=== PATIENT | male | born 1945 | race Caucasian/White ===

== ENCOUNTER 2017-04-16 04:10 | Inpatient (IN) | payer OTHER, BC ==
[~2017-04-16] VITALS: Ht 170.2 cm; Wt 83.5 kg
--- NOTE | 2017-04-16 04:10 | NUR ---
BIBA TO ER BED 10
--- NOTE | 2017-04-16 04:11 | NUR ---
PATIENT IS A 71 Y/O MALE BIB [facility] WHO PRESENTS TO THE ED C/O SOB. PT STATES, "I WAS AT HOME BUT I HAD A HARD TIME BREATHING." PT DENIES PAIN AT THIS TIME. PT REPORTS SOB, WHEEZES NOTED BILATERALLY AND DIMINISHED LUNG SOUNDS TO THE BILATERAL BASES. PT DENIES N/V/D. PT AAOX4, RR EVEN/UNLABORED. PT REPOSITIONED FOR COMFORT, BED IN LOWEST POSITION. ER MD DR. QUIÑONES NOTIFIED. WILL CONTINUE TO MONITOR. Addendum: 04/16/17 at 0430 by MEDDCV PATIENT IS A 71 Y/O MALE BIB [facility] WHO PRESENTS TO THE ED C/O SOB. PER [facility], PT WAS FOUND AT HOME IN TRIPOD POSITION HAVING DIFFICULTY BREATHING, PT WAS PUT ON CPAP. PT STATES, "I WAS AT HOME BUT I HAD A HARD TIME BREATHING." PT DENIES PAIN AT THIS TIME. PT REPORTS SOB, WHEEZES NOTED BILATERALLY AND DIMINISHED LUNG SOUNDS TO THE BILATERAL BASES. PT DENIES N/V/D. PT AAOX4, RR EVEN/UNLABORED. PT REPOSITIONED FOR COMFORT, BED IN LOWEST POSITION. SILVESTRE QUIÑONES NOTIFIED. WILL CONTINUE TO MONITOR.
[2017-04-16 04:18] VITALS: BP 178/80
[2017-04-16 04:47] LABS: BASOPHILS # (AUTO) 0.3 K/uL (0.00-0.22); BASOPHILS % (AUTO) 2.7 % (0.0-2.0); EOSINOPHILS # (AUTO) 0.4 K/uL (0-0.4); EOSINOPHILS % (AUTO) 3.2 % (0.0-4.0); HEMATOCRIT 39.1 % (36-52); HEMOGLOBIN 12.8 g/dL (12.0-18.0); LYMPHOCYTES # (AUTO) 2.8 K/uL (2.0-11.5); LYMPHOCYTES % (AUTO) 21.5 % (20.5-51.1); MEAN CORPUSCULAR HEMOGLOBIN 28 pg (27-31); MEAN CORPUSCULAR HGB CONC 33 g/dL (33-37); MEAN CORPUSCULAR VOLUME 86 fL (80-94); MONOCYTES # (AUTO) 0.8 K/uL (0.8-1.0); MONOCYTES % (AUTO) 6.5 % (1.7-9.3); NEUTROPHILS # (AUTO) 8.5 K/uL (1.8-7.7); NEUTROPHILS % (AUTO) 66.1 % (42.2-75.2); PLATELET COUNT (AUTO) 173 K/uL (140-450); RED BLOOD CELL COUNT(AUTO) 4.54 MIL/uL (4.20-6.10); RED CELL DISTRIBUTION WIDTH 12.8 % (11.6-13.7); WHITE BLOOD COUNT (AUTO) 12.8 K/uL (4.8-10.8)
[2017-04-16 04:51] VITALS: BP 120/60
[2017-04-16 04:55] LABS: ANION GAP 15.8 (8-16); POTASSIUM 3.8 mmol/L (3.5-5.1)
[2017-04-16 04:56] LABS: CREATININE 1.6 mg/dL (0.7-1.3)
--- NOTE | 2017-04-16 05:01 | NUR ---
PATIENT PLACED ON BIPAP SEE RT NOTES NON-INVASIVE VENT AND ABG DONE. PATIENT STABLE ON BIPAP IN ER NO CHANGES MADE AT THIS TIME. RT WILL MONITOR AND WEAN IF APPROPRIATE OR ORDERED BY ER DOCTOR.
[2017-04-16 05:03] LABS: ALBUMIN 3.3 g/dL (3.4-5.0); TOTAL BILIRUBIN 0.7 mg/dL (0.0-1.0)
[2017-04-16] MEDS ORDERED: AZITHROMYCIN 500 MG in DEXTROSE 5% 250 ML IV ONE (05:25)
[2017-04-16] MEDS ORDERED: AZITHROMYCIN 500 MG INJ VIAL IV ONE (05:32)
[2017-04-16] MEDS ORDERED: cefTRIAXone 1,000 MG VIAL ONE (05:32)
[2017-04-16] MEDS ORDERED: ACETAMINOPHEN 325 MG TAB PO PRN (05:35)
[2017-04-16] MEDS ORDERED: ALBUTEROL SULFATE/IPRATROPIU 3 ML SOL IH PRN (05:35)
[2017-04-16] MEDS ORDERED: ONDANSETRON 4 MG/2 ML VIAL IVP PRN (05:35)
--- NOTE | 2017-04-16 05:51 | NUR ---
# 14 FR Urinary catheter inserted utilizing sterile technique. Immediate return of CL YELLOW 45 ml urine noted. Urine sample collected and sent to lab. Pt tolerated procedure WELL.
[2017-04-16] MEDS: CLINDAMYCIN 600 MG in DEXTROSE 5% 50 ML IV SCH ×4 (06:00→23:56)
--- NOTE | 2017-04-16 06:20 | NUR ---
Patient will be admitted to care of DR. SUMNER. Admited to TELE. Will go to room 119B. Belongings list completed. Report to SWATHI WANG.
[2017-04-16 06:30] VITALS: BP 124/58
--- NOTE | 2017-04-16 06:30 | NUR ---
ADMITTED PATIENT TO THE TELE UNIT, PATIENT RESTING IN BED, AWAKE ALERT ORIENTED X4, NO S/S OF DISTRESS NOTED, RESPIRATION EVEN AND UNLABORED, 02SAT 100%, ON BIPAP. TELE MONITOR IS PLACE ON PATIENT, IV PATENT AND INTACT, INFUSING AZITHROMYCIN 500MG AT 250ML/HR. PLAN OF CARE DISCUSSED, PATIENT VERBALIZED UNDERSTANDING, CALL LIGHT WITHIN REACH, SAFETY MEASURE ENSURED, WILL CONTINUE TO MONITOR.
[2017-04-16] MEDS ORDERED: [UNRECOGNIZED DRUG - CODE] PO (06:35)
[2017-04-16] MEDS ORDERED: LIP80 PO (06:35)
[2017-04-16] MEDS ORDERED: FURO-572 PO (06:35)
[2017-04-16] MEDS ORDERED: [UNRECOGNIZED DRUG - CODE] PO (06:35)
[2017-04-16] MEDS ORDERED: METO25TE2 PO (06:35)
[2017-04-16] MEDS ORDERED: ZYL300 PO (06:35)
[2017-04-16] MEDS ORDERED: AMLO10TA PO (06:35)
[2017-04-16] MEDS ORDERED: FERR325E14 PO (06:35)
[2017-04-16] MEDS ORDERED: TAMS0.4C96 PO (06:35)
[2017-04-16] MEDS ORDERED: NITR0.4T2 SL (06:35)
[2017-04-16] MEDS ORDERED: METF1000 PO (06:35)
[2017-04-16] MEDS ORDERED: CLOP75TA55 PO (06:35)
[2017-04-16] MEDS ORDERED: ACET-5636 PO (06:35)
--- NOTE | 2017-04-16 06:50 | NUR ---
DR. CHAVEZ IS AT THE BEDSIDE EXAMINING THE PATIENT.
[2017-04-16] MEDS: NACL 0.9% 1,000 ML IV SCH (06:51)
[2017-04-16] MEDS ORDERED: LEVOFLOXACIN 750 MG/D5W PREMIX 150 ML IV SCH (07:00)
[2017-04-16] MEDS: ALBUTEROL SULFATE/IPRATROPIU 3 ML SOL IH SCH ×3 (07:00→20:19)
--- NOTE | 2017-04-16 07:01 | NUR ---
PATIENT HAS BEEN SCREENED AND CATEGORIZED MODERATE NUTRITION RISK. PATIENT WILL BE SEEN WITHIN 3-5 DAYS OF ADMISSION. 04/17/17-04/19/17 MAGNO HOLLAND MS, RDN
--- NOTE | 2017-04-16 07:15 | NUR ---
ENDORSED PLAN OF CARE TO DAY SHIFT RN, PATIENT RESTING IN BED, NO S/S OF DISTRESS, RESPIRATION EVEN AND UNLABORED, PATIENT IN STABLE CONDITION.
[2017-04-16 07:16] LABS: BARBITURATE, URINE NEG ng/ml (NEG <=200); BENZODIAZEPINE, URINE NEG ng/mL (NEG <=200); CANNABINOID, URINE NEG ng/mL (NEG <=50); COCAINE, URINE NEG ng/mL (NEG <=300); OPIATE, URINE NEG ng/mL (NEG <=2000); PHENCYCLIDINE SCREEN,URINE NEG ng/mL (NEG <=25)
--- NOTE | 2017-04-16 07:17 | NUR ---
RECEIVED REPORT FROM ASSISTANT PROFESSOR OF PHILOSOPHY RN AT BEDSIDE FOR CONTINUITY OF CARE. PATIENT RESTING IN BED, AWAKE ALERT ORIENTED X4, NO S/S OF DISTRESS NOTED, AT BEDSIDE. RESPIRATION EVEN AND UNLABORED, 02SAT 100%, ON BIPAP. TELE MONITOR IS PLACE ON PATIENT, IV PATENT AND INTACT, INFUSING AZITHROMYCIN 500MG AT 250ML/HR. PLAN OF CARE DISCUSSED, PATIENT VERBALIZED UNDERSTANDING, CALL LIGHT WITHIN REACH, SAFETY MEASURE ENSURED, WILL CONTINUE TO MONITOR.
--- NOTE | 2017-04-16 07:26 | NUR ---
REPORT GIVEN TO CIVIL DEFENSE DIRECTOR NURSE AT BEDSIDE FOR CONTINUITY OF CARE. PATIENT IN STABLE CONDITION. Addendum: 04/16/17 at 2021 by Alan Little RN TIME: 1925
--- NOTE | 2017-04-16 07:49 | NUR ---
REC'D PT ON SVETLANA V60 BIPAP SETTINGS 12\6 RR 16 FIO2 60% ALARMS ON AND FUNCTIONING PROPERLY, AMBU BAG IS AT SIDE OF BIPAP AND BIPAP IS PLUGGED INTO RED OUTLET, B\S ARE WHEEZING BILATERALLY, PT IS SLEEPING
[2017-04-16 08:09] LABS: APPEARANCE,URINE CLEAR (CLEAR); BILIRUBIN,URINE NEGATIVE (NEGATIVE); BLOOD, URINE NEGATIVE (NEGATIVE); COLOR,URINE YELLOW (YELLOW); LEUKOCYTE ESTERASE ,URINE NEGATIVE (NEGATIVE); NITRITE, URINE NEGATIVE (NEGATIVE); PH,URINE 5.5 (5.0-9.0); UGLUCOSE NEGATIVE (NEGATIVE)
[2017-04-16] MEDS: DOCUSATE SODIUM 100 MG GELCAP PO SCH ×2 (08:32→21:00)
--- NOTE | 2017-04-16 08:37 | NUR ---
pt off bipap to eat placed on 3lnc o2 sat is 99%
--- NOTE | 2017-04-16 08:39 | NUR ---
PATIENT OFF BIPAP AND ON 4L O2 NC IN ORDER TO EAT BREAKFAST. PATIENT TOLERATED IT WELL, O2 SAT AT 94%. NO S/S OF DISTRESS NOTED, RESPIRATION EVEN AND UNLABORED, CALL LIGHT WITHIN REACH, SAFETY MEASURE IN PLACE, CALL LIGHT WITHIN REACH. WILL CONTINUE TO MONITOR.
[2017-04-16] MEDS ORDERED: methylPREDNISolone SS 125 MG/2 ML VIAL IVP SCH (08:40)
--- NOTE | 2017-04-16 08:40 | NUR ---
ADMINISTERED MORNING MEDICATION, PATIENT TOLERATED IT WELL. PATIENT OFF BIPAP TO EAT BREAKFAST. O2 SATURATION AT 93-94%. AT BEDSIDE. SAFETY PRECAUTIONS IN PLACE. CALL LIGHT WITHIN REACH, WILL CONTINUE TO MONITOR PATIENT.
[2017-04-16 08:58] LABS: MAGNESIUM 1.6 mg/dL (1.8-2.4); PHOSPHORUS 3.8 mg/dL (2.5-4.9)
[2017-04-16 09:05] LABS: RBC,URINE NONE SEEN /HPF (0-5); WBC,URINE 0-5 (RARE) /HPF (0-5)
[2017-04-16 09:12] LABS: FREE T4 (FREE THYROXINE) 1.17 ng/dL (0.76-1.46); THYROID STIMULATING HORMONE 0.59 uIU/mL (0.34-3.74)
--- NOTE | 2017-04-16 09:12 | NUR ---
ABG DRAWN ON LB WITHOUT INCIDENT
[2017-04-16] MEDS ORDERED: NITROGLYCERIN 0.4 MG TAB SL PRN (09:15)
[2017-04-16] MEDS ORDERED: MAG SULF 2000 MG/WATER PREMIX 50 ML IV SCH ×2 (09:15→13:57)
[2017-04-16 09:56] LABS: CHOL/HDL RATIO 2.2 (1-4.5)
[2017-04-16] MEDS: CYCLOBENZAPRINE 10 MG TAB PO SCH ×3 (09:56→17:16)
[2017-04-16 10:00] LABS: PROTHROMBIN TIME 9.1 secs (10.8-13.4)
[2017-04-16] MEDS ORDERED: amLODIPine 5 MG TAB PO SCH (10:26)
[2017-04-16] MEDS ORDERED: ALLOPURINOL 300 MG TAB PO SCH (10:26)
[2017-04-16] MEDS ORDERED: CLOPIDOGREL 75 MG TAB PO SCH (10:27)
[2017-04-16] MEDS ORDERED: ATORVASTATIN 80 MG TAB PO SCH (10:27)
[2017-04-16] MEDS ORDERED: FUROSEMIDE 20 MG TAB PO SCH (10:28)
[2017-04-16] MEDS ORDERED: metFORMIN 500 MG TAB PO SCH ×3 (10:29→17:00)
[2017-04-16] MEDS ORDERED: METOPROLOL 25 MG TAB PO SCH ×2 (10:30→21:00)
[2017-04-16] MEDS ORDERED: TAMSULOSIN 0.4 MG CAP PO SCH ×2 (10:31→21:00)
[2017-04-16] MEDS ORDERED: DEXTROSE 50% 50 ML SYR IVP PRN (11:00)
--- NOTE | 2017-04-16 11:34 | NUR ---
ADMINISTERED ORDER MEDICATIONS. PATIENT TOLERATED IT WELL, NO S/S OF DISTRESS NOTED, RESPIRATION EVEN AND UNLABORED, CALL LIGHT WITHIN REACH, SAFETY MEASURE IN PLACE, CALL LIGHT WITHIN REACH. WILL CONTINUE TO MONITOR.
[2017-04-16] MEDS: BLOOD GLUCOSE MONITORING 1 DEV DEV FS SCH ×3 (11:35→20:25)
[2017-04-16] MEDS: HYDROcodone/APAP 7.5/325 MG 1 TAB PO PRN ×3 (11:39→20:49)
--- NOTE | 2017-04-16 11:40 | NUR ---
PATIENT OFF FLOOR, TO RADIOLOGY FOR THORACIC SPINAL XRAY.
[2017-04-16 12:00] VITALS: BP 129/61
--- NOTE | 2017-04-16 12:00 | NUR ---
PT NOTE 1150 RECEIVED ORDER FOR PT EVAL, CHART REVIEWED AND CLEARED FOR PT PER RN. HOLD PT EVAL DUE TO PENDING XRAY THORACIC SPINE WITH Pt C/O SHARP PAIN ON R SIDE OF BACK DOWN TO PELVIS WHEN TURNING IN BED; WILL FOLLOW UP W/Pt TUESDAY. RN NOTIFIED. PVE(1)
--- NOTE | 2017-04-16 12:25 | NUR ---
PATIENT RETURNED TO FLOOR FROM RADIOLOGY. FAMILY AT BEDSIDE. NO S/S OF DISTRESS NOTED, RESPIRATION EVEN AND UNLABORED, CALL LIGHT WITHIN REACH, SAFETY MEASURE IN PLACE, CALL LIGHT WITHIN REACH. WILL CONTINUE TO MONITOR.
[2017-04-16] MEDS: INSULIN LISPRO SLIDING SCALE 100 UNITS/ML VIAL SUBQ PRN ×3 (12:57→21:00)
[2017-04-16] MEDS: KETOROLAC 10 MG TAB PO SCH ×3 (13:32→23:55)
[2017-04-16] MEDS: methylPREDNISolone SS 125 MG/2 ML VIAL IVP SCH ×2 (13:33→20:32)
--- NOTE | 2017-04-16 14:50 | NUR ---
PATIENT RESTING, FAMILY AT BEDSIDE. NO S/S OF DISTRESS NOTED, RESPIRATION EVEN AND UNLABORED, CALL LIGHT WITHIN REACH, SAFETY MEASURE IN PLACE, CALL LIGHT WITHIN REACH. WILL CONTINUE TO MONITOR.
--- NOTE | 2017-04-16 15:08 | NUR ---
Social Service Note: Per patient's Jennifer (Swiss speaking) , patient lives at home with her. She reported they do not have any difficulty filling patient's prescriptions at home. She stated prior to hospital admission patient was independent with adls. She stated he does not use any dmes at home, no home O2, no home health services. Pcp is Donnie Danielson. She stated patient makes his own medical decisions. She stated they (patient and her) do not have any questions at this time, no concerns.
--- NOTE | 2017-04-16 15:53 | NUR ---
PATIENT C/O PAIN IN BACK D/T S/P FALL 09/04. NORCO PRN GIVEN. PATIENT TOLERATED IT WELL. NO S/S OF DISTRESS NOTED, RESPIRATION EVEN AND UNLABORED, CALL LIGHT WITHIN REACH, SAFETY MEASURE IN PLACE, CALL LIGHT WITHIN REACH. WILL CONTINUE TO MONITOR.
[2017-04-16 16:00] VITALS: BP 121/55
--- NOTE | 2017-04-16 17:16 | NUR ---
VENOUS DOPPLER BEING PERFORMED. ADMINISTERED ORDERED MEDICATIONS. PATIENT TOLERATED THEM WELL. NO S/S OF DISTRESS NOTED, RESPIRATION EVEN AND UNLABORED, CALL LIGHT WITHIN REACH, SAFETY MEASURE IN PLACE, CALL LIGHT WITHIN REACH. WILL CONTINUE TO MONITOR.
--- NOTE | 2017-04-16 19:15 | NUR ---
PATIENT REPORT RECEIVED FROM MORNING NURSE AT BEDSIDE. PATIENT IS AWAKE, ALERT AND ORIENTED. PATIENT'S FAMILY IS AT BEDSIDE. NO SIGNS AND SYMPTOMS OF DISTRESS OF NOTED, NO COMPLAINTS OF PAIN AT THIS TIME. PATIENT IS ON O2 4L VIA OXYMIZER, PATIENT TOLERATING WELL. PLAN OF CARE DISCUSSED WITH PATIENT. PATIENT VERBALIZED UNDERSTANDING. BED IN LOWEST POSITION, SIDE RAILS UP AND CALL LIGHT WITHIN REACH. WILL CONTINUE TO MONITOR.
[2017-04-16] MEDS ORDERED: GABA-638 PO (19:35)
[2017-04-16 20:00] VITALS: BP 113/50
[2017-04-16] MEDS ORDERED: GABAPENTIN 300 MG CAP PO SCH (20:10)
--- NOTE | 2017-04-16 20:20 | NUR ---
AWAKE AND ALERT RESPONSIVE NO EVIDENCE OF PULMONARY DISTRESS NOTED PATIENT DENIES SOB BIPAP NOT REQUIRED AT THIS TIME ON STANDBY
[2017-04-16] MEDS: TAMSULOSIN 0.4 MG CAP PO SCH (20:31)
[2017-04-16] MEDS ORDERED: PROPAFENONE HCL 150 MG PO SCH (21:00)
--- NOTE | 2017-04-16 21:00 | NUR ---
PATIENT REFUSED COLACE, STATED THAT HE ALREADY HAD A BOWEL MOVEMENT THIS MORNING. HE SAID HE WILL JUST TAKE THE SCHEDULED COLACE TOMORROW MORNING.
--- NOTE | 2017-04-16 22:30 | NUR ---
CHECKED ON PATIENT. PATIENT IS ASLEEP. NO SIGNS AND SYMPTOMS OF DISTRESS NOTED. BREATHING EVEN AND UNLABORED. BED IN LOWEST POSITION, SIDE RAILS UP AND CALL LIGHT WITHIN REACH. WILL CONTINUE TO MONITOR.
[2017-04-17] VITALS: BP 121/53
--- NOTE | 2017-04-17 00:45 | NUR ---
ASSISTED PATIENT WITH AMBULATING TO THE RESTROOM. PATIENT VOIDED. NO SIGNS AND SYMPTOMS OF DISTRESS NOTED. NO SOB. WILL CONTINUE TO MONITOR.
--- NOTE | 2017-04-17 01:00 | NUR ---
PATIENT PICKED UP BY [facility] TO GET PULMONARY VQ SCAN DONE IN RADIOLOGY. PATIENT LEFT IN WHEELCHAIR WITH O2 4L VIA OXYMIZER
--- NOTE | 2017-04-17 01:30 | NUR ---
PATIENT RETURNED FROM RADIOLOGY. PATIENT AMBULATED BACK TO BED FROM WHEELCHAIR. PATIENT COMPLAINED OF 5/10 BACK PAIN. WILL MEDICATE ORDERED.
[2017-04-17] MEDS: HYDROcodone/APAP 7.5/325 MG 1 TAB PO PRN ×3 (01:43→21:02)
[2017-04-17 04:00] VITALS: BP 126/53
[2017-04-17] MEDS: methylPREDNISolone SS 125 MG/2 ML VIAL IVP SCH (05:30)
[2017-04-17] MEDS: CLINDAMYCIN 600 MG in DEXTROSE 5% 50 ML IV SCH ×4 (05:31→23:07)
[2017-04-17] MEDS: KETOROLAC 10 MG TAB PO SCH ×4 (05:31→23:07)
[2017-04-17] MEDS: NACL 0.9% 1,000 ML IV SCH (05:43)
[2017-04-17] MEDS: INSULIN LISPRO SLIDING SCALE 100 UNITS/ML VIAL SUBQ PRN ×4 (05:47→21:07)
[2017-04-17] MEDS: BLOOD GLUCOSE MONITORING 1 DEV DEV FS SCH ×4 (06:31→20:42)
--- NOTE | 2017-04-17 07:07 | NUR ---
PATIENT REPORT GIVEN TO MORNING NURSE AT BEDSIDE. PATIENT IS IN STABLE CONDITION.
--- NOTE | 2017-04-17 07:08 | NUR ---
RECEIVED REPORT FROM GREENS TIER RN AT BEDSIDE FOR CONTINUITY OF CARE. PATIENT RESTING IN BED, AWAKE ALERT ORIENTED X4, NO S/S OF DISTRESS NOTED, RESPIRATION EVEN AND UNLABORED, 02SAT 94% ON 4L OXYMIZER. PATIENT ON TELE MONITOR. IV ON R AC, PATENT AND INTACT, INFUSING NS AT 20ML/HR. PLAN OF CARE DISCUSSED, PATIENT VERBALIZED UNDERSTANDING, CALL LIGHT WITHIN REACH, SAFETY MEASURE ENSURED, WILL CONTINUE TO MONITOR PATIENT.
[2017-04-17 07:24] LABS: ANION GAP 15.7 (8-16); CARBON DIOXIDE 20.9 mmol/L (21-32); CREATININE 1.7 mg/dL (0.7-1.3); POTASSIUM 4.6 mmol/L (3.5-5.1)
[2017-04-17 07:33] LABS: MAGNESIUM 2.4 mg/dL (1.8-2.4); PHOSPHORUS 4.3 mg/dL (2.5-4.9)
[2017-04-17 07:36] LABS: HEMATOCRIT 30.2 % (36-52); MEAN CORPUSCULAR HEMOGLOBIN 28 pg (27-31); MEAN CORPUSCULAR HGB CONC 33 g/dL (33-37); MEAN CORPUSCULAR VOLUME 85 fL (80-94); PLATELET COUNT (AUTO) 116 K/uL (140-450); RED BLOOD CELL COUNT(AUTO) 3.55 MIL/uL (4.20-6.10); RED CELL DISTRIBUTION WIDTH 12.1 % (11.6-13.7); WHITE BLOOD COUNT (AUTO) 6.1 K/uL (4.8-10.8)
[2017-04-17] MEDS: ALBUTEROL SULFATE/IPRATROPIU 3 ML SOL IH SCH ×3 (07:42→19:55)
[2017-04-17 08:00] VITALS: BP 127/61
[2017-04-17] MEDS: METOPROLOL 25 MG TAB PO SCH ×2 (08:50→20:44)
[2017-04-17] MEDS: ALLOPURINOL 300 MG TAB PO SCH (08:50)
[2017-04-17] MEDS: GABAPENTIN 300 MG CAP PO SCH ×3 (08:50→17:23)
[2017-04-17] MEDS: FUROSEMIDE 20 MG TAB PO SCH (08:51)
[2017-04-17] MEDS: FERROUS SULFATE 325 MG TABEC PO SCH (08:51)
[2017-04-17] MEDS: CYCLOBENZAPRINE 10 MG TAB PO SCH ×3 (08:52→17:34)
[2017-04-17] MEDS: amLODIPine 5 MG TAB PO SCH (08:52)
[2017-04-17] MEDS: CLOPIDOGREL 75 MG TAB PO SCH (08:52)
[2017-04-17] MEDS: DOCUSATE SODIUM 100 MG GELCAP PO SCH ×2 (08:52→20:43)
[2017-04-17] MEDS: TAMSULOSIN 0.4 MG CAP PO SCH ×2 (08:52→20:44)
[2017-04-17] MEDS: ATORVASTATIN 80 MG TAB PO SCH (08:52)
[2017-04-17] MEDS ORDERED: ATORVASTATIN 80 MG TAB PO SCH (09:00)
[2017-04-17] MEDS ORDERED: amLODIPine 5 MG TAB PO SCH (09:00)
[2017-04-17] MEDS ORDERED: ALLOPURINOL 300 MG TAB PO SCH (09:00)
[2017-04-17] MEDS ORDERED: FERROUS SULFATE 325 MG TABEC PO SCH (09:00)
[2017-04-17] MEDS ORDERED: FUROSEMIDE 20 MG TAB PO SCH (09:00)
[2017-04-17] MEDS ORDERED: CLOPIDOGREL 75 MG TAB PO SCH (09:00)
--- NOTE | 2017-04-17 09:02 | NUR ---
ADMINISTERED MORNING MEDICATIONS. PATIENT TOLERATED THEM WELL. UPDATED BOARD. UPDATED PATIENT WITH PLAN OF CARE, PATIENT VERBALIZED UNDERSTANDING. SAFETY PRECAUTIONS IN PLACE, CALL LIGHT WITHIN REACH, WILL CONTINUE TO MONITOR PATIENT.
[2017-04-17 09:08] LABS: BASOPHILS % (MANUAL) 0 % (0-2); EOSINOPHILS % (MANUAL) 0 % (0-4); LYMPHOCYTES % (MANUAL) 8 % (20-46); MONOCYTES % (MANUAL) 2 % (5-12)
--- NOTE | 2017-04-17 10:07 | NUR ---
ASSISTED PATIENT TO THE BATHROOM. PATIENT AMBULATED WITH ASSIST ON STEADY GAIT. PATIENT DENIES PAIN. BREATHING EVEN AND UNLABORED. SAFETY PRECAUTIONS IN PLACE, CALL LIGHT WITHIN REACH. WILL CONTINUE TO MONITOR PATIENT.
[2017-04-17 12:00] VITALS: BP 128/60
[2017-04-17] MEDS: methylPREDNISolone SS 40 MG/ML VIAL IVP SCH ×2 (12:28→20:43)
--- NOTE | 2017-04-17 12:28 | NUR ---
ADMINISTERED ORDERED MEDICATIONS, BLOOD SUGAR 350, COVERAGE GIVEN. PATIENT COMPLAINED OF BACK PAIN 6/10, NORCO PRN ADMINISTERED. PATIENT TOLERATED THEM WELL.NO SIGNS OF DISTRESS OR SOB NOTED. SAFETY PRECAUTION IN PLACE, CALL LIGHT WITHIN REACH, WILL CONTINUE TO MONITOR PATIENT.
--- NOTE | 2017-04-17 15:10 | NUR ---
PATIENT AMBULATED TO THE BATHROOM WITH ASSIST ON STEADY GAIT. PATIENT DENIES PAIN. BREATHING EVEN AND UNLABORED. AT 94% OXYGEN SATURATION ON O2 4L OXYMIZER. SAFETY PRECAUTIONS IN PLACE, CALL LIGHT WITHIN REACH. WILL CONTINUE TO MONITOR PATIENT.
[2017-04-17 16:00] VITALS: BP 127/65
--- NOTE | 2017-04-17 17:24 | NUR ---
ADMINISTERED ORDERED MEDICATIONS, PATIENT TOLERATED THEM WELL. FAMILY AT BEDSIDE. NO SIGNS OF DISTRESS OR SOB NOTED. SAFETY PRECAUTION IN PLACE. CALL LIGHT WITHIN REACH. WILL CONTINUE TO MONITOR PATIENT.
--- NOTE | 2017-04-17 19:08 | NUR ---
REPORT GIVEN TO IMAGING NURSE NURSE AT BEDSIDE FOR CONTINUITY OF CARE. IS AT BEDSIDE. PATIENT IN STABLE CONDITION.
--- NOTE | 2017-04-17 19:10 | NUR ---
PATIENT REPORT RECEIVED FROM MORNING NURSE AT BEDSIDE. PATIENT IS AWAKE, ALERT AND ORIENTED. PATIENT'S IS AT BEDSIDE. NO SIGNS AND SYMPTOMS OF DISTRESS NOTED. PATIENT ON 4L O2 VIA OXYMIZER. NO COMPLAINTS OF PAIN AT THIS TIME. PLAN OF CARE DISCUSSED WITH PATIENT. PATIENT VERBALIZED UNDERSTANDING. BED IN LOWEST POSITION, SIDE RAILS UP AND CALL LIGHT WITHIN REACH. WILL CONTINUE TO MONITOR.
[2017-04-17 20:00] VITALS: BP 136/58
--- NOTE | 2017-04-17 21:00 | NUR ---
NOTIFIED DR. MALHOTRA OF PATIENT'S PLATELET LEVEL OF 116, SAID THAT IT WAS OK TO GIVE HEPARIN
--- NOTE | 2017-04-17 21:30 | NUR ---
RESPIRATORY THERAPIST NOTIFIED THAT PATIENT IS NOW ON 3L O2 NC. PATIENT O2 SAT AROUND 95%. WILL CONTINUE TO MONITOR.
[2017-04-18] VITALS: BP 143/67
[2017-04-18 04:00] VITALS: BP 159/63
[2017-04-18] MEDS: methylPREDNISolone SS 40 MG/ML VIAL IVP SCH (04:55)
[2017-04-18] MEDS: KETOROLAC 10 MG TAB PO SCH ×4 (05:00→23:58)
[2017-04-18] MEDS: CLINDAMYCIN 600 MG in DEXTROSE 5% 50 ML IV SCH ×3 (05:01→18:09)
[2017-04-18] MEDS: NACL 0.9% 1,000 ML IV SCH (05:07)
[2017-04-18] MEDS: INSULIN LISPRO SLIDING SCALE 100 UNITS/ML VIAL SUBQ PRN ×3 (05:52→16:40)
[2017-04-18 06:29] LABS: BASOPHILS % (AUTO) 0.5 % (0.0-2.0); EOSINOPHILS % (AUTO) 0.6 % (0.0-4.0); HEMOGLOBIN 10.4 g/dL (12.0-18.0); LYMPHOCYTES # (AUTO) 0.7 K/uL (2.0-11.5); LYMPHOCYTES % (AUTO) 7.9 % (20.5-51.1); MEAN CORPUSCULAR HEMOGLOBIN 29 pg (27-31); MEAN CORPUSCULAR HGB CONC 34 g/dL (33-37); MEAN CORPUSCULAR VOLUME 86 fL (80-94); MONOCYTES # (AUTO) 0.5 K/uL (0.8-1.0); MONOCYTES % (AUTO) 6.3 % (1.7-9.3); NEUTROPHILS # (AUTO) 7.1 K/uL (1.8-7.7); NEUTROPHILS % (AUTO) 84.7 % (42.2-75.2); PLATELET COUNT (AUTO) 150 K/uL (140-450); RED BLOOD CELL COUNT(AUTO) 3.63 MIL/uL (4.20-6.10); RED CELL DISTRIBUTION WIDTH 12.5 % (11.6-13.7); WHITE BLOOD COUNT (AUTO) 8.3 K/uL (4.8-10.8)
[2017-04-18 07:07] LABS: ANION GAP 14.3 (8-16); CARBON DIOXIDE 24.6 mmol/L (21-32); POTASSIUM 4.9 mmol/L (3.5-5.1)
[2017-04-18] MEDS: ALBUTEROL SULFATE/IPRATROPIU 3 ML SOL IH SCH ×3 (07:16→19:15)
--- NOTE | 2017-04-18 07:20 | NUR ---
PATIENT REPORT GIVEN TO MORNING NURSE AT BEDSIDE. PATIENT IS IN STABLE CONDITION
--- NOTE | 2017-04-18 07:23 | NUR ---
PATIENT IS AAOX4 AND SHOWS NO S/S OF ACUTE DISTRESS ON O2 @ 3L VIA NC. ON TELE MONITOR. IV NOTED ON THE RIGHT AC WITH IVF'S INFUSING WELL. SKIN IS INTACT, WITH SCABS ON BILATERAL FOREARMS, DENIES PAIN. PATIENT WAS EXPLAINED TO USE THE CALL LIGHT FOR ASSISTANCE, HOSPITAL ENVIRONMENT, AND POC. PATIENT SAFETY PRECAUTIONS ARE IN PLACE. BED IN LOW POSITION WITH CALL LIGHT WITHIN REACH.
[2017-04-18] MEDS: BLOOD GLUCOSE MONITORING 1 DEV DEV FS SCH ×4 (07:30→20:55)
[2017-04-18 07:44] LABS: CREATININE 1.5 mg/dL (0.7-1.3)
[2017-04-18 08:00] VITALS: BP 157/71
[2017-04-18] MEDS ORDERED: metFORMIN 500 MG TAB PO SCH (08:00)
[2017-04-18] MEDS ORDERED: CLINICAL MONITORING MC PRN (08:15)
[2017-04-18] MEDS: DOCUSATE SODIUM 100 MG GELCAP PO SCH ×2 (08:41→21:01)
[2017-04-18] MEDS: FERROUS SULFATE 325 MG TABEC PO SCH (08:41)
[2017-04-18] MEDS: FUROSEMIDE 20 MG TAB PO SCH (08:42)
[2017-04-18] MEDS: CYCLOBENZAPRINE 10 MG TAB PO SCH ×3 (08:42→16:36)
[2017-04-18] MEDS: TAMSULOSIN 0.4 MG CAP PO SCH ×2 (08:42→21:01)
[2017-04-18] MEDS: ALLOPURINOL 300 MG TAB PO SCH (08:43)
[2017-04-18] MEDS: GABAPENTIN 300 MG CAP PO SCH ×3 (08:43→16:36)
[2017-04-18] MEDS: CLOPIDOGREL 75 MG TAB PO SCH (08:43)
[2017-04-18] MEDS: METOPROLOL 25 MG TAB PO SCH ×2 (08:44→21:01)
[2017-04-18] MEDS: amLODIPine 5 MG TAB PO SCH (08:44)
[2017-04-18] MEDS: ATORVASTATIN 80 MG TAB PO SCH (08:45)
--- NOTE | 2017-04-18 08:55 | NUR ---
ADMINISTERED SCHEDULED MEDICATIONS, PATIENT SWALLOWED WITHOUT DIFFICULTY. PATIENT STATED HE HAS SOME BACK PAIN 07/05, WILL ADMINISTER NORCO 7.5/325 MG PO FOR PAIN AND REASSESS PAIN IN ONE HR. ALL NEEDS MET AT THIS TIME.
[2017-04-18] MEDS ORDERED: LEVOFLOXACIN 750 MG/D5W PREMIX 150 ML IV SCH (09:00)
--- NOTE | 2017-04-18 09:00 | NUR ---
PATIENT PUT ON ROOM AIR AND PATIENT DESATURATED TO 89-91%. ON 3L VIA NC PATIENT IS AT 92-94% O2 SAT.
[2017-04-18] MEDS: HYDROcodone/APAP 7.5/325 MG 1 TAB PO PRN ×2 (09:09→15:35)
--- NOTE | 2017-04-18 10:25 | NUR ---
PATIENT BEING SEEN BY PHYSICAL THERAPY AND AMB ON UNIT.
--- NOTE | 2017-04-18 10:30 | NUR ---
PATIENT STATES 1 BACK PAIN. AT BEDSIDE. ALL NEEDS MET AT THIS TIME.
--- NOTE | 2017-04-18 10:40 | NUR ---
PATIENT BEING SEEN BY DR PADILLA.
[2017-04-18 12:00] VITALS: BP 152/70
--- NOTE | 2017-04-18 12:55 | NUR ---
ADMINISTERED SCHEDULED MEDICATIONS, PATIENT SWALLOWED WITHOUT DIFFICULTY. IV ABX INFUSING WELL. ALL NEEDS MET AT THIS TIME.
[2017-04-18 15:31] VITALS: BP 150/61
--- NOTE | 2017-04-18 15:40 | NUR ---
PATIENT C/O LEFT FOOT PAIN 09/04. ADMINISTERED NORCO 7.5/325 MG PO. WILL REASSESS PAIN IN ONE HR.
--- NOTE | 2017-04-18 18:10 | NUR ---
ADMINISTERED SCHEDULED MEDICATIONS, PATIENT SWALLOWED WITHOUT DIFFICULTY. IV ABX INFUSING WELL ALL NEEDS MET AT THIS TIME.
--- NOTE | 2017-04-18 19:25 | NUR ---
PATIENT REPORT GIVEN AT BEDSIDE TO NIGHT NURSE. PATIENT ENDORSED IN STABLE CONDITION.
--- NOTE | 2017-04-18 19:35 | NUR ---
RECEIVED REPORT FROM AM NURSE. PT RESTING IN BED, AOX4, AMBULATORY, ABLE TO VERBALIZE NEEDS. PT C/O TOLERABLE LOWER BACK PAIN, HEATING PAD IN PLACE. PT C/O TOLERABLE BLE PAIN, WILL MONITOR. PT DENIES CHEST PAIN, SOB OR S/S OF ACUTE DISTRESS. SPO2 92% ON ROOM AIR, RR 22 EVEN AND UNLABORED. IV ACCESS ASYMPTOMATIC, PATENT AND INTACT. IVF INFUSING WELL. DISCUSSED AND REVIEWED PLAN OF CARE WITH PT. PT VERBALIZED UNDERSTANDING. ALL NEEDS MET. SAFETY MEASURES ENSURED. CALL LIGHT WITHIN REACH.
[2017-04-18 20:00] VITALS: BP 145/65
[2017-04-18] MEDS: INSULIN NPH HUM/REG INSULIN HM 100 UNIT/ML 10 ML VIAL SUBQ SCH (21:07)
--- NOTE | 2017-04-18 21:10 | NUR ---
BLOOD GLUCOSE 170, CALLED DR MALHOTRA, CLARIFIED INSULIN ORDER, DISCUSSED THAT PT HAS IS NOW OFF SOLUMEDROL IVP 16HRS AGO AND BLOOD GLUCOSE TRENDS HAS DECREASED, ORDERS RECEIVED TO GIVE DUE MED HUMULIN 70-30 10UNITS SUBQ AND HOLD REGULAR INSULIN HUMALOG 2UNITS SLIDING SCALE COVERAGE, ADMINISTERED REMAINING DUE MEDS WITH EDUCATION, PT TOLERATED MEDS WELL. ALL NEEDS MET.
[2017-04-19] VITALS: BP 142/60
[2017-04-19] MEDS: CLINDAMYCIN 600 MG in DEXTROSE 5% 50 ML IV SCH ×2 (00:01→05:47)
--- NOTE | 2017-04-19 00:02 | NUR ---
PT C/O LEG PAIN. SEE PAIN ASSESSMENT. ADMINISTERED DUE MED TORADOL PO WITH EDUCATION. ADMINISTERED DUE MED CLEOCIN IVPB WITH EDUCATION. PT VERBALIZED UNDERSTANDING. ALL NEEDS MET. IVPB INFUSING WELL. SAFETY MEASURES ENSURED. CALL LIGHT WITHIN REACH.
--- NOTE | 2017-04-19 04:30 | NUR ---
PT RESTING COMFORTABLY, NO S/S OF ACUTE DISTRESS. ALL NEEDS MET. SAFETY MEASURES ENSURED. CALL LIGHT WITHIN REACH.
[2017-04-19] MEDS: NACL 0.9% 1,000 ML IV SCH (05:35)
[2017-04-19] MEDS: KETOROLAC 10 MG TAB PO SCH (05:47)
[2017-04-19] MEDS: BLOOD GLUCOSE MONITORING 1 DEV DEV FS SCH ×2 (06:36→11:30)
[2017-04-19] MEDS: INSULIN LISPRO SLIDING SCALE 100 UNITS/ML VIAL SUBQ PRN (06:37)
--- NOTE | 2017-04-19 06:39 | NUR ---
BLOOD GLUCOSE 163, INSULIN COVERAGE ADMINISTERED WITH EDUCATION. PT VERBALIZED UNDERSTANDING, TOLERATED MED WELL. ALL NEEDS MET. SAFETY MEASURES ENSURED. CALL LIGHT WITHIN REACH.
[2017-04-19 06:45] LABS: BASOPHILS # (AUTO) 0.2 K/uL (0.00-0.22); BASOPHILS % (AUTO) 2.2 % (0.0-2.0); EOSINOPHILS # (AUTO) 0.1 K/uL (0-0.4); HEMATOCRIT 33.7 % (36-52); HEMOGLOBIN 11.3 g/dL (12.0-18.0); LYMPHOCYTES # (AUTO) 1.6 K/uL (2.0-11.5); LYMPHOCYTES % (AUTO) 19.2 % (20.5-51.1); MEAN CORPUSCULAR HEMOGLOBIN 28 pg (27-31); MEAN CORPUSCULAR HGB CONC 34 g/dL (33-37); MEAN CORPUSCULAR VOLUME 85 fL (80-94); MONOCYTES # (AUTO) 0.7 K/uL (0.8-1.0); MONOCYTES % (AUTO) 8.9 % (1.7-9.3); NEUTROPHILS # (AUTO) 5.8 K/uL (1.8-7.7); NEUTROPHILS % (AUTO) 68.7 % (42.2-75.2); PLATELET COUNT (AUTO) 134 K/uL (140-450); RED BLOOD CELL COUNT(AUTO) 3.97 MIL/uL (4.20-6.10); WHITE BLOOD COUNT (AUTO) 8.4 K/uL (4.8-10.8)
[2017-04-19] MEDS: ALBUTEROL SULFATE/IPRATROPIU 3 ML SOL IH SCH (06:57)
--- NOTE | 2017-04-19 07:15 | NUR ---
ENDORSED PLAN OF CARE TO AM NURSE. CONDITION STABLE.
--- NOTE | 2017-04-19 07:16 | NUR ---
RECEIVED REPORT FROM PM NURSE AT BEDSIDE FOR CONTINUITY OF CARE. PT RESTING IN BED, AOX4, AMBULATORY, ABLE TO VERBALIZE NEEDS. PT C/O TOLERABLE LOWER BACK PAIN, HEATING PAD IN PLACE. PT DENIES CHEST PAIN, SOB OR S/S OF ACUTE DISTRESS, BREATHING EVEN AND UNLABORED. IV ACCESS TO RT AC 20G, ASYMPTOMATIC, PATENT AND INTACT, WITH NS @ 20ML/HR. DISCUSSED AND REVIEWED PLAN OF CARE WITH PT. PT VERBALIZED UNDERSTANDING. ALL NEEDS MET. SAFETY MEASURES IN PLACE. CALL LIGHT WITHIN REACH. WILL CONTINUE TO MONITOR PATIENT.
[2017-04-19 07:40] LABS: ANION GAP 14.2 (8-16); CARBON DIOXIDE 28.8 mmol/L (21-32); CREATININE 1.3 mg/dL (0.7-1.3)
[2017-04-19 08:00] VITALS: BP 145/77
[2017-04-19] MEDS ORDERED: HUM7030 SUBQ (08:57)
[2017-04-19] MEDS ORDERED: CLIN300C2 PO (09:00)
[2017-04-19] MEDS ORDERED: LEVO750T2 PO (09:00)
[2017-04-19] MEDS ORDERED: INUL1CTB PO (09:00)
[2017-04-19] MEDS ORDERED: LANC-947 MC (09:04)
[2017-04-19] MEDS ORDERED: BLOO-224 MC (09:04)
[2017-04-19] MEDS: ALLOPURINOL 300 MG TAB PO SCH (09:46)
[2017-04-19] MEDS: DOCUSATE SODIUM 100 MG GELCAP PO SCH (09:46)
[2017-04-19] MEDS: METOPROLOL 25 MG TAB PO SCH (09:47)
[2017-04-19] MEDS: GABAPENTIN 300 MG CAP PO SCH (09:47)
[2017-04-19] MEDS: amLODIPine 5 MG TAB PO SCH (09:47)
[2017-04-19] MEDS: CLOPIDOGREL 75 MG TAB PO SCH (09:47)
[2017-04-19] MEDS: FERROUS SULFATE 325 MG TABEC PO SCH (09:47)
[2017-04-19] MEDS: ATORVASTATIN 80 MG TAB PO SCH (09:48)
[2017-04-19] MEDS: FUROSEMIDE 20 MG TAB PO SCH (09:48)
[2017-04-19] MEDS: CYCLOBENZAPRINE 10 MG TAB PO SCH (09:48)
[2017-04-19] MEDS: TAMSULOSIN 0.4 MG CAP PO SCH (09:48)
--- NOTE | 2017-04-19 09:48 | NUR ---
ADMINISTERED MORNING MEDICATIONS. PATIENT TOLERATED THEM WELL. PATIENT DENIES PAIN. NO SIGNS OF DISTRESS OR SOB NOTED. SAFETY PRECAUTIONS IN PLACE, CALL LIGHT WITHIN REACH. WILL CONTINUE TO MONITOR PATIENT.
[2017-04-19] MEDS: INSULIN NPH HUM/REG INSULIN HM 100 UNIT/ML 10 ML VIAL SUBQ SCH (10:05)
--- NOTE | 2017-04-19 10:05 | NUR ---
DR. PADILLA IN TO SEE THE PATIENT. WILL AWAIT NEW ORDERS.
--- NOTE | 2017-04-19 11:30 | NUR ---
DISCHARGE INSTRUCTIONS AND EDUCATION GIVEN. IV REMOVED, CANNULA INTACT. ID BANDS CUT. PATIENT WILL CHANGE AND WAIT FOR HIS TO COME AND PICK HIM UP.
--- NOTE | 2017-04-19 12:30 | NUR ---
PATIENT CURRENTLY EATING LUNCH. AT BEDSIDE. SAFETY PRECAUTIONS IN PLACE, WILL CONTINUE TO MONITOR.
--- NOTE | 2017-04-19 12:50 | NUR ---
PATIENT AMBULATED OFF OF THE FLOOR ACCOMPANIED BY HIS AND RN. PATIENT IN STABLE CONDITION.
== END 2017-04-19 12:50 | disposition home or self-care (01) | DRG 871 ==
LOC: MED 04:10 → MTU 05:35
PROVIDERS: ADMIT Family Medicine Sports Medicine; ATTEND Family Medicine Sports Medicine
PROC: 5A09357 Assistance with Respiratory Ventilation, Less than 24 Consecutive Hours, Continuous Positive Airway Pressure (ICD-10-PCS; principal; 2017-04-16)
DX: A41.9 Sepsis, unspecified organism (principal); J69.0 Pneumonitis due to inhalation of food and vomit; J96.01 Acute respiratory failure with hypoxia; N17.0 Acute kidney failure with tubular necrosis; I50.43 Acute on chronic combined systolic (congestive) and diastolic (congestive) heart failure; E11.21 Type 2 diabetes mellitus with diabetic nephropathy; D68.59 Other primary thrombophilia; J44.1 Chronic obstructive pulmonary disease with (acute) exacerbation; I13.0 Hypertensive heart and chronic kidney disease with heart failure and stage 1 through stage 4 chronic kidney disease, or unspecified chronic kidney disease; E11.65 Type 2 diabetes mellitus with hyperglycemia; E11.22 Type 2 diabetes mellitus with diabetic chronic kidney disease; E11.51 Type 2 diabetes mellitus with diabetic peripheral angiopathy without gangrene; I25.10 Atherosclerotic heart disease of native coronary artery without angina pectoris; I25.5 Ischemic cardiomyopathy; I70.8 Atherosclerosis of other arteries; M47.814 Spondylosis without myelopathy or radiculopathy, thoracic region; N40.0 Benign prostatic hyperplasia without lower urinary tract symptoms; N18.9 Chronic kidney disease, unspecified; E78.00 Pure hypercholesterolemia, unspecified; Z86.711 Personal history of pulmonary embolism; Z87.891 Personal history of nicotine dependence; Z95.5 Presence of coronary angioplasty implant and graft; Z79.4 Long term (current) use of insulin; Z79.899 Other long term (current) drug therapy
CPT/HCPCS: 36415; 36600; 71045; 72072; 78582; 80048; 80053; 80305; 81001; 82803; 82948; 83036; 83605; 83735; 83880; 84100; 84439; 84443; 84484; 85025; 85379; 85610; 85730; 87040; 87070; 87081; 87086; 87205; 89220; 93925; 93970; 94640; 94660; 96365; 96367; 99291; C1758; J0456; J0696; J1644; J1815; J1956; J2920; J2930; J3475; J3490; J7030; J7060; J7620; Q0092

== ENCOUNTER 2017-04-30 02:33 | Inpatient (IN) | payer OTHER, BC ==
[~2017-04-30] VITALS: Ht 172.7 cm; Wt 82.1 kg
[2017-04-30] VITALS (68 sets, daily range): BP systolic 84–152; BP diastolic 48–90
[~2017-04-30 02:33] MED LIST: ACET-5636 PO; AMLO10TA PO; BLOO-224 MC; CLIN300C2 PO; CLOP75TA55 PO; FERR325E14 PO; FURO-572 PO; GABA-638 PO; HUM7030 SUBQ; INUL1CTB PO; LANC-947 MC; LEVO750T2 PO; LIP80 PO; METO25TE2 PO; NITR0.4T2 SL; TAMS0.4C96 PO; ZYL300 PO; [UNRECOGNIZED DRUG - CODE] PO; [UNRECOGNIZED DRUG - CODE] PO
--- NOTE | 2017-04-30 02:33 | NUR ---
0227- PT BIBA ALS. TAKEN TO BED 11. RT AND DR. BRADLEY AT BEDSIDE
--- NOTE | 2017-04-30 02:34 | NUR ---
PT BIBA C/O SOB, PT BROUGHT IN ON CPAP , GASPING FOR AIR, LABORED RESPIRATION, ACCESSORY MUSCLE USE, PT RESTLESS SITTING IN BED. Addendum: 04/30/17 at 0325 by MEDWL HX CHF
--- NOTE | 2017-04-30 02:35 | NUR ---
CODE BLUE CALLED, REFER TO CODE SHEET FOR PROCEDURE.
--- NOTE | 2017-04-30 02:35 | NUR ---
CODE BLUE CALLED. RT, REWORKER, AND DR. BRADLEY AT BEDSIDE
--- NOTE | 2017-04-30 02:35 | NUR ---
PT HR DROPPING, PT UNRESPONSIVE . DR BRADLEY AT BEDSIDE FOR CODE BLUE.
--- NOTE | 2017-04-30 02:40 | NUR ---
pt is intubated, pt is pullling at tubing and restless will follow orders for propofol drip.
[2017-04-30] MEDS ORDERED: PROPOFOL 1000 MG/100 ML PREMIX 100 ML IV ONE ×2 (02:48→02:50)
--- NOTE | 2017-04-30 03:00 | NUR ---
PT VSS, WILL CONTINUE TO MONITOR.
--- NOTE | 2017-04-30 03:05 | NUR ---
PT WAS INCONTINENT TO URINE AND FECES, BED LINENS CHANGED, PT PLACED IN NEW HOSPITAL GOWN.
--- NOTE | 2017-04-30 03:15 | NUR ---
PROPOFOL DRIP STARTED AT 5ML/HR B/P 132/56, HR 123 0320- PT AWAKE AND RESTLESS PROPOFOL DRIP TITRATED TO 10ML/HR B/P 107/54, HR 98 0325- PT CONTINUES TO BE RESTLESS AND PULLING/BITING TUBING INCREASED DRIP TO 15ML/HR, B/P 103/45, HR 100 0330- PT CONTINUES TO BE RESTLESS TITRATE DRIP TO 20 ML/HR 0335- PT CONTINUES TO BE RESTLESS TITRATE DRIP TO 25ML/HR 0340 - PT IS SEDATED , B/P 88/38, HR 90 0345- PT IS SEDATED , B/P 89/45, HR 88 0350 - TITRATED DRIP TO 20 ML/HR TO INCREASE B/P 0355- DRIP AT 20ML/HR, B/P 90/50 0420- PT IS AWAKE AND RESTLESS, B/P 110/53 0425- DRIP AT 25 ML/HR 0430- B/P 89/47 DRIP TITRATED TO 20ML/HR 0440- B/P 112/56, DRIP AT 20ML/HR
--- NOTE | 2017-04-30 03:20 | NUR ---
PT IS PULLING AT TUBES, ALERNATIVE MEASURES EXHAUSTED, WILL APPLY SOFT RESTRAINTS.
[2017-04-30 03:31] LABS: HEMATOCRIT 33.3 % (36-52); HEMOGLOBIN 10.9 g/dL (12.0-18.0); MEAN CORPUSCULAR HEMOGLOBIN 29 pg (27-31); MEAN CORPUSCULAR HGB CONC 33 g/dL (33-37); MEAN CORPUSCULAR VOLUME 87 fL (80-94); PLATELET COUNT (AUTO) 226 K/uL (140-450); RED BLOOD CELL COUNT(AUTO) 3.84 MIL/uL (4.20-6.10); RED CELL DISTRIBUTION WIDTH 12.7 % (11.6-13.7); WHITE BLOOD COUNT (AUTO) 16.8 K/uL (4.8-10.8)
[2017-04-30 03:44] LABS: APPEARANCE,URINE CLEAR (CLEAR); BILIRUBIN,URINE NEGATIVE (NEGATIVE); BLOOD, URINE TRACE-I (NEGATIVE); COLOR,URINE YELLOW (YELLOW); LEUKOCYTE ESTERASE ,URINE NEGATIVE (NEGATIVE); NITRITE, URINE NEGATIVE (NEGATIVE); UGLUCOSE 2+ (NEGATIVE)
[2017-04-30 03:45] LABS: PROTHROMBIN TIME 11.5 secs (10.8-13.4)
[2017-04-30] MEDS ORDERED: FUROSEMIDE 40 MG/4 ML VIAL IVP ONE (03:45)
[2017-04-30 03:49] LABS: EOSINOPHILS % (MANUAL) 1 % (0-4); LYMPHOCYTES % (MANUAL) 19 % (20-46); MONOCYTES % (MANUAL) 6 % (5-12)
[2017-04-30 03:50] LABS: ALBUMIN 2.9 g/dL (3.4-5.0); CARBON DIOXIDE 26.3 mmol/L (21-32); CREATININE 1.7 mg/dL (0.7-1.3); POTASSIUM 4.3 mmol/L (3.5-5.1); TOTAL BILIRUBIN 0.4 mg/dL (0.0-1.0)
[2017-04-30 04:04] LABS: RBC,URINE 11-20 (MOD) /HPF (0-5)
[2017-04-30 04:05] LABS: WBC,URINE 0-5 (RARE) /HPF (0-5)
[2017-04-30] MEDS ORDERED: PIPERACILLIN/TAZOBACTAM 4.5 GM in DEXTROSE 5% 100 ML IV ONE (04:20)
--- NOTE | 2017-04-30 04:20 | NUR ---
PT AT BEDSIDE, TALKING W/ ER MD.
[2017-04-30] MEDS ORDERED: ACETAMINOPHEN 325 MG TAB PO PRN (04:25)
[2017-04-30] MEDS ORDERED: ONDANSETRON 4 MG/2 ML VIAL IVP PRN (04:25)
[2017-04-30] MEDS: NACL 0.9% 1,000 ML IV SCH ×2 (04:25→23:57)
[2017-04-30] MEDS ORDERED: HYDROcodone/APAP 7.5/325 MG 1 TAB PO PRN (04:25)
[2017-04-30] MEDS ORDERED: PIPERACILLIN/TAZOBACTAM 2.25 GM VIAL IV ONE (04:26)
--- NOTE | 2017-04-30 04:27 | NUR ---
0230 CODE BLUE CALLED RT BAGGING WITH 100% FIO2 AND CPR BEING DONE ACLS DRUGS BEING ADMINISTERED. PT INTUBATED WITH 7.5CM TUBE AT 23 LIP LINE. TUBE TAPED WITH ANCHOR FAST. PT PLACED ON VENT WITH AC 12 VT 500 PEEP 5CM AND FIO2 100%. SXNED LG AMT OF FROTHY CORONA SECRETIONS. UNABLE TO GET SPUTUM SAMPLE DUE TO POOR SAMPLE. WILL TRY LATER. ABG PENDING
--- NOTE | 2017-04-30 04:55 | NUR ---
RECEIVED PT FROM ER VIA GURNEY.TRANSFERRED TO ICU BED 1. MONITORS ATTACHED.AFIB NOTED ON MONITOR.PT ORALLY INTUBATED.FIO2 80% TV500 AC12 PEEP5.SPUTUM SPEC SENT TO LAB.W/PERIPHERAL IV TO LT F/AG 20,SALINE LOCK AND RT F/A G18 INFUSING PROPOFOL DRIP AT 20MCG/KG/MIN (10.32ML/HR).W/NGT TO LT NARES INTACT.CLAMPED.W/ORO CATHETER TO BSD DRAINING CLEAR YELLOW URINE, ADEQUATE AMT.SKIN INTACT.W/OLD SCAR TO RT GROIN.FLACC 0 Addendum: 04/30/17 at 0722 by Toyin Paul RN W/BILATERAL SOFT WRIST RESTRAINTS ALREADY IN PLACE.NO INJURIES NOTED
--- NOTE | 2017-04-30 05:00 | NUR ---
Patient will be admitted to care of DR. SUMNER . Admited to ICU. Will go to room ICU BED 1 . Belongings list completed. Report to
[2017-04-30] MEDS ORDERED: DEXTROSE 50% 50 ML SYR IVP PRN (05:05)
[2017-04-30] MEDS ORDERED: ALBUTEROL SULFATE/IPRATROPIU 3 ML SOL IH PRN (05:05)
--- NOTE | 2017-04-30 05:08 | NUR ---
0449 TRANSFERED PT TO ICU 1. BAGGING PT WITH 100%. PLACED BACK ON THE VENT AC12 VT500 PEEP5 80%
[2017-04-30] MEDS ORDERED: LORazepam 2 MG/ML VIAL IVP SCH (05:10)
[2017-04-30 05:25] LABS: CHOL/HDL RATIO 2.5 (1-4.5); FREE T4 (FREE THYROXINE) 1.19 ng/dL (0.76-1.46); MAGNESIUM 1.9 mg/dL (1.8-2.4); PHOSPHORUS 5.8 mg/dL (2.5-4.9); THYROID STIMULATING HORMONE 0.89 uIU/mL (0.34-3.74)
--- NOTE | 2017-04-30 05:30 | NUR ---
DR LEVY IN THE UNIT. CONSENT FOR CENTRAL LINE PLACEMENT RIGHT VS LEFT SIGNED BY HERBERT WHITTAKER, PTS .PTS SON MEHDI ALSO AT BEDSIDE.UPDATED ON PTS CONDITION.QUESTIONS ANSWERED. PTS FAMILY ALSO SPOKE W/ DR LEVY
--- NOTE | 2017-04-30 05:35 | NUR ---
TRIPLE LUMEN CATHETER TO RT IJ INSERTED BY DR LEVY, XRAY ORDERED
[2017-04-30] MEDS: ALBUTEROL SULFATE/IPRATROPIU 3 ML SOL IH SCH ×3 (07:00→18:46)
[2017-04-30] MEDS ORDERED: NITROGLYCERIN 0.4 MG TAB SL PRN ×2 (07:05→08:25)
--- NOTE | 2017-04-30 07:15 | NUR ---
REPORT GIVEN TO DAVID WANG.
--- NOTE | 2017-04-30 07:30 | NUR ---
RECEIVED PT FROM PM RN, PT UNRESPONSIVE TO NAME STIMULI, BEDSIDE MONITOR SHOWS A-FIB, ETT TO VENT WITH FIO2 80%, TV 500, AC 12, PEEP 5. IV TO RIGHT AC #18 RUNNING PROPOFOL AT 20 MCG/KG/MIN AND LEFT FA #20 RUNNING NS AT 50 MLS/HR. SITE INTACT AND PATENT. PT ALSO HAS ONE RIGHT IJ TLC IN PLACE, ORO CATH IN PLACE WITH CLEAR YELLOW URINE NOTED, ABDOMEN SOFT WITH ACTIVE BOWEL SOUND. HOB ELEVATED 30 DEGREES WITH LOW BED POSITION. WILL CONTINUE TO MONITOR. Addendum: 04/30/17 at 1116 by Margarito Villarreal RN PT ON RESTRAIN WHEN I GOT REPORT.
[2017-04-30] MEDS ORDERED: NITROGLYCERIN 0.4 MG TAB SL SCH (07:35)
--- NOTE | 2017-04-30 07:39 | NUR ---
RECEIVED PT ON CARESCAPEON A/C 12 VT 500 PEEP5 FIO2 80 ALARMS ARE ON AND FUCNTIONAL BMV HOB PTS ET TUBE IS SECURE 23 CM BS DIMINSHED PTIN HF ASLEEP PT IS RESTRAINED FAMILY BEDSIDE HHN WITH HELD DUE OT HIGH HEARTRATE I\L SX NO DISTRES NOTED VENT PLUGGED INTO RED OUTLET
[2017-04-30] MEDS: BLOOD GLUCOSE MONITORING 1 DEV DEV FS SCH ×4 (07:53→20:40)
--- NOTE | 2017-04-30 08:00 | NUR ---
TURNED AND REPOSITIONED PT, ORAL CARE GIVEN. PT NPO .
[2017-04-30] MEDS: PANTOPRAZOLE 40 MG INJ VIAL IVP SCH (08:06)
[2017-04-30] MEDS: INSULIN LISPRO SLIDING SCALE 100 UNITS/ML VIAL SUBQ PRN ×3 (08:07→20:44)
[2017-04-30] MEDS: fentaNYL 1 MG in NACL 0.9% 80 ML IV PRN (08:32)
[2017-04-30] MEDS: MIDAZOLAM MDV 50 MG in NACL 0.9% 40 ML IV PRN (08:35)
--- NOTE | 2017-04-30 08:45 | NUR ---
PATIENT HAS BEEN SCREENED AND CATEGORIZED HIGH RISK FOR TF CONSULT. PATIENT WILL BE SEEN WITHIN 1-2 DAYS OF ADMISSION. 05/02/[address]
[2017-04-30] MEDS ORDERED: METOPROLOL 25 MG TAB PO SCH (09:00)
[2017-04-30] MEDS ORDERED: METOPROLOL SUCCINATE 50 MG TABER PO SCH (09:00)
--- NOTE | 2017-04-30 09:00 | NUR ---
DUE MEDS CAN NOT GIVE DUE TO PT IS NPO.
--- NOTE | 2017-04-30 09:41 | NUR ---
04/30/17 RD INITIAL ASSESSMENT COMPLETED Please refer to nutrition assessment under care activity for estimated needs. Recommendations: Initiate TF with Nutren Pulmonary at 25ml/hr advance by 25ml after 4 hours as tolerated to goal rate 50ml/hr + Pro-Source TID. Provides: 1290ml, 1980 kcals, 127g protein, 938ml free water RD will follow up in 2-3 days; high risk. Adeola Schwab RD, [facility]
[2017-04-30] MEDS: methylPREDNISolone SS 125 MG/2 ML VIAL IVP SCH ×3 (10:07→20:40)
[2017-04-30] MEDS: LACTOBACILLUS RHAMNOSUS GG 1 EACH CAP NG SCH (10:49)
[2017-04-30] MEDS: DOCUSATE SODIUM 100 MG GELCAP PO SCH ×2 (10:49→20:40)
[2017-04-30] MEDS: CLOPIDOGREL 75 MG TAB PO SCH (10:49)
[2017-04-30] MEDS: GABAPENTIN 300 MG CAP PO SCH ×3 (10:49→16:45)
[2017-04-30] MEDS: TAMSULOSIN 0.4 MG CAP PO SCH ×2 (10:49→20:41)
[2017-04-30] MEDS: amLODIPine 5 MG TAB PO SCH (10:50)
[2017-04-30] MEDS: LISINOPRIL 5 MG TAB PO SCH (10:51)
[2017-04-30] MEDS: ASPIRIN 81 MG TAB.CHEW PO SCH (10:51)
[2017-04-30] MEDS: ATORVASTATIN 80 MG TAB PO SCH (10:52)
[2017-04-30] MEDS: ALLOPURINOL 300 MG TAB PO SCH (10:53)
[2017-04-30] MEDS: FUROSEMIDE 20 MG TAB PO SCH (10:57)
--- NOTE | 2017-04-30 11:10 | NUR ---
US TECH AT BEDSIDE.
--- NOTE | 2017-04-30 11:22 | NUR ---
DECREASE FIO2 TO 70 SPO2 100
--- NOTE | 2017-04-30 12:00 | NUR ---
TURNED AND REPOSITIONED PT, ORAL CARE GIVEN. FINGER BS CHECKED 148, NO INSULIN COVERAGE NEEDED.
--- NOTE | 2017-04-30 12:30 | NUR ---
DR. HAMILTON IN TO SEE PT, NOTIFIED PT'S CONDITION AND MADE DR. LATIF AWARE PT'S HR 135S
[2017-04-30] MEDS ORDERED: METOPROLOL 25 MG TAB NG ONE (12:34)
[2017-04-30] MEDS ORDERED: METOPROLOL 25 MG TAB NG SCH (13:00)
--- NOTE | 2017-04-30 13:11 | NUR ---
DECREASE FIO2 TO 60 SPO2 100 SX PT VISITOR BEDSIDE
--- NOTE | 2017-04-30 14:46 | NUR ---
PT'S AND SON AT BEDSIDE. QUESTION ANSWERED. PT STAYING IN BED, NO S/S OF RESPIRATORY DISTRESS NOTED.
--- NOTE | 2017-04-30 15:12 | NUR ---
Social Service Note: Patient was previous admitted and discharged from our hospital. I called patient's Jennifer to obtain patient's information. Information remains the same from previous hospital admission, no changes. Per patient's Jennifer (Turkmen speaking) , patient lives at home with her. She reported they do not have any difficulty filling patient's prescriptions at home. She stated prior to hospital admission patient was independent with adls. She stated he does not use any dmes at home, no home O2, no home health services. Pcp is Donnie Danielson. She stated patient makes his own medical decisions. She stated she does not have any questions at this time, no concerns.
--- NOTE | 2017-04-30 16:45 | NUR ---
FINGER BS 227, INSULIN 4 UNITS SUB GIVEN
--- NOTE | 2017-04-30 17:18 | NUR ---
DECREASE FIO2 TO 50 SPO2 96
--- NOTE | 2017-04-30 18:40 | NUR ---
STARTED PT ON TUBE FEEDING. BEFORE STARTING, RESIDUAL AND PLACEMENT CHECKED. NO RESIDUAL.
--- NOTE | 2017-04-30 18:57 | NUR ---
RECEIVED PT STABLE ON VENT SUPPORT AT DOCUMENTED SETTINGS, SUCTIONED SCANT WHITE THIN SECRETIONS, HHN TX GIVEN, TOLERATED TX WELL, NO RESP DISTRESS OR SOB NOTED AT THIS TIME, 7.5 ETT SECURED AT 23 CM AT LIP, ALARMS SET AND AUDIBLE, AMBU BAG AT BEDSIDE, VENT PLUGGED INTO RED OUTLET, WILL CONT TO MONITOR.
--- NOTE | 2017-04-30 19:10 | NUR ---
ENDORSED PT TO SENIOR MARKETING ENGINEER RN.
--- NOTE | 2017-04-30 19:20 | NUR ---
ASSUMED CARE OF PT.INITIAL ASSESSMENT COMPLETED.PT SEDATED.OPENS EYES TO NAME AND TOUCH STIMULI.AFIB ON MONITOR.ETT TO VENT FI02 50 TV500 AC12 PEEP5. NGT TO LT NARES INTACT.PLACEMENT VERIFIED,ON CONTINUOUS TUBE FEEDING NUTREN PULMONARY AT 25ML/HR.W/TLC TO RT IJ INTACT,WITH GOOD BLOOD RETURN TO ALL 3 PORTS INFUSING ORDERED IVF,FENTANYL DRIP AT 40MCG/HR(4ML/HR) AND VERSED DRIP AT 1MG/HR(1ML/HR).W/ORO CATHETER TO BSD DRAINING ADEQUATE AMT OF YELLOW URINE.FLACC 0.REPOSITIONED.
--- NOTE | 2017-04-30 20:00 | NUR ---
ORAL CARE USING VAP KIT RENDERED.PT ON DAILY PROTONIX FOR GI PROPHYLAXIS AND SCD TO BLE FOR DVT PROPHYLAXIS. FAMILY AT BEDSIDE.UPDATED ON PTS PRESENT CONDITION.QUESTIONS ANSWERED
--- NOTE | 2017-04-30 20:30 | NUR ---
PTS WENDY HARDING AT BEDSIDE.UPDATED ON PTS CONDITION.GAVE MEHDI PTS 1 GOLD COLORED RING, WITNESSED BY ТАТЬЯНА FERREIRA RN.
[2017-04-30] MEDS: METOPROLOL 25 MG TAB NG SCH (20:48)
[2017-04-30] MEDS ORDERED: ATORVASTATIN 20 MG TAB PO SCH (21:00)
--- NOTE | 2017-04-30 23:25 | NUR ---
RT AT BEDSIDE.02SAT 96%.FIO2 DECREASED TO 40%.
[2017-05-01] VITALS (99 sets, daily range): BP systolic 84–156; BP diastolic 40–82
--- NOTE | 2017-05-01 | NUR ---
NO RESIDUAL NOTED.TUBE FEEDING NUTREN PULMONARY INCREASED TO 50ML ORDERED.WILL CONTINUE TO MONITOR RESIDUALS. ORAL CARE USING VAP KIT RENDERED.SECRETIONS SUCTIONED.PT STILL TRYING TO GET UP.BILATERAL SOFT WRIST RESTRAINTS STILL IN PLACE.NO INJURIES NOTED.SKIN REMAINS INTACT.REPOSITIONED.
--- NOTE | 2017-05-01 02:00 | NUR ---
PT VERY RESTLESS; VERSED DRIP INCREASED.PT REPOSITIONED.FLACC 0
[2017-05-01] MEDS: MIDAZOLAM MDV 50 MG in NACL 0.9% 40 ML IV PRN (03:13)
--- NOTE | 2017-05-01 04:00 | NUR ---
PT AFEBRILE.ORAL CARE USING VAP KIT DONE.REPOSITIONED.FLACC 0
[2017-05-01] MEDS: fentaNYL 1 MG in NACL 0.9% 80 ML IV PRN ×2 (04:28→23:04)
[2017-05-01] MEDS: methylPREDNISolone SS 125 MG/2 ML VIAL IVP SCH ×3 (05:27→20:14)
--- NOTE | 2017-05-01 05:43 | NUR ---
MORNING CARE DONE.COMPLETE LINEN CHANGED.NO BM NOTED THIS SHIFT.PT APPEARS COMFORTABLE.VERSED DRIP NOW AT 5MG/HR(5ML/HR) AND FENTANYL DRIP STILL AT 40MCG/HR(4ML/HR).FLACC 0.STILL WITH BILATERAL SOFT WRIST RESTRAINTS.NO SIGNS OF INJURY NOTED.
[2017-05-01] MEDS: ALBUTEROL SULFATE/IPRATROPIU 3 ML SOL IH SCH ×3 (06:09→18:54)
--- NOTE | 2017-05-01 06:09 | NUR ---
REC'D PT ON CARESCAPE VENT SETTINGS AC12 VT 500 PEEP 5 FIO2 40% ALARMS ON AND FUNCTIONING PROPERLY, AMBU BAG IS AT SIDE OF VENT AND VENT IS PLUGGED INTO RED OUTLET, I\L TX GIVEN WITH DUONEB 3ML WITH NO ADVERSE REACTION POST TX B\S ARE CLEAR BILATERALLY, SXN PT SMALL AMT OF WHITE SECRETIONS, PT IS ORALLY INTUBATED WITH 7.5 ET TUBE SECURED WITH ANCHOR FAST AT 23 CM AND SKIN INTEGRITY IS INTACT
[2017-05-01 06:11] LABS: ANION GAP 15.9 (8-16); CARBON DIOXIDE 27.7 mmol/L (21-32); CREATININE 1.4 mg/dL (0.7-1.3); POTASSIUM 4.6 mmol/L (3.5-5.1)
[2017-05-01 06:12] LABS: HEMATOCRIT 30.6 % (36-52); MEAN CORPUSCULAR HEMOGLOBIN 28 pg (27-31); MEAN CORPUSCULAR HGB CONC 33 g/dL (33-37); MEAN CORPUSCULAR VOLUME 85 fL (80-94); PLATELET COUNT (AUTO) 151 K/uL (140-450); RED BLOOD CELL COUNT(AUTO) 3.59 MIL/uL (4.20-6.10); RED CELL DISTRIBUTION WIDTH 12.5 % (11.6-13.7); WHITE BLOOD COUNT (AUTO) 8.5 K/uL (4.8-10.8)
[2017-05-01 06:26] LABS: MAGNESIUM 1.7 mg/dL (1.8-2.4); PHOSPHORUS 4.5 mg/dL (2.5-4.9)
--- NOTE | 2017-05-01 07:07 | NUR ---
report given to stelal melvin for continuity of care.pt asleep;not in any distress.
--- NOTE | 2017-05-01 07:30 | NUR ---
RECEIVED PT FROM PM RN, PT UNRESPONSIVE TO NAME STIMULI, BEDSIDE MONITOR SHOWS A-FIB, ETT TO VENT WITH FIO2 40%, TV 500, AC 12, PEEP 5. IV TO RIGHT AC #18 ,LEFT FA #20 RUNNING NS AT 50 MLS/HR. SITE INTACT AND PATENT. PT ALSO HAS ONE RIGHT IJ TLC RUNNING FENTANYL 40 MCG/HR AND VERSED 5 MG/HR. POSITIVE BLOOD RETURN.NG TUBE IN PLACE RUNNING NUTREN PULMONARY AT 50 MLS/HR. ORO CATH IN PLACE WITH CLEAR YELLOW URINE NOTED, ABDOMEN SOFT WITH ACTIVE BOWEL SOUND. HOB ELEVATED 30 DEGREES WITH LOW BED POSITION. WILL CONTINUE TO MONITOR.
[2017-05-01 07:54] LABS: BASOPHILS % (MANUAL) 0 % (0-2); EOSINOPHILS % (MANUAL) 0 % (0-4); LYMPHOCYTES % (MANUAL) 7 % (20-46); MONOCYTES % (MANUAL) 1 % (5-12)
[2017-05-01] MEDS ORDERED: methylPREDNISolone SS 125 MG/2 ML VIAL IVP SCH (08:00)
--- NOTE | 2017-05-01 08:00 | NUR ---
TURNED AND REPOSITIONED PT, ORAL CARE GIVEN. PT IS RESTLESS AT THIS TIME, TRIED AND SIT UP, REORIENTED PT, PT STILL RESTLESS, KICK LEGS . INCREASED VERSED TO 6 MG/HR.
[2017-05-01] MEDS: BLOOD GLUCOSE MONITORING 1 DEV DEV FS SCH ×4 (08:08→20:13)
[2017-05-01] MEDS: INSULIN LISPRO SLIDING SCALE 100 UNITS/ML VIAL SUBQ PRN ×4 (08:10→20:32)
[2017-05-01] MEDS: DOCUSATE SODIUM 100 MG GELCAP PO SCH ×2 (08:12→20:14)
[2017-05-01] MEDS: PANTOPRAZOLE 40 MG INJ VIAL IVP SCH (08:12)
[2017-05-01] MEDS: amLODIPine 5 MG TAB PO SCH (08:13)
[2017-05-01] MEDS: METOPROLOL 25 MG TAB NG SCH ×2 (08:13→20:15)
[2017-05-01] MEDS: ASPIRIN 81 MG TAB.CHEW PO SCH (08:13)
[2017-05-01] MEDS: LACTOBACILLUS RHAMNOSUS GG 1 EACH CAP NG SCH (08:13)
[2017-05-01] MEDS: LISINOPRIL 5 MG TAB PO SCH (08:14)
[2017-05-01] MEDS: ATORVASTATIN 80 MG TAB PO SCH (08:14)
[2017-05-01] MEDS: GABAPENTIN 300 MG CAP PO SCH ×3 (08:14→16:26)
[2017-05-01] MEDS: TAMSULOSIN 0.4 MG CAP PO SCH ×2 (08:14→20:14)
[2017-05-01] MEDS: FUROSEMIDE 20 MG TAB PO SCH (08:14)
[2017-05-01] MEDS: CLOPIDOGREL 75 MG TAB PO SCH (08:14)
[2017-05-01] MEDS: ALLOPURINOL 300 MG TAB PO SCH (08:15)
--- NOTE | 2017-05-01 08:30 | NUR ---
PT IS SLEEPING QUIETLY AT THIS TIME, NO S/S OF RESPIRATORY DISTRESS NOTED.
--- NOTE | 2017-05-01 08:48 | NUR ---
VENT CHECK NO SXN NEEDED PT SLEEPING
--- NOTE | 2017-05-01 10:30 | NUR ---
PT'S AT BEDSIDE.
--- NOTE | 2017-05-01 10:45 | NUR ---
VENT CHECK, SXN PT SMALL AMT OF CLEAR SECRETIONS FAMILY AT BEDSIDE
--- NOTE | 2017-05-01 12:00 | NUR ---
TURNED AND REPOSITIONED PT, ORAL CARE GIVEN. PT FINGER BS [id number], INSULIN 8 UNITS SUBQ GIVEN.
[2017-05-01] MEDS: MIDAZOLAM MDV 100 MG in NACL 0.9% 80 ML IV PRN (12:07)
--- NOTE | 2017-05-01 13:00 | NUR ---
VENT CHECK, NO SXN REQUIRED AT THIS TIME B\S ARE CLEAR AND PT IS SLEEPING WITH NO SIGNS OF DISTRESS NOTED NO TX GIVEN
--- NOTE | 2017-05-01 13:16 | NUR ---
PT STAYING IN BED QUIETLY, DECREASED VERSED DRIP TO 4 MCG/HR. BP 91/45, HR 74. RR 15, O2 SAT 94%.
--- NOTE | 2017-05-01 13:55 | NUR ---
PT WAKES UP, TRIED TO PULL OUT NG TUBE AND SIT UP, INCREASED VERSED TO 5 MCG/HR
--- NOTE | 2017-05-01 14:24 | NUR ---
PT STILL RESTLESS, INCREASED VERSED TO 6 MG/H.
--- NOTE | 2017-05-01 14:30 | NUR ---
PT CALMS DOWN AT THIS TIME. NO S/S OF RESPIRATORY DISTRESS NOTED.
--- NOTE | 2017-05-01 14:43 | NUR ---
VENT CHECK, SXN PT SMALL AMT OF WHITE SECRETIONS PT IS RESTING AND AIRWAY IS PATENT
--- NOTE | 2017-05-01 15:33 | NUR ---
PT'S SON AT BEDSIDE.
--- NOTE | 2017-05-01 16:56 | NUR ---
VENT CHECK NO SXN NEEDED PT SLEEPING FAMILY AT BEDSIDE
--- NOTE | 2017-05-01 18:00 | NUR ---
TURNED AND REPOSITIONED PT, BED BATH GIVEN, PT STAYING QUIETLY IN BED.NO S/S OF RESPIRATORY DISTRESS NOTED. PT'S SONS AT BEDSIDE.
--- NOTE | 2017-05-01 19:02 | NUR ---
RECEIVED PT STABLE ON VENT SUPPORT AT DOCUMENTED SETTINGS, SUCTIONED SMALL AMOUNTS OF YELLOW GREEN THICK SECRETIONS, HHN TX GIVEN, TOLERATED WELL, NO RESP DISTRESS OR SOB NOTED AT THIS TIME, 7.5 ETT SECURED AND PATENT AT 23 CM AT THE LIP, ALARMS SET AND AUDIBLE, AMBU BAG AT BEDSIDE, VENT PLUGGED INTO RED OUTLET, WILL CONT TO MONITOR.
--- NOTE | 2017-05-01 19:20 | NUR ---
BED SIDE REPORT RECEIVED FROM MORNING NURSE, KATHLEEN HERNANDEZ. PT IS SEDATED WITH VERSED AND FENTANYL DRIP WITH RASS -3 AT THIS TIME. PERRL. BILATERAL LUNGS SOUND CLEAR. NGT TO LEFT NARE. PLACEMENT CHECKED AND RESIDUAL NOTED ZERO. ETT TO VENT AC12, FIO2 40, TV 500, PEEP 5. CENTRAL LIGHT RIGHT IJ AND IV SALINE LOCKS TO RIGHT AC 18G AND LEFT WRIST 20G. ALL PATENT AND ASYMPTOMATIC. BOWEL SOUNDS ACTIVE. SKIN INTACT. CAP REFILL WITHIN 3 SEC. SCD ON BILATERAL LOWER EXTREMITIES. ON CONTINUOUS CARDIAC MONITORING SHOWING AFIB ON THE MONITOR. FLACC 0. AFEBRILE. CALL LIGHT IN REACH AND HOB KEPT ELEVATED 30 DEGREES. BED KEPT TO THE LOWEST POSITION. WILL CONTINUE TO MONITOR. Addendum: 05/01/17 at 1957 by Shital Shankar RN ADD TO THE ASSESSMENT: ORO CATHETER DRAINING VIA GRAVITY.
[2017-05-01] MEDS: NACL 0.9% 1,000 ML IV SCH (19:37)
--- NOTE | 2017-05-01 20:15 | NUR ---
SX=006/47. HR=80. LOPRESSOR NOT ADMINISTERED. WILL CONTINUE TO MONITOR.
--- NOTE | 2017-05-01 22:20 | NUR ---
FAMILY AT BED SIDE AND DR. PARSON ANSWERING QUESTIONS AT THIS TIME.
[2017-05-02] VITALS (107 sets, daily range): BP systolic 90–146; BP diastolic 44–97
--- NOTE | 2017-05-02 | NUR ---
ORAL VAP CARE PROVIDED AND REPOSITIONED. KEPT CLEAN AND DRY. AFIB ON CONTINUOUS VICE PRESIDENT CLIENT SERVICES. VENT SETTING WITH NO CHANGE FROM THE START OF SHIFT. CONTINUING WITH FENTANYL AND VERSED DRIPS WITH RASS -3. NO ACUTE DISTRESS NOTED. WILL CONTINUE TO MONITOR.
--- NOTE | 2017-05-02 03:18 | NUR ---
AFIB ON MONITOR WITH IRREGULAR HR. VENT SETTING WITH NO CHANGE AND SATING 95%. FLACC 0. CONTINUING WITH FENTANYL AND VERSED DRIPS WITH RASS -3. VS WITHOUT ANY ACUTE DISTRESS. DR. PARSON MADE AWARE. WILL CONTINUE TO MONITOR.
--- NOTE | 2017-05-02 05:15 | NUR ---
ASSISTED WITH BED BATH, ORO CATH, ORAL VAP KIT CARE, SHAMPOO. PT TOLERATED WELL.
[2017-05-02] MEDS: methylPREDNISolone SS 125 MG/2 ML VIAL IVP SCH ×3 (05:24→20:51)
[2017-05-02 06:18] LABS: HEMATOCRIT 29.9 % (36-52); HEMOGLOBIN 9.6 g/dL (12.0-18.0); MEAN CORPUSCULAR HEMOGLOBIN 28 pg (27-31); MEAN CORPUSCULAR HGB CONC 32 g/dL (33-37); MEAN CORPUSCULAR VOLUME 87 fL (80-94); PLATELET COUNT (AUTO) 154 K/uL (140-450); RED BLOOD CELL COUNT(AUTO) 3.44 MIL/uL (4.20-6.10); RED CELL DISTRIBUTION WIDTH 12.4 % (11.6-13.7); WHITE BLOOD COUNT (AUTO) 7.6 K/uL (4.8-10.8)
[2017-05-02 06:39] LABS: MAGNESIUM 2.2 mg/dL (1.8-2.4); PHOSPHORUS 3.7 mg/dL (2.5-4.9)
[2017-05-02] MEDS: ALBUTEROL SULFATE/IPRATROPIU 3 ML SOL IH SCH ×3 (06:41→18:46)
--- NOTE | 2017-05-02 06:42 | NUR ---
RECEIVED PT ON CARESCAPE ON A/C 12 VT 500 PEEP5 FIO2 40 ALARMS ARE ON AND AUDIBLE PTS ET TUBE IS SECURE 23CM ANCHOR FAST IN PLACE BS CL\DIM PT IN ASLEEP BMV HOB HHN GIVEN I\L WITH 3 MG DUONEB VENT PLUGGED INTO RED OUTLET NO APPARENT DISTRESS
[2017-05-02 06:44] LABS: ANION GAP 10.8 (8-16); CARBON DIOXIDE 29.5 mmol/L (21-32); CREATININE 1.4 mg/dL (0.7-1.3); POTASSIUM 5.3 mmol/L (3.5-5.1)
[2017-05-02] MEDS: BLOOD GLUCOSE MONITORING 1 DEV DEV FS SCH ×4 (06:59→20:45)
[2017-05-02] MEDS: INSULIN LISPRO SLIDING SCALE 100 UNITS/ML VIAL SUBQ PRN ×5 (07:00→20:46)
--- NOTE | 2017-05-02 07:01 | NUR ---
BLOOD [id number]. INSULIN COVERAGE ADMINISTERED PER SLIDING SCALE.
--- NOTE | 2017-05-02 07:25 | NUR ---
BED SIDE REPORT GIVEN TO MORNING NURSE, KATHLEEN HERNANDEZ FOR CONTINUITY OF CARE. VS WITHOUT ACUTE DISTRESS. ALL SAFETY PRECAUTIONS ARE IN PLACE.
--- NOTE | 2017-05-02 07:30 | NUR ---
RECEIVED PT FROM PM RN, PT SEDATED, BEDSIDE MONITOR SHOWS A-FIB, ETT TO VENT WITH FIO2 40%, TV 500, AC 12, PEEP 5. IV TO RIGHT AC #18 ,LEFT FA #20 RUNNING NS AT 50 MLS/HR. SITE INTACT AND PATENT. PT ALSO HAS ONE RIGHT IJ TLC RUNNING FENTANYL 80 MCG/HR AND VERSED 6 MG/HR. POSITIVE BLOOD RETURN.NG TUBE IN PLACE RUNNING NUTREN PULMONARY AT 50 MLS/HR. ORO CATH IN PLACE WITH SMALL CLEAR YELLOW URINE NOTED, ABDOMEN SOFT WITH ACTIVE BOWEL SOUND. HOB ELEVATED 30 DEGREES WITH LOW BED POSITION. WILL CONTINUE TO MONITOR.
[2017-05-02 07:48] LABS: LYMPHOCYTES % (MANUAL) 5 % (20-46); MONOCYTES % (MANUAL) 2 % (5-12)
[2017-05-02] MEDS ORDERED: methylPREDNISolone SS 125 MG/2 ML VIAL IVP SCH (08:00)
--- NOTE | 2017-05-02 08:00 | NUR ---
REPOSITIONED PT, ORAL CARE GIVEN, PT OPENED EYES, UNABLE TO FOLLOW COMMANDS. NO S/S OF RESPIRATORY DISTRESS NOTED.
[2017-05-02] MEDS: CLOPIDOGREL 75 MG TAB PO SCH (08:46)
[2017-05-02] MEDS: GABAPENTIN 300 MG CAP PO SCH ×3 (08:47→17:15)
[2017-05-02] MEDS: amLODIPine 5 MG TAB PO SCH (08:47)
[2017-05-02] MEDS: LACTOBACILLUS RHAMNOSUS GG 1 EACH CAP NG SCH (08:47)
[2017-05-02] MEDS: FUROSEMIDE 20 MG TAB PO SCH (08:47)
[2017-05-02] MEDS: DOCUSATE SODIUM 100 MG GELCAP PO SCH (08:47)
[2017-05-02] MEDS: ASPIRIN 81 MG TAB.CHEW PO SCH (08:47)
[2017-05-02] MEDS: LISINOPRIL 5 MG TAB PO SCH (08:48)
[2017-05-02] MEDS: METOPROLOL 25 MG TAB NG SCH ×2 (08:48→20:52)
[2017-05-02] MEDS: PANTOPRAZOLE 40 MG INJ VIAL IVP SCH (08:48)
[2017-05-02] MEDS: ATORVASTATIN 80 MG TAB PO SCH (08:48)
[2017-05-02] MEDS: TAMSULOSIN 0.4 MG CAP PO SCH ×2 (08:48→20:52)
[2017-05-02] MEDS: ALLOPURINOL 300 MG TAB PO SCH (08:49)
[2017-05-02] MEDS: MIDAZOLAM MDV 100 MG in NACL 0.9% 80 ML IV PRN (08:52)
[2017-05-02] MEDS ORDERED: INSULIN LANTUS 100 UNITS/ML 10 ML VIAL SUBQ SCH (09:00)
--- NOTE | 2017-05-02 10:02 | NUR ---
STARTED SEDATION VACATION PER ORDER. RT AT BEDSIDE.
--- NOTE | 2017-05-02 10:30 | NUR ---
PT WAKES UP, OPENS EYES, RESTLESS, TRIED TO SIT UP, REORIENTED PT HE IS IN HOSPITAL, PT UNABLE TO FOLLOW COMMANDS. PUT PT BACK ON SEDATION. RT, CHARGE NURSE AND ME AT BEDSIDE.
--- NOTE | 2017-05-02 11:00 | NUR ---
PT'S AT BEDSIDE.
[2017-05-02] MEDS: NACL 0.9% 1,000 ML IV SCH (11:55)
--- NOTE | 2017-05-02 11:55 | NUR ---
NOTIFIED PT BS [id number], PER , GIVE INSULIN 12 UNITS SUBQ.
[2017-05-02] MEDS: SODIUM POLYSTYRENE 15 GM/60 ML UDBTL PO SCH ×2 (13:08→17:15)
[2017-05-02] MEDS: fentaNYL 1 MG in NACL 0.9% 80 ML IV PRN (13:13)
--- NOTE | 2017-05-02 14:03 | NUR ---
RECHECKED BS [id number], NOTIFIED . WILL FOLLOW UP.
[2017-05-02] MEDS ORDERED: INSULIN NPH HUM/REG INSULIN HM 100 UNIT/ML 10 ML VIAL SUBQ SCH (14:15)
--- NOTE | 2017-05-02 15:15 | NUR ---
RECHECKED DR. RANDOLPH, NOTIFIED BS 344, SLIDING SCALE INSULIN 8 UNITS GIVEN HIS ORDER, WILL RECHECK IN 2 HOURS. Addendum: 05/02/17 at 1525 by Margarito Villarreal RN RECHECKED PT BS. DR. RANDOLPH NOTIFIED
--- NOTE | 2017-05-02 15:51 | NUR ---
HAVING CONVERSATION WITH PT'S SON
--- NOTE | 2017-05-02 16:05 | NUR ---
TURNED AND REPOSITIONED PT, BED BATH GIVEN WITH CHARGE NURSE. ORAL CARE GIVEN. BED CHANGED.
[2017-05-02] MEDS ORDERED: CALCIUM ACETATE 667 MG TAB PO SCH (17:00)
--- NOTE | 2017-05-02 18:05 | NUR ---
PT RESTING IN BED, NO S/S OF RESPIRATORY DISTRESS NOTED. VITALS STABLE.
[2017-05-02] MEDS ORDERED: FUROSEMIDE 40 MG/4 ML VIAL IVP SCH (18:15)
--- NOTE | 2017-05-02 19:15 | NUR ---
PT HAD MODERATE AMOUNT OF SOFT STOOL, CLEANED PT WITH MARKOS WALKER CHANGED. REPORT GIVEN TO DENISE WANG.
--- NOTE | 2017-05-02 19:16 | NUR ---
RECEIVED REPORT FORM DAVIDRN AT BEDSIDE, PT IS SEDATED, RASS 0, CENTRAL LINE TO RIGHT IJ, TLC, PATENT, RUNNING FANTAYL AT 40MCG/HR, VERSED AT 4MG/HR, AND NS AT 50ML/HR. ETT TO VENT WITH AC SETTING, FIO2 40, TV 500, R 12, PEEP 5, CLEAR LUNG SOUNDS, ST ON END STAPLER, SOFT ABDOMEN NOTED WITH ACTIVE BOWEL SOUNDS, GT IN PLACE, WITH 10 ML RESIDUALS, FEEDING WITH NUTREN PULMONARY AT 50ML/HR. ORO CATHETER IN PLACE WITH CLEAR YELLOW URINE NOTED, GENERALIZED WEAKNESS TO ALL EXTREMITIES, SKIN IS INTACT, WARM AND DRY TO TOUCH, VSS, FLACC 0, HOB ELEVATED 30 DEGREES, ORAL CARE PROVIDED, POSITION CHANGED FOR OFF LOAD PRESSURE, SAFETY PRECAUTION IN PLACE, WILL CONTINUE TO MONITOR.
[2017-05-02] MEDS: DOCUSATE 100 MG/10 ML UDC PO SCH (20:52)
--- NOTE | 2017-05-02 22:06 | NUR ---
PT HAD A MODERATED SOFT YELLOW STOOL, CLARIFIED WITH DR. LEVY, IT IS OK TO CHECK POTASSIUM LEVEL IN THE MORNING LAB DRAW, NO NEED AT THIS TIME.
[2017-05-02] MEDS: PIPER/TAZO 3.375GM/D5W PREMIX 50 ML IV SCH (23:17)
[2017-05-03] VITALS (104 sets, daily range): BP systolic 90–173; BP diastolic 49–107
--- NOTE | 2017-05-03 | NUR ---
PT IS WAKING UP AND MOVING HIS ARMS AND LEGS, TRYING TO PULL OUT THE ETT, INCREASED SEDATION AT THIS TIME, VSS. ORAL CARE PROVIDED, POSITION CHANGED FOR OFF LOAD PRESSURE.
--- NOTE | 2017-05-03 02:00 | NUR ---
NO CHANGE OF CONDITION AT THIS TIME, VSS, POSITION CHANGED FOR OFF LOAD PRESSURE.
--- NOTE | 2017-05-03 04:00 | NUR ---
AM CARE AND F/C PROVIDED, PT HAD A SMALL YELLOW SOFT BM, GIANLUCA CARE PROVIDED, ORAL CARE PERFORMED, POSITION CHANGED FOR OFF LOAD PRESSURE, PT IS AWAKE, TRYING TO PULL OUT THE TUBING, NOT ABLE TO FOLLOW COMMANDS, INCREASED SEDATION.
[2017-05-03] MEDS ORDERED: methylPREDNISolone SS 40 MG/ML VIAL IVP SCH ×2 (05:00→08:00)
[2017-05-03 05:04] LABS: HEMATOCRIT 31.5 % (36-52); HEMOGLOBIN 10.1 g/dL (12.0-18.0); MEAN CORPUSCULAR HEMOGLOBIN 28 pg (27-31); MEAN CORPUSCULAR HGB CONC 32 g/dL (33-37); MEAN CORPUSCULAR VOLUME 86 fL (80-94); PLATELET COUNT (AUTO) 153 K/uL (140-450); RED BLOOD CELL COUNT(AUTO) 3.66 MIL/uL (4.20-6.10); RED CELL DISTRIBUTION WIDTH 12.5 % (11.6-13.7)
[2017-05-03] MEDS: PIPER/TAZO 3.375GM/D5W PREMIX 50 ML IV SCH ×4 (05:27→23:00)
[2017-05-03] MEDS: MIDAZOLAM MDV 100 MG in NACL 0.9% 80 ML IV PRN (05:28)
[2017-05-03] MEDS: fentaNYL 1 MG in NACL 0.9% 80 ML IV PRN ×2 (05:29→23:05)
[2017-05-03 05:42] LABS: ANION GAP 12.7 (8-16); CARBON DIOXIDE 32.7 mmol/L (21-32); CREATININE 1.4 mg/dL (0.7-1.3); POTASSIUM 3.4 mmol/L (3.5-5.1)
[2017-05-03 05:43] LABS: MAGNESIUM 2.2 mg/dL (1.8-2.4); PHOSPHORUS 5.2 mg/dL (2.5-4.9)
--- NOTE | 2017-05-03 06:00 | NUR ---
NO CHANGE OF CONDITION AT THIS TIME, VSS, POSITION CHANGED FOR OFF LOAD PRESSURE.
[2017-05-03] MEDS: ALBUTEROL SULFATE/IPRATROPIU 3 ML SOL IH SCH ×3 (06:15→19:01)
--- NOTE | 2017-05-03 06:15 | NUR ---
REC'D PT ON CARESCAPE VENT SETTINGS AC 12 VT500 PEEP 5 FIO2 40 % ALARMS ON AND FUNCTIONING PROPERLY, AMBU BAG IS AT SIDE OF VENT AND VENT IS PLUGGED INTO RED OUTLET I\L TX GIVEN WITH DUONEB 3ML WITH NO ADVERSE REACTION POST TX B\S ARE CLEAR BILATERALLY SXN PT SMALL AMT OF CLEAR SECRETIONS, PT IS ORALLY INTUBATED WITH 7.5 ET TUBE SECURED WITH ANCHOR FAST AT 23 CM AND SKIN INTEGRITY IS INTACT PT IS SLEEPING
[2017-05-03 06:31] LABS: LYMPHOCYTES % (MANUAL) 10 % (20-46); MONOCYTES % (MANUAL) 7 % (5-12)
[2017-05-03] MEDS: BLOOD GLUCOSE MONITORING 1 DEV DEV FS SCH ×4 (06:37→20:56)
[2017-05-03] MEDS: INSULIN LISPRO SLIDING SCALE 100 UNITS/ML VIAL SUBQ PRN ×4 (06:38→21:02)
--- NOTE | 2017-05-03 07:30 | NUR ---
RECEIVED BEDSIDE REPORT FROM PM RN TX. PT IS SEDATED. EYES OPEN BUT NON RESPONSIVE. CENTRAL LINE NOTED TO RIGHT IJ WITH TRIPLE LUMEN WITH FENTANYL RUNNING@60MCG/HR, VERSED@6MG/HR, NS@50ML/HR. ETT TO VENT WITH SETTING AC12, DQN187%, VT500, PEEP 5. PT IS ON DIRECTOR OF FOOD AND BEVERAGE SERVICES. ABD SOFT AND NON TENDER. NGT IN PLACE TO LEFT NARE WITH NGT FEEDING RUNNING. ORO CATH IN PLACE DRAINING YELLOW CLEAR URINE. SKIN WARM TO TOUCH. SAFETY PRECAUTION IN PLACE WITH HOB AT 30 DEGREE, BED AT LOWEST PLACE, CALL LIGHT WITHIN REACH. WILL CONTINUE TO MONITOR.
--- NOTE | 2017-05-03 07:30 | NUR ---
REPORT GIVEN TO AM NURSE AT BEDSIDE FOR CONTINUE OF CARE, PT IS IN STABLE CONDITION AT THIS TIME.
--- NOTE | 2017-05-03 08:12 | NUR ---
SEDATION WAS TURNED OFF AND AT 0815 CHANGED VENT TO CPAP 5 PS 12 AND PT BECAME VERY COMBATIVE AND FAILED CPAP TRAIL AT 0832 PT CHANGED BACK TO AC MODE RN MAYTE AT BEDSIDE
--- NOTE | 2017-05-03 08:12 | NUR ---
VERSED AND FENTANYL OFF FOR SEDATION VACATION.
--- NOTE | 2017-05-03 08:32 | NUR ---
PT IS COMBATIVE AND TRIED TO PULL NG TUBE. TURN ON VERSED DRIP @6MG/HR, FENTANYL@60MCG/HR. WILL CONTINUE TO MONITOR.
--- NOTE | 2017-05-03 08:44 | NUR ---
PATIENT IS COMBATIVE AND TRIED TO PULL NGT AND ETT. RASS +2. INCREASED VERSED TO 7MG/HR. INCREASED FENTANYL TO 100MCG/HR. WILL CONTINUE TO MONITOR NEUROLOGIC STATUS.
[2017-05-03] MEDS: DOCUSATE 100 MG/10 ML UDC PO SCH ×2 (09:04→20:59)
[2017-05-03] MEDS: FUROSEMIDE 20 MG TAB PO SCH (09:04)
[2017-05-03] MEDS: LACTOBACILLUS RHAMNOSUS GG 1 EACH CAP NG SCH (09:05)
[2017-05-03] MEDS: amLODIPine 5 MG TAB PO SCH (09:05)
[2017-05-03] MEDS: LISINOPRIL 5 MG TAB PO SCH (09:05)
--- NOTE | 2017-05-03 09:05 | NUR ---
REASSESSED PT NEUROLOGIC STATUS. RASS -3. MAINTAINED CURRENT SEDATION.
[2017-05-03] MEDS: METOPROLOL 25 MG TAB NG SCH ×2 (09:06→20:59)
[2017-05-03] MEDS: GABAPENTIN 300 MG CAP PO SCH ×3 (09:06→16:47)
[2017-05-03] MEDS: CLOPIDOGREL 75 MG TAB PO SCH (09:07)
[2017-05-03] MEDS: PANTOPRAZOLE 40 MG INJ VIAL IVP SCH (09:07)
[2017-05-03] MEDS: methylPREDNISolone SS 40 MG/ML VIAL IVP SCH ×2 (09:08→20:58)
[2017-05-03] MEDS: ASPIRIN 81 MG TAB.CHEW PO SCH (09:08)
--- NOTE | 2017-05-03 09:10 | NUR ---
KAYEXALATE NOT GIVEN. POTASSIUM LEVEL IS 3.4.
[2017-05-03] MEDS: ATORVASTATIN 80 MG TAB PO SCH (09:11)
[2017-05-03] MEDS: ALLOPURINOL 300 MG TAB PO SCH (09:11)
[2017-05-03] MEDS: TAMSULOSIN 0.4 MG CAP PO SCH ×2 (09:19→20:59)
[2017-05-03] MEDS: INSULIN LANTUS 100 UNITS/ML 10 ML VIAL SUBQ SCH (09:20)
--- NOTE | 2017-05-03 09:27 | NUR ---
VENT CHECK NO SXN REQUIRED AIRWAY IS PATENT AND PT IS SLEEPING
--- NOTE | 2017-05-03 10:05 | NUR ---
DR. PADILLA IN AND SAW PT AT BEDSIDE.
[2017-05-03] MEDS: NACL 0.45% 1,000 ML IV SCH (11:02)
--- NOTE | 2017-05-03 11:10 | NUR ---
VENT CHECK SXN PT LARGE AM TO CREAM COLOR SECRETIONS RN MAYTE AT BEDSIDE TURNING PT
--- NOTE | 2017-05-03 12:10 | NUR ---
ASSESSED NEURO STATUS. RASS -4. DECREASED VERSED TO 6MG/HR. WILL CONTINUE TO MONITOR.
--- NOTE | 2017-05-03 13:10 | NUR ---
REASSESSED NEURO STATUS. RASS -4. DECREASED VERSED TO 5MG/HR. WILL CONTINUE TO MONITOR.
--- NOTE | 2017-05-03 14:10 | NUR ---
DR. KHAN IN AND SAW PT AT BEDSIDE. MADE AWARE OF PT'S SEDATION AND NEURO STATUS.
--- NOTE | 2017-05-03 14:20 | NUR ---
REASSESSED NEURO STATUS. RASS -4. DECREASED VERSED TO 4MG/HR. DECREASED FENTANYL TO 60MCG/HR.
--- NOTE | 2017-05-03 14:50 | NUR ---
REASSESSED NEURO STATUS. RASS -3. CONTINUE TO MONITOR.
--- NOTE | 2017-05-03 16:00 | NUR ---
REASSESSED NEURO STATUS. RASS -3. CONTINUE TO MONITOR.
--- NOTE | 2017-05-03 17:00 | NUR ---
REASSESSED NEURO STATUS. RASS -3. CONTINUE TO MONITOR.
--- NOTE | 2017-05-03 17:11 | NUR ---
05/03/17 RD FOLLOW UP COMPLETED. PLEASE REFER TO NUTRITION ASSESSMENT UNDER CARE ACTIVITY FOR ESTIMATED NUTRITIONAL NEEDS. CONTINUE TUBE FEEDING: NUTREN PULMONARY AT GOAL RATE 50ML/HR + PRO-SOURCE TID. THIS IS PROVIDIN[employer], 1980 KCALS, 127G PROTEIN, 938ML FREE WATER. TO MEET 100% ESTIMATED ENERGY AND PROTEIN NEEDS PER DAY CONTINUE ANTIHYPERGLYCEMIC MEDS FOR GLUCOSE CONTROL. RD TO FOLLOW-UP IN 2-3 DAYS PATIENT IS HIGH RISK. LESLIE HERNANDEZ RD
--- NOTE | 2017-05-03 17:28 | NUR ---
VENT CHECK, SXN PT SMALL AMT OF CREAM COLOR SECRETIONS, FAMILY AT BEDSIDE
--- NOTE | 2017-05-03 17:40 | NUR ---
DR. HAMILTON IN AND SAW PT AT BEDSIDE.
--- NOTE | 2017-05-03 17:50 | NUR ---
ROUNDED WITH DR. HAMILTON. REASSESSED NEURO STATUS. RASS 0. SPOKE TO DR HAMILTON REGARDING SEDATION. INCREASED VERSED TO 5MG/HR. WILL CONTINUE TO MONITOR.
--- NOTE | 2017-05-03 19:20 | NUR ---
REPORT GIVEN TO PM RN CLARIZE AT BEDSIDE FOR CONTINUOUS CARE. PT IS STABLE AT THIS TIME.
--- NOTE | 2017-05-03 19:25 | NUR ---
RECEIVED REPORT FROM AM SHIFT RN. INITIAL ASSESSMENT COMPLETED. PT ON ETT TO VENT FIO2 40% TV 500 AC 12 PEEP 5. ATTACHED, NGT AT LEFT NARE IN PLACE, ON CONTINUOUS FEEDING, PATENT, INTACT, NO RESIDUAL AT THIS TIME. ATTACHED TO OPTICAL STORE MANAGER, PULSE OXIMETER. IVF AT RIGHT IJ TLC, PATENT, INTACT. ON FENTANYL AND VERSED DRIP, RASS -3. ORO CATH IN PLACE. SCDS IN PLACE. BED IN LOW POSITION, SAFETY MEASURE, WILL CONTINUE TO MONITOR.
[2017-05-03] MEDS ORDERED: RIVAROXABAN 10 MG TAB NG SCH (21:00)
--- NOTE | 2017-05-03 21:10 | NUR ---
DUE MEDS GIVEN. PT TOLERATED WELL. WILL CONTINUE TO MONITOR.
[2017-05-04] VITALS (107 sets, daily range): BP systolic 108–176; BP diastolic 50–98
--- NOTE | 2017-05-04 02:15 | NUR ---
PT RESTLESS AT THIS TIME, LIFTING HIS HEAD UP. WILL INCREASE FENTANYL AND VERSED DRIP. WILL CONTINUE TO MONITOR.
[2017-05-04] MEDS: MIDAZOLAM MDV 100 MG in NACL 0.9% 80 ML IV PRN (03:09)
--- NOTE | 2017-05-04 03:15 | NUR ---
DR. LEVY NOTIFIED OF PT'S BRADYCARDIC EPISODE. WILL ORDER EKG. AFIB ON MONITOR.
[2017-05-04] MEDS: PIPER/TAZO 3.375GM/D5W PREMIX 50 ML IV SCH ×3 (05:04→17:25)
[2017-05-04] MEDS: NACL 0.45% 1,000 ML IV SCH ×2 (05:06→19:30)
[2017-05-04 05:09] LABS: HEMATOCRIT 30.8 % (36-52); HEMOGLOBIN 9.8 g/dL (12.0-18.0); MEAN CORPUSCULAR HEMOGLOBIN 27 pg (27-31); MEAN CORPUSCULAR HGB CONC 32 g/dL (33-37); MEAN CORPUSCULAR VOLUME 86 fL (80-94); PLATELET COUNT (AUTO) 138 K/uL (140-450); RED BLOOD CELL COUNT(AUTO) 3.58 MIL/uL (4.20-6.10); RED CELL DISTRIBUTION WIDTH 12.3 % (11.6-13.7); WHITE BLOOD COUNT (AUTO) 6.7 K/uL (4.8-10.8)
[2017-05-04] MEDS: ALBUTEROL SULFATE/IPRATROPIU 3 ML SOL IH SCH ×3 (06:34→19:16)
[2017-05-04 06:41] LABS: ANION GAP 8.9 (8-16); CARBON DIOXIDE 35.5 mmol/L (21-32); CREATININE 1.2 mg/dL (0.7-1.3); POTASSIUM 3.4 mmol/L (3.5-5.1)
[2017-05-04 06:43] LABS: MAGNESIUM 2.2 mg/dL (1.8-2.4); PHOSPHORUS 4.3 mg/dL (2.5-4.9)
[2017-05-04 06:59] LABS: BASOPHILS % (MANUAL) 1 % (0-2); LYMPHOCYTES % (MANUAL) 5 % (20-46); MONOCYTES % (MANUAL) 4 % (5-12)
--- NOTE | 2017-05-04 07:15 | NUR ---
REPORT GIVEN TO KATHLEEN MASTERSON FOR CONTINUITY OF CARE.
--- NOTE | 2017-05-04 07:24 | NUR ---
recived pt on vent with settings as charted breath sounds present bilat dininished sxn pt with min amt off white secs ambu bag at bedside vent plugged into red outlet will continue to monitor pt on vent
--- NOTE | 2017-05-04 07:30 | NUR ---
RECEIVED A REPORT FROM WELL SHOOTER RN, JANE DE LEON AT BEDSIDE. PT SEDATED WITH VERSED AND FENTANYL DRIP ORDERED. UNABLE TO FOLLOW COMMANDS. SKIN WARM TO TOUCH. FLACC 0, ETT TO VENT AND SETTING AT AC 12, FiO2 40, VT 500, PEEP 5. NGT IN PLACE FOR FEEDING, RT IJ CENTRAL LINE WITH TRIPLE LUMENS AND PATENT & INTACT. SCD IN PLACE. SAFETY PRECAUTION, BED IN LOW POSITION, CALL LIGHT WITHIN REACH. WILL CONTINUE TO MONITOR.
[2017-05-04] MEDS: BLOOD GLUCOSE MONITORING 1 DEV DEV FS SCH ×4 (07:38→20:53)
--- NOTE | 2017-05-04 07:50 | NUR ---
RESIDENT GROUP IN TO SEE PT AND NOTIFIED OF ABNORMAL LAB RESULT WITH SODIUM 151, POTASSIUM 3.4, CALCIUM 7.6. WILL FOLLOW UP ON ORDERS.
[2017-05-04] MEDS: INSULIN LISPRO SLIDING SCALE 100 UNITS/ML VIAL SUBQ PRN ×4 (07:52→21:05)
[2017-05-04] MEDS ORDERED: POTASSIUM CHLORIDE 20% 40 MEQ/15 ML UDC PO SCH (08:13)
[2017-05-04] MEDS: DOCUSATE 100 MG/10 ML UDC PO SCH ×2 (08:22→20:47)
[2017-05-04] MEDS: METOPROLOL 25 MG TAB NG SCH ×2 (08:22→20:47)
[2017-05-04] MEDS: LISINOPRIL 5 MG TAB PO SCH (08:22)
[2017-05-04] MEDS: CLOPIDOGREL 75 MG TAB PO SCH (08:22)
[2017-05-04] MEDS: TAMSULOSIN 0.4 MG CAP PO SCH ×2 (08:22→20:47)
[2017-05-04] MEDS: ALLOPURINOL 300 MG TAB PO SCH (08:23)
[2017-05-04] MEDS: ASPIRIN 81 MG TAB.CHEW PO SCH (08:23)
[2017-05-04] MEDS: PANTOPRAZOLE 40 MG INJ VIAL IVP SCH (08:23)
[2017-05-04] MEDS: ATORVASTATIN 80 MG TAB PO SCH (08:23)
[2017-05-04] MEDS: amLODIPine 5 MG TAB PO SCH (08:23)
[2017-05-04] MEDS: FUROSEMIDE 20 MG TAB PO SCH (08:25)
[2017-05-04] MEDS: LACTOBACILLUS RHAMNOSUS GG 1 EACH CAP NG SCH (08:25)
[2017-05-04] MEDS: INSULIN LANTUS 100 UNITS/ML 10 ML VIAL SUBQ SCH (08:27)
[2017-05-04] MEDS: GABAPENTIN 300 MG CAP PO SCH ×3 (08:28→17:25)
--- NOTE | 2017-05-04 08:40 | NUR ---
DR. PADILLA IN TO SEE PT. WILL FOLLOW UP ON ORDERS.
--- NOTE | 2017-05-04 09:20 | NUR ---
DR. HAMILTON IN TO SEE PT. WILL FOLLOW UP ON ORDERS.
--- NOTE | 2017-05-04 09:32 | NUR ---
DR. KHAN ORDERED THAT TITRATE VERSED AND FENTANYL DRIP UNTIL MINIMAL RATE. WILL FOLLOW UP ON ORDERS.
--- NOTE | 2017-05-04 10:06 | NUR ---
NGT WAS NOT FUNCTION AND REPLACED NEW NGT TO LT NARES. DR. DE ANDA WAS NOTIFIED AND REPORTED ABOUT PT'S AUBREE SCORE IS 12 AND MAY NEED WOUND CONSULT. WILL FOLLOW UP ON ORDERS.
--- NOTE | 2017-05-04 11:05 | NUR ---
PT'S AND DAUGHTER AT BEDSIDE AND GIVEN AN UPDATE OF PT'S CONDITION.
--- NOTE | 2017-05-04 11:10 | NUR ---
VERIFIED PLACEMENT OF NGT WITH CXR AND DR. DE ANDA MADE AWARE OF IT. RESUMED MEDICATIONS AND FEEDING ORDERED.
--- NOTE | 2017-05-04 12:20 | NUR ---
WOUND EVALUATION NOTE: REASON FOR EVALUATION: LOW AUBREE SCORE- 12 COMPLETE SKIN ASSESSMENT DONE ON THIS 71Y/O MALE PATIENT ADMITTED TO [facility] WITH CHIEF COMPLAINT OF SOB. PT'S DX ACUTE RESP FAILURE. PAST MEDICAL HX INCLUDE PE, DM, CHC, CKD, LEFT LEG ARTERY BYPASS, CARDIAC STENTX4. LABS ARE WBC: 6.7, H/H: 9.8/30.8, GLUCOSE: 264, ALBUMIN: 2.9. PATIENT'S SKIN IS WARM TO TOUCH. ECCHYMOSIS AND DRY SCABS NOTED TO BILATERAL UPPER EXTREMITIES. NGT WITH FEEDING IN PLACE ON THE LEFT NARES. NO EDEMA, BLE WITH NO HAIR GROWTH. NORMAL PEDAL PULSES. PLAN OF CARE AND PRESSURE PREVENTATIVE MEASURES DISCUSSED WITH PRIMARY RN. INTEGUMENTARY: SKIN IS INTACT WITH MULTIPLE ECCHYMOSIS AND DRY SCABS NOTED TO BILATERAL UPPER EXTREMITIES. OLD HEALED SURGICAL SCAR ON THE RIGHT MEDIAL THIGH RECOMMENDATIONS: -APPLY HYDRAGUARD TO BILATERAL UPPER EXTREMITIES BIDWC AND LEAVE BOOT LINER MAKER -APPLY BODY LOTION TO BLE DRY SKIN -TURN AND REPOSITION PATIENT Q2H -ASSESS AND MONITOR SKIN CONDITION DURING POSITION CHANGE -OFFLOAD BILATERAL HEELS -KEEP SKIN CLEAN AND DRY AT ALL TIMES -PRESSURE REDISTRIBUTION SURFACE THERAPY RECOMMENDATIONS DISCUSSED WITH PRIMARY RN WILL FOLLOW UP PATIENT Q7-10 DAYS AND PRN. PLEASE CONTACT WOUND CARE NURSE FOR ANY QUESTIONS AND CHANGES IN SKIN CONDITION
--- NOTE | 2017-05-04 12:49 | NUR ---
RT IJ CENTRAL LINE DRESSING CHANGED AND NO S/SX OF INFECTION. WILL CONTINUE TO MONITOR.
[2017-05-04 13:43] LABS: ANION GAP 7.7 (8-16); CREATININE 1.2 mg/dL (0.7-1.3); POTASSIUM 3.7 mmol/L (3.5-5.1)
--- NOTE | 2017-05-04 15:15 | NUR ---
CHANGED TO VENTILATOR SETTING TO CPAP BY RT AT BEDSIDE. PT IS STABLE AND NO S/SX OF RESPIRATORY DISTRESS NOTED AT THIS TIME. WILL CONTINUE TO MONITOR.
--- NOTE | 2017-05-04 15:15 | NUR ---
PLACED PT ON CPAP WITH SETTINGS CHARTED AFTER SEDATION WEANED DOWN BT NURSE PT STILL VERT LETHARGIC PT UNABLE TO FOLLOW COMMANDS WILL CONTINUE TO MONITOR
--- NOTE | 2017-05-04 16:40 | NUR ---
DR. KHAN AND DR. DE ANDA IN TO SEE PT AND SPOKE WITH PT'S AND DAUGHTER IN [place] AT BEDSIDE REGARDING PT'S CURRENT CONDITION WITH FURTHER PLAN OF CARE.
--- NOTE | 2017-05-04 16:40 | NUR ---
PLACED ON CPAP MODE BY RT PER DR. KHAN ORDER AT BEDSIDE AT THIS TIME. WILL CONTINUE TO MONITOR.
--- NOTE | 2017-05-04 17:33 | NUR ---
CONTINUED TO MONITOR PT ON VENT WITH SETTINGS CHARTED BREATH SOUNDS PRESENT BILAT CLEAR PT BACK ON AC VENT PLUGGED INTO RED OUTLET AMBU BAG AT BEDSIDE
--- NOTE | 2017-05-04 17:34 | NUR ---
I attempted to contact Patient's Jennifer Smith at . No response I left a voice mail MS requesting a call back
[2017-05-04] MEDS ORDERED: ED NON STOCK ORDER 1 EA MISC IV ONE (17:40)
[2017-05-04] MEDS ORDERED: NACL 0.9% IV SCH ×2 (18:15→18:20)
[2017-05-04] MEDS ORDERED: [UNRECOGNIZED DRUG - OTHER] IV SCH ×2 (18:15→18:20)
--- NOTE | 2017-05-04 18:44 | NUR ---
INFORMED DR. LEVY ABOUT THE ORDER FOR ALL ORAL MEDICATIONS TO BE CHANGED TO VIA NGT. WELL DR. LEVY STATED THAT PRECEDEX IV DRIP TO BE STARTED TOMORROW MORNING PER DR. KHAN ORDER. WILL FOLLOW UP ON ORDERS.
--- NOTE | 2017-05-04 18:48 | NUR ---
PT'S SON AND HIS AT BEDSIDE AT THIS TIME.
--- NOTE | 2017-05-04 19:22 | NUR ---
ENDORSED CARE AND REPORT GIVEN AT BEDSIDE TO KATHLEEN [employer]ITE [employer]. PT IS STABLE.
--- NOTE | 2017-05-04 19:25 | NUR ---
RECEIVED REPORT FROM ZELALEM RN FOR CONTINUITY OF CARE. PT AFEBRILE. OPENS EYES AND TRYING TO MOVE EXTREMITIES. ETT TO VENT WITH SETTINGS: AC12, FIO2 35, TV 500, AND PEEP 5. NO COUGHING OR SIGNS OF DISTRESS NOTED. LUNG SOUNDS DIMINISHED. S1+S2 HEARD. PULSES PALPABLE IN EXTREMITIES. NGT IN LEFT NARES. PLACEMENT CHECKED. NO RESIDUAL NOTED. NGT TO FEEDING. ABDOMEN ROUND, SOFT, AND NON-DISTENDED. BOWEL SOUNDS ACTIVE. ORO CATHETER IN PLACE AND DRAINING CLEAR AND YELLOW URINE. VS STABLE AT THIS TIME. PT HAS RIGHT IJ TRIPLE LUMEN CENTRAL LINE, PATENT AND ASYMPTOMATIC. PT ON FENTANYL AND VERSED DRIP. 0.45 NS RUNNING AT 60ML/HR. BED AT LOW POSSIBLE POSITION, ALL SAFETY PRECAUTIONS ARE IN PLACE. CALL LIGHT WITHIN REACH. WILL CONTINUE TO MONITOR PT.
--- NOTE | 2017-05-04 20:50 | NUR ---
SCHEDULED MEDICATIONS ADMINISTERED. NGT PATENT. PT TOLERATED MEDICATIONS WELL. NO SIGNS OF DISTRESS NOTED. NO CHANGE IN CONDITION AT THIS TIME. CALL LIGHT WITHIN REACH. ALL SAFETY PRECAUTIONS IN PLACE. WILL CONTINUE TO MONITOR PT.
[2017-05-04] MEDS: fentaNYL 1 MG in NACL 0.9% 80 ML IV PRN (23:10)
--- NOTE | 2017-05-04 23:45 | NUR ---
PM CARE PROVIDED TO PT. HAD 1 MEDIUM YELLOWISH BROWN BM. ORO CATHETER CARE PROVIDED. PT TURNED AND REPOSITIONED. PT LAYING IN BED. FLACC 0. DOES NOT APPEAR TO BE IN ANY DISTRESS. PT STILL ON FENTANYL AND VERSED DRIP. WILL CONTINUE TO MONITOR PT.
[2017-05-05] VITALS (85 sets, daily range): BP systolic 96–191; BP diastolic 47–128
[2017-05-05] MEDS: PIPER/TAZO 3.375GM/D5W PREMIX 50 ML IV SCH ×5 (00:01→23:23)
[2017-05-05] MEDS: HYDRAGUARD CREAM TP SCH ×2 (01:00→12:47)
--- NOTE | 2017-05-05 01:22 | NUR ---
DR. LEVY IN UNIT. CLARIFIED WITH HIM THE ORDER OF PRECEDEX, PER DR. LEVY MEDICATION TO BE ADMINISTERED AT 0800. WILL ENDORSE TO MORNING RN.
--- NOTE | 2017-05-05 03:49 | NUR ---
VS STABLE. NO CHANGE IN CONDITION AT THIS TIME. FLACC 0. DOES NOT APPEAR TO BE IN ANY PAIN. HOB 30 DEGREES. NEW FEEDING BAG HANGED. PROSOURCE GIVEN. ALL SAFETY PRECAUTIONS ARE IN PLACE. WILL CONTINUE TO MONITOR PT.
[2017-05-05 05:45] LABS: BASOPHILS # (AUTO) 0.2 K/uL (0.00-0.22); BASOPHILS % (AUTO) 2.4 % (0.0-2.0); EOSINOPHILS # (AUTO) 0.1 K/uL (0-0.4); EOSINOPHILS % (AUTO) 1.1 % (0.0-4.0); HEMATOCRIT 32.6 % (36-52); HEMOGLOBIN 10.4 g/dL (12.0-18.0); LYMPHOCYTES # (AUTO) 1.8 K/uL (2.0-11.5); LYMPHOCYTES % (AUTO) 21.7 % (20.5-51.1); MEAN CORPUSCULAR HEMOGLOBIN 27 pg (27-31); MEAN CORPUSCULAR HGB CONC 32 g/dL (33-37); MEAN CORPUSCULAR VOLUME 86 fL (80-94); MONOCYTES # (AUTO) 0.6 K/uL (0.8-1.0); NEUTROPHILS # (AUTO) 5.4 K/uL (1.8-7.7); NEUTROPHILS % (AUTO) 66.8 % (42.2-75.2); PLATELET COUNT (AUTO) 115 K/uL (140-450); RED BLOOD CELL COUNT(AUTO) 3.81 MIL/uL (4.20-6.10); RED CELL DISTRIBUTION WIDTH 12.3 % (11.6-13.7); WHITE BLOOD COUNT (AUTO) 8.1 K/uL (4.8-10.8)
[2017-05-05] MEDS: BLOOD GLUCOSE MONITORING 1 DEV DEV FS SCH ×4 (06:03→20:28)
[2017-05-05] MEDS: INSULIN LISPRO SLIDING SCALE 100 UNITS/ML VIAL SUBQ PRN ×4 (06:04→20:30)
[2017-05-05 06:22] LABS: PHOSPHORUS 3.9 mg/dL (2.5-4.9)
--- NOTE | 2017-05-05 06:58 | NUR ---
recived pt on vent with settings as charted breath sounds present bilat clear sxn pt with min amt off white secs pt non responsive to verbal command reacts to physical stimuli ambu bag at bedside vent plugged into red outlet will continue to monitor pt on vent
[2017-05-05] MEDS ORDERED: NITROGLYCERIN 0.4 MG TAB SL PRN (07:11)
[2017-05-05] MEDS: ALBUTEROL SULFATE/IPRATROPIU 3 ML SOL IH SCH ×3 (07:11→22:50)
--- NOTE | 2017-05-05 07:18 | NUR ---
REPORT GIVEN TO MORNING RN FOR CONTINUITY OF CARE. PT IN STABLE CONDITION.
--- NOTE | 2017-05-05 07:20 | NUR ---
RECEIVED REPORT FROM PM RN AT BEDSIDE. PT IS AWAKE WITH EYES OPEN, MOVING UPPER AND LOWER EXTREMITIES BUT UNABLE TO FOLLOW COMMANDS. CENTRAL LINE NOTED AT RIGHT IJ WITH TRIPLE LUMEN, PATENT AND NO S/S OF INFECTION. 1/2 NS RUNNING AT 60ML/HR, FENTANYL @40MCG/HR, VERSED@ 1MG/HR. ETT TO VENT WITH SETTING AC 12, FIO2 35%, VT 500, PEEP 5. NGT IN PLACE FOR FEEDING. ABD SOFT AND NON TENDER. ORO IN PLACE DRAINING CLEAR YELLOW URINE. SKIN WARM TO TOUCH. SCD NOTED AT LOWER EXTREMITIES. SKIN WARM TO TOUCH. SAFETY PRECAUTION IN PLACE WITH HOB ELEVATED AT 30 DEGREE, BED AT LOWEST POSITION, CALL LIGHT WITHIN REACH. WILL CONTINUE TO MONITOR.
--- NOTE | 2017-05-05 07:35 | NUR ---
PATIENT HAD MODERATE AMOUNT OF LOOSE PASTY BROWN STOOLS. CLEANED AND REPOSITIONED AT THIS TIME.
--- NOTE | 2017-05-05 07:40 | NUR ---
RESIDENT GROUP IN AND SEE PT AT BEDSIDE. MADE AWARE OF LOW PLT LEVEL.
--- NOTE | 2017-05-05 07:45 | NUR ---
RESIDENT PHYSICIANS DR MONROE AND DR. DE ANDA MADE AWARE OF PLATELET LEVEL 115. GIVE OK TO GIVE PLAVIX. WILL CONTINUE TO MONITOR PATIENT.
[2017-05-05 08:17] LABS: ANION GAP 8.2 (8-16); CARBON DIOXIDE 36.3 mmol/L (21-32); POTASSIUM 3.5 mmol/L (3.5-5.1)
[2017-05-05 08:18] LABS: CREATININE 1.1 mg/dL (0.7-1.3)
[2017-05-05] MEDS: PANTOPRAZOLE 40 MG INJ VIAL IVP SCH (08:30)
[2017-05-05] MEDS: DOCUSATE 100 MG/10 ML UDC PO SCH ×2 (08:30→20:31)
[2017-05-05] MEDS: TAMSULOSIN 0.4 MG CAP PO SCH ×2 (08:31→20:29)
[2017-05-05] MEDS: LISINOPRIL 5 MG TAB PO SCH (08:31)
[2017-05-05] MEDS: METOPROLOL 25 MG TAB NG SCH ×2 (08:32→20:29)
[2017-05-05] MEDS: FUROSEMIDE 20 MG TAB PO SCH (08:32)
[2017-05-05] MEDS: ATORVASTATIN 80 MG TAB PO SCH (08:32)
[2017-05-05] MEDS: ASPIRIN 81 MG TAB.CHEW PO SCH (08:33)
[2017-05-05] MEDS: CLOPIDOGREL 75 MG TAB PO SCH (08:33)
[2017-05-05] MEDS: GABAPENTIN 300 MG CAP PO SCH ×3 (08:33→17:10)
[2017-05-05] MEDS: ALLOPURINOL 300 MG TAB PO SCH (08:34)
[2017-05-05] MEDS: amLODIPine 5 MG TAB PO SCH (08:34)
[2017-05-05] MEDS: LACTOBACILLUS RHAMNOSUS GG 1 EACH CAP NG SCH (08:34)
--- NOTE | 2017-05-05 08:35 | NUR ---
PRECEDEX 0.1 MCG/KG/H STARTED. WILL MONITOR PATIENT.
[2017-05-05] MEDS: INSULIN LANTUS 100 UNITS/ML 10 ML VIAL SUBQ SCH (08:37)
--- NOTE | 2017-05-05 09:20 | NUR ---
VERSED OFF AT HIS TIME. WILL CONTINUE TO MONITOR PATIENT
--- NOTE | 2017-05-05 09:50 | NUR ---
PATIENT HAD ANOTHER LOOSE PASTY STOOLS IN MODERATE AMOUNT. CLEANED AND REPOSITIONED. PATIENT TOLERATED WELL.
--- NOTE | 2017-05-05 09:50 | NUR ---
FENTANYL OFF AT THIS TIME. PRECEDEX AT 0.1 MCG/KG/H. WILL CONTINUE TO MONITOR PATIENT.
--- NOTE | 2017-05-05 11:12 | NUR ---
placed pt on cpap with settings as charted breath sounds present bilat clear sxn pt with min amt off white secs seems to be to cpap at this time will continue to monitor pt on cpap
--- NOTE | 2017-05-05 11:30 | NUR ---
PATIENT HAD ANOTHER BM TO LOOSE PASTY STOOLS WITH WATERY LINING, CLEANED AND REPOSITIONED. RECTAL BAG APPLIED.
--- NOTE | 2017-05-05 11:50 | NUR ---
AGITATED AT THIS TIME, PRECEDEX AT 0.1 MG/KG/H. WILL CONTINUE TO MONITOR PATIENT.
[2017-05-05 12:18] LABS: BASOPHILS # (AUTO) 0.1 K/uL (0.00-0.22); BASOPHILS % (AUTO) 1.1 % (0.0-2.0); EOSINOPHILS # (AUTO) 0.2 K/uL (0-0.4); EOSINOPHILS % (AUTO) 1.2 % (0.0-4.0); HEMATOCRIT 37.3 % (36-52); HEMOGLOBIN 12.2 g/dL (12.0-18.0); LYMPHOCYTES # (AUTO) 2.9 K/uL (2.0-11.5); LYMPHOCYTES % (AUTO) 21.4 % (20.5-51.1); MEAN CORPUSCULAR HEMOGLOBIN 28 pg (27-31); MEAN CORPUSCULAR HGB CONC 33 g/dL (33-37); MEAN CORPUSCULAR VOLUME 85 fL (80-94); MONOCYTES # (AUTO) 0.4 K/uL (0.8-1.0); MONOCYTES % (AUTO) 3.2 % (1.7-9.3); NEUTROPHILS # (AUTO) 9.8 K/uL (1.8-7.7); NEUTROPHILS % (AUTO) 73.1 % (42.2-75.2); PLATELET COUNT (AUTO) 172 K/uL (140-450); RED BLOOD CELL COUNT(AUTO) 4.37 MIL/uL (4.20-6.10); RED CELL DISTRIBUTION WIDTH 12.2 % (11.6-13.7); WHITE BLOOD COUNT (AUTO) 13.4 K/uL (4.8-10.8)
[2017-05-05 12:25] LABS: CARBON DIOXIDE 34.5 mmol/L (21-32); CREATININE 1.1 mg/dL (0.7-1.3); POTASSIUM 3.5 mmol/L (3.5-5.1)
[2017-05-05] MEDS: NACL 0.45% 1,000 ML IV SCH (12:48)
--- NOTE | 2017-05-05 13:01 | NUR ---
PATIENT'S FAMILY AT BEDSIDE, UPDATED OF PATIENT'S CONDITION.
--- NOTE | 2017-05-05 13:35 | NUR ---
DR. KHAN IN AND SAW PT AT BEDSIDE. DR. KHAN ORDERED TO D/C FENTANYL AND VERSED, HOLD TUBE FEEDING UNTIL BREATHING IS STABLE AFTER EXTUBATION, AND SPT EVAL ON 05/06/17.
--- NOTE | 2017-05-05 13:48 | NUR ---
FENTANYL AND VERSED D/C PER ORDERED.
--- NOTE | 2017-05-05 13:50 | NUR ---
pt extubated and placed on 2l-mnc per dr daniels no ill effects noted breath sounds present bilat clear with some exp rhonchi pt spo2 on 2lpm .96 rr 18 pt awake alert will continue to monitor pt post extubation
--- NOTE | 2017-05-05 13:57 | NUR ---
PT EXTUBATED BY DR. KHAN AND RT. PT TOLERATED WELL AT THIS TIME.
--- NOTE | 2017-05-05 13:58 | NUR ---
PT POST EXTUBATED STATUS. ON NC 2L/MIN. PT TOLERATED WELL.
--- NOTE | 2017-05-05 14:10 | NUR ---
CXR DONE AT BEDSIDE. CONFIRMED PLACEMENT OF NG TUBE.
[2017-05-05] MEDS ORDERED: ALBUTEROL SULFATE/IPRATROPIU 3 ML SOL IH PRN (15:20)
[2017-05-05] MEDS ORDERED: FUROSEMIDE 20 MG/2 ML VIAL IVP SCH (15:45)
--- NOTE | 2017-05-05 15:54 | NUR ---
XRAY ABD DONE AT BEDSIDE. PT IS STABLE AT THIS TIME.
--- NOTE | 2017-05-05 16:40 | NUR ---
US CHEST DONE AT BEDSIDE. PT IS STABLE AT THIS TIME.
--- NOTE | 2017-05-05 17:00 | NUR ---
UPDATED PT CONDITION WITH PT'S SON AT BEDSIDE.
--- NOTE | 2017-05-05 17:30 | NUR ---
PRECEDEX OFF PER ORDERED. PT RASS -2. RESUME NGT FEEDING. WILL CONTINUE TO MONITOR.
--- NOTE | 2017-05-05 18:37 | NUR ---
UPDATED PT'S ABOUT PT CONDITION AT BEDSIDE. PT IS STABLE AT THIS TIME.
--- NOTE | 2017-05-05 19:15 | NUR ---
REPORT GIVEN TO PM RN CLAUDETTE AT BEDSIDE FOR CONTINUOUS CARE. PT IS STABLE AT THIS TIME.
--- NOTE | 2017-05-05 19:30 | NUR ---
RECEIVED PT FROM AM SHIFT. PT IS AWAKE AND DROWSY. NO S/S OF RESP.DISTRESS,NO SOB. CONT ON O2 AT 2 LPM VIA NASAL CANULA TOLERATING WELL. KEZIA LUNGS SOUND DIMINISH. A FIB ON MONITOR. NO S/S OF PAIN AT THIS TIME. CENTRAL LINE TO RIGHT IJ, INTACT WELL.CONT ON IVF 1/2 NS AT 60 CC/HR TOLERATING WELL. NGT TO LEFT NARES. NGT TO TUBE FEEDING ,NUTREN PULMONARY AT 50 CC/HR AND H20 AT 150 Q 4 HRS,NO RESIDUAL NOTED.ABD SOFT NON DISTENDED. RECTAL BAG IN PLACE CONNECT TO BSD BAG. PER AM SHIFT PT WAS HAVING LOOSE STOOL. NOTED BROWN STOOL ON THE BAG. F/C IN PLACE WITH YELLOW CLEAR URINE ON THE BAG.SKIN INTACT. GENTLE CARE GIVEN. KEPT CLEAN AND DRY.
--- NOTE | 2017-05-05 19:45 | NUR ---
REVIEW THE ABD X-RAY NOTED THE RESULT SAYING FX OF POSTERIOR 11 TH RIB POSSIBLY [address]WIELE CULP AWARE. PER MD POSSIBLE FROM CPR PRIOR TO ADMIT.NO NEW ORDER AT THIS TIME.
--- NOTE | 2017-05-05 21:00 | NUR ---
COLACE NOT GIVEN D/T PT WAS HAVING LOOSE STOOL. BLOOD SUGAR 195 2 UNITS INSULIN GIVEN ORDER. FAMILY AT BED SIDE.
[2017-05-06] VITALS (11 sets, daily range): BP systolic 111–153; BP diastolic 48–81
--- NOTE | 2017-05-06 00:10 | NUR ---
IV ABT ZOSYN GIVEN ORDER.REPOSITION PT TO RIGHT SIDE.PT AWAKE AND DROWSY.
[2017-05-06] MEDS: HYDRAGUARD CREAM TP SCH ×2 (01:04→12:18)
--- NOTE | 2017-05-06 02:20 | NUR ---
PT MORE AWAKE,DENIES PAIN,ANSWER SIMPLE QUESTION.REPOSITION TO LEFT SIDE.
[2017-05-06] MEDS: ALBUTEROL SULFATE/IPRATROPIU 3 ML SOL IH SCH ×6 (02:58→23:10)
--- NOTE | 2017-05-06 04:30 | NUR ---
AM CARE GIVEN, SPONGE BATH,ORAL AND F/C CARE GIVEN. PT IS AWAKE AND ALERT,ANSWER SIMPLE QUESTION CORRECTLY. GENTLE CARE GIVEN. KEPT CLEAN AND DRY.
[2017-05-06] MEDS: NACL 0.45% 1,000 ML IV SCH ×2 (04:50→11:47)
[2017-05-06] MEDS: PIPER/TAZO 3.375GM/D5W PREMIX 50 ML IV SCH ×4 (05:17→23:36)
--- NOTE | 2017-05-06 05:18 | NUR ---
1/2 NS RUNNING AT 60 CC/HR, BAG NOT CHANGE YET STILL ABOUT 300 CC IN THE BAG.
--- NOTE | 2017-05-06 05:45 | NUR ---
AM ABT ZOSYN 3.375 IV GIVEN.
--- NOTE | 2017-05-06 06:13 | NUR ---
PT ON RECTAL POUCH TO BSD BAG ABOUT 300 CC BROWN LOOSE STOOL IN THE BAG. GOOD PERICARE GIVEN.KEPT CLEAN AND DRY.
[2017-05-06 06:20] LABS: BASOPHILS # (AUTO) 0.2 K/uL (0.00-0.22); BASOPHILS % (AUTO) 1.7 % (0.0-2.0); EOSINOPHILS # (AUTO) 0.3 K/uL (0-0.4); EOSINOPHILS % (AUTO) 2.8 % (0.0-4.0); LYMPHOCYTES # (AUTO) 1.5 K/uL (2.0-11.5); MEAN CORPUSCULAR HEMOGLOBIN 28 pg (27-31); MEAN CORPUSCULAR HGB CONC 33 g/dL (33-37); MEAN CORPUSCULAR VOLUME 85 fL (80-94); MONOCYTES # (AUTO) 0.8 K/uL (0.8-1.0); MONOCYTES % (AUTO) 7.5 % (1.7-9.3); NEUTROPHILS # (AUTO) 7.4 K/uL (1.8-7.7); PLATELET COUNT (AUTO) 126 K/uL (140-450); RED CELL DISTRIBUTION WIDTH 12.1 % (11.6-13.7); WHITE BLOOD COUNT (AUTO) 10.2 K/uL (4.8-10.8)
[2017-05-06 06:25] LABS: ANION GAP 8.4 (8-16); CARBON DIOXIDE 35.1 mmol/L (21-32); CREATININE 1.1 mg/dL (0.7-1.3); POTASSIUM 3.5 mmol/L (3.5-5.1)
[2017-05-06] MEDS: BLOOD GLUCOSE MONITORING 1 DEV DEV FS SCH ×5 (06:47→20:55)
[2017-05-06] MEDS: INSULIN LISPRO SLIDING SCALE 100 UNITS/ML VIAL SUBQ PRN ×4 (06:48→20:54)
--- NOTE | 2017-05-06 07:05 | NUR ---
RECEIVED REPORT FROM NIGHT RN AT BEDSIDE. PT AAOX3. NO S/S OF ACUTE DISTRESS. PT DENIES PAIN AT THIS TIME. TRIPLE LUMEN TO RIGHT IJ PATENT AND INTACT. ORO CATHETER AND RECTAL BAG PATENT. NG-TUBE TO LEFT NARE PATENT. 0 RESIDUAL. PT TOLERATING FEEDING WELL. PT ON O2 2L NC. PLAN OF CARE DISCUSSED WITH PT. PT VERBALIZED UNDERSTANDING, BUT REINFORCEMENT NEEDED. PT REPOSITIONED. CALL LIGHT WITHIN REACH. SAFETY MEASURES ENSURED. WILL CONTINUE TO MONITOR.
[2017-05-06] MEDS: TAMSULOSIN 0.4 MG CAP PO SCH ×2 (08:15→20:48)
[2017-05-06] MEDS: METOPROLOL 25 MG TAB NG SCH ×2 (08:15→20:48)
[2017-05-06] MEDS: LACTOBACILLUS RHAMNOSUS GG 1 EACH CAP NG SCH (08:15)
[2017-05-06] MEDS: FUROSEMIDE 20 MG TAB PO SCH (08:16)
[2017-05-06] MEDS: LISINOPRIL 5 MG TAB PO SCH (08:16)
[2017-05-06] MEDS: ASPIRIN 81 MG TAB.CHEW PO SCH (08:16)
[2017-05-06] MEDS: GABAPENTIN 300 MG CAP PO SCH ×3 (08:16→17:32)
[2017-05-06] MEDS: CLOPIDOGREL 75 MG TAB PO SCH (08:16)
[2017-05-06] MEDS: amLODIPine 5 MG TAB PO SCH (08:16)
[2017-05-06] MEDS: ATORVASTATIN 80 MG TAB PO SCH (08:16)
[2017-05-06] MEDS: DOCUSATE 100 MG/10 ML UDC PO SCH ×2 (08:17→20:55)
[2017-05-06] MEDS: ALLOPURINOL 300 MG TAB PO SCH (08:17)
[2017-05-06] MEDS: PANTOPRAZOLE 40 MG INJ VIAL IVP SCH (08:17)
--- NOTE | 2017-05-06 08:30 | NUR ---
AM MEDS GIVEN VIA NG-TUBE WITH EDUCATION. PT VERBALIZED UNDERSTANDING BUT REENFORCEMENT NEEDED. PT TOLERATED WELL. NO S/S OF ACUTE DISTRESS. PT DENIES PAIN. WILL CONTINUE TO MONITOR.
[2017-05-06] MEDS: INSULIN LANTUS 100 UNITS/ML 10 ML VIAL SUBQ SCH (09:13)
--- NOTE | 2017-05-06 12:00 | NUR ---
DR. KHAN AND JOY CAME IN TO SEE PT. PLAN OF CARE DISCUSSED WITH PT AND AT BEDSIDE. NO S/S OF ACUTE DISTRESS. PT DENIES PAIN. WILL CONTINUE TO MONITOR.
--- NOTE | 2017-05-06 14:24 | NUR ---
CABLE TECHNICIAN note (bedside swallow evaluation completed) [id number]. Bedside swallow evaluation completed, please see report for details. CABLE TECHNICIAN provided pt and pt's spouse (at bedside) with education regarding purpose of evaluation and rationale for recommendations. Pt and pt's spouse verbalized agreement and understanding. Pt likely will need reinforcement of education provided. All questions answered to their stated satisfaction at this time. Recommend: 1) pureed textures 2) nectar-thick liquids 3) STRICT aspiration precautions (including pt must be FULLY awake/alert/upright for any PO intakes, alternate small/slow bites and sips, pt must remain upright for minimum of 15 minutes following any PO intakes, stop giving PO if pt becomes sleepy/less alert/SOB/coughing) 4) 100% feeding assistance/supervision 5) CABLE TECHNICIAN to f/u for dysphagia/diet tolerance 2x week x 2 weeks. G-codes: [id number] NAOMI NOMS level 3. PVE for d/w RN and zinc furnace charger prior to and following bedside swallow evaluation completion. CABLE TECHNICIAN placed safe swallow strategies sign in pt's paper chart due to pt's pending transfer out of ICU (per RN report).
--- NOTE | 2017-05-06 15:20 | NUR ---
PT TRANSFERRED TO [facility]. NO S/S OF ACUTE DISTRESS. PT DENIES PAIN. IV SITE PATENT AND INTACT. NG-TUBE RECHECKED FOR PLACEMENT. NG-TUBE PATENT. ORO AND RECTAL BAG PATENT. CALL LIGHT WITHIN REACH. SAFETY MEASURES ENSURED. WILL CONTINUE TO MONITOR.
--- NOTE | 2017-05-06 16:00 | NUR ---
RECEIVED PATIENT REPORT AT BEDSIDE FROM ICU NURSE. PATIENT IS AAOX3 AND SHOWS NO S/S OF ACUTE DISTRESS ON O2 @ 2L VIA NC, O2 SAT 97%, RR 16. SKIN INTACT. NOTED RT IJ TRIPLE LUMEN, WITH IVF'S INFUSING ON THE WHITE LUMEN PORT WITH NO RESISTANCE, PATENT AND INTACT. NOTED NGT HAS NO RESIDUAL NOTED, POSITIVE PLACEMENT WAS CHECKED, FLUSHED WITH 30 CC OF STERILE WATER, HOB ELEVATED, TF HELD. ORO CATHETER HAS DARK LUIS ALBERTO CLOUDY URINE. RECTAL BAG TUBE WITH 300CC'S OF LOOSE DARK BROWN STOOL. FALL AND SAFETY PRECAUTIONS IN PLACE, SCD'S IN PLACE, BED ALARM ACTIVATED, POC DISCUSSED WITH FAMILY AND PATIENT VERBALIZED UNDERSTANDING OF CARE.
--- NOTE | 2017-05-06 16:03 | NUR ---
ENDORSED PLAN OF CARE TO DAY KATHLEEN SAUER. PT REMAINS STABLE.
--- NOTE | 2017-05-06 18:30 | NUR ---
ADMINISTERED SCHEDULED MEDICATION, IV ABX INFUSING WELL ON THE RIGHT IJ. PATIENT MEDICATION GIVEN WITH APPLE SAUCE, GAVE WITH SMALL SPOONFUL BITES. PATIENT SWALLOWED WITHOUT DIFFICULTY AND TOLERATED WELL, NO NAUSEA OR VOMITING NOTED. SON IS AT BEDSIDE, EDUCATED ON HOW TO FEED PATIENT PER SWALLOW EVAL ORDERS. DINNER AT BEDSIDE. PATIENT HOB AT HIGH FOWLERS.
--- NOTE | 2017-05-06 18:45 | NUR ---
PATIENT ATE ONLY 10% OF HIS DINNER, NO NOTED N/V. HOB IS AT IS ON HIGH FOWLERS POSITION FOR 15 MIN. ALL NEEDS MET AT THIS TIME.
--- NOTE | 2017-05-06 19:10 | NUR ---
DISCONTINUED NGT, PATIENT TOLERATED ACTIVITY WELL, PATIENT O2 SAT IS 97% AT O2 @ 2L VIA NC, HR 87. AT BEDSIDE. ALL NEEDS MET AT THIS TIME.
--- NOTE | 2017-05-06 19:21 | NUR ---
RECEIVED HANDOFF REPORT FROM AM RN. PATIENT A&OX4. PATIENT DENIES PAIN. PATIENT IV SITE PATENT AND INTACT. NASAL CANNULA PATENT AND INTACT AT 2L. ORO CATH PATENT AND INTACT. RECTAL BAG PATENT AND INTACT. NO SIGNS OR SYMPTOMS OF ACUTE DISTRESS NOTED. AT BEDSIDE. SAFETY MEASURES ENSURED. CALL LIGHT WITHIN REACH. WILL CONTINUE TO MONITOR.
--- NOTE | 2017-05-06 20:50 | NUR ---
PM MEDS GIVEN WITH EDUCATION. PATIENT VERBALIZED UNDERSTANDING. NO SIGNS OR SYMPTOMS OF ACUTE DISTRESS NOTED. CALL LIGHT WITHIN REACH. WILL CONTINUE TO MONITOR.
--- NOTE | 2017-05-06 21:25 | NUR ---
PATIENT FOUND AT BEDSIDE. PATIENT STATES HE WAS TRYING TO REACH HIS MONEY ON BEDSIDE TABLE. PATIENT HELPED BACK INTO BED. NO SIGNS OF DISTRESS NOTED. PATIENT DENIES PAIN. VITAL SIGNS ARE WITHIN BASELINE LIMIT BP 120/63 HR 77 O2 92 ON ROOM AIR 98% ON NASAL CANNULA 2L. SAFETY MEASURES RE-INSURED. BEDSIDE TABLE WITHIN REACH, CALL BELLS TESTED, BED ALARM TESTED, PATIENT RE-ORIENTED TO ROOM FALL PROTOCOL. PATIENT VERBALIZED UNDERSTANDING. NO SIGNS OF DISTRESS NOTED. WILL CONTINUE TO MONITOR.
--- NOTE | 2017-05-06 22:10 | NUR ---
MD AWARE OF PATIENT FOUND AT BEDSIDE.
[2017-05-07] VITALS: BP 123/54
[2017-05-07] MEDS: HYDRAGUARD CREAM TP SCH ×2 (01:17→12:21)
[2017-05-07] MEDS: ALBUTEROL SULFATE/IPRATROPIU 3 ML SOL IH SCH ×6 (03:16→23:11)
[2017-05-07 04:00] VITALS: BP 124/56
[2017-05-07] MEDS: PIPER/TAZO 3.375GM/D5W PREMIX 50 ML IV SCH (05:26)
[2017-05-07] MEDS: BLOOD GLUCOSE MONITORING 1 DEV DEV FS SCH ×4 (06:38→21:39)
[2017-05-07] MEDS: INSULIN LISPRO SLIDING SCALE 100 UNITS/ML VIAL SUBQ PRN ×4 (06:54→20:57)
--- NOTE | 2017-05-07 07:18 | NUR ---
ENDORSED PLAN OF CARE TO AM RN. PATIENT IN STABLE CONDITION.
--- NOTE | 2017-05-07 07:19 | NUR ---
RECEIVED REPORT FROM APPEALS BOARD REFEREE RN. PATIENT IS AAOX4, RESPIRATORY EFFORT EVEN AND UNLABORED. PATIENT IS ON 2L NC SATURATING AT 95%. NO SIGNS AND SYMPTOMS OF ACUTE DISTRESS. PATIENT HAS RIGHT IJ TRIPLE LUMEN INFUSING 1/2 NS AT 10MLS. SITE IS CLEAN, DRY, PATENT, AND INTACT. PATIENT HAS ORO CATHETER DRAINING AT GRAVITY. PATIENT HAS A RECTAL TUBE IN PLACE. FALL RISK PRECAUTIONS IN PLACE. BED IN LOWEST POSITION, SIDERAILS UP X2, CALL LIGHT WITHIN REACH, TELEPHONE WITHIN REACH. WILL CONTINUE TO MONITOR.
[2017-05-07 08:00] VITALS: BP 110/54
[2017-05-07] MEDS: LISINOPRIL 5 MG TAB PO SCH (09:00)
[2017-05-07] MEDS: TAMSULOSIN 0.4 MG CAP PO SCH ×2 (09:10→20:52)
[2017-05-07] MEDS: LACTOBACILLUS RHAMNOSUS GG 1 EACH CAP NG SCH (09:10)
[2017-05-07] MEDS: FUROSEMIDE 20 MG TAB PO SCH (09:11)
[2017-05-07] MEDS: CLOPIDOGREL 75 MG TAB PO SCH (09:11)
[2017-05-07] MEDS: GABAPENTIN 300 MG CAP PO SCH ×3 (09:11→16:48)
[2017-05-07] MEDS: ALLOPURINOL 300 MG TAB PO SCH (09:12)
[2017-05-07] MEDS: amLODIPine 5 MG TAB PO SCH (09:13)
[2017-05-07] MEDS: ASPIRIN 81 MG TAB.CHEW PO SCH (09:13)
[2017-05-07] MEDS: DOCUSATE 100 MG/10 ML UDC PO SCH ×2 (09:14→21:00)
[2017-05-07] MEDS: PANTOPRAZOLE 40 MG INJ VIAL IVP SCH (09:14)
[2017-05-07] MEDS: METOPROLOL 25 MG TAB NG SCH ×2 (09:14→20:52)
[2017-05-07] MEDS: INSULIN LANTUS 100 UNITS/ML 10 ML VIAL SUBQ SCH (09:16)
[2017-05-07] MEDS: ATORVASTATIN 80 MG TAB PO SCH (09:22)
[2017-05-07 11:00] LABS: BASOPHILS # (AUTO) 0.1 K/uL (0.00-0.22); BASOPHILS % (AUTO) 0.6 % (0.0-2.0); EOSINOPHILS # (AUTO) 0.3 K/uL (0-0.4); HEMATOCRIT 31.4 % (36-52); HEMOGLOBIN 10.2 g/dL (12.0-18.0); LYMPHOCYTES # (AUTO) 1.1 K/uL (2.0-11.5); LYMPHOCYTES % (AUTO) 10.7 % (20.5-51.1); MEAN CORPUSCULAR HEMOGLOBIN 28 pg (27-31); MEAN CORPUSCULAR HGB CONC 32 g/dL (33-37); MEAN CORPUSCULAR VOLUME 85 fL (80-94); MONOCYTES # (AUTO) 0.8 K/uL (0.8-1.0); MONOCYTES % (AUTO) 8.1 % (1.7-9.3); NEUTROPHILS # (AUTO) 7.6 K/uL (1.8-7.7); NEUTROPHILS % (AUTO) 77.6 % (42.2-75.2); PLATELET COUNT (AUTO) 129 K/uL (140-450); RED CELL DISTRIBUTION WIDTH 12.4 % (11.6-13.7); WHITE BLOOD COUNT (AUTO) 9.9 K/uL (4.8-10.8)
[2017-05-07 11:13] LABS: ANION GAP 11.9 (8-16); CARBON DIOXIDE 30.8 mmol/L (21-32); CREATININE 1.4 mg/dL (0.7-1.3); POTASSIUM 3.7 mmol/L (3.5-5.1)
[2017-05-07 11:17] LABS: MAGNESIUM 2.1 mg/dL (1.8-2.4); PHOSPHORUS 4.6 mg/dL (2.5-4.9)
[2017-05-07 12:00] VITALS: BP 108/49
--- NOTE | 2017-05-07 12:14 | NUR ---
05/07/17 RD FOLLOW UP COMPLETED PLEASE REFER TO NUTRITION PROGRESS NOTE UNDER CARE ACTIVITY FOR ESTIMATED NUTRITION NEEDS. RD RECOMMENDATIONS: 1. CONTINUE PUREED, NECTAR THICK LIQUID DIET TOLERATED. 2. RECOMMEND NURSING STAFF TO ENCOURAGE INCREASED PO INTAKE AND HELP WITH FEEDING DURING MEAL TIME FOR ADEQUATE NUTRITION INTAKE. -NOTE PTS PO INTAKE IS CURRENTLY MEETING LESS THAN 75% OF ESTIMATED NUTRITION NEEDS. 3. IF/WHEN PTS PO INTAKE HAS IMPROVED, CONSIDER ADDING CCHO 6O GM DIET ONTO CURRENT DIET D/T TO PT PMH OF DM AND ELEVATED GLUCOSE LEVELS. 4. IF PT CONTINUES TO HAVE POOR PO INTAKE, CONSIDER ADDING BOOST GLUCOSE CONTROL WITH MEALS FOR ADDITIONAL KCAL AND PROTEIN. 5. RD WILL F/U 2-3 DAYS; HIGH RISK. BOB MARLEY, RD
--- NOTE | 2017-05-07 14:30 | NUR ---
PATIENTS FAMILY AT THE BEDSIDE. EXPLAINED CURRENT PLAN OF CARE WITH PATIENT. ALL QUESTIONS HAVE BEEN ANSWERED. LET DR DE ANDA THAT FAMILY HAD QUESTIONS AND SHE WENT TO TALK WITH FAMILY.
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
--- NOTE | 2017-05-07 15:58 | NUR ---
Social Service Note: Alexei Tripp from [facility] , patient has been accepted and may go there upon discharge. Patient's Jennifer snf preference is [facility].
[2017-05-07 16:00] VITALS: BP 114/49
--- NOTE | 2017-05-07 17:29 | NUR ---
ULTRASOUND TECHNICIANS AT THE BEDSIDE PERFORMING KIDNEY US. WILL CONTINUE TO MONITOR.
--- NOTE | 2017-05-07 19:16 | NUR ---
ENDORSED PATIENT TO STOGY MAKER RN FOR CONTINUITY OF CARE. PATIENT IS IN STABLE CONDITION.
[2017-05-07 20:00] VITALS: BP 130/57
--- NOTE | 2017-05-07 20:57 | NUR ---
DUE MEDICATION GIVEN, PT TOLERATED WELL, NO DISTRESS NOTED, PT REFUSED COLACE, CALL LIGHT WITHIN REACH, WILL CONTINUE TO MONITOR.
--- NOTE | 2017-05-07 22:30 | NUR ---
REPOSITIONED AND CHANGED PT, PT TOLERATED WELL, NO DISTRESS NOTED, CALL LIGHT WITHIN REACH, WILL CONTINUE TO MONITOR.
--- NOTE | 2017-05-07 22:40 | NUR ---
PT C/O OF PAIN ON THE L LEGS 12/05, NOTIFIED DR. BRENNAN NOTIFIED, DR STATED THAT SHE WILL SEE THE PT.
[2017-05-07] MEDS: HYDROcodone/APAP 5/325 MG 1 TAB TAB PO PRN (22:58)
--- NOTE | 2017-05-07 22:58 | NUR ---
PAIN MEDICATION GIVEN PER ORDER, PT C/O OF PAIN ON THE L LEG 12/05, DR. BRENNAN ALREADY SEEN THE PT AND ORDERED PAIN MEDICATION. PT TOLERATED WELL, NO DISTRESS NOTED, CALL LIGHT WITHIN REACH, WILL CONTINUE TO MONITOR.
[2017-05-08] VITALS (7 sets, daily range): BP systolic 90–133; BP diastolic 42–64
[2017-05-08] MEDS: HYDRAGUARD CREAM TP SCH ×2 (00:01→12:27)
--- NOTE | 2017-05-08 00:02 | NUR ---
CHECKED ON PT, PT SLEEPING, NO DISTRESS NOTED, CALL LIGHT WITHIN REACH, WILL CONTINUE TO MONITOR.
--- NOTE | 2017-05-08 02:00 | NUR ---
PT REPORTED CHEST PAIN 12/05, AFTER A FEW SECOND WHEN ASKED, PT STATED THERE IS NO PAIN, PT WAS CONFUSED ABOUT DATE AND TIME, AND TRIED TO GET OUT OF BED, NOTIFY DR. BRENNAN REGARDING PT'S EPISODE OF CHEST PAIN, WILL ORDER TROPONIN AND EKG EVALUATION. WILL CONTINUE WITH ORDERS.
[2017-05-08] MEDS: ALBUTEROL SULFATE/IPRATROPIU 3 ML SOL IH SCH ×6 (03:43→23:24)
--- NOTE | 2017-05-08 04:30 | NUR ---
CHANGED, CLEANED, AND REPOSITIONED PT, PT STABLE, NO DISTRESS NOTED, TOLERATED WELL, CALL LIGHT WITHIN REACH, WILL CONTINUE TO MONITOR.
--- NOTE | 2017-05-08 04:40 | NUR ---
PT HAD SHORT RUN OF VTACH ON TELE MONITOR, BP 113/64, HR 115, PT STATED HAVING NO CHEST PAIN AND NO SOB, NOTIFIED DR. BRENNAN. STATED UNDERSTANDING, AND THERE IS NO CHANGE IN ORDERS.
[2017-05-08] MEDS: NACL 0.45% 1,000 ML IV SCH (04:50)
[2017-05-08] MEDS: BLOOD GLUCOSE MONITORING 1 DEV DEV FS SCH ×4 (05:59→21:46)
--- NOTE | 2017-05-08 07:13 | NUR ---
ENDORSED PLAN OF CARE TO DAY SHIFT NURSE NASRIN RN, PT STABLE, NO DISTRESS NOTED, CALL LIGHT WITHIN REACH.
--- NOTE | 2017-05-08 07:14 | NUR ---
RECEIVED REPORT FORM THE PULLING UNIT OPERATOR RN. PATIENT IS AAOX3 WITH MOMENTS OF MINOR CONFUSION. PATIENT HAS NO SIGNS AND SYMPTOMS OF DISTRESS. SHE IS ON ROOM AIR SATURATING AT 95%. HE HAS RIGHT IJ INFUSING 1/2 NS AT 10ML. THE SITE IS CLEAN, DRY, PATENT AND INTACT. LUMEN ARE PATENT AND INTACT. HE HAS A ORO IN PLACE. BED IN LOWEST POSITION, FALL RISK PROTOCOL IN PLACE, SIDERAILS UP X2, CALL LIGHT WITHIN REACH, TELEPHONE WITH IN REACH, BED ALARM. WILL CONTINUE TO MONITOR.
[2017-05-08] MEDS: DOCUSATE 100 MG/10 ML UDC PO SCH ×2 (09:00→21:00)
[2017-05-08] MEDS: TAMSULOSIN 0.4 MG CAP PO SCH ×2 (09:18→20:30)
[2017-05-08] MEDS: FUROSEMIDE 20 MG TAB PO SCH (09:18)
[2017-05-08] MEDS: LACTOBACILLUS RHAMNOSUS GG 1 EACH CAP NG SCH (09:18)
[2017-05-08] MEDS: ATORVASTATIN 80 MG TAB PO SCH (09:19)
[2017-05-08] MEDS: METOPROLOL 25 MG TAB NG SCH ×2 (09:19→21:00)
[2017-05-08] MEDS: CLOPIDOGREL 75 MG TAB PO SCH (09:20)
[2017-05-08] MEDS: LISINOPRIL 5 MG TAB PO SCH (09:20)
[2017-05-08] MEDS: ALLOPURINOL 300 MG TAB PO SCH (09:20)
[2017-05-08] MEDS: PANTOPRAZOLE 40 MG INJ VIAL IVP SCH (09:21)
[2017-05-08] MEDS: GABAPENTIN 300 MG CAP PO SCH ×3 (09:21→17:33)
[2017-05-08] MEDS: amLODIPine 5 MG TAB PO SCH (09:21)
[2017-05-08] MEDS: ASPIRIN 81 MG TAB.CHEW PO SCH (09:21)
[2017-05-08] MEDS: INSULIN LANTUS 100 UNITS/ML 10 ML VIAL SUBQ SCH (09:28)
[2017-05-08 09:56] LABS: BASOPHILS # (AUTO) 0.1 K/uL (0.00-0.22); BASOPHILS % (AUTO) 1.4 % (0.0-2.0); EOSINOPHILS # (AUTO) 0.4 K/uL (0-0.4); EOSINOPHILS % (AUTO) 4.2 % (0.0-4.0); HEMATOCRIT 29.9 % (36-52); HEMOGLOBIN 9.3 g/dL (12.0-18.0); LYMPHOCYTES # (AUTO) 1.3 K/uL (2.0-11.5); MEAN CORPUSCULAR HEMOGLOBIN 27 pg (27-31); MEAN CORPUSCULAR HGB CONC 31 g/dL (33-37); MEAN CORPUSCULAR VOLUME 85 fL (80-94); MONOCYTES % (AUTO) 11.1 % (1.7-9.3); NEUTROPHILS # (AUTO) 6.2 K/uL (1.8-7.7); NEUTROPHILS % (AUTO) 69.3 % (42.2-75.2); PLATELET COUNT (AUTO) 137 K/uL (140-450); RED BLOOD CELL COUNT(AUTO) 3.51 MIL/uL (4.20-6.10); RED CELL DISTRIBUTION WIDTH 12.6 % (11.6-13.7)
[2017-05-08 10:08] LABS: ANION GAP 10.4 (8-16); CARBON DIOXIDE 29.7 mmol/L (21-32); CREATININE 1.3 mg/dL (0.7-1.3); POTASSIUM 4.1 mmol/L (3.5-5.1)
[2017-05-08 10:12] LABS: MAGNESIUM 2.1 mg/dL (1.8-2.4); PHOSPHORUS 3.4 mg/dL (2.5-4.9)
--- NOTE | 2017-05-08 10:45 | NUR ---
CLAMPED ORO CATHETER FOR BLADDER TRAINING PER DOCTORS ORDERS. EDUCATED THE PATIENT ON INFORMING US WHEN HAVING THE URGENCY TO URINATE. PATIENT VERBALIZED UNDERSTANDING.
[2017-05-08] MEDS: INSULIN LISPRO SLIDING SCALE 100 UNITS/ML VIAL SUBQ PRN ×3 (12:27→21:47)
[2017-05-08 13:12] LABS: PROTHROMBIN TIME 11.7 secs (10.8-13.4)
--- NOTE | 2017-05-08 13:48 | NUR ---
PATIENT STATED HE HAS THE URGENCY TO URINATE. UNCLAMPED ORO TO DRAIN. PATIENT STATED RELIEF. RECLAMPED ORO. WILL CONTINUE TO MONITOR.
[2017-05-08] MEDS: HYDROcodone/APAP 5/325 MG 1 TAB TAB PO PRN ×2 (15:41→20:30)
--- NOTE | 2017-05-08 16:30 | NUR ---
PATIENT'S O2 SATURATION DROPPED TO 87% ON ROOM AIR. PATIENT USED SPIROMETER X2 AND HIS O2 SATURATION WHEN UP TO 92%. PATIENT'S O2 SATURATION DROPPED TO 87% RIGHT AFTER HE USED THE SPIROMETER. PATIENT IS NOW ON 2L NC SATURATING AT 94% AT THIS TIME. WILL CONTINUE TO MONITOR.
[2017-05-08] MEDS ORDERED: WARFARIN 2.5 MG TAB PO SCH (17:00)
--- NOTE | 2017-05-08 17:33 | NUR ---
PATIENT RECEIVED FIRST DOSE OF COUMADIN, 7.5MG. PATIENT RECEIVED EDUCATION REGARDING THE MEDICATION. A HANDOUT WAS PROVIDED IN PRYDEINIG AND CROATIAN. PATIENT WAS INFORMED THAT HIS INR WILL NEED TO BE MONITORED FREQUENTLY WHEN TAKING THIS MEDICATION. PATIENT VERBALIZED UNDERSTANDING.
--- NOTE | 2017-05-08 19:10 | NUR ---
ENDORSED PATIENT TO SOLUTIONS ARCHITECT CONSULTANT NURSE FOR CONTINUITY OF CARE. PATIENT IN STABLE CONDITION.
--- NOTE | 2017-05-08 19:11 | NUR ---
RECEIVED BEDSIDE REPORT FROM DAY SHIFT NURSE NASRIN, PT STABLE, NO DISTRESS NOTED, PT HAS CENTRAL LINE TO THE R IJ, TRIPLE LUMEN, PATENT, DRESSING INTACT, RUNNING 1/2 NS @ 10ML/HR, INFUSING WELL, PT ON 2LPM O2 VIA NC, NO SOB, INITIAL ASSESSMENT DONE, ALL SAFETY PRECAUTION MET, WILL CONTINUE TO MONITOR.
--- NOTE | 2017-05-08 19:18 | NUR ---
PT REFUSED THE EZ PAP MASK TO DO HHN TX, HE WANTS REGULAR MASK
--- NOTE | 2017-05-08 19:45 | NUR ---
PT STATED FEELING THE NEED TO PEE X3, AND REQUESTED ORO CATH TO BE TAKEN OUT, ORO CATH TAKEN OUT, INTACT, PT TOLERATED WELL, NO DISTRESS NOTED, CALL LIGHT WITHIN REACH, LEFT RESTING, FAMILY BY BEDSIDE, WILL CONTINUE TO MONITOR.
--- NOTE | 2017-05-08 20:30 | NUR ---
PT C/O OF PAIN ON THE LEFT LEG 12/05, PAIN MEDICATION GIVEN, DUE MEDICATION GIVEN, PT BP MEDICATION WAS NOT GIVEN DUE TO LOW HR AND BP, DR. BRENNAN NOTIFIED, PT REFUSED COLACE, PT TOLERATED WELL, NO DISTRESS NOTED, CALL LIGHT WITHIN REACH, WILL CONTINUE TO MONITOR.
--- NOTE | 2017-05-08 23:50 | NUR ---
PT AMBULATE TO BEDSIDE COMMODE, ATTEMPT TO PEE, ABOUT 5ML OF URINE, CLEAR, NORMAL ODOR. PT WENT BACK TO BED, NO DISTRESS NOTED, CALL LIGHT WITHIN REACH, WILL CONTINUE TO MONITOR.
[2017-05-09] VITALS (8 sets, daily range): BP systolic 101–155; BP diastolic 41–52
[2017-05-09] MEDS: HYDRAGUARD CREAM TP SCH ×2 (01:30→13:06)
--- NOTE | 2017-05-09 03:05 | NUR ---
PT AMBULATED TO BEDSIDE COMMODE, URINATED 50ML OF URINE, CLEAR, YELLOW, NORMAL ODOR. WENT BACK TO BED, RESTING, NO DISTRESS NOTED, CALL LIGHT WITHIN REACH.
[2017-05-09] MEDS: ALBUTEROL SULFATE/IPRATROPIU 3 ML SOL IH SCH ×6 (03:28→23:09)
[2017-05-09] MEDS: HYDROcodone/APAP 5/325 MG 1 TAB TAB PO PRN ×3 (04:00→21:00)
--- NOTE | 2017-05-09 04:47 | NUR ---
PT AMBULATED TO BEDSIDE COMMODE AND URINATE 50ML URINE, YELLOW IN COLOR WITH NORMAL SMELL, WENT BACK TO BED, NO DISTRESS NOTED, CALL LIGHT WITHIN REACH.
[2017-05-09] MEDS: NACL 0.45% 1,000 ML IV SCH (04:50)
--- NOTE | 2017-05-09 06:02 | NUR ---
PT AMBULATED TO BEDSIDE COMMODE, URINATE 75ML, PT TOLERATED WELL, NO DISTRESS NOTED, CALL LIGHT WITHIN REACH. WILL CONTINUE TO MONITOR.
[2017-05-09] MEDS: INSULIN LISPRO SLIDING SCALE 100 UNITS/ML VIAL SUBQ PRN ×4 (06:08→21:11)
[2017-05-09 06:21] LABS: BASOPHILS # (AUTO) 0.1 K/uL (0.00-0.22); BASOPHILS % (AUTO) 1.4 % (0.0-2.0); EOSINOPHILS # (AUTO) 0.3 K/uL (0-0.4); EOSINOPHILS % (AUTO) 3.6 % (0.0-4.0); HEMATOCRIT 26.6 % (36-52); HEMOGLOBIN 8.7 g/dL (12.0-18.0); LYMPHOCYTES # (AUTO) 1.1 K/uL (2.0-11.5); LYMPHOCYTES % (AUTO) 14.4 % (20.5-51.1); MEAN CORPUSCULAR HEMOGLOBIN 28 pg (27-31); MEAN CORPUSCULAR HGB CONC 33 g/dL (33-37); MEAN CORPUSCULAR VOLUME 85 fL (80-94); MONOCYTES # (AUTO) 0.8 K/uL (0.8-1.0); MONOCYTES % (AUTO) 10.7 % (1.7-9.3); NEUTROPHILS # (AUTO) 5.3 K/uL (1.8-7.7); NEUTROPHILS % (AUTO) 69.9 % (42.2-75.2); PLATELET COUNT (AUTO) 123 K/uL (140-450); RED BLOOD CELL COUNT(AUTO) 3.13 MIL/uL (4.20-6.10); RED CELL DISTRIBUTION WIDTH 12.1 % (11.6-13.7); WHITE BLOOD COUNT (AUTO) 7.6 K/uL (4.8-10.8)
[2017-05-09 06:40] LABS: PROTHROMBIN TIME 12.2 secs (10.8-13.4)
[2017-05-09 06:46] LABS: ANION GAP 9.1 (8-16); CARBON DIOXIDE 32.4 mmol/L (21-32); CREATININE 1.4 mg/dL (0.7-1.3); POTASSIUM 3.5 mmol/L (3.5-5.1)
[2017-05-09] MEDS: BLOOD GLUCOSE MONITORING 1 DEV DEV FS SCH ×4 (07:01→21:07)
[2017-05-09 07:04] LABS: MAGNESIUM 2.5 mg/dL (1.8-2.4); PHOSPHORUS 4.5 mg/dL (2.5-4.9)
--- NOTE | 2017-05-09 07:30 | NUR ---
ENDORSED PLAN OF CARE TO DAY SHIFT NURSE RAMIRO WANG, PT STABLE, NO DISTRESS NOTED, CALL LIGHT WITHIN REACH.
--- NOTE | 2017-05-09 07:31 | NUR ---
RECEIVED REPORT FROM SPEECH WRITER NURSE. PATIENT LYING DOWN IN BED RECEIVING A BREATHING TREATMENT. NO DISTRESS NOTED. DENIES ANY PAIN AT THIS TIME. RESPIRATIONS EVEN, UNLABORED, ON ROOM AIR. AAOX4, OCCASIONAL CONFUSION, SKIN COLOR APPROPRIATE TO ETHNICITY, WARM TO TOUCH. SKIN IS INTACT, DRYNESS NOTED ON B/L UE. LUNGS WHEEZING NOTED THROUGHOUT ALL LOBES. ABDOMEN SOFT, NON-DISTENDED. ORO CATHETER AND FECAL TUBE BAG REMOVED YESTERDAY 05/08/17. HAS RIGHT IJ TRIPLE LUMEN THAT IS INTACT, PATENT, AND INFUSING IVF PER ORDERS. REVIEWED PLAN OF CARE WITH PATIENT. PATIENT VERBALIZED UNDERSTANDING. SAFETY MEASURES IN PLACE, CALL LIGHT WITHIN REACH. WILL CONTINUE TO MONITOR.
[2017-05-09] MEDS: METOPROLOL 25 MG TAB NG SCH ×3 (09:00→22:03)
[2017-05-09] MEDS: amLODIPine 5 MG TAB PO SCH (09:00)
[2017-05-09] MEDS: DOCUSATE 100 MG/10 ML UDC PO SCH ×2 (09:00→21:00)
[2017-05-09] MEDS: LISINOPRIL 5 MG TAB PO SCH (09:00)
[2017-05-09] MEDS: INSULIN LANTUS 100 UNITS/ML 10 ML VIAL SUBQ SCH (09:24)
[2017-05-09] MEDS: PANTOPRAZOLE 40 MG INJ VIAL IVP SCH (09:25)
[2017-05-09] MEDS: LACTOBACILLUS RHAMNOSUS GG 1 EACH CAP NG SCH (09:25)
[2017-05-09] MEDS: TAMSULOSIN 0.4 MG CAP PO SCH ×2 (09:26→21:00)
[2017-05-09] MEDS: ATORVASTATIN 80 MG TAB PO SCH (09:26)
[2017-05-09] MEDS: ASPIRIN 81 MG TAB.CHEW PO SCH (09:26)
[2017-05-09] MEDS: GABAPENTIN 300 MG CAP PO SCH ×3 (09:26→16:34)
[2017-05-09] MEDS: ALLOPURINOL 300 MG TAB PO SCH (09:27)
[2017-05-09] MEDS: FUROSEMIDE 20 MG TAB PO SCH (09:27)
--- NOTE | 2017-05-09 09:35 | NUR ---
PATIENT LYING DOWN IN BED WATCHING TV. NO DISTRESS NOTED. DENIES ANY PAIN AT THIS TIME. SCHEDULED MEDICATIONS DUE GIVEN. SAFETY MEASURES IN PLACE, CALL LIGHT WITHIN REACH. WILL CONTINUE TO MONITOR.
--- NOTE | 2017-05-09 10:23 | NUR ---
HHN TX GIVEN. PT DIDNT WANT TO USE EZPAP. USED AEROSOL MASK . PT IS AWAKE AND ALERT. NO SOB OR DISTRESS NOTED. GOOD CHEST RISE. FAMILY AT BEDSIDE. PT ON ROOMAIR WITH SPO2 OF 96%. WILL CONTINUE TO MONITOR.
--- NOTE | 2017-05-09 13:11 | NUR ---
PATIENT LYING IN BED. NO DISTRESS NOTED. DENIES ANY PAIN AT THIS TIME. CONDITION UNCHANGED. SCHEDULED MEDICATIONS DUE GIVEN. SAFETY MEASURES IN PLACE, CALL LIGHT WITHIN REACH. WILL CONTINUE TO MONITOR.
--- NOTE | 2017-05-09 14:38 | NUR ---
05/09/17 RD FOLLOW UP COMPLETED. PLEASE REFER TO NUTRITION ASSESSMENT UNDER CARE ACTIVITY FOR ESTIMATED NUTRITIONAL NEEDS. 1.(CONTINUE) RECOMMEND NURSING STAFF TO ENCOURAGE INCREASED PO INTAKE AND HELP WITH FEEDING DURING MEAL TIMES FOR ADEQUATE NUTRITION INTAKE. 2.(CONTINUE) IF/WHEN PTS PO INTAKE HAS IMPROVED, CONSIDER ADDING CCHO 6O GM DIET ONTO CURRENT DIET ORDER D/T TO PT PMH OF DM AND ELEVATED GLUCOSE LEVELS. RD TO FOLLOW-UP IN 2-3 DAYS PATIENT IS HIGH RISK. LESLIE HERNANDEZ RD
--- NOTE | 2017-05-09 15:13 | NUR ---
HHN TX NOT GIVEN. PT SAID HE WANTS TO SLEEP. NO SOB OR DISTRESS NOTED. WILL CONTINUE TO MONITOR.
[2017-05-09 15:27] LABS: ANION GAP 12.6 (8-16); CARBON DIOXIDE 31.2 mmol/L (21-32); CREATININE 1.5 mg/dL (0.7-1.3); POTASSIUM 3.8 mmol/L (3.5-5.1)
[2017-05-09 15:30] LABS: MAGNESIUM 2.3 mg/dL (1.8-2.4); PHOSPHORUS 3.3 mg/dL (2.5-4.9)
--- NOTE | 2017-05-09 15:35 | NUR ---
BED MAKER note (dysphagia therapy and discharge summary report) [id number]. S/O: Dysphagia therapy provided following clearance by RN (Jose). Pt positioned fully upright in bed for dysphagia therapy session and then returned to low/locked bed position of pt's stated comfort. Pt self-fed all PO trials. Pt pleasant, conversant. Pt on room air at this time. A/P: Pt tolerating regular textures and thin liquids without difficulty, provided pt didn't try to talk with PO in his mouth - which caused pt to cough. Pt self-corrected and no further overt signs/symptoms of aspiration were demonstrated at this time. BED MAKER provided pt with education regarding progress to date and rationale for recommendations. Pt verbalized agreement. No family present at this time. Recommend: 1) regular textures 2) thin liquids 3) general aspiration precautions (including pt must be FULLY awake/alert/upright for any PO intakes, alternate small/slow bites and sips, pt must remain upright for minimum of 15 minutes following any PO intakes, stop giving PO if pt becomes sleepy/less alert/SOB/coughing) 4) no further BED MAKER intervention indicated at this time. Discharge pt from BED MAKER intervention. Physician may reorder if further concerns arise, as appropriate. Discharge Summary Report Pt was provided with bedside swallow evaluation on 05/06/2017 with recommendations for pureed textures, nectar-thick liquids, strict aspiration precautions, feeding assistance, dysphagia therapy. Pt was provided with dysphagia therapy on 05/09/2017 with recommendations for regular textures, thin liquids, general aspiration precautions, and discharge pt from dysphagia therapy. G-codes: [id number] [facility] NOMS level 6. PVE for d/w RN (Jose) prior to and following dysphagia therapy session.
--- NOTE | 2017-05-09 16:42 | NUR ---
PATIENT LYING IN BED WATCHING TV WITH SON AT BEDSIDE. NO DISTRESS NOTED. COMPLAINTS OF PAIN, MEDICATED WITH NORCO. OTHER SCHEDULED MEDICATIONS DUE GIVEN. SAFETY MEASURES IN PLACE, CALL LIGHT WITHIN REACH. WILL CONTINUE TO MONITOR.
[2017-05-09] MEDS ORDERED: RIVAROXABAN 15 MG TAB PO SCH (17:00)
[2017-05-09] MEDS ORDERED: WARFARIN 2.5 MG TAB PO SCH (17:00)
--- NOTE | 2017-05-09 17:56 | NUR ---
PATIENT SITTING IN BED WATCHING TV WITH SON AT BEDSIDE. IV SITE INSERTION ON RIGHT FOREARM USING #24 GAUGE NEEDLE. RIGHT IJ TRIPLE LUMEN CATHETER REMOVED PER MD ORDERS WITH LUMEN COMPLETELY INTACT, AND WITH MINIMAL BLOOD. PATIENT TOLERATED PROCEDURE WELL. SAFETY MEASURES IN PLACE, CALL LIGHT WITHIN REACH. WILL CONTINUE TO MONITOR.
--- NOTE | 2017-05-09 19:25 | NUR ---
GAVE REPORT TO DROSS PULLER NURSE FOR CONTINUITY OF CARE. PATIENT IN STABLE CONDITION.
--- NOTE | 2017-05-09 19:30 | NUR ---
RECEIVED PT IN STABLE CONDITION FROM AM NURSE. AWAKE,ALERT AND ORIENTED X4. WITH O22L/NC. FAMILY MEMBERS AT BEDSIDE. HAS IVF INFUSING WELL ON THE RT FA#[id number], CLEAR AND PATENT. CAN BE UP WITH ASSIST ON THE BEDSIDE COMMODE. INSTRUCTED TO CALL IF NEED ASSISTANCE. CALL LIGHT PLACED WITHIN EASY REACH. BED ON LOW POSITION. PLAN OF CARE DISCUSSED AND VERBALIZED UNDERSTANDING. WILL CONTINUE TO MONITOR.
--- NOTE | 2017-05-09 20:30 | NUR ---
ASSISTED UP TO THE BEDSIDE COMMODE. VOIDED WELL. PT STILL WITH SOME WEAKNESS. NO SOB NOTED. O2 2L/NC ON. NEED ASSISTANCE. ENCOURAGED TO CALL FIRST BEFORE GETTING UP ,CALL LIGHT PLACED WITHIN EASY REACH..
--- NOTE | 2017-05-09 21:11 | NUR ---
BLOOD SUGAR WAS CHECKED RESULT 201 . INSULIN COVERAGE GIVEN SUBQ . PROVIDED WITH SOME SNACK. WILL CONTINUE TO MONITOR.
--- NOTE | 2017-05-09 22:00 | NUR ---
HR ON THE MONITOR 156 /MIN , UNCONTROLLED AFIB. DR. LEVY MADE AWARE AND SAID TO GIVE THE LOPRESSOR FOR TONIGHT.
--- NOTE | 2017-05-10 00:50 | NUR ---
PT HR STILL UNCONTROLLED A FIB, @0009 HR 158, @ 0014 HR 116. PT IS ASYMPTOMATIC. NO C/O PAIN NOTED. BUT STILL HAVE DR DE GUZMAN MADE AWARE. HE SAID HE WILL CHECK ON IT.
--- NOTE | 2017-05-10 01:00 | NUR ---
DR. LEVY CAME AND NO NEW ORDER MADE. WILL CONTINUE TO MONITOR.
[2017-05-10] MEDS: HYDRAGUARD CREAM TP SCH ×2 (01:01→13:12)
[2017-05-10] MEDS: NACL 0.45% 1,000 ML IV SCH ×2 (01:35→04:50)
--- NOTE | 2017-05-10 02:00 | NUR ---
ASSISTED UP TO THE BEDSIDE COMMODE AGAIN. VOIDED. BACK TO BED AND REPOSITIONED WELL. NO C/O PAIN NOTED.
[2017-05-10] MEDS: ALBUTEROL SULFATE/IPRATROPIU 3 ML SOL IH SCH ×6 (03:00→23:13)
--- NOTE | 2017-05-10 03:10 | NUR ---
PT SLEEPING. NO S/S OF ANY DISCOMFORT NOR PAIN NOTED. HR ON MONITOR 98/MIN. WILL CONTINUE TO MONITOR.
[2017-05-10 03:45] VITALS: BP 100/50
[2017-05-10] MEDS: HYDROcodone/APAP 5/325 MG 1 TAB TAB PO PRN ×2 (03:49→11:40)
[2017-05-10] MEDS: BLOOD GLUCOSE MONITORING 1 DEV DEV FS SCH ×4 (06:05→22:00)
[2017-05-10] MEDS: INSULIN LISPRO SLIDING SCALE 100 UNITS/ML VIAL SUBQ PRN ×3 (06:06→22:01)
--- NOTE | 2017-05-10 06:06 | NUR ---
BLOOD SUGAR CHECKED RESULT 173. INSULIN COVERAGE GIVEN. HE IS SITTING ON THE SIDE OF THE BED AT THIS TIME. NO DISTRESS NOTED.
[2017-05-10 06:49] LABS: PROTHROMBIN TIME 17.5 secs (10.8-13.4)
[2017-05-10 07:13] LABS: ANION GAP 11.4 (8-16); CARBON DIOXIDE 29.5 mmol/L (21-32); CREATININE 1.4 mg/dL (0.7-1.3); MAGNESIUM 2.3 mg/dL (1.8-2.4); PHOSPHORUS 3.8 mg/dL (2.5-4.9); POTASSIUM 3.9 mmol/L (3.5-5.1); TOTAL BILIRUBIN 0.3 mg/dL (0.0-1.0)
--- NOTE | 2017-05-10 07:20 | NUR ---
ENDORSED PT IN STABLE CONDITION TO AM NURSE.
--- NOTE | 2017-05-10 07:30 | NUR ---
RECEIVED REPORT FROM MONOTYPE CASTER NURSE. PT IS AAOX4, PERIODS OF CONFUSION, AMBULATES WITH ASSIST, IV IS ON THE RIGHT WRIST, PATENT, INTACT, FLUSHING WELL, PT IS ON RA AT THIS TIME, NO S/S OF RESPIRATORY DISTRESS OR DISCOMFORT NOTED, DISCUSSED PLAN OF CARE WITH PT, PT VERBALIZED UNDERSTANDING, CALL LIGHT WITHIN REACH, WILL CONTINUE TO MONITOR.
[2017-05-10 08:00] VITALS: BP 101/56
[2017-05-10] MEDS: GABAPENTIN 300 MG CAP PO SCH ×3 (08:35→17:08)
[2017-05-10] MEDS: LACTOBACILLUS RHAMNOSUS GG 1 EACH CAP NG SCH (08:36)
[2017-05-10] MEDS: ASPIRIN 81 MG TAB.CHEW PO SCH (08:36)
[2017-05-10] MEDS: ALLOPURINOL 300 MG TAB PO SCH (08:36)
[2017-05-10] MEDS: ATORVASTATIN 80 MG TAB PO SCH (08:36)
[2017-05-10] MEDS: TAMSULOSIN 0.4 MG CAP PO SCH ×2 (08:36→21:11)
[2017-05-10] MEDS: DOCUSATE 100 MG/10 ML UDC PO SCH ×2 (08:37→21:11)
[2017-05-10] MEDS: PANTOPRAZOLE 40 MG INJ VIAL IVP SCH (08:37)
[2017-05-10] MEDS: INSULIN LANTUS 100 UNITS/ML 10 ML VIAL SUBQ SCH (09:21)
[2017-05-10] MEDS: FUROSEMIDE 20 MG TAB PO SCH (09:21)
--- NOTE | 2017-05-10 10:08 | NUR ---
CM NOTE CONCURRENT REVIEW DONE FOR CONTINUED STAY CRITERIA
--- NOTE | 2017-05-10 11:07 | NUR ---
PT REFUSED BREATHING TX NO SIGNS OF DISTRESS NOTED PT WANTS TO SLEEP
[2017-05-10 12:00] VITALS: BP 109/51
[2017-05-10 16:00] VITALS: BP 116/72
--- NOTE | 2017-05-10 16:37 | NUR ---
PHYSICAL THERAPY CO-SIGN The Physical Therapy Progress Notes documented by Footwear Sales Leader have been reviewed. Reviewed/Co-Signed by: Francisco East PT Documentation Done by: GILMA BAKER PTA PT PROGRESSING STEADILY TOWARDS REHAB GOALS Addendum: 05/11/17 at 0838 by Francisco East PT Amended: Links added.
[2017-05-10] MEDS ORDERED: RIVAROXABAN 15 MG TAB PO SCH (17:00)
--- NOTE | 2017-05-10 19:15 | NUR ---
ENDORSED PT TO EXHIBITIONS AND COLLECTIONS MANAGER NURSE FOR CONTINUITY OF CARE. PT STABLE AT THIS TIME.
--- NOTE | 2017-05-10 19:40 | NUR ---
RECEIVED PT IN STABLE CONDITION. AWAKE,ALERT AND ORIENTED X4. ON O22L/NC. O2 SAT 97%. ON TELE MONITOR- UNCONTROLLED A FIB. AWARE, DR. HAMILTON HERE. AWARE ALSO AND HE SAID JUST GIVE THE LOPRESSOR BID ORDERED. HAS IVF INFUSING WELL ON THE RT FA #[id number]. CLEAR AND PATENT. BED ON LOW POSITION. FREQUENT ROUNDS NEEDED. CALL LIGHT PLACED WITHIN EASY REACH.. WILL CONTINUE TO MONITOR.
[2017-05-10 20:00] VITALS: BP 108/50
[2017-05-10] MEDS: METOPROLOL 25 MG TAB NG SCH (21:11)
--- NOTE | 2017-05-10 22:01 | NUR ---
BLOOD SUGAR WAS CHECKED RESULT 206. INSULIN COVERAGE GIVEN SUBQ. PROVIDED WITH SOME SNACK. TOLERATED WELL. WILL CONTINUE TO MONITOR.
--- NOTE | 2017-05-11 00:30 | NUR ---
PT ASSISTED UP TO THE BSC. STILL WITH WEAKNESS NOTED.
[2017-05-11 00:45] VITALS: BP 127/64
[2017-05-11] MEDS: HYDRAGUARD CREAM TP SCH ×2 (01:22→12:17)
[2017-05-11] MEDS: HYDROcodone/APAP 5/325 MG 1 TAB TAB PO PRN ×2 (01:23→08:28)
--- NOTE | 2017-05-11 02:00 | NUR ---
PT ASLEEP. NO S/S OF ANY RESPIRATORY DISTRESS NOTED.
[2017-05-11] MEDS: ALBUTEROL SULFATE/IPRATROPIU 3 ML SOL IH SCH ×3 (03:00→13:08)
[2017-05-11] MEDS: NACL 0.45% 1,000 ML IV SCH (04:50)
[2017-05-11 05:00] VITALS: BP 109/64
[2017-05-11] MEDS: BLOOD GLUCOSE MONITORING 1 DEV DEV FS SCH ×2 (05:54→12:14)
[2017-05-11] MEDS: INSULIN LISPRO SLIDING SCALE 100 UNITS/ML VIAL SUBQ PRN ×2 (05:57→12:30)
--- NOTE | 2017-05-11 05:57 | NUR ---
BLOOD SUGAR WAS CHECKED RESULT 162. INSULIN COVERAGE GIVEN SUBQ.
--- NOTE | 2017-05-11 06:20 | NUR ---
PT HAD A SOFT MODERATE AMOUNT OF STOOL IN THE BATHROOM.
[2017-05-11 06:33] LABS: WHITE BLOOD COUNT (AUTO) 7.4 K/uL (4.8-10.8)
[2017-05-11 06:34] LABS: HEMATOCRIT 25.7 % (36-52); HEMOGLOBIN 8.6 g/dL (12.0-18.0); MEAN CORPUSCULAR HEMOGLOBIN 28 pg (27-31); MEAN CORPUSCULAR HGB CONC 34 g/dL (33-37); MEAN CORPUSCULAR VOLUME 84 fL (80-94); RED BLOOD CELL COUNT(AUTO) 3.05 MIL/uL (4.20-6.10); RED CELL DISTRIBUTION WIDTH 13.1 % (11.6-13.7)
[2017-05-11 06:35] LABS: BASOPHILS % (AUTO) 0.3 % (0.0-2.0); EOSINOPHILS % (AUTO) 4.4 % (0.0-4.0); LYMPHOCYTES % (AUTO) 18.5 % (20.5-51.1); MONOCYTES % (AUTO) 9.5 % (1.7-9.3); NEUTROPHILS % (AUTO) 67.3 % (42.2-75.2); PLATELET COUNT (AUTO) 151 K/uL (140-450)
[2017-05-11 06:36] LABS: EOSINOPHILS # (AUTO) 0.3 K/uL (0-0.4); LYMPHOCYTES # (AUTO) 1.4 K/uL (2.0-11.5); MONOCYTES # (AUTO) 0.7 K/uL (0.8-1.0)
[2017-05-11 06:39] LABS: ANION GAP 11.3 (8-16); CARBON DIOXIDE 29.7 mmol/L (21-32); CREATININE 1.4 mg/dL (0.7-1.3)
[2017-05-11 06:50] LABS: MAGNESIUM 2.5 mg/dL (1.8-2.4); PHOSPHORUS 3.9 mg/dL (2.5-4.9)
[2017-05-11 07:10] LABS: PROTHROMBIN TIME 17.2 secs (10.8-13.4)
--- NOTE | 2017-05-11 07:26 | NUR ---
ENDORSED PT IN STABLE CONDITION TO AM NURSE.
--- NOTE | 2017-05-11 07:27 | NUR ---
RECEIVED REPORT FROM FILM LIBRARY CLERK NURSE KAILA AT BEDSIDE FOR CONTINUITY OF CARE. PT IS AWAKE AND ORIENTED X4. INTRODUCED SELF AND UPDATED BOARD. PT IS SITTING UP AT EDGE OF BED. REPORTED THAT HE GOT UP TO USE BATHROOM WITH ASSISTANCE. IV TO R FA 22G WITH NS AT 10ML/HR. SKIN WARM AND DRY. ON O2 NC 2L/MIN, O2 SAT 96%. NO SIGNS OF DISTRESS. BED IN LOW POSITION, WHEELS LOCKED, CALL LIGHT WITHIN REACH. WILL CONTINUE TO MONITOR.
[2017-05-11 08:00] VITALS: BP 103/51
[2017-05-11] MEDS: PANTOPRAZOLE 40 MG INJ VIAL IVP SCH (08:28)
[2017-05-11] MEDS: TAMSULOSIN 0.4 MG CAP PO SCH (08:29)
[2017-05-11] MEDS: ASPIRIN 81 MG TAB.CHEW PO SCH (08:29)
[2017-05-11] MEDS: ATORVASTATIN 80 MG TAB PO SCH (08:29)
[2017-05-11] MEDS: GABAPENTIN 300 MG CAP PO SCH ×2 (08:29→12:17)
[2017-05-11] MEDS: METOPROLOL 25 MG TAB NG SCH (08:32)
[2017-05-11] MEDS: ALLOPURINOL 300 MG TAB PO SCH (08:32)
[2017-05-11] MEDS: LACTOBACILLUS RHAMNOSUS GG 1 EACH CAP NG SCH (08:33)
[2017-05-11] MEDS: FUROSEMIDE 20 MG TAB PO SCH (08:33)
[2017-05-11] MEDS: DOCUSATE 100 MG/10 ML UDC PO SCH (08:45)
[2017-05-11] MEDS: INSULIN LANTUS 100 UNITS/ML 10 ML VIAL SUBQ SCH (08:45)
--- NOTE | 2017-05-11 10:00 | NUR ---
PT GOT UP OUT OF BED TO AMBULATE DOWN THE TOBIAS. WALKED WITH STEADY GAIT ASSISTED BY STUDENT. PT TOLERATED WALK WELL.
[2017-05-11] MEDS ORDERED: METO25TA PO (11:04)
[2017-05-11] MEDS ORDERED: ALBU0.0912 IH (11:04)
[2017-05-11] MEDS ORDERED: HUM7030 SUBQ (11:04)
[2017-05-11] MEDS ORDERED: RIVA15TA1 PO (11:04)
[2017-05-11] MEDS ORDERED: ASPI81CT95 PO (11:04)
[2017-05-11] MEDS ORDERED: PANT40EC PO (11:04)
[2017-05-11] MEDS ORDERED: GLUC-805 FS (11:04)
--- NOTE | 2017-05-11 11:40 | NUR ---
[facility] NOTE RECEIVED ORDER FOR HOME HEALTH. PATIENT AND HAVE NO PREFERRED HOME HEALTH AGENCY. FAXED INQUIRY TO [facility] [phone]. PER BRENNEN OF [facility]# [phone] THEY ARE ACCEPTING THE PATIENT, THEY HAVE A NURSE TO SEE THE PATIENT WHEN DISCHARGED AND THEY ARE AWARE OF DISCHARGE ORDER FOR PATIENT TODAY. Addendum: 05/11/17 at 1144 by Marissa Rojas CM SPOKE WITH LEONELA TO INFORM HER THAT PATIENT NO LONGER GOING TO SNF
--- NOTE | 2017-05-11 14:00 | NUR ---
PT D/C TO GO HOME WITH HOME HEALTH. GAVE D/C FORMS, INSTRUCTIONS, RX, FOLLOW UP APPOINTMENT AND LABS. PT VERBALIZED UNDERSTANDING AND SIGNED FORMS. REMOVED IV CATHETER FROM R FA 22G. IV CATHETER TIP INTACT. APPLIED DRESSING AND PRESSURE TO SITE. NO BLEEDING NOTED. REMOVED ID BAND AND TELE MONITOR. PT CHANGED IN OWN CLOTHES AND LEFT WITH ALL PERSONAL BELONGINGS. PT LEFT UNIT VIA WHEELCHAIR ACCOMPANIED BY AND STUDENT. PT LEFT IN STABLE CONDITION.
[2017-05-13] MEDS ORDERED: INSU10SU6 SUBQ (09:06)
== END 2017-05-11 14:00 | disposition home health service (06) | DRG 870 ==
LOC: MED 02:33 → MIC 04:29 → MTU 05-06 15:20
PROVIDERS: ADMIT Family Medicine Sports Medicine; ATTEND Family Medicine Sports Medicine
PROC: 5A1955Z Respiratory Ventilation, Greater than 96 Consecutive Hours (ICD-10-PCS; principal; 2017-04-30)
PROC: 5A09357 Assistance with Respiratory Ventilation, Less than 24 Consecutive Hours, Continuous Positive Airway Pressure (ICD-10-PCS; 2017-04-30)
PROC: 0BH17EZ Insertion of Endotracheal Airway into Trachea, Via Natural or Artificial Opening (ICD-10-PCS; 2017-04-30)
PROC: 02HV33Z Insertion of Infusion Device into Superior Vena Cava, Percutaneous Approach (ICD-10-PCS; 2017-04-30)
PROC: B548ZZA Ultrasonography of Superior Vena Cava, Guidance (ICD-10-PCS; 2017-04-30)
PROC: 5A12012 Performance of Cardiac Output, Single, Manual (ICD-10-PCS; 2017-04-30)
PROC: 0DHA8UZ Insertion of Feeding Device into Jejunum, Via Natural or Artificial Opening Endoscopic (ICD-10-PCS; 2017-05-03)
DX: A41.9 Sepsis, unspecified organism (principal); J69.0 Pneumonitis due to inhalation of food and vomit; I46.9 Cardiac arrest, cause unspecified; G72.81 Critical illness myopathy; E43 Unspecified severe protein-calorie malnutrition; J96.21 Acute and chronic respiratory failure with hypoxia; N17.0 Acute kidney failure with tubular necrosis; E11.22 Type 2 diabetes mellitus with diabetic chronic kidney disease; D68.59 Other primary thrombophilia; I50.43 Acute on chronic combined systolic (congestive) and diastolic (congestive) heart failure; J96.22 Acute and chronic respiratory failure with hypercapnia; E87.0 Hyperosmolality and hypernatremia; K31.1 Adult hypertrophic pyloric stenosis; J44.1 Chronic obstructive pulmonary disease with (acute) exacerbation; I13.0 Hypertensive heart and chronic kidney disease with heart failure and stage 1 through stage 4 chronic kidney disease, or unspecified chronic kidney disease; S22.31XA Fracture of one rib, right side, initial encounter for closed fracture; K31.84 Gastroparesis; E11.43 Type 2 diabetes mellitus with diabetic autonomic (poly)neuropathy; I48.0 Paroxysmal atrial fibrillation; E86.1 Hypovolemia; I48.2 Chronic atrial fibrillation; M10.9 Gout, unspecified; D63.8 Anemia in other chronic diseases classified elsewhere; E11.51 Type 2 diabetes mellitus with diabetic peripheral angiopathy without gangrene; E11.65 Type 2 diabetes mellitus with hyperglycemia; F79 Unspecified intellectual disabilities; G89.29 Other chronic pain; I25.10 Atherosclerotic heart disease of native coronary artery without angina pectoris; I25.5 Ischemic cardiomyopathy; K21.9 Gastro-esophageal reflux disease without esophagitis; K27.9 Peptic ulcer, site unspecified, unspecified as acute or chronic, without hemorrhage or perforation; M47.814 Spondylosis without myelopathy or radiculopathy, thoracic region; N18.3 Chronic kidney disease, stage 3 (moderate); R74.0 Nonspecific elevation of levels of transaminase and lactic acid dehydrogenase [LDH]; M54.9 Dorsalgia, unspecified; E83.41 Hypermagnesemia; N40.0 Benign prostatic hyperplasia without lower urinary tract symptoms; X58.XXXA Exposure to other specified factors, initial encounter; R13.11 Dysphagia, oral phase; Z86.711 Personal history of pulmonary embolism; Z87.891 Personal history of nicotine dependence; Z93.4 Other artificial openings of gastrointestinal tract status; Z95.5 Presence of coronary angioplasty implant and graft; Z82.5 Family history of asthma and other chronic lower respiratory diseases; Z83.3 Family history of diabetes mellitus; Z82.49 Family history of ischemic heart disease and other diseases of the circulatory system; Y93.89 Activity, other specified; Y92.89 Other specified places as the place of occurrence of the external cause; Y99.8 Other external cause status; Z78.1 Physical restraint status
CPT/HCPCS: 36415; 36600; 51702; 71045; 72080; 74018; 76604; 76705; 76770; 80048; 80053; 81001; 82140; 82150; 82803; 82948; 83036; 83605; 83690; 83735; 83880; 84100; 84439; 84443; 84484; 85025; 85610; 87040; 87070; 87081; 87086; 87205; 92526; 92610; 93005; 93308; 93970; 94003; 94640; 96374; 96375; 97110; 97116; 97140; 97530; 97799; 99291; C9113; J1642; J1815; J1940; J2060; J2250; J2543; J2704; J2920; J2930; J3010; J7030; J7620; Q0092

== ENCOUNTER 2017-08-22 05:50 | Observation (INO) | payer OTHER, BC ==
[~2017-08-22] VITALS: Ht 172.7 cm; Wt 81.6 kg
[2017-08-22 05:50] VITALS: BP 158/81
[~2017-08-22 05:50] MED LIST changes: +ALBU0.0912 IH; +ASPI81CT95 PO; -CLIN300C2 PO; -CLOP75TA55 PO; +GLUC-805 FS; -HUM7030 SUBQ; +INSU10SU6 SUBQ; -INUL1CTB PO; -LEVO750T2 PO; +METO25TA PO; -METO25TE2 PO; +PANT40EC PO; +RIVA15TA1 PO
--- NOTE | 2017-08-22 05:50 | NUR ---
RUBEN ALS TO ER BED 7
--- NOTE | 2017-08-22 05:50 | NUR ---
71/M BIBA FROM HOME FOR SOB X 1HR. PER EMS SATS 82% RA, PLACED ON 2LPMNC SATS 88%. GIVEN ALBUTEROL TREATMENT EN ROUTE. INSPIRATORY WHEEZING NOTED WITH DIMINISHED BS ON KEZIA LOWER LOBES. NOTED WITH SLIGHT ACCESSORY MUSCLE USE, ABLE TO SPEAK AT FULL LENGTH WITH NO DIFFICULTY. DENIES ANY CHEST PAIN, FEVER/CHILLS, N/V/D. SATS 99% ON 2LPM NC, HOB ELEVATED PMH: DM, HTN, AFIB, COPD
--- NOTE | 2017-08-22 06:15 | NUR ---
ABG RESULT RECIEVED, NOTED BY DR. MAYA.
[2017-08-22 06:16] LABS: BASOPHILS % (AUTO) 0.1 % (0.0-2.0); EOSINOPHILS # (AUTO) 0.2 K/uL (0-0.4); HEMATOCRIT 34.3 % (36-52); LYMPHOCYTES # (AUTO) 1.3 K/uL (2.0-11.5); LYMPHOCYTES % (AUTO) 19.5 % (20.5-51.1); MEAN CORPUSCULAR HEMOGLOBIN 26 pg (27-31); MEAN CORPUSCULAR HGB CONC 32 g/dL (33-37); MEAN CORPUSCULAR VOLUME 81.6 fL (80-94); MONOCYTES # (AUTO) 0.4 K/uL (0.8-1.0); MONOCYTES % (AUTO) 5.3 % (1.7-9.3); NEUTROPHILS % (AUTO) 72.1 % (42.2-75.2); PLATELET COUNT (AUTO) 100 K/uL (140-450); RED CELL DISTRIBUTION WIDTH 14.5 % (11.6-13.7); WHITE BLOOD COUNT (AUTO) 6.9 K/uL (4.8-10.8)
[2017-08-22 06:28] LABS: ANION GAP 14.2 (8-16); CARBON DIOXIDE 25.9 mmol/L (21-32); CREATININE 1.4 mg/dL (0.7-1.3); POTASSIUM 4.1 mmol/L (3.5-5.1)
[2017-08-22 06:33] LABS: ALBUMIN 3.4 g/dL (3.4-5.0); TOTAL BILIRUBIN 0.5 mg/dL (0.0-1.0)
[2017-08-22] MEDS ORDERED: LISI5TAB18 PO (06:46)
[2017-08-22] MEDS ORDERED: METF1000 PO (06:46)
[2017-08-22 06:54] LABS: CREATINE KINASE MB 1.3 ng/mL (0-3.6)
--- NOTE | 2017-08-22 07:05 | NUR ---
Pt report given to Manjula melvin. Transfer of care at this time.
[2017-08-22] MEDS ORDERED: LEVOFLOXACIN 750 MG/D5W PREMIX 150 ML IV ONE (07:10)
[2017-08-22] MEDS ORDERED: AZITHROMYCIN 500 MG in DEXTROSE 5% 250 ML IV ONE (07:10)
--- NOTE | 2017-08-22 07:10 | NUR ---
assumed care of patient. pt is aox4. gcs=15. patient denies any cp or sob at this time. awaiting lab for blood cultures. will continue to monitor.
--- NOTE | 2017-08-22 07:15 | NUR ---
called lab for blood culture draw.
--- NOTE | 2017-08-22 07:20 | NUR ---
lab by bedside. patient requesting for bathroom.
[2017-08-22] MEDS ORDERED: NACL 0.9% 1,000 ML IV SCH (07:36)
[2017-08-22] MEDS ORDERED: ACETAMINOPHEN 325 MG TAB PO PRN (07:40)
[2017-08-22] MEDS ORDERED: DOCUSATE SODIUM 100 MG GELCAP PO PRN (07:40)
[2017-08-22] MEDS ORDERED: ONDANSETRON 4 MG/2 ML VIAL IM/IVP PRN (07:40)
--- NOTE | 2017-08-22 07:40 | NUR ---
Note maryann in ED - 08/22/17 at 0857 by AMPARO Patient will be admitted to care of [facility]. Admited to [facility]. Will go to room 112B. Belongings list completed. Bedside report to Skyler WANG.
[2017-08-22 08:17] LABS: CHOL/HDL RATIO 2.2 (1-4.5); FREE T4 (FREE THYROXINE) 1.09 ng/dL (0.76-1.46); MAGNESIUM 1.8 mg/dL (1.8-2.4); PHOSPHORUS 4.2 mg/dL (2.5-4.9); THYROID STIMULATING HORMONE 1.04 uIU/mL (0.34-3.74)
--- NOTE | 2017-08-22 08:40 | NUR ---
Patient will be admitted to care of [facility]. Admited to [facility]. Will go to room 112B. Belongings list completed. Bedside report to Skyler WANG.
[2017-08-22 08:45] VITALS: BP 130/74
--- NOTE | 2017-08-22 08:45 | NUR ---
RECEIVED PT FROM ER NURSE AT THIS TIME. GOT BEDSIDE REPORT. PT VS NOTED T 97.6, BP 130/74, HR-110, R-16, 02SAT 97% ON NC 3LPM. PT DENIES ANY PAIN. HAS NO SIGN OF DISTRESS. STARTED IV, LEVAQUIN 750 MG IVPB INFUSING WELL. PT TOLERATING. AT BEDSIDE. DR PAUL AT BEDSIDE , ASSESSING PT. PT STABLE AT THIS SIDE. ALL SAFETY MEASURE IN PLACE .WILL CONTINUE TO MONITOR PT.
[2017-08-22] MEDS ORDERED: NITROGLYCERIN 0.4 MG TAB SL PRN (09:05)
[2017-08-22 09:19] LABS: PROTHROMBIN TIME 13.1 secs (10.8-13.4)
[2017-08-22] MEDS ORDERED: ATORVASTATIN 80 MG TAB PO SCH (09:47)
[2017-08-22] MEDS ORDERED: ECOTRIN 81 MG TABEC PO SCH (09:47)
[2017-08-22] MEDS ORDERED: METOPROLOL 50 MG TAB PO SCH (09:48)
[2017-08-22] MEDS ORDERED: PANTOPRAZOLE 40 MG TABEC PO SCH (09:48)
[2017-08-22] MEDS ORDERED: FUROSEMIDE 40 MG/4 ML VIAL IVP SCH (09:48)
[2017-08-22] MEDS ORDERED: TAMSULOSIN 0.4 MG CAP PO SCH (09:49)
[2017-08-22 09:54] LABS: APPEARANCE,URINE CLEAR (CLEAR); BILIRUBIN,URINE NEGATIVE (NEGATIVE); BLOOD, URINE TRACE-L (NEGATIVE); COLOR,URINE YELLOW (YELLOW); LEUKOCYTE ESTERASE ,URINE NEGATIVE (NEGATIVE); NITRITE, URINE NEGATIVE (NEGATIVE); PH,URINE 5.5 (5.0-9.0); UGLUCOSE NEGATIVE (NEGATIVE)
[2017-08-22 10:14] LABS: RBC,URINE 0-5 (RARE) /HPF (0-5); WBC,URINE 0-5 (RARE) /HPF (0-5)
[2017-08-22 12:00] VITALS: BP 119/74
[2017-08-22] MEDS ORDERED: LEVOFLOXACIN 500 MG/D5W PREMIX 100 ML IV SCH (12:00)
[2017-08-22] MEDS ORDERED: LACTOBACILLUS RHAMNOSUS GG 1 EACH CAP PO SCH (12:00)
[2017-08-22] MEDS: HYDROcodone/APAP 7.5/325 MG 1 TAB PO PRN ×2 (12:01→20:27)
[2017-08-22] MEDS ORDERED: DEXTROSE 50% 50 ML SYR IVP PRN (12:40)
[2017-08-22] MEDS: GABAPENTIN 300 MG CAP PO SCH ×2 (13:02→17:14)
[2017-08-22] MEDS: ALBUTEROL SULFATE/IPRATROPIU 3 ML SOL IH SCH ×2 (13:04→18:55)
--- NOTE | 2017-08-22 13:04 | NUR ---
PT'S HEART RATE IS 133 NO HHN GIVEN AT THIS TIME PT IS IN NO DISTRESS RESTING COMFORTABLY RN SITAL AT BEDSIDE AND NOTIFIED
--- NOTE | 2017-08-22 13:08 | NUR ---
PATIENT HAS BEEN SCREENED AND CATEGORIZED MODERATE NUTRITION RISK. PATIENT WILL BE SEEN WITHIN 3-5 DAYS OF ADMISSION. 08/25/17 - 08/27/17 CHARI FARMER MBA, RD
[2017-08-22 16:00] VITALS: BP 146/62
[2017-08-22] MEDS ORDERED: RIVAROXABAN 10 MG TAB PO SCH (17:00)
[2017-08-22] MEDS: metFORMIN 500 MG TAB PO SCH (17:14)
[2017-08-22] MEDS: METOPROLOL 25 MG TAB PO SCH (17:20)
[2017-08-22] MEDS: INSULIN LISPRO SLIDING SCALE 100 UNITS/ML VIAL SUBQ PRN (17:32)
[2017-08-22] MEDS: BUDESONIDE 0.5 MG/2 ML NEBU INH SCH (18:55)
--- NOTE | 2017-08-22 19:15 | NUR ---
RECEIVED REPORT AT PT BEDSIDE FROM ASSEMBLY REPAIRER, FOR CONTINUITY OF CARE. PATIENT IS A/OX4 ON 2L O2 VIA NASAL CANNULA. ABLE TO MAKE NEEDS KNOWN, ABLE TO FOLLOW COMMANDS. PT SKIN IS INTACT. PATIENT HAS 20G IV TO LEFT FOREARM, ASYMPTOMATIC, INTACT, PATENT. RESPIRATIONS EVEN AND UNLABORED. UPDATED BOARD. VITAL SIGNS WITHIN NORMAL LIMITS. PT STABLE, NO SIGNS OF DISTRESS NOTED AT THIS TIME. BED IN LOWEST POSITION, BED ALARM ON. CALL LIGHT WITHIN REACH, WILL CONTINUE TO MONITOR.
[2017-08-22 20:04] VITALS: BP 109/61
[2017-08-22] MEDS: BLOOD GLUCOSE MONITORING 1 DEV DEV FS SCH (20:26)
[2017-08-22] MEDS: TAMSULOSIN 0.4 MG CAP PO SCH (20:27)
--- NOTE | 2017-08-22 22:30 | NUR ---
RECEIVED REPORT AT PT BEDSIDE FROM BACKHOE OPERATOR, FOR CONTINUITY OF CARE. PATIENT IS A/OX4 ON ROOM AIR. ABLE TO MAKE NEEDS KNOWN, ABLE TO FOLLOW COMMANDS. PT SKIN IS INTACT. PATIENT HAS IV TO LEFT FOREARM, ASYMPTOMATIC, INTACT, PATENT. RESPIRATIONS EVEN AND UNLABORED. UPDATED BOARD. VITAL SIGNS WITHIN NORMAL LIMITS. PT STABLE, NO SIGNS OF DISTRESS NOTED AT THIS TIME. BED IN LOWEST POSITION, BED ALARM ON. CALL LIGHT WITHIN REACH, WILL CONTINUE TO MONITOR.
[2017-08-23] VITALS: BP 133/68
--- NOTE | 2017-08-23 | NUR ---
VITAL SIGNS WITHIN NORMAL LIMITS. PT STABLE, NO SIGNS OF DISTRESS NOTED AT THIS TIME. BED IN LOWEST POSITION, BED ALARM ON. CALL LIGHT WITHIN REACH, WILL CONTINUE TO MONITOR.
[2017-08-23] MEDS: HYDROcodone/APAP 7.5/325 MG 1 TAB PO PRN ×2 (02:08→09:02)
[2017-08-23 04:00] VITALS: BP 123/72
[2017-08-23] MEDS ORDERED: PANTOPRAZOLE 40 MG TABEC PO SCH (06:30)
[2017-08-23] MEDS: INSULIN LISPRO SLIDING SCALE 100 UNITS/ML VIAL SUBQ PRN ×2 (06:36→12:21)
[2017-08-23] MEDS ORDERED: LEVOFLOXACIN 500 MG/D5W PREMIX 100 ML IV SCH (07:00)
[2017-08-23] MEDS: BLOOD GLUCOSE MONITORING 1 DEV DEV FS SCH (07:04)
[2017-08-23] MEDS: ALBUTEROL SULFATE/IPRATROPIU 3 ML SOL IH SCH ×2 (07:09→13:28)
[2017-08-23] MEDS: BUDESONIDE 0.5 MG/2 ML NEBU INH SCH (07:18)
--- NOTE | 2017-08-23 07:23 | NUR ---
ENDORSED PT TO DAY SHIFT RN FOR CONTINUITY OF CARE. PT IN STABLE CONDITION.
--- NOTE | 2017-08-23 07:24 | NUR ---
RECEIVED REPORT FROM PM NURSE AT BEDSIDE FOR CONTUINITY OF CARE. PT LYING ON BED. NO SIGN OF DISTRESS. IV INFUSING WELL. UPDATED BOARD. ALL SAFETY MEASURE IN PLACE. WILL CONTINUE TO MONITOR PT.
[2017-08-23 07:56] VITALS: BP 112/73
[2017-08-23] MEDS: TAMSULOSIN 0.4 MG CAP PO SCH (08:59)
[2017-08-23] MEDS ORDERED: ASPIRIN 81 MG TAB.CHEW PO SCH (09:00)
[2017-08-23] MEDS ORDERED: ALLOPURINOL 100 MG TAB PO SCH (09:00)
[2017-08-23] MEDS ORDERED: ATORVASTATIN 80 MG TAB PO SCH (09:00)
[2017-08-23] MEDS ORDERED: FERROUS SULFATE 325 MG TABEC PO SCH (09:00)
[2017-08-23] MEDS ORDERED: FUROSEMIDE 20 MG TAB PO SCH (09:00)
[2017-08-23] MEDS ORDERED: LISINOPRIL 5 MG TAB PO SCH (09:00)
[2017-08-23] MEDS: METOPROLOL 25 MG TAB PO SCH (09:01)
[2017-08-23] MEDS: metFORMIN 500 MG TAB PO SCH (09:01)
[2017-08-23] MEDS: GABAPENTIN 300 MG CAP PO SCH (09:02)
--- NOTE | 2017-08-23 09:02 | NUR ---
ADMINISTERED MEDICATION TO PT ORDERED. PT ON ROOM AIR, O2 SAT 95%. NO SIGN OF DISTRESS . NO SOB. PT VERBALIZES FEELING BETTER THAN BEFORE. PT TOLERATED MEDS WELL. WILL CONTINUE TO MONITOR PT.
[2017-08-23 12:00] VITALS: BP 128/68
--- NOTE | 2017-08-23 12:10 | NUR ---
ADMINISTERED 4 UNITS OF INSULIN TO PT. PT EATING , SITTING ON CHAUIR. NO NC ON PT, PT HAS NO DISTRESS. WILL CONTINUE TO MONITOR.
[2017-08-23] MEDS ORDERED: XAR10 PO (14:00)
[2017-08-23] MEDS ORDERED: LEVO750T2 PO (14:00)
[2017-08-23] MEDS ORDERED: LACT10CA PO (14:00)
--- NOTE | 2017-08-23 15:00 | NUR ---
CHECKED ON PT. PT SLEEPING ON BED. WILL CONTINUE TO MONITOR.
[2017-08-23 16:00] VITALS: BP 134/52
--- NOTE | 2017-08-23 16:00 | NUR ---
DR NARANJO PUT DC ORDER ON PT. ORDERED STAT EKG. WAITING ON EKG RESULT. CAN BE DC ON HIS STABLE EKG RHYTHM.
--- NOTE | 2017-08-23 16:53 | NUR ---
DISCHARGE INSTRUCTION AND PRESCRIPTION GIVEN AND VERBALIZED UNDERSTANDING, HEART MONITOR AND IV REMOVED. NO SIGN OF BLEEDING NOTED. IN STABLE CONDITION.
[2017-08-24 06:22] LABS: T4 (THYROXINE) 8.4 ug/dL (4.5-12.0)
--- NOTE | 2017-09-27 11:08 | NUR ---
ADMINISTERED AZITHROMAX . INFUSED FOR 1 HOUR AND COMPLETED IN 1208.
--- NOTE | 2017-10-03 12:30 | NUR ---
LATE ENTRY: LEVAQUIN INFUSED FOR 1 HR . STARTED IV AT 0704 AND ENDED THE INFUSING AT 0804.
== END 2017-08-23 17:15 | disposition home or self-care (01) ==
LOC: MED 05:50 → MTU 07:36 → INTOOBSV 07:36
PROVIDERS: ADMIT Student in an Organized Health Care Education/Training Program; ATTEND Student in an Organized Health Care Education/Training Program
DX: J96.21 Acute and chronic respiratory failure with hypoxia (principal); J44.1 Chronic obstructive pulmonary disease with (acute) exacerbation; I11.0 Hypertensive heart disease with heart failure; I50.43 Acute on chronic combined systolic (congestive) and diastolic (congestive) heart failure; N17.0 Acute kidney failure with tubular necrosis; E11.9 Type 2 diabetes mellitus without complications; I73.9 Peripheral vascular disease, unspecified; K21.9 Gastro-esophageal reflux disease without esophagitis; M10.9 Gout, unspecified; I48.2 Chronic atrial fibrillation; I25.10 Atherosclerotic heart disease of native coronary artery without angina pectoris; Z79.01 Long term (current) use of anticoagulants; Z86.711 Personal history of pulmonary embolism; Z87.891 Personal history of nicotine dependence
CPT/HCPCS: 36415; 36600; 71045; 80053; 80061; 81001; 82150; 82550; 82553; 82803; 82948; 83036; 83605; 83690; 83735; 83880; 84100; 84436; 84439; 84443; 84479; 84484; 85025; 85610; 85730; 87040; 87081; 87086; 93005; 94640; 94760; 96365; 96366; 96367; 96372; 96375; 99291; G0378; J0456; J1815; J1940; J1956; J7060; J7620; J7626; Q0092

== ENCOUNTER 2017-09-08 01:38 | Inpatient (IN) | payer OTHER, BC ==
[~2017-09-08] VITALS: Ht 162.6 cm; Wt 68.0 kg
[2017-09-08] VITALS (7 sets, daily range): BP systolic 90–195; BP diastolic 50–147
[~2017-09-08 01:38] MED LIST changes: +LACT10CA PO; +LEVO750T2 PO; +LISI5TAB18 PO; +METF1000 PO; -RIVA15TA1 PO; +XAR10 PO
--- NOTE | 2017-09-08 01:38 | NUR ---
PT BIBA FOR SOB, RR LABORED, T[place]A, PT ARRIVED W/ MASK AND BREATHING TX FROM [facility], PER MD WILL PROVIDE CPAP, RESPIRATORY AT ER BEDSIDE. PT IS FROM HOME CALLED EMS FOR PT FOR SUDDEN ONSET OF SOB. BL LOWER LOBE BS DIMINISHED ON EXPIRATION AND INSPIRATION, BL UPPER LOBES CLEAR. PT IS SITTING UP IN BED, VISIBLY DISTRESSED, WILL FOLLOW MD ORDERS. PMH, COPD, CHF, DM, ROSC, PREVIOUS INTUBATION
--- NOTE | 2017-09-08 01:38 | NUR ---
PT BIB EMS AND PUT INTO BED #10, TRANSFERED TO BED FROM [facility].
[2017-09-08] MEDS ORDERED: ALBUTEROL SULFATE/IPRATROPIU 3 ML SOL IH ONE (01:40)
[2017-09-08] MEDS ORDERED: methylPREDNISolone SS 125 MG/2 ML VIAL IVP ONE (01:40)
[2017-09-08] MEDS ORDERED: NACL 0.9% 1,000 ML IV ONE ×3 (01:40→02:30)
[2017-09-08] MEDS ORDERED: methylPREDNISolone SS 125 MG/2 ML VIAL ONE (01:45)
[2017-09-08 01:58] LABS: BASOPHILS % (AUTO) 0.2 % (0.0-2.0); EOSINOPHILS # (AUTO) 0.9 K/uL (0-0.4); EOSINOPHILS % (AUTO) 4.9 % (0.0-4.0); HEMATOCRIT 40.7 % (36-52); HEMOGLOBIN 13.1 g/dL (12.0-18.0); LYMPHOCYTES # (AUTO) 6.3 K/uL (2.0-11.5); LYMPHOCYTES % (AUTO) 34.7 % (20.5-51.1); MEAN CORPUSCULAR HEMOGLOBIN 26 pg (27-31); MEAN CORPUSCULAR HGB CONC 32 g/dL (33-37); MEAN CORPUSCULAR VOLUME 80.4 fL (80-94); MONOCYTES # (AUTO) 0.9 K/uL (0.8-1.0); MONOCYTES % (AUTO) 4.9 % (1.7-9.3); NEUTROPHILS # (AUTO) 10.1 K/uL (1.8-7.7); NEUTROPHILS % (AUTO) 55.3 % (42.2-75.2); PLATELET COUNT (AUTO) 144 K/uL (140-450); RED BLOOD CELL COUNT(AUTO) 5.07 MIL/uL (4.20-6.10); RED CELL DISTRIBUTION WIDTH 15.2 % (11.6-13.7)
--- NOTE | 2017-09-08 02:00 | NUR ---
PT SITTING UP IN BED, WORK OF BREATHING LESS LABORED THAN ON ARRIVAL, PT TOLERATING CPAP, PULSE OX 95% AT THIS TIME, WILL CONTINUE TO MONITOR.
[2017-09-08 02:10] LABS: ANION GAP 12.3 (8-16); CARBON DIOXIDE 26.7 mmol/L (21-32); CHLORIDE 106 mmol/L (98-107); CREATININE 2.1 mg/dL (0.7-1.3); GLUCOSE 236 mg/dL (74-106); SODIUM SERUM 141 mmol/L (136-145); UREA NITROGEN, BLOOD 57 mg/dL (7-18)
--- NOTE | 2017-09-08 02:10 | NUR ---
PT STATES HE URINATED BEFORE ARRIVAL TO ED, WANTS TO WAIT TO URINATE AND DOES NOT WANT SILVESTRE ORO MD MADE AWARE AND OK WITH THAT.
[2017-09-08 02:13] LABS: WHITE BLOOD COUNT (AUTO) 18.3 K/uL (4.8-10.8)
[2017-09-08 02:16] LABS: ALBUMIN 4.2 g/dL (3.4-5.0); ASPARTATE AMINOTRANSFERASE 21 U/L (15-37); TOTAL BILIRUBIN 0.5 mg/dL (0.0-1.0)
[2017-09-08 02:21] LABS: PROTHROMBIN TIME 16.1 secs (10.8-13.4)
[2017-09-08] MEDS ORDERED: LEVOFLOXACIN 750 MG/D5W PREMIX 150 ML IV ONE (02:25)
[2017-09-08] MEDS ORDERED: ALBUTEROL SULFATE/IPRATROPIU 3 ML SOL IH PRN (02:55)
[2017-09-08] MEDS ORDERED: DOCUSATE SODIUM 100 MG GELCAP PO PRN (02:55)
[2017-09-08] MEDS ORDERED: ACETAMINOPHEN 325 MG TAB PO PRN (02:55)
--- NOTE | 2017-09-08 03:00 | NUR ---
PT PROVIDED W/ WATER, STATES HE CANNOT URINATE AT THIS TIME, REFUSES ORO AT THIS TIME, ER MADE AND OK WITH THAT.
--- NOTE | 2017-09-08 03:40 | NUR ---
Patient will be admitted to care of DR. GARCIA. Admited to TELE. Will go to room 112-A. Belongings list completed. Report to SOFIYA.IVF TO CONTINUE INFUSING ON FLOOR, WILL COLLECT URINE SPEICIMEN ON FLOOR.
--- NOTE | 2017-09-08 03:45 | NUR ---
PT ARRIVED VIA GURNEY ACCOMPANIED BY RN, GENERAL FARMER AND PT . RECEIVED REPORT AT PT BEDSIDE FROM RECYCLABLE MATERIALS SORTER, PT IS NPO. RESPIRATIONS EVEN AND UNLABORED. UPDATED BOARD. 20G IV RIGHT VITAL SIGNS WITHIN NORMAL LIMITS. PT STABLE, NO SIGNS OF DISTRESS NOTED AT THIS TIME. BED IN LOWEST POSITION, BED ALARM ON. CALL LIGHT WITHIN REACH, WILL CONTINUE TO MONITOR.
[2017-09-08] MEDS: NACL 0.9% 1,000 ML IV SCH (04:00)
[2017-09-08 04:19] LABS: CHOL/HDL RATIO 2.1 (1-4.5); FREE T4 (FREE THYROXINE) 0.96 ng/dL (0.76-1.46); PHOSPHORUS 5.3 mg/dL (2.5-4.9); THYROID STIMULATING HORMONE 0.79 uIU/mL (0.34-3.74)
[2017-09-08] MEDS: HYDROcodone/APAP 7.5/325 MG 1 TAB PO PRN ×3 (06:28→17:39)
[2017-09-08] MEDS ORDERED: PANTOPRAZOLE 40 MG TABEC PO SCH (06:30)
--- NOTE | 2017-09-08 07:30 | NUR ---
RECEIVED ON BED AAOX4. NO C/O PAIN AT THIS TIME, SOB NOTED, ON BIPAP AT 97% 02 SATS ON 40% FI02. IV TO RT AC PATENT AND INTACT. CHEST, DIMINISHED AIR ENTRY TO THE BASES. ABDOMEN SOFT, BOWEL SOUNDS PRESENT. NO EDEMA NOTED. INSTRUCTED PT TO CALL FOR ASSISTANCE, CALL LIGHT WITHIN REACH. PT VERBALIZED UNDERSTANDING.
--- NOTE | 2017-09-08 07:30 | NUR ---
ENDORSED PT TO DAY SHIFT RN FOR CONTINUITY OF CARE. PT IN STABLE CONDITION.
[2017-09-08] MEDS: ALBUTEROL SULFATE/IPRATROPIU 3 ML SOL IH SCH ×3 (07:31→19:37)
--- NOTE | 2017-09-08 07:48 | NUR ---
RECEIVED PATIENT ON BIPAP WITH SETTINGS: 16/6, RATE 12, 40%, I-TIME 0.9, RISE 3. BIPAP ALARMS ON AND AUDIBLE. LARGE MASK. SKIN PROTECTIVE GEL IN PLACE. SKIN INTEGRITY INTACT, NO REDNESS. SCHEDULED BREATHING TREATMENT ADMINISTERED. PATIENT TOLERATED TX WELL, NO ADVERSE SIDE EFFECTS. CONTINUOUS PULSE OX ON AND FUNCTIONING. POST TX PATIENT PLACED ON 3L NC, O2 SAT 100%. NO RESPIRATORY DISTRESS NOTED AT THIS TIME. WILL CONTINUE TO MONITOR.
--- NOTE | 2017-09-08 08:14 | NUR ---
PATIENT HAS BEEN SCREENED AND CATEGORIZED MODERATE NUTRITION RISK. PATIENT WILL BE SEEN WITHIN 3-5 DAYS OF ADMISSION. 09/10/17 09/12/[address]
[2017-09-08] MEDS ORDERED: FUROSEMIDE 20 MG TAB PO SCH (09:00)
[2017-09-08] MEDS: METOPROLOL 50 MG TAB PO SCH ×2 (09:00→20:28)
[2017-09-08] MEDS ORDERED: PROPAFENONE 150 MG TAB PO SCH (09:00)
[2017-09-08] MEDS: amLODIPine 5 MG TAB PO SCH (09:00)
[2017-09-08] MEDS ORDERED: metFORMIN 500 MG TAB PO SCH (09:00)
[2017-09-08] MEDS ORDERED: LISINOPRIL 5 MG TAB PO SCH (09:00)
--- NOTE | 2017-09-08 09:00 | NUR ---
PATIENT PLACED ON ROOM AIR. WALKED PATIENT AROUND UNIT WITHOUT OXYGEN. O2 SAT REMAINED 92-94%. PATIENT BACK IN BED WITH CONTINUOUS PULSE OXIMETER ON. NO RESPIRATORY DISTRESS NOTED. WILL CONTINUE TO MONITOR.
[2017-09-08] MEDS: LACTOBACILLUS RHAMNOSUS GG 1 EACH CAP PO SCH (09:48)
[2017-09-08] MEDS: GABAPENTIN 300 MG CAP PO SCH ×3 (09:48→17:39)
[2017-09-08] MEDS: FUROSEMIDE 40 MG/4 ML VIAL IVP SCH (09:48)
[2017-09-08] MEDS: ASPIRIN 81 MG TAB.CHEW PO SCH (09:49)
[2017-09-08] MEDS: ALLOPURINOL 100 MG TAB PO SCH (09:49)
[2017-09-08] MEDS: TAMSULOSIN 0.4 MG CAP PO SCH ×2 (09:49→20:28)
[2017-09-08] MEDS: FERROUS SULFATE 325 MG TABEC PO SCH (09:49)
[2017-09-08] MEDS: ATORVASTATIN 80 MG TAB PO SCH (09:49)
[2017-09-08 10:42] LABS: ANION GAP 15.4 (8-16); CARBON DIOXIDE 21.9 mmol/L (21-32); CHLORIDE 107 mmol/L (98-107); GLUCOSE 390 mg/dL (74-106); SODIUM SERUM 138 mmol/L (136-145); UREA NITROGEN, BLOOD 58 mg/dL (7-18)
[2017-09-08 10:47] LABS: MAGNESIUM 1.7 mg/dL (1.8-2.4); PHOSPHORUS 3.9 mg/dL (2.5-4.9); POTASSIUM 6.3 mmol/L (3.5-5.1)
[2017-09-08 11:12] LABS: BASOPHILS # (AUTO) 0.1 K/uL (0.00-0.22); BASOPHILS % (AUTO) 1.6 % (0.0-2.0); HEMATOCRIT 34.2 % (36-52); HEMOGLOBIN 11.1 g/dL (12.0-18.0); LYMPHOCYTES # (AUTO) 0.3 K/uL (2.0-11.5); LYMPHOCYTES % (AUTO) 6.8 % (20.5-51.1); MEAN CORPUSCULAR HEMOGLOBIN 26 pg (27-31); MEAN CORPUSCULAR HGB CONC 32 g/dL (33-37); MEAN CORPUSCULAR VOLUME 81.1 fL (80-94); MONOCYTES # (AUTO) 0.1 K/uL (0.8-1.0); MONOCYTES % (AUTO) 2.1 % (1.7-9.3); NEUTROPHILS % (AUTO) 88.5 % (42.2-75.2); PLATELET COUNT (AUTO) 82 K/uL (140-450); RED BLOOD CELL COUNT(AUTO) 4.22 MIL/uL (4.20-6.10); RED CELL DISTRIBUTION WIDTH 14.1 % (11.6-13.7); WHITE BLOOD COUNT (AUTO) 4.5 K/uL (4.8-10.8)
--- NOTE | 2017-09-08 11:15 | NUR ---
PT SEEN BY DR. MCKEON (CONVICT GUARD) WITH NEW ORDERS.
[2017-09-08] MEDS ORDERED: SODIUM POLYSTYRENE 15 GM/60 ML UDBTL PO SCH (11:30)
[2017-09-08] MEDS ORDERED: MAG SULF 2000 MG/WATER PREMIX 50 ML IV SCH (11:30)
[2017-09-08] MEDS ORDERED: MAG SULF 2000 MG/WATER PREMIX 50 ML IV ONE (11:35)
[2017-09-08 12:20] LABS: APPEARANCE,URINE CLEAR (CLEAR); BILIRUBIN,URINE NEGATIVE (NEGATIVE); BLOOD, URINE NEGATIVE (NEGATIVE); COLOR,URINE YELLOW (YELLOW); LEUKOCYTE ESTERASE ,URINE NEGATIVE (NEGATIVE); NITRITE, URINE NEGATIVE (NEGATIVE); UGLUCOSE NEGATIVE (NEGATIVE)
[2017-09-08 12:28] LABS: BARBITURATE, URINE NEG. ng/ml (NEG <=200); BENZODIAZEPINE, URINE NEG. ng/mL (NEG <=200); CANNABINOID, URINE NEG. ng/mL (NEG <=50); COCAINE, URINE NEG. ng/mL (NEG <=300); OPIATE, URINE NEG. ng/mL (NEG <=2000); PHENCYCLIDINE SCREEN,URINE NEG. ng/mL (NEG <=25)
[2017-09-08] MEDS ORDERED: CALCIUM GLUCONATE 10% 1,000 MG in NACL 0.9% 50 ML IV SCH (12:30)
[2017-09-08] MEDS ORDERED: INSULIN REGULAR, HUMAN 100 UNIT/ML VIAL IVP SCH (12:30)
[2017-09-08] MEDS ORDERED: DEXTROSE 50% 50 ML SYR IVP SCH (12:30)
[2017-09-08] MEDS ORDERED: SODIUM BICARBONATE 8.4% PFS 50 MEQ/50 ML SYR IVP SCH (12:30)
[2017-09-08 12:40] LABS: RBC,URINE NONE SEEN /HPF (0-5); WBC,URINE NONE SEEN /HPF (0-5)
--- NOTE | 2017-09-08 13:15 | NUR ---
PATIENT ON ROOM AIR, O2 SAT 96%. SCHEDULED BREATHING TREATMENT ADMINISTERED. PATIENT TOLERATED TX WELL, NO ADVERSE SIDE EFFECTS. NO RESPIRATORY DISTRESS NOTED AT THIS TIME. WILL CONTINUE TO MONITOR.
--- NOTE | 2017-09-08 15:50 | NUR ---
PT SEEN BY DR. IVERSON. NO NEW ORDERS.
[2017-09-08] MEDS: RIVAROXABAN 10 MG TAB PO SCH (17:41)
--- NOTE | 2017-09-08 18:00 | NUR ---
PT HAD 4X TOTAL BOWEL MOVEMENTS AFTER KAYEXALATE PO ADMINISTRATION.
[2017-09-08 18:12] LABS: ANION GAP 14.2 (8-16); CARBON DIOXIDE 26.5 mmol/L (21-32); CHLORIDE 108 mmol/L (98-107); GLUCOSE 400 mg/dL (74-106); POTASSIUM 4.7 mmol/L (3.5-5.1); SODIUM SERUM 144 mmol/L (136-145); UREA NITROGEN, BLOOD 57 mg/dL (7-18)
--- NOTE | 2017-09-08 19:10 | NUR ---
PT AWAKE, TALKING TO FAMILY AT THE BEDSIDE. NO SOB NOTED. NO COMPLAINTS MADE. ENDORSED TO NEXT SHIFT NURSE FOR CONTINUITY OF CARE.
--- NOTE | 2017-09-08 19:11 | NUR ---
RECEIVED REPORT AT PT BEDSIDE FROM DAY SHIFT RN, PT IS A/OX4, ON ROOM AIR AT THE MOMENT. RESPIRATIONS EVEN AND UNLABORED. PT SKIN IS INTACT, PT AMBULATES WITH STANDBY ASSISTANCE. 20G IV TO RIGHT AC, ASYMPTOMATIC, INTACT AND PATENT. UPDATED BOARD. DISCUSSED PLAN OF CARE WITH PT, PT VERBALIZED UNDERSTANDING. VITAL SIGNS WITHIN NORMAL LIMITS. PT STABLE, NO SIGNS OF DISTRESS NOTED AT THIS TIME. BED IN LOWEST POSITION, BED ALARM ON. CALL LIGHT WITHIN REACH, WILL CONTINUE TO MONITOR.
[2017-09-08] MEDS: BUDESONIDE 0.5 MG/2 ML NEBU INH SCH (19:37)
[2017-09-08] MEDS: methylPREDNISolone SS 40 MG/ML VIAL IVP SCH (20:29)
--- NOTE | 2017-09-08 20:32 | NUR ---
ADMINISTERED SCHEDULED MEDICATIONS, PT TOLERATED WELL. HEART RATE IS 71 ON TELE MONITOR AT THE MOMENT.
[2017-09-09] VITALS: BP 150/65
--- NOTE | 2017-09-09 | NUR ---
VITAL SIGNS WITHIN NORMAL LIMITS. PT STABLE, NO SIGNS OF DISTRESS NOTED AT THIS TIME. BED IN LOWEST POSITION, BED ALARM ON. CALL LIGHT WITHIN REACH, WILL CONTINUE TO MONITOR.
[2017-09-09] MEDS: HYDROcodone/APAP 7.5/325 MG 1 TAB PO PRN ×4 (03:32→21:49)
[2017-09-09 04:00] VITALS: BP 139/49
[2017-09-09] MEDS: NACL 0.9% 1,000 ML IV SCH (04:00)
[2017-09-09] MEDS: PANTOPRAZOLE 40 MG TABEC PO SCH (05:58)
[2017-09-09 07:20] LABS: BASOPHILS % (AUTO) 0.1 % (0.0-2.0); EOSINOPHILS % (AUTO) 0.3 % (0.0-4.0); HEMATOCRIT 31.2 % (36-52); HEMOGLOBIN 10.4 g/dL (12.0-18.0); LYMPHOCYTES # (AUTO) 0.5 K/uL (2.0-11.5); MEAN CORPUSCULAR HEMOGLOBIN 26 pg (27-31); MEAN CORPUSCULAR HGB CONC 33 g/dL (33-37); MEAN CORPUSCULAR VOLUME 78.3 fL (80-94); MONOCYTES # (AUTO) 0.2 K/uL (0.8-1.0); MONOCYTES % (AUTO) 4.9 % (1.7-9.3); NEUTROPHILS # (AUTO) 4.1 K/uL (1.8-7.7); NEUTROPHILS % (AUTO) 83.7 % (42.2-75.2); PLATELET COUNT (AUTO) 86 K/uL (140-450); RED BLOOD CELL COUNT(AUTO) 3.98 MIL/uL (4.20-6.10); RED CELL DISTRIBUTION WIDTH 14.7 % (11.6-13.7); WHITE BLOOD COUNT (AUTO) 4.9 K/uL (4.8-10.8)
--- NOTE | 2017-09-09 07:21 | NUR ---
ENDORSED PT, IN STABLE CONDITION, TO DAY SHIFT RN, FOR CONTINUITY OF CARE.
--- NOTE | 2017-09-09 07:22 | NUR ---
RECEIVED REPORT FROM FINANCE INSURANCE MANAGER NURSE AT BEDSIDE. PT A/O X4. SKIN INTACT. PT HAS NC 2L. LUNG SOUNDS ARE DIMINISHED. IV IN R AC 20G WITH NS AT 10ML/HR. BED IS LOCKED IN LOW POSITION. SIDE RAILS UP X2. CALL LIGHT WITHIN REACH. BOARD UPDATED. WILL CONTINUE TO MONITOR.
[2017-09-09] MEDS: ALBUTEROL SULFATE/IPRATROPIU 3 ML SOL IH SCH ×3 (07:49→19:57)
[2017-09-09] MEDS: BUDESONIDE 0.5 MG/2 ML NEBU INH SCH ×2 (07:54→19:57)
[2017-09-09 08:00] VITALS: BP 144/48
[2017-09-09 08:07] LABS: ANION GAP 14.1 (8-16); CARBON DIOXIDE 27.6 mmol/L (21-32); CHLORIDE 108 mmol/L (98-107); CREATININE 1.9 mg/dL (0.7-1.3); GLUCOSE 368 mg/dL (74-106); POTASSIUM 4.7 mmol/L (3.5-5.1); SODIUM SERUM 145 mmol/L (136-145); UREA NITROGEN, BLOOD 50 mg/dL (7-18)
[2017-09-09 08:08] LABS: MAGNESIUM 2.1 mg/dL (1.8-2.4); PHOSPHORUS 4.6 mg/dL (2.5-4.9)
[2017-09-09 08:21] LABS: T4 (THYROXINE) 8.2 ug/dL (4.5-12.0)
[2017-09-09] MEDS: FERROUS SULFATE 325 MG TABEC PO SCH (08:52)
[2017-09-09] MEDS: LACTOBACILLUS RHAMNOSUS GG 1 EACH CAP PO SCH (08:53)
[2017-09-09] MEDS: GABAPENTIN 300 MG CAP PO SCH ×3 (08:53→17:30)
[2017-09-09] MEDS: ATORVASTATIN 80 MG TAB PO SCH (08:53)
[2017-09-09] MEDS: ASPIRIN 81 MG TAB.CHEW PO SCH (08:54)
[2017-09-09] MEDS: TAMSULOSIN 0.4 MG CAP PO SCH ×2 (08:54→20:51)
[2017-09-09] MEDS: ALLOPURINOL 100 MG TAB PO SCH (08:54)
[2017-09-09] MEDS: amLODIPine 5 MG TAB PO SCH (08:54)
[2017-09-09] MEDS: methylPREDNISolone SS 40 MG/ML VIAL IVP SCH ×2 (08:56→20:51)
[2017-09-09] MEDS: FUROSEMIDE 40 MG/4 ML VIAL IVP SCH (08:57)
[2017-09-09] MEDS: METOPROLOL 50 MG TAB PO SCH ×2 (09:00→20:51)
--- NOTE | 2017-09-09 09:05 | NUR ---
ADMINISTERED MORNING MEDS. PT TOLERATED WELL. NO SIGNS OF DISTRESS. WILL CONTINUE TO MONITOR.
--- NOTE | 2017-09-09 09:53 | NUR ---
ADMINISTERED PAIN MED REQUESTED. LT FOOT PAIN 09/04. PT TOLERATED WELL. CHANGED BATTERIES IN THE TELE MONITOR. ALL NEEDS MET. WILL CONTINUE TO MONITOR PT.
[2017-09-09 12:00] VITALS: BP 134/50
[2017-09-09] MEDS: CLINDAMYCIN 600 MG in DEXTROSE 5% 50 ML IV SCH ×2 (12:22→20:51)
--- NOTE | 2017-09-09 12:24 | NUR ---
ADMINISTERED AFTERNOON MEDS. PT TOLERATED WELL. NO SIGNS OF DISTRESS. PT WILL CONTINUE EATING LUNCH.
--- NOTE | 2017-09-09 13:31 | NUR ---
PT IS UP IN CHAIR WATCHING TV. NO SIGNS OF DISTRESS. WILL CONTINUE TO MONITOR.
--- NOTE | 2017-09-09 14:39 | NUR ---
PT IS IN BED SLEEPING. NO SIGNS OF DISTRESS. WILL CONTINUE TO MONITOR.
[2017-09-09 16:00] VITALS: BP 121/58
--- NOTE | 2017-09-09 16:10 | NUR ---
Workers Compensation Claims Analyst Note: Per , patient's tentative discharge plan is to return home with home health services.
--- NOTE | 2017-09-09 16:56 | NUR ---
P.T. NOTES P.T. JOIE COMPLETED; NURSING TO [facility] PATIENT AD SHILOH; O2 SAT ROOM AIR=98% Addendum: 09/09/17 at 1656 by Kasandra Feng PT Amended: Links added.
[2017-09-09] MEDS: RIVAROXABAN 10 MG TAB PO SCH (17:32)
--- NOTE | 2017-09-09 17:40 | NUR ---
EVENING MEDS ADMINISTERED. PT C/O PAIN. PAIN MED GIVEN. PT TOLERATED WELL. WILL REEVALUATE FOR EFFECTIVENESS.
--- NOTE | 2017-09-09 19:15 | NUR ---
ENDORSED PT TO DICER MACHINE OPERATOR NURSE FOR CONTINUITY OF CARE. PT IN STABLE CONDITION.
--- NOTE | 2017-09-09 19:16 | NUR ---
REPORT RECEIVED FROM AM NURSE. PT IN STABLE CONDITION. AAOX4. HEART SOUNDS NORMAL. LUNG SOUNDS CLEAR. BOWEL SOUNDS PRESENT X4 QUADRANTS. INTRODUCED MYSELF TO PT AND UPDATED THE BOARD. IV SITE PATENT AND RETAPED. SKIN WARM, DRY, AND INTACT WITH NO OPEN WOUNDS. BED LOCKED IN LOW POSITION. CALL ALCOCER WITHIN REACH.
[2017-09-09 20:00] VITALS: BP 127/64
--- NOTE | 2017-09-09 20:51 | NUR ---
PM MEDS GIVEN. PT TOLERATED WELL. WILL CONTINUE TO MONITOR.
--- NOTE | 2017-09-09 21:49 | NUR ---
PT REQUESTED PAIN MEDICATION FOR PAIN SCALE 6/10. NORCO GIVEN.
[2017-09-10] VITALS: BP 131/51
--- NOTE | 2017-09-10 00:15 | NUR ---
PT ASLEEP IN BED RIGHT LATERAL. AWOKEN WHEN GETTING VS. PT IN STABLE CONDITION. WILL CONTINUE TO MONITOR.
--- NOTE | 2017-09-10 01:45 | NUR ---
PT AWAKE WATCHING TV. ASKED HOW HE WAS DOING. PT STATES HE IS DOING OK. WILL CONTINUE TO MONITOR.
[2017-09-10] MEDS ORDERED: LEVOFLOXACIN 750 MG/D5W PREMIX 150 ML IV SCH (02:00)
[2017-09-10] MEDS: HYDROcodone/APAP 7.5/325 MG 1 TAB PO PRN ×4 (02:33→18:30)
--- NOTE | 2017-09-10 03:00 | NUR ---
PT AWAKE IN BED NOT IN ANY ACUTE DISTRESS. WATCHING TV. WILL CONTINUE TO MONITOR.
[2017-09-10] MEDS: NACL 0.9% 1,000 ML IV SCH (03:38)
[2017-09-10 04:00] VITALS: BP 149/72
[2017-09-10] MEDS ORDERED: DEXTROSE 50% 50 ML SYR IVP PRN (04:40)
--- NOTE | 2017-09-10 05:30 | NUR ---
PT STILL AWAKE WATCHING TV. ASKED IF HE IS OK. PT STATED HE WAS FINE.
[2017-09-10] MEDS: BLOOD GLUCOSE MONITORING 1 DEV DEV FS SCH ×4 (05:39→21:14)
[2017-09-10] MEDS: CLINDAMYCIN 600 MG in DEXTROSE 5% 50 ML IV SCH ×3 (05:43→21:15)
[2017-09-10] MEDS: PANTOPRAZOLE 40 MG TABEC PO SCH (05:43)
[2017-09-10] MEDS: INSULIN LISPRO SLIDING SCALE 100 UNITS/ML VIAL SUBQ PRN ×4 (05:48→20:44)
[2017-09-10 06:44] LABS: EOSINOPHILS % (AUTO) 0.1 % (0.0-4.0); HEMATOCRIT 29.8 % (36-52); LYMPHOCYTES # (AUTO) 0.6 K/uL (2.0-11.5); LYMPHOCYTES % (AUTO) 12.1 % (20.5-51.1); MEAN CORPUSCULAR HEMOGLOBIN 26 pg (27-31); MEAN CORPUSCULAR HGB CONC 34 g/dL (33-37); MEAN CORPUSCULAR VOLUME 77.3 fL (80-94); MONOCYTES # (AUTO) 0.3 K/uL (0.8-1.0); MONOCYTES % (AUTO) 5.4 % (1.7-9.3); NEUTROPHILS # (AUTO) 3.8 K/uL (1.8-7.7); NEUTROPHILS % (AUTO) 82.4 % (42.2-75.2); PLATELET COUNT (AUTO) 83 K/uL (140-450); RED BLOOD CELL COUNT(AUTO) 3.86 MIL/uL (4.20-6.10); RED CELL DISTRIBUTION WIDTH 14.9 % (11.6-13.7); WHITE BLOOD COUNT (AUTO) 4.7 K/uL (4.8-10.8)
--- NOTE | 2017-09-10 07:05 | NUR ---
REPORT GIVEN TO AM NURSE. PT IN STABLE CONDITION.
[2017-09-10] MEDS: BUDESONIDE 0.5 MG/2 ML NEBU INH SCH ×2 (07:23→19:11)
[2017-09-10] MEDS: ALBUTEROL SULFATE/IPRATROPIU 3 ML SOL IH SCH ×3 (07:23→19:11)
[2017-09-10 07:28] LABS: ANION GAP 15.1 (8-16); CARBON DIOXIDE 25.5 mmol/L (21-32); CHLORIDE 105 mmol/L (98-107); CREATININE 1.4 mg/dL (0.7-1.3); GLUCOSE 395 mg/dL (74-106); POTASSIUM 4.6 mmol/L (3.5-5.1); SODIUM SERUM 141 mmol/L (136-145); UREA NITROGEN, BLOOD 46 mg/dL (7-18)
--- NOTE | 2017-09-10 07:30 | NUR ---
RECEIVED PT FROM BASEBALL GLOVE SHAPER NURSE, PT ON TKO AT 10 ML, DRESSING WILL BE CHANGED, IV IS PATENT AND WITHOUT PAIN. PT IS AWAKE AND AAOX4, ABLE TO FOLLOW COMMANDS. SKIN INTACT, BED IN LOWEST POSITION, CALL LIGHT WITHIN REACH.
[2017-09-10 07:32] LABS: MAGNESIUM 1.9 mg/dL (1.8-2.4); PHOSPHORUS 4.2 mg/dL (2.5-4.9)
[2017-09-10 08:00] VITALS: BP 134/56
[2017-09-10] MEDS: methylPREDNISolone SS 40 MG/ML VIAL IVP SCH ×2 (08:37→20:49)
[2017-09-10] MEDS: FUROSEMIDE 40 MG/4 ML VIAL IVP SCH (08:37)
[2017-09-10] MEDS: FERROUS SULFATE 325 MG TABEC PO SCH (08:38)
[2017-09-10] MEDS: ATORVASTATIN 80 MG TAB PO SCH (08:38)
[2017-09-10] MEDS: ASPIRIN 81 MG TAB.CHEW PO SCH (08:38)
[2017-09-10] MEDS: LACTOBACILLUS RHAMNOSUS GG 1 EACH CAP PO SCH (08:38)
[2017-09-10] MEDS: GABAPENTIN 300 MG CAP PO SCH ×3 (08:38→16:37)
[2017-09-10] MEDS: METOPROLOL 50 MG TAB PO SCH ×2 (08:39→20:49)
[2017-09-10] MEDS: ALLOPURINOL 100 MG TAB PO SCH (08:39)
[2017-09-10] MEDS: amLODIPine 5 MG TAB PO SCH (08:39)
[2017-09-10] MEDS: TAMSULOSIN 0.4 MG CAP PO SCH ×2 (08:40→20:49)
--- NOTE | 2017-09-10 09:40 | NUR ---
PT RESTING IN BED, EDUCATED ABOUT MEDICATIONS AND IMPORTANCE OF USING INCENTIVE SPIROMETER. PT VERBALIZED UNDERSTANDING AND WS ABLE TO DO A RETURN DEMONSTRATION. WILL CONTINUE TO EDUCATE NEEDED. CALL LIGHT WITHIN REACH AND WILL CONTINUE FREQ CHECKS.
--- NOTE | 2017-09-10 10:30 | NUR ---
PT RESTING IN BED, CALL LIGHT WITHIN REACH, WILL CONTINUE TO MONITOR.
--- NOTE | 2017-09-10 11:50 | NUR ---
PT IN BED, DRESSING CHANGED AND SECURED, LINE IS PATENT. WILL GIVE DUE MEDICATIONS. CALL LIGHT WITHIN REACH.
[2017-09-10 12:00] VITALS: BP 132/33
--- NOTE | 2017-09-10 12:30 | NUR ---
PT SITTING UP IN BED EATING LUNCH, NO SIGNS OF ACUTE DISTRESS, CALL LIGHT WITHIN REACH, WILL CONTINUE TO MONITOR AND DO FREQ CHECKS.
--- NOTE | 2017-09-10 13:37 | NUR ---
PT REPORTING PAIN IN LEFT LEG WAS 4/10 NOW 6/10. WILL MEDICATE WITH NORCO.
[2017-09-10] MEDS ORDERED: INSULIN LANTUS 100 UNITS/ML 10 ML VIAL SUBQ SCH (14:05)
--- NOTE | 2017-09-10 14:43 | NUR ---
PT SITTING IN BED WATCHING TV, NO SIGNS OF DISTRESS. IV RUNNING AT 10 ML, CALL LIGHT WITH IN REACH.
--- NOTE | 2017-09-10 14:46 | NUR ---
RECEIVED CALL FROM PHARMACY CONFIRMING NEW LANTUS ORDER. WILL GIVE LANTUS ACCORDING TO DRS ORDER.
[2017-09-10] MEDS: INSULIN NPH HUM/REG INSULIN HM 100 UNIT/ML 10 ML VIAL SUBQ SCH ×2 (15:01→20:44)
[2017-09-10 15:30] VITALS: BP 120/53
--- NOTE | 2017-09-10 16:14 | NUR ---
PATIENT SITTING UP ON CHAIR WATCHING TV, CALL LIGHT WITHIN REACH, EDUCATED ABOUT PAIN MANAGEMENT. WILL CONTINUE WITH FREQ CHECKS.
[2017-09-10] MEDS: RIVAROXABAN 10 MG TAB PO SCH (16:45)
--- NOTE | 2017-09-10 17:18 | NUR ---
PT RESTING IN BED, HR WAS 46 BUT WENT TO 52, PT IS NON-SYMPTOMATIC. WILL CONTINUE TO MONITOR.
--- NOTE | 2017-09-10 18:30 | NUR ---
MEDICATED WITH NORCO TO HELP RELIEVE LEFT FOOT PAIN, WILL CONTINUE TO MONITOR, CALL LIGHT WITH IN REACH.
--- NOTE | 2017-09-10 18:55 | NUR ---
CHANGED PTS IV DRESSING ON RIGHT AC, DRESSING INTACT, IV SITE IS PATENT. AT BEDSIDE.
--- NOTE | 2017-09-10 19:33 | NUR ---
ENDORSED PT TO POSTAL SERVICE MAIL PROCESSOR, FAMILY AT BEDSIDE, PT STABLE, PAIN REDUCED, WILL CONTINUE PLAN OF CARE.
--- NOTE | 2017-09-10 19:34 | NUR ---
RECEIVED REPORT FROM DAY SHIFT NURSE. AAOX4. NO DISTRESS NOTED. PT ON ROOM AIR. IV TO RIGHT AC #20G, NS AT 10 ML/HR INFUSING WELL. FAMILY AT BED SIDE. DISCUSSED PLAN OF CARE, PT AND FAMILY VERBALIZED UNDERSTANDING. CALL LIGHT WITHIN REACH.
[2017-09-10 20:00] VITALS: BP 143/62
--- NOTE | 2017-09-10 21:00 | NUR ---
DUE MEDS GIVEN. PT TOLERATED WELL. NO C/O PAIN.
--- NOTE | 2017-09-10 23:30 | NUR ---
PT SLEEPING BUT EASILY AROUSABLE. NO S/S OF DISTRESS.
[2017-09-11] VITALS: BP 148/62
--- NOTE | 2017-09-11 01:50 | NUR ---
PT LYING IN BED, WATCHING TV. NO C/O PAIN OR DISCOMFORT. ALL NEEDS MET AT THIS TIME. CALL LIGHT WITHIN REACH.
[2017-09-11] MEDS: HYDROcodone/APAP 7.5/325 MG 1 TAB PO PRN ×2 (03:08→09:14)
--- NOTE | 2017-09-11 03:08 | NUR ---
PT C/O LEFT FOOT PAIN 6/10 SCALE. NORCO 7.5/325 MG GIVEN ORDERED.
[2017-09-11 04:00] VITALS: BP 134/56
[2017-09-11] MEDS: NACL 0.9% 1,000 ML IV SCH (04:00)
[2017-09-11] MEDS: CLINDAMYCIN 600 MG in DEXTROSE 5% 50 ML IV SCH ×2 (04:40→12:20)
--- NOTE | 2017-09-11 05:23 | NUR ---
PT SITTING IN BED, WATCHING ON HIS CELLPHONE. NO C/O PAIN. NO RESP DISTRESS NOTED. CALL LIGHT WITHIN REACH.
[2017-09-11] MEDS: PANTOPRAZOLE 40 MG TABEC PO SCH (06:24)
[2017-09-11] MEDS: INSULIN LISPRO SLIDING SCALE 100 UNITS/ML VIAL SUBQ PRN ×2 (06:26→11:36)
[2017-09-11] MEDS: BLOOD GLUCOSE MONITORING 1 DEV DEV FS SCH ×2 (06:32→11:37)
--- NOTE | 2017-09-11 06:40 | NUR ---
BD CHECKED 191. 2 UNITS OF HUMALOG GIVEN. PT TOLERATED WELL. NO C/O PAIN.
[2017-09-11] MEDS: ALBUTEROL SULFATE/IPRATROPIU 3 ML SOL IH SCH ×2 (07:00→13:21)
--- NOTE | 2017-09-11 07:10 | NUR ---
RECEIVED REPORT FROM ASSEMBLY WORKER RN. PT RESTING IN BED COMFORTABLY. NO ACUTE DISTRESS NOTED. A/O X4. AMBULATORY. VERBALIZES NEEDS. SKIN DRY AND WARM TO TOUCH. LUNGS DIMINISHED ON AUSCULTATION. ABDOMEN SOFT, ROUND AND NON-TENDER. ACTIVE. RT AC INTACT. NS RUNNING AT 10 ML/HR FOR KVO. SKIN INTACT. KEPT HOB ELEVATED. BED IN LOW POSITION AND LOCKED. WILL CONTINUE TO MONITOR.
--- NOTE | 2017-09-11 07:10 | NUR ---
ENDORSED PT TO DAY SHIFT NURSE. PT IN STABLE CONDITION.
[2017-09-11] MEDS: BUDESONIDE 0.5 MG/2 ML NEBU INH SCH (07:14)
--- NOTE | 2017-09-11 07:14 | NUR ---
PT STATES HE DOES NOT WANT BREATHING TX AT THIS TIME AND WISHES TO SLEEP. PT IS ON ROOM AIR SPO2 98%. BS CLEAR BILATERALLY. PT NOT SOB AND NOT IN RESPIRATORY DISTRESS.
[2017-09-11 08:00] VITALS: BP 151/53
[2017-09-11] MEDS: methylPREDNISolone SS 40 MG/ML VIAL IVP SCH (08:38)
[2017-09-11] MEDS: FUROSEMIDE 40 MG/4 ML VIAL IVP SCH (08:38)
[2017-09-11] MEDS: TAMSULOSIN 0.4 MG CAP PO SCH (08:39)
[2017-09-11] MEDS: FERROUS SULFATE 325 MG TABEC PO SCH (08:39)
[2017-09-11] MEDS: ASPIRIN 81 MG TAB.CHEW PO SCH (08:39)
[2017-09-11] MEDS: LACTOBACILLUS RHAMNOSUS GG 1 EACH CAP PO SCH (08:39)
[2017-09-11] MEDS: ATORVASTATIN 80 MG TAB PO SCH (08:40)
[2017-09-11] MEDS: GABAPENTIN 300 MG CAP PO SCH ×2 (08:40→12:20)
[2017-09-11] MEDS: METOPROLOL 50 MG TAB PO SCH (08:40)
[2017-09-11] MEDS: ALLOPURINOL 100 MG TAB PO SCH (08:41)
[2017-09-11] MEDS: amLODIPine 5 MG TAB PO SCH (08:41)
[2017-09-11] MEDS: INSULIN NPH HUM/REG INSULIN HM 100 UNIT/ML 10 ML VIAL SUBQ SCH (08:51)
--- NOTE | 2017-09-11 11:39 | NUR ---
PT SITTING IN CHAIR. NO ACUTE DISTRESS. NO CHANGE IN LOC. WILL CONTINUE TO MONITOR.
[2017-09-11 11:59] VITALS: BP 134/53
--- NOTE | 2017-09-11 12:14 | NUR ---
[facility] CALLED [phone], FAXED FACE SHEET,H&P, ORDER, MED LIST REQUESTED BY YUSRA TO FAX #[phone]. AWAITING CALL BACK FOR APPROVAL.
--- NOTE | 2017-09-11 12:24 | NUR ---
PT EATING LUNCH AT THIS TIME.
[2017-09-11] MEDS ORDERED: LEVO750T2 PO (12:28)
[2017-09-11] MEDS ORDERED: LACT10CA PO (12:31)
--- NOTE | 2017-09-11 12:44 | NUR ---
RECEIVED A PHONE CALL FROM [place] WITH [facility]. SHE SAID THEY WOULD GO AHEAD AND ACCEPT THE PATIENT. HER PHONE NUMBER IS [phone]. SHE ASKED ME TO RE FAX THE ORDER FOR HOME HEALTH.
[2017-09-11] MEDS ORDERED: INSU10SU6 SUBQ (13:05)
--- NOTE | 2017-09-11 15:00 | NUR ---
Discharge teaching provided to pt. verbalized understanding. needed documents handed to son. Made aware about follow up and need of home health nurse service. Pt. left tele at 1555 on stable condition. Accompanied by son.
== END 2017-09-11 14:55 | disposition home health service (06) | DRG 177 ==
LOC: MED 01:38 → MTU 03:00
PROVIDERS: ADMIT General Practice; ATTEND General Practice
PROC: 5A09357 Assistance with Respiratory Ventilation, Less than 24 Consecutive Hours, Continuous Positive Airway Pressure (ICD-10-PCS; principal; 2017-09-08)
DX: J69.0 Pneumonitis due to inhalation of food and vomit (principal); I50.43 Acute on chronic combined systolic (congestive) and diastolic (congestive) heart failure; N17.0 Acute kidney failure with tubular necrosis; J96.01 Acute respiratory failure with hypoxia; J96.02 Acute respiratory failure with hypercapnia; J44.1 Chronic obstructive pulmonary disease with (acute) exacerbation; I13.0 Hypertensive heart and chronic kidney disease with heart failure and stage 1 through stage 4 chronic kidney disease, or unspecified chronic kidney disease; D68.59 Other primary thrombophilia; E11.65 Type 2 diabetes mellitus with hyperglycemia; E86.0 Dehydration; I48.91 Unspecified atrial fibrillation; E11.51 Type 2 diabetes mellitus with diabetic peripheral angiopathy without gangrene; N40.0 Benign prostatic hyperplasia without lower urinary tract symptoms; K21.9 Gastro-esophageal reflux disease without esophagitis; M10.9 Gout, unspecified; E11.42 Type 2 diabetes mellitus with diabetic polyneuropathy; E11.22 Type 2 diabetes mellitus with diabetic chronic kidney disease; E87.5 Hyperkalemia; N18.3 Chronic kidney disease, stage 3 (moderate); I25.10 Atherosclerotic heart disease of native coronary artery without angina pectoris; E78.5 Hyperlipidemia, unspecified; E11.69 Type 2 diabetes mellitus with other specified complication; Z79.01 Long term (current) use of anticoagulants; Z79.82 Long term (current) use of aspirin; Z79.899 Other long term (current) drug therapy; Z82.49 Family history of ischemic heart disease and other diseases of the circulatory system; Z87.891 Personal history of nicotine dependence; Z95.1 Presence of aortocoronary bypass graft
CPT/HCPCS: 36415; 36600; 71045; 76770; 80048; 80053; 80305; 81001; 82150; 82803; 82948; 83036; 83605; 83690; 83735; 83880; 84100; 84436; 84439; 84443; 84479; 84484; 85025; 85610; 85730; 87040; 87081; 87086; 93005; 94640; 94660; 96361; 96365; 96375; 97535; 99285; J0610; J1815; J1940; J1956; J2920; J2930; J3475; J3490; J7060; J7620; J7626; Q0092

== ENCOUNTER 2018-04-23 14:18 | Inpatient (IN) | payer OTHER, BC ==
[~2018-04-23] VITALS: Ht 175.3 cm; Wt 85.7 kg
[~2018-04-23 14:18] MED LIST changes: -METF1000 PO
[2018-04-23 14:28] VITALS: BP 130/70
--- NOTE | 2018-04-23 14:30 | NUR ---
72 YO MALE BIB EMS FROM HOME FOR ACUTE SOB, ON C PAP DURING TRANSPORT. ON ARRIVAL IS AWAKE AND ALERT ABLE TO SPEAK PLACED ON C PAP DR REGALADO AT BEDSIDE. No c/o pain at this time.
[2018-04-23 14:35] VITALS: BP 130/70
[2018-04-23] MEDS ORDERED: methylPREDNISolone SS 125 MG in WATER STERILE 2 ML IV ONE (15:00)
[2018-04-23] MEDS ORDERED: ALBUTEROL SULFATE/IPRATROPIU 3 ML SOL IH ONE (15:00)
[2018-04-23 15:05] LABS: BASOPHILS % (AUTO) 0.2 % (0.0-2.0); EOSINOPHILS # (AUTO) 0.3 K/uL (0-0.4); EOSINOPHILS % (AUTO) 3.6 % (0.0-4.0); HEMOGLOBIN 10.9 g/dL (12.0-18.0); LYMPHOCYTES # (AUTO) 1.1 K/uL (2.0-11.5); LYMPHOCYTES % (AUTO) 15.1 % (20.5-51.1); MEAN CORPUSCULAR HEMOGLOBIN 29 pg (27-31); MEAN CORPUSCULAR HGB CONC 33 g/dL (33-37); MEAN CORPUSCULAR VOLUME 86.9 fL (80-94); MONOCYTES # (AUTO) 0.5 K/uL (0.8-1.0); MONOCYTES % (AUTO) 7.1 % (1.7-9.3); NEUTROPHILS # (AUTO) 5.5 K/uL (1.8-7.7); PLATELET COUNT (AUTO) 102 K/uL (140-450); RED CELL DISTRIBUTION WIDTH 13.9 % (11.6-13.7); WHITE BLOOD COUNT (AUTO) 7.5 K/uL (4.8-10.8)
[2018-04-23 15:38] LABS: ANION GAP 8.5 (8-16); CARBON DIOXIDE 31.2 mmol/L (21-32); CHLORIDE 108 mmol/L (98-107); CREATININE 1.5 mg/dL (0.7-1.3); GLUCOSE 270 mg/dL (74-106); POTASSIUM 4.7 mmol/L (3.5-5.1); SODIUM SERUM 143 mmol/L (136-145); UREA NITROGEN, BLOOD 28 mg/dL (7-18)
[2018-04-23 15:52] LABS: ALBUMIN 3.4 g/dL (3.4-5.0); ASPARTATE AMINOTRANSFERASE 18 U/L (15-37); LIPASE 92 U/L (73-393); TOTAL BILIRUBIN 0.4 mg/dL (0.0-1.0)
[2018-04-23 15:57] LABS: PROTHROMBIN TIME 10.7 secs (10.8-13.4)
--- NOTE | 2018-04-23 16:00 | NUR ---
Pt provided with urinal but unable to provide urine at this time
[2018-04-23 16:22] VITALS: BP 125/70
[2018-04-23] MEDS ORDERED: NACL 0.9% 3,000 ML IV ONE (16:40)
[2018-04-23] MEDS ORDERED: LEVOFLOXACIN 750 MG/D5W PREMIX 150 ML IV ONE (16:40)
--- NOTE | 2018-04-23 17:00 | NUR ---
Pt being updated by Dr Ambriz for admission
[2018-04-23] MEDS ORDERED: ONDANSETRON 4 MG/2 ML VIAL IM/IVP PRN (17:25)
[2018-04-23] MEDS ORDERED: ALBUTEROL SULFATE/IPRATROPIU 3 ML SOL IH PRN (17:25)
[2018-04-23] MEDS ORDERED: LORazepam 2 MG/ML VIAL IM/IVP PRN (17:25)
[2018-04-23] MEDS ORDERED: ACETAMINOPHEN 325 MG TAB PO PRN (17:25)
[2018-04-23] MEDS ORDERED: DOCUSATE SODIUM 100 MG GELCAP PO PRN (17:25)
[2018-04-23] MEDS ORDERED: MORPHINE SULFATE 4 MG/ML SYR IVP PRN (17:25)
[2018-04-23] MEDS: NACL 0.9% 1,000 ML IV SCH (17:25)
[2018-04-23] MEDS ORDERED: KETOROLAC 30 MG/ML VIAL IVP ONE (17:30)
[2018-04-23] MEDS ORDERED: KETOROLAC 30 MG/ML VIAL ONE (17:38)
[2018-04-23] MEDS ORDERED: NON-FORMULARY ITEM (Oxycodone HCl/Acetaminophen (Percocet 10-325 mg Tablet) 1 TAB) PO PRN (18:15)
[2018-04-23] MEDS ORDERED: DEXTROSE 50% 50 ML SYR IVP PRN (18:15)
[2018-04-23] MEDS ORDERED: ACETAMINOPHEN/CODEINE 300/30MG 1 TAB PO PRN (18:15)
[2018-04-23] MEDS ORDERED: NITROGLYCERIN 0.4 MG TAB SL SCH (18:15)
--- NOTE | 2018-04-23 18:25 | NUR ---
Patient will be admitted to care of Dr Motta. Admited to tele room 124a. Belongings list completed. Report to KATHLEEN Hanna.
--- NOTE | 2018-04-23 18:25 | NUR ---
Pt admitted from ER to [facility] rm 124A [place]. Bedside report received from Mehrdad ER nurse. Pt able to amb to toilet then back to bed. Voided x1. Urine specimen collected. Pt aaox4, oriented to room & unit. Verbalized understanding & able to return demonstrate teachings. No c/o discomfort @ this time, respirations even & nonlabored on O2 @ 3lpm via n/c. Right ac IV intact & asymptomatic with ongoing Levaquin @ 100ml/hr. Call light within reach. RT at bedside providing tx.
[2018-04-23 18:40] LABS: MAGNESIUM 1.9 mg/dL (1.8-2.4); PHOSPHORUS 2.6 mg/dL (2.5-4.9); THYROID STIMULATING HORMONE 0.28 uIU/mL (0.34-3.74)
[2018-04-23] MEDS: ALBUTEROL SULFATE/IPRATROPIU 3 ML SOL IH SCH (18:51)
--- NOTE | 2018-04-23 19:14 | NUR ---
Report given to pm nurse Lisa.
--- NOTE | 2018-04-23 19:15 | NUR ---
RECEIVED REPORT FROM DAY SHIFT NURSE MEÑO-RN AT BEDSIDE. PT RESTING IN BED, AOX4, ON 3L/NC WITH RIGHT AC #20G RUNNING NS @ 130ML/HR. DISCUSSED PLAN OF CARE AND PT VERBALIZED UNDERSTANDING. NO S/S OF RESPIRATORY DISTRESS OR DISCOMFORT NOTED AT THIS TIME. BED IN LOWEST POSITION, BED BREAKS ON, BOTH SIDE RAILS UP. BEDSIDE TABLE AND CALL LIGHT ARE WITHIN REACH. WILL CONTINUE TO MONITOR.
--- NOTE | 2018-04-23 19:35 | NUR ---
ABG ATTEMPTED TWICE AND UNABLE TO OBTAIN AND PATIENT REFUSED. Lynda MAYS WAS NOTED OF THIS
[2018-04-23 20:00] VITALS: BP 145/51
[2018-04-23 20:00] LABS: APPEARANCE,URINE CLEAR (CLEAR); BILIRUBIN,URINE NEGATIVE (NEGATIVE); BLOOD, URINE NEGATIVE (NEGATIVE); COLOR,URINE YELLOW (YELLOW); LEUKOCYTE ESTERASE ,URINE NEGATIVE (NEGATIVE); NITRITE, URINE NEGATIVE (NEGATIVE); UGLUCOSE 1+ (NEGATIVE)
--- NOTE | 2018-04-23 20:00 | NUR ---
VITAL SIGNS TAKEN AND TOLERATED WELL. BLOOD GLUCOSE 393- WILL ADMINISTER INSULIN COVERAGE. NO S/S OF RESPIRATORY DISTRESS OR DISCOMFORT NOTED AT THIS TIME. WILL CONTINUE TO MONITOR.
[2018-04-23] MEDS ORDERED: HYDROcodone/APAP 5/325 MG 1 TAB TAB ONE (20:29)
[2018-04-23] MEDS ORDERED: PIPERACILLIN/TAZOBACTAM 3.375 GM VIAL IV ONE (20:30)
[2018-04-23] MEDS: BLOOD GLUCOSE MONITORING 1 DEV DEV FS SCH (20:43)
[2018-04-23] MEDS: TAMSULOSIN 0.4 MG CAP PO SCH (20:58)
[2018-04-23] MEDS: METOPROLOL 25 MG TAB PO SCH (20:58)
[2018-04-23] MEDS: HYDROcodone/APAP 5/325 MG 1 TAB TAB PO PRN (20:58)
--- NOTE | 2018-04-23 20:58 | NUR ---
PT C/O PAIN 09/04- MEDICATED WITH NORCO. PT TOLERATED WELL. NO S/S OF RESPIRATORY DISTRESS OR DISCOMFORT NOTED AT THIS TIME. WILL CONTINUE TO MONITOR.
--- NOTE | 2018-04-23 20:59 | NUR ---
SCHEDULED MEDICATION GIVEN AND TOLERATED WELL. NO S/S OF RESPIRATORY DISTRESS OR DISCOMFORT NOTED AT THIS TIME. WILL CONTINUE TO MONITOR.
[2018-04-23] MEDS ORDERED: PIPER/TAZO 3.375GM/D5W PREMIX 50 ML IV SCH (21:00)
[2018-04-23] MEDS ORDERED: methylPREDNISolone SS 125 MG/2 ML VIAL IVP SCH (21:00)
[2018-04-23] MEDS: INSULIN LISPRO SLIDING SCALE 100 UNITS/ML VIAL SUBQ PRN (21:09)
--- NOTE | 2018-04-23 21:09 | NUR ---
INSULIN COVERAGE GIVEN AND TOLERATED WELL. NO S/S OF RESPIRATORY DISTRESS OR DISCOMFORT NOTED AT THIS TIME. WILL CONTINUE TO MONITOR.
[2018-04-23] MEDS ORDERED: GABAPENTIN 300 MG CAP PO SCH ×2 (21:15→22:30)
--- NOTE | 2018-04-23 21:19 | NUR ---
PT REQUESTED GABAPENTIN MEDICATION. SPOKE WITH DR. DEUTSCH AND SHE PLACED ORDER. MEDICATION WAS GIVEN AND TOLERATED WELL. NO S/S OF RESPIRATORY DISTRESS OR DISCOMFORT NOTED AT THIS TIME. WILL CONTINUE TO MONITOR.
--- NOTE | 2018-04-23 21:58 | NUR ---
CRITICAL LAB VALUE: LACTIC ACID 4.0- DR. LA NENA MON.
[2018-04-23] MEDS: methylPREDNISolone SS 125 MG/2 ML VIAL IVP SCH (22:22)
--- NOTE | 2018-04-23 22:22 | NUR ---
DR. DEUTSCH IN PT ROOM AND PT STATED HE TAKES 600MG OF GABAPENTIN, NOT 300MG. DR. DEUTSCH PLACED ADDITIONAL ORDER OF 300MG OF GABAPENTIN AND SOLU-MEDROL 80MG. PT TOLERATED WELL. NO S/S OF RESPIRATORY DISTRESS OR DISCOMFORT NOTED AT THIS TIME. WILL CONTINUE TO MONITOR.
[2018-04-24] VITALS (7 sets, daily range): BP systolic 106–160; BP diastolic 45–79
--- NOTE | 2018-04-24 | NUR ---
VITAL SIGNS TAKEN AND TOLERATED WELL. DR. DEUTSCH WANTED ADDITIONAL GLUCOSE CHECK- 302. NO S/S OF RESPIRATORY DISTRESS OR DISCOMFORT NOTED AT THIS TIME. WILL CONTINUE TO MONITOR.
[2018-04-24] MEDS ORDERED: BLOOD GLUCOSE MONITORING 1 DEV DEV FS SCH (01:30)
[2018-04-24] MEDS: INSULIN LISPRO SLIDING SCALE 100 UNITS/ML VIAL SUBQ PRN ×5 (01:36→21:33)
--- NOTE | 2018-04-24 01:36 | NUR ---
DR. DEUTSCH WANTED INSULIN COVERAGE FOR 302- 8 UNITS ADMINISTERED AND PT TOLERATED WELL. NO S/S OF RESPIRATORY DISTRESS OR DISCOMFORT NOTED AT THIS TIME. WILL CONTINUE TO MONITOR.
[2018-04-24] MEDS ORDERED: PIPERACILLIN/TAZOBACTAM 3.375 GM VIAL IV ONE (01:57)
[2018-04-24] MEDS: NACL 0.9% 1,000 ML IV SCH ×2 (02:00→11:38)
[2018-04-24] MEDS: PIPER/TAZO 3.375GM/D5W PREMIX 50 ML IV SCH ×4 (02:01→20:22)
--- NOTE | 2018-04-24 02:01 | NUR ---
SCHEDULED MEDICATION ZOSYN GIVEN AND NEW BAG OF IVF HUNG. PT TOLERATED WELL. NO S/S OF RESPIRATORY DISTRESS OR DISCOMFORT NOTED AT THIS TIME. WILL CONTINUE TO MONITOR.
--- NOTE | 2018-04-24 04:00 | NUR ---
VITAL SIGNS TAKEN AND TOLERATED WELL. NO S/S OF RESPIRATORY DISTRESS OR DISCOMFORT NOTED AT THIS TIME. WILL CONTINUE TO MONITOR.
[2018-04-24] MEDS: methylPREDNISolone SS 125 MG/2 ML VIAL IVP SCH (04:23)
--- NOTE | 2018-04-24 04:23 | NUR ---
SCHEDULED MEDICATION SOLU-MEDROL GIVEN AND TOLERATED WELL. NO S/S OF RESPIRATORY DISTRESS OR DISCOMFORT NOTED AT THIS TIME. WILL CONTINUE TO MONITOR.
--- NOTE | 2018-04-24 05:49 | NUR ---
PT REFUSED ABG, NOTIFIED
--- NOTE | 2018-04-24 06:00 | NUR ---
BLOOD GLUCOSE 234- WILL ADMINISTER INSULIN COVERAGE. NO S/S OF RESPIRATORY DISTRESS OR DISCOMFORT NOTED AT THIS TIME. WILL CONTINUE TO MONITOR.
[2018-04-24] MEDS: BLOOD GLUCOSE MONITORING 1 DEV DEV FS SCH ×4 (06:30→21:33)
--- NOTE | 2018-04-24 06:30 | NUR ---
INSULIN COVERAGE GIVEN AND TOLERATED WELL. NO S/S OF RESPIRATORY DISTRESS OR DISCOMFORT NOTED AT THIS TIME. WILL CONTINUE TO MONITOR.
--- NOTE | 2018-04-24 07:24 | NUR ---
ENDORSED PT CARE TO DAY SHIFT NURSE GARCIA FOR CONTINUITY OF CARE.
--- NOTE | 2018-04-24 07:30 | NUR ---
PATIENT WAS SLEEPING COMFORTABLY, EASILY AROUSABLE BY NAME. RESPIRATION EVEN, UNLABOR ON 3L NC. SKIN DRY AND WARM. IV PATENT AND INTACT. COMPLAINED OF LEFT FOOT PAIN 4/10, WILL MEDICATE PER ORDER. DENIED SOB AT THIS TIME. PLAN OF CARE WAS DISCUSSED WITH PATIENT. BED AT LOW POSITION, SIDE RAILS UP. CALL LIGHT WITHIN REACH
[2018-04-24] MEDS: ALBUTEROL SULFATE/IPRATROPIU 3 ML SOL IH SCH ×3 (07:34→19:45)
--- NOTE | 2018-04-24 08:07 | NUR ---
PATIENT HAS BEEN SCREENED AND CATEGORIZED MODERATE NUTRITION RISK. PATIENT WILL BE SEEN WITHIN 3-5 DAYS OF ADMISSION. 04/26/18AARON MERA RD
[2018-04-24 08:13] LABS: BASOPHILS % (AUTO) 0.1 % (0.0-2.0); EOSINOPHILS % (AUTO) 0.1 % (0.0-4.0); HEMATOCRIT 35.4 % (36-52); HEMOGLOBIN 11.9 g/dL (12.0-18.0); LYMPHOCYTES # (AUTO) 0.7 K/uL (2.0-11.5); LYMPHOCYTES % (AUTO) 9.8 % (20.5-51.1); MEAN CORPUSCULAR HEMOGLOBIN 29 pg (27-31); MEAN CORPUSCULAR HGB CONC 34 g/dL (33-37); MEAN CORPUSCULAR VOLUME 85.7 fL (80-94); MONOCYTES # (AUTO) 0.1 K/uL (0.8-1.0); MONOCYTES % (AUTO) 1.5 % (1.7-9.3); NEUTROPHILS # (AUTO) 6.4 K/uL (1.8-7.7); NEUTROPHILS % (AUTO) 88.5 % (42.2-75.2); PLATELET COUNT (AUTO) 112 K/uL (140-450); RED BLOOD CELL COUNT(AUTO) 4.14 MIL/uL (4.20-6.10); RED CELL DISTRIBUTION WIDTH 13.8 % (11.6-13.7); WHITE BLOOD COUNT (AUTO) 7.2 K/uL (4.8-10.8)
[2018-04-24] MEDS: LACTOBACILLUS RHAMNOSUS GG 1 EACH CAP PO SCH (08:22)
[2018-04-24] MEDS: METOPROLOL 25 MG TAB PO SCH ×2 (08:23→20:22)
[2018-04-24] MEDS: TAMSULOSIN 0.4 MG CAP PO SCH ×2 (08:23→20:22)
[2018-04-24] MEDS: PANTOPRAZOLE 40 MG TABEC PO SCH (08:23)
[2018-04-24] MEDS: HYDROcodone/APAP 5/325 MG 1 TAB TAB PO PRN ×4 (08:23→21:14)
[2018-04-24] MEDS: GABAPENTIN 300 MG CAP PO SCH ×3 (08:23→17:02)
[2018-04-24] MEDS: FUROSEMIDE 20 MG TAB PO SCH (08:24)
[2018-04-24] MEDS: ALLOPURINOL 100 MG TAB PO SCH (08:24)
[2018-04-24] MEDS: amLODIPine 5 MG TAB PO SCH (08:24)
[2018-04-24] MEDS: ATORVASTATIN 80 MG TAB PO SCH (08:24)
[2018-04-24] MEDS: FERROUS SULFATE 325 MG TABEC PO SCH (08:24)
[2018-04-24] MEDS: RIVAROXABAN 10 MG TAB PO SCH (08:30)
[2018-04-24 08:34] LABS: ANION GAP 8.7 (8-16); CARBON DIOXIDE 27.8 mmol/L (21-32); CHLORIDE 112 mmol/L (98-107); CREATININE 1.4 mg/dL (0.7-1.3); GLUCOSE 251 mg/dL (74-106); POTASSIUM 4.5 mmol/L (3.5-5.1); SODIUM SERUM 144 mmol/L (136-145); UREA NITROGEN, BLOOD 25 mg/dL (7-18)
[2018-04-24 08:38] LABS: CHOL/HDL RATIO 2.3 (1-4.5)
[2018-04-24 08:39] LABS: MAGNESIUM 1.8 mg/dL (1.8-2.4); PHOSPHORUS 2.8 mg/dL (2.5-4.9)
[2018-04-24] MEDS ORDERED: LISINOPRIL 5 MG TAB PO SCH (09:00)
[2018-04-24] MEDS ORDERED: INSULIN LANTUS 100 UNITS/ML 10 ML VIAL SUBQ SCH ×2 (09:00→11:15)
[2018-04-24] MEDS ORDERED: GABAPENTIN 300 MG CAP PO SCH ×2 (09:00)
--- NOTE | 2018-04-24 09:00 | NUR ---
PATIENT WAS AWAKE, ALERT. RESPIRATION EVEN, UNLABOR ON 3L NC. NO DISTRESS NOTED AT THIS TIME
[2018-04-24 11:00] LABS: BARBITURATE, URINE NEG. ng/ml (NEG <=200); BENZODIAZEPINE, URINE NEG. ng/mL (NEG <=200); CANNABINOID, URINE NEG. ng/mL (NEG <=50); COCAINE, URINE NEG. ng/mL (NEG <=300); OPIATE, URINE NEG. ng/mL (NEG <=2000); PHENCYCLIDINE SCREEN,URINE NEG. ng/mL (NEG <=25)
[2018-04-24] MEDS ORDERED: methylPREDNISolone SS 40 MG/ML VIAL IVP SCH ×2 (11:15→21:00)
--- NOTE | 2018-04-24 11:45 | NUR ---
PATIENT WAS AWAKE, ALERT. RESPIRATION EVEN, UNLABOR ON 3L NC. NO DISTRESS NOTED AT THIS TIME. COMPLAINED OF LEFT FOOT PAIN 4/10, WILL MEDICATE PER ORDER. TELECOMMUNICATIONS TECHNICIAN WAS AT BEDSIDE. CALL LIGHT WITHIN REACH
[2018-04-24] MEDS: methylPREDNISolone SS 40 MG/ML VIAL IVP SCH ×2 (12:11→20:21)
--- NOTE | 2018-04-24 14:00 | NUR ---
PATIENT WAS AMBULATING AROUND THE HALLWAY, STEADY GAIT. NO DISTRESS NOTED AT THIS TIME
--- NOTE | 2018-04-24 15:50 | NUR ---
PATIENT WAS AWAKE, ALERT, WATCHING TV COMFORTABLY. RESPIRATION EVEN, UNLABOR ON ROOM AIR, SP02 89-90%. PATIENT WAS PLACED BACK ON 2L VIA NC, SPO2 92%. COMPLAINED OF FOOT PAIN 5/10, WILL MEDICATE PER ORDER. NO DISTRESS NOTED AT THIS TIME
--- NOTE | 2018-04-24 18:19 | NUR ---
PATIENT WAS AWAKE, ALERT, WATCHING TV COMFORTABLY. RESPIRATION EVEN, UNLABOR ON 2L NC. IV PATENT AND INTACT. NO DISTRESS NOTED AT THIS TIME
--- NOTE | 2018-04-24 19:28 | NUR ---
ENDORSEMENT GIVEN TO COLLECTION SUPPORT SPECIALIST NURSE. PATIENT IS STABLE AT THIS TIME
--- NOTE | 2018-04-24 19:30 | NUR ---
RECEIVED REPORT FROM DAYSHIFT NURSE AT BEDSIDE FOR CONTINUITY OF CARE. PT AAOX4. PT IV NOTED RAC 20G NS 60ML/HR. NO SOB NO S/S OF DISTRESS ON O2 2L NC. BED LOWERED AMBULATORY CALL LIGHT WITHIN REACH WILL CONTINUE TO MONITOR.
--- NOTE | 2018-04-24 19:56 | NUR ---
DECREASED PT'S FIO2 TO 1 L NC.
[2018-04-24] MEDS ORDERED: methylPREDNISolone SS 125 MG/2 ML VIAL IVP SCH (21:00)
[2018-04-25] MEDS: PIPER/TAZO 3.375GM/D5W PREMIX 50 ML IV SCH ×3 (02:02→14:31)
[2018-04-25 04:00] VITALS: BP 143/56
[2018-04-25] MEDS: INSULIN LISPRO SLIDING SCALE 100 UNITS/ML VIAL SUBQ PRN ×3 (05:56→16:35)
[2018-04-25] MEDS: NACL 0.9% 1,000 ML IV SCH (06:02)
[2018-04-25] MEDS: BLOOD GLUCOSE MONITORING 1 DEV DEV FS SCH ×3 (06:03→16:14)
[2018-04-25 06:24] LABS: EOSINOPHILS % (AUTO) 0.1 % (0.0-4.0); HEMOGLOBIN 11.4 g/dL (12.0-18.0); LYMPHOCYTES % (AUTO) 10.1 % (20.5-51.1); MEAN CORPUSCULAR HEMOGLOBIN 29 pg (27-31); MEAN CORPUSCULAR HGB CONC 33 g/dL (33-37); MEAN CORPUSCULAR VOLUME 86.2 fL (80-94); MONOCYTES # (AUTO) 0.5 K/uL (0.8-1.0); MONOCYTES % (AUTO) 4.5 % (1.7-9.3); NEUTROPHILS # (AUTO) 8.6 K/uL (1.8-7.7); NEUTROPHILS % (AUTO) 85.3 % (42.2-75.2); PLATELET COUNT (AUTO) 116 K/uL (140-450); RED BLOOD CELL COUNT(AUTO) 3.95 MIL/uL (4.20-6.10); RED CELL DISTRIBUTION WIDTH 13.9 % (11.6-13.7); WHITE BLOOD COUNT (AUTO) 10.1 K/uL (4.8-10.8)
[2018-04-25 06:46] LABS: ANION GAP 9.8 (8-16); CARBON DIOXIDE 29.6 mmol/L (21-32); CHLORIDE 108 mmol/L (98-107); CREATININE 1.7 mg/dL (0.7-1.3); GLUCOSE 256 mg/dL (74-106); POTASSIUM 4.4 mmol/L (3.5-5.1); SODIUM SERUM 143 mmol/L (136-145); UREA NITROGEN, BLOOD 39 mg/dL (7-18)
[2018-04-25 06:56] LABS: FREE T4 (FREE THYROXINE) 1.04 ng/dL (0.76-1.46); MAGNESIUM 1.8 mg/dL (1.8-2.4); PHOSPHORUS 4.2 mg/dL (2.5-4.9)
[2018-04-25] MEDS: ALBUTEROL SULFATE/IPRATROPIU 3 ML SOL IH SCH ×2 (07:00→13:19)
[2018-04-25] MEDS ORDERED: methylPREDNISolone SS 40 MG/ML VIAL IVP SCH ×2 (07:00→13:00)
--- NOTE | 2018-04-25 07:05 | NUR ---
ENDORSED REPORT TO DAYSHIFT NURSE AT BEDSIDE FOR CONTINUITY OF CARE.
--- NOTE | 2018-04-25 07:30 | NUR ---
PATIENT WAS AWAKE, ALERT, EATING BREAKFAST COMFORTABLY. RESPIRATION EVEN, UNLABOR ON ROOM AIR. SKIN DRY AND WARM. IV PATENT AND INTACT. DENIED SOB. COMPLAINED OF LEFT FOOT PAIN 6/10, WILL MEDICATE PER ORDER. PLAN OF CARE WAS DISCUSSED WITH PATIENT. BED AT LOW POSITION, SIDE RAILS UP. CALL LIGHT WITHIN REACH
[2018-04-25 08:00] VITALS: BP 156/65
[2018-04-25] MEDS ORDERED: INSULIN LANTUS 100 UNITS/ML 10 ML VIAL SUBQ SCH (09:00)
[2018-04-25] MEDS ORDERED: INSULIN NPH HUM/REG INSULIN HM 100 UNIT/ML 10 ML VIAL SUBQ SCH (09:00)
[2018-04-25] MEDS ORDERED: LISINOPRIL 10 MG TAB PO SCH (09:00)
[2018-04-25] MEDS: PANTOPRAZOLE 40 MG TABEC PO SCH (09:12)
[2018-04-25] MEDS: ALLOPURINOL 100 MG TAB PO SCH (09:12)
[2018-04-25] MEDS: TAMSULOSIN 0.4 MG CAP PO SCH (09:12)
[2018-04-25] MEDS: HYDROcodone/APAP 5/325 MG 1 TAB TAB PO PRN ×2 (09:13→16:32)
[2018-04-25] MEDS: LACTOBACILLUS RHAMNOSUS GG 1 EACH CAP PO SCH (09:13)
[2018-04-25] MEDS: METOPROLOL 25 MG TAB PO SCH (09:13)
[2018-04-25] MEDS: ATORVASTATIN 80 MG TAB PO SCH (09:13)
[2018-04-25] MEDS: FERROUS SULFATE 325 MG TABEC PO SCH (09:13)
[2018-04-25] MEDS: GABAPENTIN 300 MG CAP PO SCH ×3 (09:14→16:32)
[2018-04-25] MEDS: FUROSEMIDE 20 MG TAB PO SCH (09:15)
[2018-04-25] MEDS: amLODIPine 5 MG TAB PO SCH (09:15)
[2018-04-25] MEDS: RIVAROXABAN 10 MG TAB PO SCH (09:20)
--- NOTE | 2018-04-25 09:45 | NUR ---
PATIENT WAS AWAKE, ALERT. RESPIRATION EVEN, UNLABOR ON ROOM AIR. NO DISTRESS NOTED AT THIS TIME. MEDS WERE GIVEN PER ORDER. CALL LIGHT WITHIN REACH
[2018-04-25] MEDS ORDERED: AMLO10TA PO ×2 (11:17→11:22)
[2018-04-25] MEDS ORDERED: INSU10SU6 SUBQ ×2 (11:17→11:29)
[2018-04-25] MEDS ORDERED: XAR10 PO ×2 (11:17→11:29)
[2018-04-25] MEDS ORDERED: LISI5TAB18 PO ×2 (11:17→11:29)
[2018-04-25] MEDS ORDERED: VITA1TAB44 PO (11:29)
[2018-04-25] MEDS ORDERED: CYAN500T66 SL (11:29)
[2018-04-25] MEDS ORDERED: METO25TA PO (11:36)
[2018-04-25] MEDS ORDERED: GABA-638 PO (11:36)
[2018-04-25 12:00] VITALS: BP 135/62
[2018-04-25] MEDS ORDERED: METO25TE71 PO (12:10)
[2018-04-25] MEDS ORDERED: METO25TE2 PO (12:13)
--- NOTE | 2018-04-25 12:30 | NUR ---
PATIENT WAS AWAKE, EATING LUNCH COMFORTABLY. RESPIRATION EVEN, UNLABOR ON ROOM AIR. MEDS WERE GIVEN PER ORDER. NO DISTRESS NOTED. CALL LIGHT WITHIN REACH
[2018-04-25] MEDS ORDERED: FLUT1DSK IH (12:52)
--- NOTE | 2018-04-25 13:51 | NUR ---
PATIENT WAS AMBULATING AROUND THE STATION X2. DENIED SOB, SPO2 95%. NO DISTRESS NOTED
[2018-04-25 16:00] VITALS: BP 136/73
--- NOTE | 2018-04-25 16:00 | NUR ---
PATIENT WAS AWAKE, ALERT. RESPIRATION EVEN, UNLABOR ON ROOM AIR. DENIED SOB AT THIS TIME. COMPLAINED OF LEFT FOOT PAIN 4/10, WILL MEDICATE PER ORDER. CALL LIGHT WITHIN REACH
[2018-04-25] MEDS ORDERED: AMOX-999 PO (16:24)
--- NOTE | 2018-04-25 17:56 | NUR ---
DISCHARGE INSTRUCTIONS WAS GIVEN AND EXPLAINED TO PATIENT. PATIENT VERBALIZED UNDERSTANDING. IV WAS REMOVED, CATHETER INTACT, NO ACTIVE BLEEDING SEEN. SITE IDENTIFICATION SPECIALIST AND ID BAND WAS REMOVED.
--- NOTE | 2018-04-25 18:15 | NUR ---
PATIENT WAS ESCORTED OUT BY STAFF, AMBULATORY WITH STEADY GAIT. ALL BELONGINGS WERE TAKEN WITH PATIENT. PATIENT IS STABLE AT THIS TIME
[2018-04-26] MEDS ORDERED: amLODIPine 5 MG TAB PO SCH (09:00)
[2018-04-26] MEDS ORDERED: METOPROLOL SUCCINATE 50 MG TABER PO SCH (09:00)
[2018-04-26] MEDS ORDERED: CYANOCOBALAMIN 1,000 MCG TAB PO SCH (09:00)
[2018-04-26] MEDS ORDERED: VIT-B COMP/VIT-C/FOLIC ACID 1 TAB PO SCH (09:00)
[2018-04-26] MEDS ORDERED: LISINOPRIL 20 MG TAB PO SCH (09:00)
[2018-04-26] MEDS ORDERED: ECOTRIN 81 MG TABEC PO SCH (09:00)
[2018-04-26] MEDS ORDERED: RIVAROXABAN 15 MG TAB PO SCH (09:00)
== END 2018-04-25 18:15 | disposition home or self-care (01) | DRG 177 ==
LOC: MED 14:18 → MTU 17:32
PROVIDERS: ADMIT General Practice; ATTEND General Practice
DX: J69.0 Pneumonitis due to inhalation of food and vomit (principal); J96.00 Acute respiratory failure, unspecified whether with hypoxia or hypercapnia; N17.0 Acute kidney failure with tubular necrosis; J44.1 Chronic obstructive pulmonary disease with (acute) exacerbation; D69.6 Thrombocytopenia, unspecified; N40.0 Benign prostatic hyperplasia without lower urinary tract symptoms; K21.9 Gastro-esophageal reflux disease without esophagitis; E11.51 Type 2 diabetes mellitus with diabetic peripheral angiopathy without gangrene; I11.0 Hypertensive heart disease with heart failure; I48.2 Chronic atrial fibrillation; I50.9 Heart failure, unspecified; M10.9 Gout, unspecified; D63.8 Anemia in other chronic diseases classified elsewhere; E11.65 Type 2 diabetes mellitus with hyperglycemia; E05.90 Thyrotoxicosis, unspecified without thyrotoxic crisis or storm; Z79.01 Long term (current) use of anticoagulants; Z87.891 Personal history of nicotine dependence; Z79.82 Long term (current) use of aspirin; Z79.899 Other long term (current) drug therapy; Z79.4 Long term (current) use of insulin; Z83.3 Family history of diabetes mellitus; Z82.49 Family history of ischemic heart disease and other diseases of the circulatory system; I70.209 Unspecified atherosclerosis of native arteries of extremities, unspecified extremity
CPT/HCPCS: 36415; 71045; 80048; 80053; 80305; 81003; 82140; 82150; 82948; 83036; 83605; 83690; 83735; 83880; 84100; 84439; 84443; 84484; 85025; 85610; 87040; 87081; 87086; 87804; 93005; 93925; 93970; 94640; 96365; 96366; 96375; 99285; J1815; J1885; J1956; J2270; J2543; J2920; J2930; J7030; J7060; J7620; Q0092

== ENCOUNTER 2019-06-13 20:54 | Inpatient (IN) | payer OTHER, BC ==
[~2019-06-13] VITALS: Ht 172.7 cm; Wt 96.6 kg
[~2019-06-13 20:54] MED LIST changes: -ALBU0.0912 IH; +AMOX-999 PO; -BLOO-224 MC; +CYAN500T66 SL; +ETOMIDATE 20 MG/10 ML VIAL IVP ONE; +FLUT1DSK IH; -GLUC-805 FS; -LACT10CA PO; -LANC-947 MC; -LEVO750T2 PO; -METO25TA PO; +METO25TE2 PO; +METO25TE71 PO; -PANT40EC PO; +SUCCINYLCHOLINE CHLORIDE 200 MG/10 ML VIAL IVP ONE; +VITA1TAB44 PO; -ZYL300 PO; -[UNRECOGNIZED DRUG - CODE] PO; -[UNRECOGNIZED DRUG - CODE] PO
[2019-06-13 20:55] VITALS: BP 122/50
--- NOTE | 2019-06-13 20:55 | NUR ---
PT ARRIVED [facility] AND TAKEN TO BED 10 VIA GURNEY.
--- NOTE | 2019-06-13 20:56 | NUR ---
PT 73 Y/O MALE BIBA ALS FOR C/O SOB X 1 HOUR. PER EMT UPON TRANSPORT PT LOC WITH A DOWN TIME OF "A FEW MINUETS." PT ARRIVED TO ER WITH RESPIRATIONS GIVEN VIA AMBU BAG. DR. REGALADO AT BED SIDE. 2 RT'S AT BEDSIDE. PT TRANSFERED FROM [facility] TO BED. PT RESPONDS TO VERBAL STIUMLI. PT PLACED ON MONITOR. IN LOBBY. MEDHX: COPD, DM TYPE II, AFIB, HTN. ALLERGIES: NKA
--- NOTE | 2019-06-13 20:57 | NUR ---
EET 7.5 AND 25CM AT THE LIP.
--- NOTE | 2019-06-13 20:57 | NUR ---
PT INTUBATED. ALISE ROBLES AND DR. REGALADO AT BEDSIDE. RT JAY AND TEODORO AT BEDSIDE. VS: 192/70, HR-110, O2SAT@-93%, RR-21, TEMP-98.7.
--- NOTE | 2019-06-13 20:57 | NUR ---
PATIENT ON GURNEY. BAGGED AT 100%. AND AT BEDSIDE FOR INTUBATION. SIZE 7.5 ET TUBE WAS USED TO INTUBATE. RECEIVED GOOD COLOR CHANGE ON CAPNOMETER AND BILATERAL BREATH SOUNDS WERE HEARD. ET TUBE SECURED AT 24CM AT THE LIP WITH AN ANCHORFAST. PATIENT PLACED ONTO VENTILATOR SETTINGS: AC 550 RATE 18 PEEP 5 FIO2 100%. VENTILATOR IS PLUGGED INTO A RED OUTLET, BRAKES ARE SET AND ALARMS ARE CONFIRMED.
--- NOTE | 2019-06-13 21:00 | NUR ---
IV PLACED IN L AC 20 G AND R HAND 22 G. IV SITES ARE PATENT. NO SWELLING NOTED.
--- NOTE | 2019-06-13 21:03 | NUR ---
ATIVAN 2MG IVP GIVEN IN R HAND. IV SITE PATENT.
[2019-06-13] MEDS ORDERED: NACL 0.9% 1,000 ML IV ONE ×3 (21:04→21:05)
[2019-06-13] MEDS ORDERED: methylPREDNISolone SS 125 MG/2 ML VIAL IVP ONE (21:05)
[2019-06-13] MEDS ORDERED: PROPOFOL 1000 MG/100 ML PREMIX 100 ML IV ONE ×2 (21:05)
[2019-06-13] MEDS ORDERED: LORazepam 2 MG/ML VIAL IVP ONE (21:05)
[2019-06-13] MEDS ORDERED: fentaNYL 0.05 MG/ML VIAL IVP ONE (21:05)
[2019-06-13] MEDS ORDERED: fentaNYL 0.05 MG/ML VIAL ONE (21:06)
[2019-06-13] MEDS ORDERED: LORazepam 2 MG/ML VIAL ONE (21:06)
--- NOTE | 2019-06-13 21:10 | NUR ---
FENTANYL 0.05MG IVP GIVEN IN R HAND. IV SITE PATENT.
--- NOTE | 2019-06-13 21:10 | NUR ---
XRAY DONE AT BEDSIDE.
[2019-06-13] MEDS ORDERED: ALBUTEROL SULFATE/IPRATROPIU 3 ML SOL IH ONE ×2 (21:15)
--- NOTE | 2019-06-13 21:15 | NUR ---
EKG AT BEDSIDE.
--- NOTE | 2019-06-13 21:15 | NUR ---
PROPOFOL 1000MG/100ML STARTED IN L AC 20G. IV SITE IS PATENT. SEE IV SPREAD SHEET.
[2019-06-13 21:19] LABS: APPEARANCE,URINE CLEAR (CLEAR); BILIRUBIN,URINE NEGATIVE (NEGATIVE); BLOOD, URINE TRACE-I (NEGATIVE); COLOR,URINE YELLOW (YELLOW); LEUKOCYTE ESTERASE ,URINE NEGATIVE (NEGATIVE); NITRITE, URINE NEGATIVE (NEGATIVE); UGLUCOSE 3+ (NEGATIVE)
--- NOTE | 2019-06-13 21:21 | NUR ---
RT AT BEDSIDE.
[2019-06-13 21:24] LABS: BASOPHILS # (AUTO) 0.1 K/uL (0.00-0.22); BASOPHILS % (AUTO) 0.7 % (0.0-2.0); EOSINOPHILS # (AUTO) 0.3 K/uL (0-0.4); EOSINOPHILS % (AUTO) 2.5 % (0.0-4.0); HEMATOCRIT 36.4 % (36-52); HEMOGLOBIN 11.5 g/dL (12.0-18.0); LYMPHOCYTES # (AUTO) 4.7 K/uL (2.0-11.5); LYMPHOCYTES % (AUTO) 44.2 % (20.5-51.1); MEAN CORPUSCULAR HEMOGLOBIN 29 pg (27-31); MEAN CORPUSCULAR HGB CONC 32 g/dL (33-37); MEAN CORPUSCULAR VOLUME 91.9 fL (80-94); MONOCYTES # (AUTO) 0.8 K/uL (0.8-1.0); MONOCYTES % (AUTO) 7.4 % (1.7-9.3); NEUTROPHILS # (AUTO) 4.8 K/uL (1.8-7.7); NEUTROPHILS % (AUTO) 45.2 % (42.2-75.2); PLATELET COUNT (AUTO) 118 K/uL (140-450); RED BLOOD CELL COUNT(AUTO) 3.96 MIL/uL (4.20-6.10); RED CELL DISTRIBUTION WIDTH 16.8 % (11.6-13.7); WHITE BLOOD COUNT (AUTO) 10.6 K/uL (4.8-10.8)
--- NOTE | 2019-06-13 21:30 | NUR ---
COLLECTED SPUTUM SAMPLE AND PROVIDED TO LABS
[2019-06-13 21:31] LABS: PROTHROMBIN TIME 11.6 secs (10.8-13.4)
[2019-06-13 21:33] LABS: ALBUMIN 3.6 g/dL (3.4-5.0); ANION GAP 14.7 (8-16); ASPARTATE AMINOTRANSFERASE 32 U/L (15-37); CARBON DIOXIDE 26.7 mmol/L (21-32); CHLORIDE 105 mmol/L (98-107); CREATININE 1.9 mg/dL (0.6-1.3); GLUCOSE 329 mg/dL (74-106); LIPASE 75 U/L (73-393); POTASSIUM 4.4 mmol/L (3.5-5.1); SODIUM SERUM 142 mmol/L (136-145); TOTAL BILIRUBIN 0.6 mg/dL (0.0-1.0); UREA NITROGEN, BLOOD 34 mg/dL (7-18)
--- NOTE | 2019-06-13 21:34 | NUR ---
FLU SWAB COLLECTED.
[2019-06-13] MEDS ORDERED: LEVOFLOXACIN 750 MG/D5W PREMIX 150 ML IV ONE (21:35)
[2019-06-13] MEDS ORDERED: NACL 0.9% 2,000 ML IV ONE (21:45)
--- NOTE | 2019-06-13 21:50 | NUR ---
LEVAQUIN 750MG/IN DEXTROSE 5% PREMIX STARTED AT 150ML/HR IN R HAND. IV SITE IS PATENT.
--- NOTE | 2019-06-13 22:05 | NUR ---
AT BEDSIDE. GAVE INFORMATION FOR MED REC.
[2019-06-13] MEDS ORDERED: ALBUTEROL 0.083% 2.5 MG/3 ML NEBU INH ONE (22:20)
--- NOTE | 2019-06-13 22:22 | NUR ---
RT AT BEDSIDE. ABG BEING DONE AT BEDSIDE.
--- NOTE | 2019-06-13 22:25 | NUR ---
PER DR. SHAH REQUEST POST XRAY RESULTS TO ADVANCE TUBE 1CM FROM 24CM TO 25CM AT THE LIP. ET TUBE ADVANCED WITH NO INCIDENT AND SECURED.
[2019-06-13] MEDS ORDERED: ACETAMINOPHEN 325 MG TAB PO PRN (23:15)
[2019-06-13] MEDS ORDERED: ONDANSETRON 4 MG/2 ML VIAL IVP PRN (23:15)
[2019-06-13] MEDS ORDERED: ALBUTEROL SULFATE/IPRATROPIU 3 ML SOL IH PRN (23:20)
--- NOTE | 2019-06-13 23:40 | NUR ---
PT ADMITTED TO ICU FROM ER. RECEIVED BEDSIDE REPORT FROM ER NURSE. PT IS ABLE TO OPEN EYES SPONTANEOUSLY, ANSWER YES AND NO QUESTIONS, AND ABLE TO FOLLOW SIMPLE COMMANDS. EYES ARE PERRL. 3MM. PT IS INTUBATED W/ ETT 7.5 TAPED AT 25 AT LIP. PT IS CONNECTED TO VENT ACVC FIO2 100% VT 550 RATE 18 PEEP 5. LUNG SOUNDS CLEAR INSPIRATORY, BUT WHEEZES EXPIRATORY. S1 AND S2 HEARD. PT HAS PIV 22G ON THE R HAND AND A 20G L AC. ABDOMEN IS ROUND AND FIRM. BOWEL SOUNDS HEARD. SKIN IS INTACT. PT IS ON NON-BEHAVIORAL SOFT WRISTS RESTRAINTS. SKIN UNDERNEATH RESTRAINTS IS INTACT. RADIAL PULSES FELT NORMAL AND REGULAR RHYTHM. CAP REFILL <3 SECONDS. BED IS LOCKED, LOW POSITION. SAFETY MEASURES IN PLACE. CALL LIGHT WITHIN REACH. WILL CONTINUE TO MONITOR Addendum: 06/14/19 at 0249 by Irineo Babb RN RN OG TUBE IN PLACE. Addendum: 06/14/19 at 0758 by Irineo Babb RN RN DRY WEIGHT 100KG. RASS +1 Addendum: 06/14/19 at 0819 by Rosa Hoskins RN RAC 20G, AND LEFT FOREARM 22G PERIPHERAL IV's. ALSO, SMALL SKIN TEAR TO RIGHT FOREARM, DRESSING SOILED WITH SANGUINEOUS SECRETIONS. REPLACED DRESSING.
--- NOTE | 2019-06-13 23:40 | NUR ---
PATIENT TRANSPOSTED FROM ER TO ICU BED 3 WITH NO INCIDENT. PATIENT WAS BAGGED EN ROUTE AND RECONNECTED TO VENT AFTER BED TRANSFER.
--- NOTE | 2019-06-13 23:40 | NUR ---
Patient will be admitted to care of . Admited to ICU. Will go to room 3. Belongings list completed. Report to CAITLIN WANG.
[2019-06-13 23:43] LABS: FREE T4 (FREE THYROXINE) 1.13 ng/dL (0.76-1.46); MAGNESIUM 2.4 mg/dL (1.8-2.4); PHOSPHORUS 4.5 mg/dL (2.5-4.9); THYROID STIMULATING HORMONE 3.09 uIU/mL (0.34-3.74)
[2019-06-13 23:45] VITALS: BP 124/54
[2019-06-13] MEDS ORDERED: VANCOMYCIN PER PHARMACY MC PRN (23:50)
[2019-06-14] VITALS (105 sets, daily range): BP systolic 104–141; BP diastolic 38–68
[2019-06-14] MEDS ORDERED: TAMS0.4C96 PO (00:21)
[2019-06-14] MEDS ORDERED: fentaNYL 0.05 MG/ML VIAL ONE ×2 (00:39→01:03)
[2019-06-14] MEDS ORDERED: MIDAZOLAM MDV 50 MG/10 ML VIAL IV ONE (00:39)
[2019-06-14] MEDS ORDERED: INTUBATION KIT MC ONE (00:40)
--- NOTE | 2019-06-14 01:00 | NUR ---
DR. ALMAZAN AT BEDSIDE EXPLAINING CENTRAL LINE PROCEDURE TO PT'S SPOUSE. PLAN CHECKER NEVAEH #[id number] WAS CALLED.
--- NOTE | 2019-06-14 01:40 | NUR ---
DISCUSSED ABG RESULTS WITH DR. URIBE. BASED ON THE ABG RESULTS, PEEP WAS INCREASED FROM 5 TO 7 CMH20. FiO2 IS BEING TITRATED PER PROTOCOL. WILL CONTINUE TO MONITOR PT.
[2019-06-14] MEDS: fentaNYL 1 MG in NACL 0.9% 80 ML IV PRN ×3 (01:47→19:20)
[2019-06-14] MEDS: MIDAZOLAM MDV 50 MG in NACL 0.9% 40 ML IV PRN ×2 (01:47→08:55)
[2019-06-14] MEDS: NACL 0.9% 1,000 ML IV SCH ×3 (01:50→23:39)
--- NOTE | 2019-06-14 02:15 | NUR ---
ATTEMPTED AIR CHECK/AUSCULATION WITH 2 RN's, CANNOT HEAR AIR SOUND. CHECKED WITH IMAGING REPORT, NGT IS COILED IN STOMACH. PULLED NGT SLIGHTLY AND IT WAS FOUND COILED INSIDE MOUTH, REMOVED AND WILL REINSERT. RESIDENT MD AWARE.
[2019-06-14] MEDS ORDERED: NON-FORMULARY ITEM (Oxycodone HCl/Acetaminophen (Percocet 10-325 mg Tablet) 1 TAB) PO PRN (02:20)
[2019-06-14] MEDS ORDERED: NITROGLYCERIN 0.4 MG TAB SL SCH (02:20)
[2019-06-14] MEDS ORDERED: GABA-638 PO (02:27)
[2019-06-14] MEDS ORDERED: VANCOMYCIN HCL 1,250 MG in NACL 0.9% 250 ML IV SCH (02:35)
--- NOTE | 2019-06-14 03:30 | NUR ---
DR. URIBE AND DEVELOPING MACHINE OPERATOR AT BEDSIDE PUTTING IN CENTRAL LINE. Addendum: 06/14/19 at 0757 by Irineo Babb RN RN CENTRAL LINE IN PLACE [id number]
[2019-06-14] MEDS ORDERED: METO25TE71 PO (04:23)
[2019-06-14] MEDS ORDERED: NITR0.4T2 SL (04:23)
--- NOTE | 2019-06-14 04:30 | NUR ---
OGT WAS PLACED AND SECURED. WILL CONFIRM W/ XRAY
--- NOTE | 2019-06-14 05:00 | NUR ---
PERFORMED SKIN CARE AND ORAL CARE FOR PT. PT IS SEDATED W/ FENTANYL AND VERSED TO KEEP RASS AT -3. VITAL SIGNS STABLE. SKIN IS INTACT. PT IS SINUS RHYTHM ON MONITOR. PT IS ETT TO VENT. ACVC FIO2 70% VT 550 RATE 18 PEEP 7. ORO CATHETER IS IN PLACE W/ NO SIGNS OF INFECTION. ABDOMEN ROUND DISTENDED, AND FIRM. SAFETY MEASURES IN PLACE. BED LOCKED AND IN LOW POSITION. WILL CONTINUE TO MONITOR.
[2019-06-14] MEDS ORDERED: PIPERACILLIN/TAZOBACTAM 3.375 GM VIAL IV ONE (05:36)
[2019-06-14] MEDS: methylPREDNISolone SS 125 MG/2 ML VIAL IVP SCH ×3 (05:38→20:26)
[2019-06-14] MEDS: PIPERACILLIN/TAZOBACTAM 3.375 GM in DEXTROSE 5% 50 ML IV SCH ×3 (05:39→20:37)
[2019-06-14] MEDS ORDERED: ALBUTEROL SULFATE/IPRATROPIU 3 ML SOL IH SCH (06:00)
[2019-06-14 06:22] LABS: ANION GAP 16.5 (8-16); CARBON DIOXIDE 22.6 mmol/L (21-32); CHLORIDE 108 mmol/L (98-107); CREATININE 1.8 mg/dL (0.6-1.3); POTASSIUM 5.1 mmol/L (3.5-5.1); SODIUM SERUM 142 mmol/L (136-145); UREA NITROGEN, BLOOD 33 mg/dL (7-18)
[2019-06-14 06:26] LABS: BASOPHILS % (AUTO) 0.1 % (0.0-2.0); EOSINOPHILS % (AUTO) 0.1 % (0.0-4.0); HEMATOCRIT 29.5 % (36-52); HEMOGLOBIN 9.4 g/dL (12.0-18.0); LYMPHOCYTES # (AUTO) 0.2 K/uL (2.0-11.5); LYMPHOCYTES % (AUTO) 3.3 % (20.5-51.1); MEAN CORPUSCULAR HEMOGLOBIN 29 pg (27-31); MEAN CORPUSCULAR HGB CONC 32 g/dL (33-37); MEAN CORPUSCULAR VOLUME 91.9 fL (80-94); MONOCYTES # (AUTO) 0.1 K/uL (0.8-1.0); MONOCYTES % (AUTO) 1.3 % (1.7-9.3); NEUTROPHILS # (AUTO) 6.5 K/uL (1.8-7.7); NEUTROPHILS % (AUTO) 95.2 % (42.2-75.2); PLATELET COUNT (AUTO) 95 K/uL (140-450); RED BLOOD CELL COUNT(AUTO) 3.21 MIL/uL (4.20-6.10); RED CELL DISTRIBUTION WIDTH 16.6 % (11.6-13.7); WHITE BLOOD COUNT (AUTO) 6.8 K/uL (4.8-10.8)
[2019-06-14 06:29] LABS: CHOL/HDL RATIO 2.2 (1-4.5); MAGNESIUM 1.9 mg/dL (1.8-2.4); PHOSPHORUS 2.8 mg/dL (2.5-4.9)
[2019-06-14 06:47] LABS: GLUCOSE 439 mg/dL (74-106)
--- NOTE | 2019-06-14 06:50 | NUR ---
RECEIVED CRITICAL LAB VALUE OF BG 439 AT 0645. REPORTED LAB VALUE TO DR. URIBE [id number]
[2019-06-14] MEDS: INSULIN LANTUS 100 UNITS/ML 10 ML VIAL SUBQ SCH (07:01)
--- NOTE | 2019-06-14 07:15 | NUR ---
GAVE BEDSIDE SHIFT REPORT TO DAY SHIFT NURSE SHALA TO ENSURE CONTINUITY OF CARE.
--- NOTE | 2019-06-14 07:30 | NUR ---
RECEIVED BEDSIDE REPORT FROM YARD CONDUCTOR RN. PT IS SEDATED, RASS -3. AFEBRILE. FLACC 0. A. FIB ON MONITOR. CAP REFILL < 3 SEC. PULSES PALPABLE TO ALL EXTREMITIES. ETT TO VENT W/ SETTINGS A/C VC FIO2 70%, VT 550, RR 18, PEEP 7. LUNGS SOUND CLEAR BILATERALLY. BREATHING EVEN AND UNLABORED. OGT IN PLACE, PLACEMENT CONFIRMED. ABDOMEN ROUND AND FIRM. BOWEL SOUNDS PRESENT. CENTRAL LINE TLC TO RIGHT IJ PRESENT, PERIPHERAL IV G 20 TO RIGHT AC ASYMPTOMATIC, PATENT AND INTACT, RUNNING VERSED DRIP AT 3 MG/HR, FENTANYL DRIP AT 1.5 MCG/KG/HR (DRY WEIGHT 100 KG), IVF NS AT 50 ML/HR. ORO CATH IN PLACE DRAINING YELLOW URINE TO GRAVITY DRAINAGE BAG. SKIN IS DRY AND WARM TO TOUCH, SKIN TEAT TO RIGHT UPPER ARM NOTED, DRESSING REINFORCED. SCDS IN PLACE FOR VTE PROPHYLAXIS. HOB AT 30 DEGREES, BED IN LOWEST POSITION LOCKED. CALL LIGHT WITHIN REACH. WILL CONTINUE TO MONITOR.
--- NOTE | 2019-06-14 08:10 | NUR ---
DR. PADILLA AND RESIDENT GROUP IN TO SEE PT. WILL FOLLOW UP ON ORDERS.
[2019-06-14] MEDS ORDERED: CRUSHER, PILL MC ONE (08:13)
--- NOTE | 2019-06-14 08:13 | NUR ---
PATIENT HAS BEEN SCREENED AND CATEGORIZED HIGH NUTRITION RISK. PATIENT WILL BE SEEN WITHIN 1-2 DAYS OF ADMISSION. 06/14/19-06/15/[address]
[2019-06-14] MEDS ORDERED: DEXTROSE 50% 50 ML SYR IVP PRN (08:15)
[2019-06-14] MEDS ORDERED: BISACODYL 5 MG TABEC PO ONE (08:15)
[2019-06-14] MEDS ORDERED: SIMETHICONE 40 MG/0.6 ML PO PRN (08:15)
[2019-06-14] MEDS: PANTOPRAZOLE 40 MG INJ VIAL IVP SCH (08:17)
[2019-06-14] MEDS: ATORVASTATIN 80 MG TAB PO SCH (08:19)
[2019-06-14] MEDS: VIT-B COMP/VIT-C/FOLIC ACID 1 TAB PO SCH (08:20)
[2019-06-14] MEDS: FUROSEMIDE 20 MG/2 ML VIAL IVP SCH ×2 (08:20→20:27)
[2019-06-14] MEDS: TAMSULOSIN 0.4 MG CAP PO SCH (08:20)
[2019-06-14] MEDS: GABAPENTIN 300 MG CAP PO SCH ×2 (08:20→20:27)
[2019-06-14] MEDS: METOPROLOL 25 MG TAB GT SCH (08:28)
[2019-06-14] MEDS: amLODIPine 5 MG TAB PO SCH (08:29)
[2019-06-14] MEDS: LISINOPRIL 5 MG TAB PO SCH (08:29)
--- NOTE | 2019-06-14 08:29 | NUR ---
RECEIVED ON A A.C. MooreAPE R860 VENTILATOR PLUGGED INOT RED OUTLET TOLERATING WELL WITHOUT ADVERSE REACTIONS NOTED TO AN ENDOTRACHEAL TUBE #7.5 SECURED AT 25cm TEETH/GUM LINE SEDATED STABLE GOOD CHEST RISE ENDOTRACHEAL SUCTION FOR SMALL SCATTERED THICK RED/BROWN SECRETIONS AIRWAY PATENT
--- NOTE | 2019-06-14 08:52 | NUR ---
DISCHARGE PLANNING: THIS IS A 73 Y/O MALE PATIENT FROM HOME, WHO CAME IN DUE TO SOB. PAST MEDICAL HISTORY INCLUDE COPD, CHF, HTN, AFIB, DM, PAD. INITIAL DIAGNOSIS OF ACUTE RESPIRATORY FAILURE WITH CHRONIC OBSTRUCTIVE. CURRENT LABS INCLUDE WBC 6.8, H/H 9.4/29.5, NA/K 142/5.1, BUN/CREA 33/1.8 AND LACTIC ACID 2.5, TROPONIN 0.081. NEGATIVE FOR INF A AND B. ON SOLU MEDROL, VANCOMYCIN, ZOSYN AND LASIX. MRSA NARES, SPUTUM, BLOOD AND URINE ORALLY INTUBATED, ON VENT, FHB572%. ON FENTANYL AND VERSED DRIPS. PULMO CONSULTS IN PLACE. DC PLAN PENDING ON PATIENT'S RESPONSE TO TREATMENT. Addendum: 06/18/19 at 1043 by Marissa Yoder CM DC PLAN TO SNF FOR PT, ANTIBIOTICS AND O2. Addendum: 06/18/19 at 1410 by Marissa Guzman Yoder CM RECEIVED AN ORDER FOR DC WITH HOME HEALTH FOR PT. MET WITH THE PATIENT AT THE PATIENT AT THE BEDSIDE TO DISCUSS DC PLANNING AND IS IN AGREEMENT. IMM AND CHOICE OF VENDOR EXPLAINED, SIGNED AND PLACED IN THE CHART. HE ALSO STATED THAT HE HAS HOME HEALTH THAT COMES 2X A WEEK, HE PROVIDED ME WITH THE NURSE NAME MARCELINA [phone]. CONTACTED THE PHONE NUMBER PROVIDED, WENT STRAIGHT TO [email or web address] AND TO LEAVE A MESSAGE TO A DIFFERENT NAME. VERIFIED THE PHONE NUMBER WITH THE PATIENT AND IT IS [phone]. HE STATED HE WAS ABLE TO SPEAK TO MARCELINA AND THE NAME IS EDEN [email or web address]. CONTACTED [facility] AT [phone], ABLE TO SPEAK TO YUSRA (INTAKE), SHE CONFIRMED THAT THE PATIENT IS UNDER THEIR SERVICES PRIOR TO ADMISSION. ORDER AND CLINICALS FAXED TO [facility]. CONTACTED MAURO LIVINGSTON AT [phone], HE STATED TO GO AHEAD AND FAXED THE ORDER. ORDER FAXED TO [phone]. WILL FOLLOW UP. Addendum: 06/18/19 at 1647 by Marissa Yoder MARY LIVINGSTON CONFIRMED THAT THEY HAVE RECEIVED THE FAX AND IS IN THE PROCESS OF REVIEWING IT. RECEIVED A CALL FROM MAURO REQUESTING TO CHANGE THE DIAGNOSIS TO CHRONIC INSTEAD OF ACUTE RRES FAILURE. DR. DEUTSCH MADE AWARE. SHE STATED THAT WE CANNOT BECAUSE PATIENT IS NOT ON O2 PRIOR TO ADMISSION. MARY LIVINGSTON MADE AWARE, HE STATED HE WILL HAVE HIS OFFICE TO CALL ME BACK. RECEIVED A CALL FROM ELOY LIVINGSTON, I TOLD HIM WHAT DR. DEUTSCH SAID. HE STATED THEY CANNOT PROVIDE O2 FOR THIS PATIENT SINCE MEDICARE WILL NOT BE ABLE TO REIMBURSE THEM WITH THE DIAGNOSIS. CONTACTED [facility] AT [phone], HE STATED THEY ARE NOT CONTRACTED WITH MEDICARE. CONTACTED [facility] AT [phone], HE STATED TO GO AHEAD AND FAX OVER THE ORDER TO [phone]. ORDER FAXED TO THE PROVIDED NUMBER. CONTACTED [facility] TO CONFIRM IF THEY RECEIVED THE REFERRAL. HE STATED THEY DID NOT GET IT IT AND TO GO AHEAD AND FAX IT OVER TO [phone]. FAXED TO THE PROVIDED NUMBER. DR. ODELL MADE AWARE THAT HOME O2 HAS NOT BEEN SET UP YET. HE STATED TO KEEP THE PATIENT UNTIL WE KNOW FOR SURE THAT HE WILL GET THE HOME O2. DR. DEUTSCH AND CHARGE NURSE MADE AWARE. Addendum: 06/18/19 at 1650 by Marissa Yoder CM PROVIDED [facility] OF THE MEDICATION NURSE'S AND CHARGE NURSE'S PHONE NUMBER IF IN ANY CASE THEY ARE ABLE TO PROVIDED HOME O2. Addendum: 06/19/19 at 0858 by Philly Balubena CM DC PLANNING: CALLED [facility] [phone] SPOKE WITH SEBASTIEN, NOTIFIED HIM STILL WAITING FOR OXYGEN TO BE DELIVERED AT THE HOSPITAL ,SEBASTIEN STATED HE WILL CHECK THE STATUS OF THE ORDER AND WILL CALL BACK. BULMARO TO FOLLOW. Addendum: 06/19/19 at 1114 by Philly Balbuena CM DC PLANNING: RECEIVED A CALL FROM SEBASTIEN AT [facility], REQUESTING THE FORM TO BE FILLED OUT AGAIN AND SIGNED BY THE DR PLUS THE O2 QUALIFIER NOTES. FAXED ALL THE PAPERWORK, WAITING FOR THE RESPONSE FOR ETA. BULMARO TO FOLLOW Addendum: 06/19/19 at 1327 by Philly Balbuena CM DC PLANNING CALLED [facility] SPOKE WITH SEBASTIEN Martinez DELIVERY TIME BETWEEN 2-4 PM
[2019-06-14] MEDS ORDERED: DOCUSATE SODIUM 100 MG GELCAP PO SCH (09:00)
[2019-06-14] MEDS ORDERED: ASPART SUBQ SCH (09:00)
[2019-06-14] MEDS ORDERED: VANCOMYCIN 750 MG in DEXTROSE 5% 250 ML IV SCH (09:00)
[2019-06-14] MEDS ORDERED: METOPROLOL SUCCINATE 50 MG TABER PO SCH (09:00)
[2019-06-14] MEDS ORDERED: CYANOCOBALAMIN 500 MCG SL SCH (09:00)
[2019-06-14] MEDS ORDERED: METOPROLOL SUCCINATE PO SCH (09:00)
[2019-06-14] MEDS ORDERED: FERROUS SULFATE 325 MG TABEC PO SCH (09:00)
[2019-06-14] MEDS ORDERED: INSULIN ASPART PROTAM SUBQ SCH (09:00)
[2019-06-14] MEDS: DOCUSATE 100 MG/10 ML UDC NG SCH ×2 (09:04→20:27)
--- NOTE | 2019-06-14 09:10 | NUR ---
MEDICATIONS ADMINISTERED ORDERED.
--- NOTE | 2019-06-14 10:01 | NUR ---
STABLE RESTING WELL NO PULMONARY DISTRESS NOTED EQUAL CHEST RISE GOOD AERATION THROUGHOUT BILATERAL LUNG CASTELLANO AIRWAY PATENT
--- NOTE | 2019-06-14 10:05 | NUR ---
PT SEEN AND EXAMINED BY DR. KILLIAN AT BEDSIDE. AWARE OF ABG RESULTS. WILL FOLLOW UP WITH ANY NEW ORDERS.
[2019-06-14] MEDS ORDERED: BISACODYL 10 MG SUPP RC SCH (10:30)
[2019-06-14] MEDS ORDERED: NITROGLYCERIN 0.4 MG TAB SL PRN (10:55)
[2019-06-14] MEDS ORDERED: BLOOD GLUCOSE MONITORING 1 DEV DEV FS SCH (11:30)
--- NOTE | 2019-06-14 11:39 | NUR ---
06/14/19 RD INITIAL ASSESSMENT COMPLETED PLEASE REFER TO NUTRITION ASSESSMENT UNDER CARE ACTIVITY FOR ESTIMATED NUTRITIONAL NEEDS. 1. RECOMMEND VITAL 1.2 @ 55 ML/HR X 24 HR WITH PROSOURCE BID -THIS WILL PROVIDE 1704 KCAL, 129 GM OF PROTEIN WHICH MEETS 100% OF ESTIMATED NUTRIENT NEEDS 2. RECOMMEND FREE WATER FLUSH [address] TO FOLLOW-UP 2-3 DAYS, HIGH RISK AARON MERA RD
--- NOTE | 2019-06-14 11:55 | NUR ---
BLOOD SUGAR 428, DR. DEUTSCH MADE AWARE. PER DR. DEUTSCH, ADMINISTER HUMALOG 10 UNITS AT THIS TIME.
--- NOTE | 2019-06-14 11:55 | NUR ---
ULTRASOUND FOR BLE AT BEDSIDE. SAFETY PRECAUTIONS IN PLACE.
--- NOTE | 2019-06-14 12:02 | NUR ---
Parenting Skills Instructor Note: Basic Screen: Yes High Risk DC Screen Hideout: ZACKARY BIRD [place] Relationship: STEPSON Pre-Admission Living Arrangements: Lives with Other Prior ADL Independent Current Home Health Name/Tel: N/A Current DME/02 Name/Tel: [facility] Current Hospice Name/Tel: N/A Current Dialysis Name/Tel: N/A Healthcare Decision Maker: Patient Advance Directive No Physician Orders for Life Sustaining Treatment Form No Patient/Family Have Educational Needs No Discipline: Case Mgt/Social Svcs Tentative Discharge Plan/Destination: No Needs Identified Will require assistance post discharge: No Referred to Repairer Shoe Sticks: No Tentative Discharge Plan Summary: Patient is a 73-year-old male admitted for acute respiratory failure. Patient has PMHX of COPD, CHF, HTN, atrial fibrillation, DM, PAD, BPH, neuropathic pain, GERD, and gout. Patient was admitted from home where he lives with his . SW contacted patient's stepson to verify demographics. Per Zackary Bird [phone], patient is independent with ADLs but sometimes uses a walker when he is tired. Patient has no history of mental health and no history of substance abuse. Tentative discharge plan is for patient to return home. No further needs identified. Signature: HENRY Byrd Date: Jun 14, 2019 Time: 12:02
[2019-06-14] MEDS: BLOOD GLUCOSE MONITORING 1 DEV DEV FS SCH ×3 (12:04→21:00)
[2019-06-14] MEDS: INSULIN LISPRO SLIDING SCALE 100 UNITS/ML VIAL SUBQ PRN ×3 (12:15→20:29)
[2019-06-14] MEDS: ALBUTEROL SULFATE/IPRATROPIU 3 ML SOL IH SCH ×3 (13:00→18:56)
--- NOTE | 2019-06-14 13:35 | NUR ---
RECHECKED BLOOD SUGAR. IS 434. DR. DEUTSCH AWARE. WILL FOLLOW UP ON ORDERS.
[2019-06-14] MEDS ORDERED: INSULIN REGULAR, HUMAN 100 UNIT/ML VIAL SUBQ ONE (13:40)
[2019-06-14] MEDS ORDERED: INSULIN LISPRO SLIDING SCALE 100 UNITS/ML VIAL SUBQ SCH (14:00)
--- NOTE | 2019-06-14 14:50 | NUR ---
DR. DEUTSCH MADE AWARE THAT RT NOT AVAILABLE AT THIS TIME FOR CT SCAN DUE TO EMERGENCY IN ER. IT'S OKAY PER DR. DEUTSCH.
[2019-06-14] MEDS ORDERED: RIVAROXABAN 15 MG TAB PO SCH (17:00)
--- NOTE | 2019-06-14 17:23 | NUR ---
PATIENT TRANSFERRED TO RADIOLOGY FOR CT SCAN OF HEAD REMOVED FROM VENTILATOR PLACED ON SUPPLEMENTAL OXYGENT VIA E-TANK TO AMBU BAG/HME/INLINE SUCTION CATHETER/ENDOTRACHEAL TUBE BAG DEPRESSION EVERY 6-8 SECONDS TOLERATED PROCEDURE WELL WITHOUT ADVERSE REACTIONS NOTED SATURATION 96%-98% HR 78-82
--- NOTE | 2019-06-14 17:40 | NUR ---
BACK FROM RADIOLOGY. CT HEAD DONE. PT TOLERATED WELL. VSS.
--- NOTE | 2019-06-14 19:21 | NUR ---
RECEIVED PT FROM AM SHIFT RN. PT SEDATED, RASS -3. PT ETT TO VENT ON AC/VC MODE FIO2 60%, TV 550, RR 18, PEEP 7. LUNG SOUNDS CLEAR. HEART SOUNDS S1 AND S2. RIJ CENTRAL LINE, TLC INFUSING VERSED 3MG/HR, FENTANYL 1MCG/KG/HR, AND NS AT 100ML/HR. DRY WEIGHT 100 KG. IV SITE RIGHT AC, 20 GAUGE, SALINE LOCKED. ABDOMEN SOFT AND ROUND, NONTENDER. OGT TO FEEDING. 0 RESIDUALS NOTED. PT ON SOFT BILAT WRIST RESTRAINTS. SKIN TEAR JACKELINE. ORO CATHETER IN PLACE. HOB 30 DEGREES. BED LOCKED IN LOWEST POSITION. WILL CONTINUE TO MONITOR.
--- NOTE | 2019-06-14 19:21 | NUR ---
REPORT GIVEN TO SELEN[employer] PLANT OPERATOR RN FOR CONTINUITY OF CARE. PT IS IN STABLE CONDITION.
--- NOTE | 2019-06-14 19:22 | NUR ---
RECEIVED REPORT FROM AM SHIFT. PT IS INTUBATED WITH ETT SIZE 7.5 AT 25CM @ TEETH LEVEL AND SECURED WITH ANCHOR-FAST. PT ON VENT SETTINGS ORDERED, VENT PLUGGED IN RED OUTLET, ALARMS SET AND AUDIBLE, BVM AT BEDSIDE, HOB > 30 DEGREES. PT IS IN NO APPARENT RESPIRATORY DISTRESS AT THIS TIME: HR 71, RR 18, SPO2 98% ON FiO2 OF 70%: Fi02 TITRATED TO 60% WITH SPO2 96%. CLEAR BILATERAL UPPER LOBES BREATH SOUNDS AND A COARSE BILATERAL BREATH SOUNDS ON LOWER BASES. SX SCANT AMOUNT OF CLEAR WHITE THIN SECRETIONS FROM ETT. HHN TX GIVEN ORDERED WITH NO ADVERSE REACTION. FAMILY MEMBER AT BEDSIDE. FAMILY AT BEDSIDE. WILL CONTINUE TO MONITOR PT.
[2019-06-14] MEDS: INSULIN NPH HUM/REG INSULIN HM 100 UNIT/ML 10 ML VIAL SUBQ SCH (20:37)
[2019-06-14] MEDS ORDERED: ATORVASTATIN 20 MG TAB PO SCH (21:00)
--- NOTE | 2019-06-14 21:00 | NUR ---
BLOOD SUGAR 307, 8 UNITS OF HUMALOG GIVEN.
--- NOTE | 2019-06-14 23:15 | NUR ---
PT RESTING IN BED, EYES CLOSED. SEDATED, RASS -3. RESPIRATIONS EVEN AND UNLABORED. CHEST RISE IS SYMMETRICAL. HOB 30 DEGREES. BED LOCKED IN LOWEST POSITION. SAFETY PRECAUTIONS IN PLACE. WILL CONTINUE TO MONITOR.
[2019-06-15] VITALS (55 sets, daily range): BP systolic 109–143; BP diastolic 46–64
--- NOTE | 2019-06-15 00:30 | NUR ---
DR ALMAZAN IN TO ASSESS PT.
[2019-06-15] MEDS: MIDAZOLAM MDV 50 MG in NACL 0.9% 40 ML IV PRN (02:03)
--- NOTE | 2019-06-15 04:20 | NUR ---
[facility] PROVIDED. SPONGE BATH PROVIDED. ORO AND ORAL PROVIDED. PT REPOSITIONED. HOB 30 DEGREES. BED LOCKED IN LOWEST POSITION. WILL CONTINUE TO MONITOR.
[2019-06-15] MEDS: PIPERACILLIN/TAZOBACTAM 3.375 GM in DEXTROSE 5% 50 ML IV SCH ×3 (04:25→20:31)
[2019-06-15] MEDS ORDERED: methylPREDNISolone SS 40 MG/ML VIAL IVP SCH ×2 (05:00→21:00)
--- NOTE | 2019-06-15 05:51 | NUR ---
PT RESTING IN BED. PT APPEARS TO BE IN NO RESPIRATORY DISTRESS AT THIS TIME. AIRWAY IS PATENT. PLAN IS TO CONTINUE VENT SUPPORT. WILL CONTINUE TO MONITOR PT.
--- NOTE | 2019-06-15 06:00 | NUR ---
DR CHEN IN ASSESS PT.
[2019-06-15] MEDS ORDERED: HEPARIN PER PHARMACY MC PRN (06:05)
[2019-06-15] MEDS: fentaNYL 1 MG in NACL 0.9% 80 ML IV PRN (06:05)
[2019-06-15 06:31] LABS: BASOPHILS % (AUTO) 0.2 % (0.0-2.0); HEMATOCRIT 29.4 % (36-52); HEMOGLOBIN 9.5 g/dL (12.0-18.0); LYMPHOCYTES # (AUTO) 0.3 K/uL (2.0-11.5); LYMPHOCYTES % (AUTO) 4.3 % (20.5-51.1); MEAN CORPUSCULAR HEMOGLOBIN 29 pg (27-31); MEAN CORPUSCULAR HGB CONC 32 g/dL (33-37); MEAN CORPUSCULAR VOLUME 89.9 fL (80-94); MONOCYTES # (AUTO) 0.2 K/uL (0.8-1.0); MONOCYTES % (AUTO) 2.4 % (1.7-9.3); NEUTROPHILS # (AUTO) 6.6 K/uL (1.8-7.7); NEUTROPHILS % (AUTO) 93.1 % (42.2-75.2); PLATELET COUNT (AUTO) 98 K/uL (140-450); RED BLOOD CELL COUNT(AUTO) 3.27 MIL/uL (4.20-6.10); RED CELL DISTRIBUTION WIDTH 16.3 % (11.6-13.7); WHITE BLOOD COUNT (AUTO) 7.1 K/uL (4.8-10.8)
[2019-06-15 06:52] LABS: ANION GAP 12.2 (8-16); CARBON DIOXIDE 27.1 mmol/L (21-32); CHLORIDE 109 mmol/L (98-107); CREATININE 1.8 mg/dL (0.6-1.3); GLUCOSE 284 mg/dL (74-106); POTASSIUM 4.3 mmol/L (3.5-5.1); SODIUM SERUM 144 mmol/L (136-145); UREA NITROGEN, BLOOD 35 mg/dL (7-18)
[2019-06-15 06:54] LABS: MAGNESIUM 1.8 mg/dL (1.8-2.4); PHOSPHORUS 2.8 mg/dL (2.5-4.9)
[2019-06-15] MEDS: ALBUTEROL SULFATE/IPRATROPIU 3 ML SOL IH SCH ×3 (06:57→19:16)
[2019-06-15 07:15] LABS: FERRITIN 123 ng/mL (30-400); FOLIC ACID > 20.00 ng/mL (>3.0)
--- NOTE | 2019-06-15 07:21 | NUR ---
BEDSIDE REPORT GIVEN TO SHALA WANG FOR CONTINUITY OF CARE. PT IN STABLE IN CONDITION.
--- NOTE | 2019-06-15 07:25 | NUR ---
RECEIVED PT FROM NIGHTSHIFT RT ON CURRENT SETTINGS: RR 12/ VT550/ PEEP 7/ FIO2 40%. BVM AT BEDSIDE AND VENTILATOR PLUGGED INTO RED OUTLET.
[2019-06-15] MEDS: BLOOD GLUCOSE MONITORING 1 DEV DEV FS SCH ×4 (07:30→21:00)
--- NOTE | 2019-06-15 07:30 | NUR ---
RECEIVED BEDSIDE REPORT FROM GYM MANAGER RN. PT IS SEDATED, RASS -3. AFEBRILE. FLACC 0. NORMAL SINUS RHYTHM ON MONITOR. ETT TO VENT W/ SETTINGS A/C VC FIO2 40%, VT 550, RR 18, PEEP 7. LUNGS SOUND CLEAR BILATERALLY. BREATHING EVEN AND UNLABORED. OGT IN PLACE, PLACEMENT CONFIRMED. PT IS ON TUBE FEEDING VITAL AF 1.2 AT 50 ML/HR (GOAL 55 ML/HR) WITH FWF 105 ML Q4H, 40 ML RESIDUALS NOTED. ABDOMEN ROUND, SOFT, NONTENDER WITH ACTIVE BOWEL SOUNDS. CENTRAL LINE TLC TO RIGHT IJ ASYMPTOMATIC, PATENT AND INTACT, RUNNING VERSED DRIP AT 3 MG/HR, FENTANYL DRIP AT 1 MCG/KG/HR (DRY WEIGHT 100 KG), IVF NS AT 100 ML/HR. PERIPHERAL IV G 20 TO RIGHT AC PATENT, SALINE LOCKED. ORO CATH IN PLACE DRAINING CLEAR YELLOW URINE TO GRAVITY. SKIN IS DRY AND WARM TO TOUCH, SKIN TEAR TO RIGHT UPPER ARM NOTED, DRESSING C/D/I. CAP REFILL < 2 SEC. PULSES PALPABLE TO ALL EXTREMITIES. SCDS IN PLACE FOR VTE PROPHYLAXIS. HOB AT 30 DEGREES, BED IN LOWEST POSITION LOCKED. CALL LIGHT WITHIN REACH. NO SIGNS OF DISTRESS NOTED. WILL CONTINUE TO MONITOR.
[2019-06-15 07:50] LABS: TRANSFERRIN 187 mg/dL (200 - 370)
--- NOTE | 2019-06-15 08:00 | NUR ---
DR. PADILLA AND RESIDENT GROUP IN TO SEE PT. WILL FOLLOW UP ON ORDERS.
[2019-06-15] MEDS: LISINOPRIL 5 MG TAB PO SCH (08:14)
[2019-06-15] MEDS: amLODIPine 5 MG TAB PO SCH (08:14)
[2019-06-15] MEDS: METOPROLOL 25 MG TAB GT SCH (08:14)
[2019-06-15] MEDS: DOCUSATE 100 MG/10 ML UDC NG SCH ×2 (08:15→20:27)
[2019-06-15] MEDS: GABAPENTIN 300 MG CAP PO SCH ×2 (08:15→20:30)
[2019-06-15] MEDS: TAMSULOSIN 0.4 MG CAP PO SCH (08:15)
[2019-06-15] MEDS: FERROUS SULFATE 300 MG/5 ML UDC PO SCH (08:15)
[2019-06-15] MEDS: VIT-B COMP/VIT-C/FOLIC ACID 1 TAB PO SCH (08:15)
[2019-06-15] MEDS: ATORVASTATIN 80 MG TAB PO SCH (08:16)
[2019-06-15] MEDS: PANTOPRAZOLE 40 MG INJ VIAL IVP SCH (08:16)
[2019-06-15] MEDS: FUROSEMIDE 20 MG/2 ML VIAL IVP SCH ×2 (08:16→20:28)
[2019-06-15] MEDS: ASCORBIC ACID 500 MG TAB PO SCH (08:16)
[2019-06-15] MEDS: INSULIN NPH HUM/REG INSULIN HM 100 UNIT/ML 10 ML VIAL SUBQ SCH ×2 (08:20→20:34)
[2019-06-15] MEDS: INSULIN LISPRO SLIDING SCALE 100 UNITS/ML VIAL SUBQ PRN ×4 (08:21→20:33)
[2019-06-15] MEDS: INSULIN LANTUS 100 UNITS/ML 10 ML VIAL SUBQ SCH (08:22)
[2019-06-15] MEDS ORDERED: CRUSHER, PILL MC ONE (08:24)
--- NOTE | 2019-06-15 08:50 | NUR ---
MEDICATIONS ADMINISTERED ORDERED. PT TOLERATED WELL.
[2019-06-15] MEDS ORDERED: PROBIOTIC SCREEN 1 EA MISC MC PRN (09:20)
--- NOTE | 2019-06-15 09:21 | NUR ---
PT SEEN AND EXAMINED BY DR. TONY. NO NEW ORDER RECEIVED AT THIS TIME.
--- NOTE | 2019-06-15 09:37 | NUR ---
PT. ADMITTED WITH LOW AUBREE SCALE AT RISK, CONTINUE TO FOLLOW PRESSURE ULCER PREVENTION INTERVENTIONS. -TURN AND REPOSITION PATIENT Q 2H -ASSESS AND MONITOR SKIN CONDITION DURING POSITION CHANGE -OFFLOAD BILATERAL HEELS BY PLACING PILLOWS UNDER CALVES AT ALL TIMES, UNLESS OTHERWISE CONTRAINDICATED -PRESSURE REDISTRIBUTION BY PLACING PILLOWS AND OFFLOADING SACRALCOCCYX -KEEP SKIN CLEAN AND DRY AT ALL TIMES. -CLEANSE RIGHT UPPER ARM WITH NS. PAT DRY, APPLY VESATEL CHANGE Q5 DAYS AND PRN IF SOILING
[2019-06-15] MEDS: NACL 0.9% 1,000 ML IV SCH ×2 (09:57→23:17)
[2019-06-15] MEDS: VANCOMYCIN 1,250 MG in NACL 0.9% 250 ML IV SCH (09:57)
--- NOTE | 2019-06-15 10:15 | NUR ---
PT SEEN AND EXAMINED BY DR. KILLIAN AT BEDSIDE. DR. KILLIAN PUT PT ON CPAP. SEDATIONS OFF. RT AT BEDSIDE. WILL CONTINUE TO MONITOR.
--- NOTE | 2019-06-15 10:37 | NUR ---
PLACED PT ON SBT 12/[address] KILLIAN, INSTRUCTED TO LEAVE PT ON TOLERATED AND GET AN ABG AFTER 2 HOURS AND NOTIFY MD WITH RESULTS. PT IS AWAKE AND ALERT AND TOLERATING SBT WELL.
--- NOTE | 2019-06-15 10:39 | NUR ---
AT BEDSIDE. UPDATES GIVEN ON PT'S CONDITION.
--- NOTE | 2019-06-15 12:00 | NUR ---
RT AT BEDSIDE, DRAWING BLOOD GAS. PT FOLLOWS COMMANDS, VSS. NOT IN ANY DISTRESS AT THIS TIME.
--- NOTE | 2019-06-15 12:46 | NUR ---
REPORTED ABG RESULTS TO DR. KILLIAN. ORDER RECEIVED.
--- NOTE | 2019-06-15 12:55 | NUR ---
PT EXTUBATED ORDERED. AT BEDSIDE. PUT ON O2 AT 4 LPM/NC BY RT. RESPIRATION UNLABORED, SPO2 96%, NO SOB OR ANY DISTRESS NOTED. ORALLY SUCTIONED SMALL AMOUNT OF WHITE SECRETIONS. SAFETY MEASURES IN PLACE. WILL CONTINUE TO MONITOR.
--- NOTE | 2019-06-15 15:04 | NUR ---
BEDSIDE SWALLOW EVAL DONE. PT HAD JELLO AND APPLE JUICE. ABLE TO SWALLOW AND DRINK THIN LIQUID WITHOUT COUGHING OR ANY OTHER PROBLEM. CHARGE NURSE AT BEDSIDE AWARE. PT STILL ON O2 AT 4 LPM/NC. RR 17 SPO2 95%. VSS. AT BEDSIDE. SAFETY PRECAUTIONS IN PLACE.
[2019-06-15] MEDS: RIVAROXABAN 15 MG TAB PO SCH (16:05)
[2019-06-15] MEDS ORDERED: AMIO200T5 PO (16:22)
--- NOTE | 2019-06-15 17:30 | NUR ---
PT HAD 100% OF DINNER. PT IS ON CCHO 60 GM MECHANICAL SOFT DIET. NO COUGHING OR SOB NOTED. ON O2 AT 3 LPM/NC. VSS. AT BEDSIDE. SAFETY PRECAUTIONS IN PLACE.
--- NOTE | 2019-06-15 19:06 | NUR ---
PT A&O X4. PT CALM, RESTING IN BED TALKING WITH AT BEDSIDE. BILAT PUPPILS 3MM, BRISK RETURN. PERRL. HEART SOUNDS HEARD, S1 & S2. LUNG SOUNDS CLEAR. ON 3L NASAL CANNULA. RESPIRATIONS EVEN AND UNLABORED. CHEST RISE IS SYMMETRICAL. CENTRAL IN PLACE, TLC, RIJ INFUSING NS AT 100ML/HR. ABDOMEN SOFT, ROUND NON TENDER. BOWEL SOUNDS ACTIVE. ORO CATHETER IN PLACE. SCDS ON BLE. SAFETY PRECAUTIONS IN PLACE. WILL CONTINUE TO MONITOR.
--- NOTE | 2019-06-15 19:06 | NUR ---
REPORT GIVEN TO CARGO BROKER RN FOR CONTINUITY OF CARE. PT IS IN STABLE CONDITION.
--- NOTE | 2019-06-15 19:22 | NUR ---
RT AT BEDSIDE.
--- NOTE | 2019-06-15 21:30 | NUR ---
PT'S SON AT BEDSIDE.
--- NOTE | 2019-06-15 22:15 | NUR ---
PT O2 SAT AT 88% ON NC 3LPM. INCREASED TO 4LPM, O2 SAT AT 92%. RT AT BEDSIDE.
[2019-06-16] VITALS (10 sets, daily range): BP systolic 127–164; BP diastolic 52–74
--- NOTE | 2019-06-16 00:12 | NUR ---
PT AROUSABLE TO NAME, EYES CLOSED. RESPIRATIONS EVEN AND UNLABORED. CHEST RISE IS SYMMETRICAL. HOB 30 DEGREES. BED LOCKED IN LOWEST POSITION. WILL CONTINUE TO MONITOR.
--- NOTE | 2019-06-16 01:12 | NUR ---
DR ALMAZAN IN TO ASSESS PT
--- NOTE | 2019-06-16 03:30 | NUR ---
PT HAS EYES CLOSED. PT ON 3L VIA NC. RESPIRATIONS EVEN AND UNLABORED. CHEST RISE IS SYMMETRICAL. HOB 30 DEGREES. BED LOCKED IN LOWEST POSITION. SAFETY PRECAUTIONS IN PLACE. WILL CONTINUE TO MONITOR.
[2019-06-16] MEDS: PIPERACILLIN/TAZOBACTAM 3.375 GM in DEXTROSE 5% 50 ML IV SCH ×3 (04:06→20:44)
[2019-06-16 04:51] LABS: BASOPHILS % (AUTO) 0.5 % (0.0-2.0); HEMATOCRIT 30.2 % (36-52); HEMOGLOBIN 9.7 g/dL (12.0-18.0); LYMPHOCYTES # (AUTO) 0.5 K/uL (2.0-11.5); LYMPHOCYTES % (AUTO) 5.9 % (20.5-51.1); MEAN CORPUSCULAR HEMOGLOBIN 29 pg (27-31); MEAN CORPUSCULAR HGB CONC 32 g/dL (33-37); MEAN CORPUSCULAR VOLUME 89.9 fL (80-94); MONOCYTES # (AUTO) 0.3 K/uL (0.8-1.0); NEUTROPHILS % (AUTO) 89.6 % (42.2-75.2); PLATELET COUNT (AUTO) 98 K/uL (140-450); RED BLOOD CELL COUNT(AUTO) 3.36 MIL/uL (4.20-6.10); RED CELL DISTRIBUTION WIDTH 16.6 % (11.6-13.7)
--- NOTE | 2019-06-16 05:07 | NUR ---
PT HAS EYES CLOSED, AROUSABLE TO NAME, RESPIRATIONS EVEN AND UNLABORED. ON 3L NC. CHEST RISE IS SYMMETRICAL. HOB 30 DEGREES. BED LOCKED IN LOWEST POSITION. WILL CONTINUE TO MONITOR.
[2019-06-16 05:12] LABS: ANION GAP 10.1 (8-16); CARBON DIOXIDE 30.1 mmol/L (21-32); CHLORIDE 112 mmol/L (98-107); CREATININE 1.6 mg/dL (0.6-1.3); GLUCOSE 122 mg/dL (74-106); POTASSIUM 4.2 mmol/L (3.5-5.1); SODIUM SERUM 148 mmol/L (136-145); UREA NITROGEN, BLOOD 40 mg/dL (7-18)
[2019-06-16 05:16] LABS: MAGNESIUM 2.1 mg/dL (1.8-2.4); PHOSPHORUS 3.6 mg/dL (2.5-4.9)
[2019-06-16 06:32] LABS: WHITE BLOOD COUNT (AUTO) 7.8 K/uL (4.8-10.8)
[2019-06-16] MEDS: ALBUTEROL SULFATE/IPRATROPIU 3 ML SOL IH SCH ×3 (06:58→19:14)
[2019-06-16] MEDS: NACL 0.45% 1,000 ML IV SCH (07:00)
--- NOTE | 2019-06-16 07:15 | NUR ---
RECEIVED CHANGE OF SHIFT REPORT FROM PM RN. PATIENT 73 YO MALE. NKA. STANDARD PRECAUTIONS. VITAL SIGN T 98.6, HR 76, BP 150/71, RR 18, SPO2 93%. PT ALERT AND ORIENTED X4. LUNGS ARE CLEAR BILATERALLY THROUGHOUT, ON NC @ 3L. DIET CONSISTENT CARB 60 GM. MECHANICAL SOFT. ORO CATH, 3400 ML OUTPUT LAST NIGHT. NO BM LAST NIGHT. CARDIAC AFIB. PROLONGED RI INTERVAL. CENTRAL LINE - TRIPLE LUMEN IJ. IV FLUID OREDERED 1/2 NS @ 50 MLS/HR. Addendum: 06/16/19 at 1155 by Ubaldo Kenney RN PERRLA. 3 MM. CAP REFILL < 3 SEC. PULSES PALPABLE TO ALL EXTREMITIES. ABDOMEN IN SOFT, ROUND.
--- NOTE | 2019-06-16 07:45 | NUR ---
DR PADILLA AT BEDSIDE. ADVISED ABOUT PT CONDITION. WILL CONTINUE TO MONITOR.
--- NOTE | 2019-06-16 07:55 | NUR ---
DR CHAVEZ AT BEDSIDE. ADVISED ABOUT PT CONDITION. WILL CONTINUE TO MONITOR.
[2019-06-16] MEDS: BLOOD GLUCOSE MONITORING 1 DEV DEV FS SCH ×4 (07:58→21:04)
--- NOTE | 2019-06-16 08:00 | NUR ---
PT ABLE TO EAT BREAKFAST. TOLERATED WELL
--- NOTE | 2019-06-16 08:30 | NUR ---
ASSIST PT TO COMMODE FOR BM.
[2019-06-16] MEDS: FERROUS SULFATE 300 MG/5 ML UDC PO SCH (08:53)
[2019-06-16] MEDS: FUROSEMIDE 20 MG/2 ML VIAL IVP SCH ×2 (08:54→20:45)
[2019-06-16] MEDS: LACTOBACILLUS RHAMNOSUS GG 1 EACH CAP PO SCH (08:54)
[2019-06-16] MEDS: PANTOPRAZOLE 40 MG INJ VIAL IVP SCH (08:54)
[2019-06-16] MEDS: TAMSULOSIN 0.4 MG CAP PO SCH (08:55)
[2019-06-16] MEDS: amLODIPine 5 MG TAB PO SCH (08:55)
[2019-06-16] MEDS: GABAPENTIN 300 MG CAP PO SCH ×2 (08:55→20:46)
[2019-06-16] MEDS: ATORVASTATIN 80 MG TAB PO SCH (08:55)
[2019-06-16] MEDS: ASCORBIC ACID 500 MG TAB PO SCH (08:55)
[2019-06-16] MEDS: VIT-B COMP/VIT-C/FOLIC ACID 1 TAB PO SCH (08:55)
[2019-06-16] MEDS: LISINOPRIL 5 MG TAB PO SCH (08:56)
[2019-06-16] MEDS: INSULIN NPH HUM/REG INSULIN HM 100 UNIT/ML 10 ML VIAL SUBQ SCH ×2 (09:38→21:11)
[2019-06-16] MEDS: INSULIN LANTUS 100 UNITS/ML 10 ML VIAL SUBQ SCH (09:41)
[2019-06-16] MEDS: METOPROLOL 25 MG TAB PO SCH (09:42)
[2019-06-16] MEDS: DOCUSATE 100 MG/10 ML UDC PO SCH ×2 (09:42→20:45)
[2019-06-16] MEDS: methylPREDNISolone SS 40 MG/ML VIAL IVP SCH (09:42)
[2019-06-16] MEDS: VANCOMYCIN 1,250 MG in NACL 0.9% 250 ML IV SCH (09:54)
--- NOTE | 2019-06-16 10:00 | NUR ---
PT AWAKE AND ALERT. RESTING WATCHING TELEVISION. NO REPORTS OF PAIN. VSS
[2019-06-16] MEDS ORDERED: guaiFENesin 20 MG/ML UDC PO PRN (11:00)
--- NOTE | 2019-06-16 11:10 | NUR ---
Dr. Ren in and ordered to transfer to Tele. Pt made aware. New orders received. Noted and will carry out.
[2019-06-16] MEDS: INSULIN LISPRO SLIDING SCALE 100 UNITS/ML VIAL SUBQ PRN ×2 (11:42→16:38)
--- NOTE | 2019-06-16 12:00 | NUR ---
PT ABLE TO EAT LUNCH. TOLERATED WELL. NO REPORTS OF PAIN. WILL CONTINUE TO MONITOR.
--- NOTE | 2019-06-16 13:15 | NUR ---
RT AT BEDSIDE. ADMINISTRATING BREATHING TREATMENT TO PATIENT
--- NOTE | 2019-06-16 13:20 | NUR ---
PT CAME TO VISIT AT BEDSIDE. ADVISED THAT PT IS AWAITING TRANSFER TO TELEMETRY UNIT. VISIT LIMITED TO 5 MINUTES D/T COVID-19 PRECAUTIONS.
--- NOTE | 2019-06-16 13:45 | NUR ---
PT RESTING IN BED, WATCHING TELEVSION TRYING TO SLEEP
[2019-06-16 14:06] LABS: ANION GAP 11.5 (8-16); CARBON DIOXIDE 30.3 mmol/L (21-32); CHLORIDE 107 mmol/L (98-107); CREATININE 1.6 mg/dL (0.6-1.3); GLUCOSE 236 mg/dL (74-106); POTASSIUM 3.8 mmol/L (3.5-5.1); SODIUM SERUM 145 mmol/L (136-145); UREA NITROGEN, BLOOD 40 mg/dL (7-18)
--- NOTE | 2019-06-16 15:07 | NUR ---
C/O NAUSEA. NO VOMITING NOTED. DENIES ANY ABDOMINAL PAINS.
--- NOTE | 2019-06-16 15:25 | NUR ---
CHANGED DRESSING OF CENTRAL LINE - IJ.
--- NOTE | 2019-06-16 15:30 | NUR ---
PT RESTING. DENIES PAIN, DENIES NAUSEA AND VOMITING AT THIS TIME.
--- NOTE | 2019-06-16 15:30 | NUR ---
DENIES ANY NAUSEA NNOR VOMITING AT THIS TIME.
[2019-06-16] MEDS ORDERED: PROMETHAZINE DM 6.25/15MG-5ML ORASYR PO PRN (16:20)
--- NOTE | 2019-06-16 16:30 | NUR ---
PT STATES THAT NAUSEA HAS SUBSIDED. I WILL CONTINUE TO MONITOR.
[2019-06-16] MEDS: RIVAROXABAN 15 MG TAB PO SCH (16:51)
--- NOTE | 2019-06-16 17:05 | NUR ---
RT @ BEDSIDE. INSTRUCTING PT WITH USE OF INCENTIVE SPIROMETER
--- NOTE | 2019-06-16 17:29 | NUR ---
PT EATING DINNER. ADVISED TO EAT MORE SLOWLY AND TO CHEW MORE FREQUENTLY THAN HE IS USED TO IN ORDER TO PREVENT NAUSEA. WILL MONITOR PT STATUS
--- NOTE | 2019-06-16 18:00 | NUR ---
PT REPORTS NAUSEA AT LEVEL 2/10. WILL CONTINUE TO MONITOR
--- NOTE | 2019-06-16 18:10 | NUR ---
PT REPORTS NAUSEA WORSENING. REPORTS 07/05.
--- NOTE | 2019-06-16 18:20 | NUR ---
PT VOMITED. EMESIS CONSISTED OF UNDIGESTED FOOD. ADVISED DR MORENO. PT FEELS LESS NAUSEOUS AFTER VOMITING. WILL CONTINUE TO MONITOR CONDITION
[2019-06-16] MEDS ORDERED: METOCLOPRAMIDE 10 MG/2 ML INJ VIAL IVP PRN (18:30)
--- NOTE | 2019-06-16 19:00 | NUR ---
PT RESTING, REPORTS NO PAIN, NAUSEA AT 2/10.
--- NOTE | 2019-06-16 19:15 | NUR ---
GAVE END OF SHIFT REPORT TO PM NURSES CAITLIN AND KIRAN FOR CONTINUITY OF CARE
--- NOTE | 2019-06-16 19:21 | NUR ---
RECEIVED REPORT FROM AM SHIFT. PT IS IN NO APPARENT RESPIRATORY DISTRESS AT THIS TIME: HR 71, RR 17, SPO2 94% ON 2L NC. CLEAR BILATERAL UPPER LOBES BREATH SOUNDS AND A COARSE BILATERAL BREATH SOUNDS ON LOWER BASES. HOB > 30 DEGREES AND BVM AT BEDSIDE. HHN TX GIVEN ORDERED, PT TOLERATED TX WELL WITH NO ADVERSE REACTION. INFORMED PT TO NOTIFY RN OR TELEPHONE SEX WORKER WHEN EXPERIENCING SOB FOR HHN PRN TX. WILL CONTINUE TO MONITOR PT.
--- NOTE | 2019-06-16 19:30 | NUR ---
RECEIVED CHANGE OF SHIFT REPORT FROM DAY SHIFT NURSE. PT IS AWAKE, ALERT, AND VERBAL. PT IS A&OX4. PT ON O2 VIA NC 3LPM. LUNG SOUNDS ARE CLEAR THROUGHOUT. PT IS SR ON MONITOR W/ LONG [place] INTERVAL. RADIAL PULSES ARE NORMAL, REGULAR RHYTHM. CAP REFILL <3 SECONDS. PT HAS RIGHT IJ THAT IS ASYMPTOMATIC, INTACT, AND PATENT. ABDOMEN IS ROUND, FIRM, AND NON-TENDER. BOWEL SOUNDS PRESENT. ORO CATHETER PRESENT. PT IS ABLE TO MOVE ALL FOUR EXTREMITIES. SKIN IS INTACT W/ EXCEPTION OF RIGHT UPPER ARM SKIN TEAR DRESSED W/ VERSATEL. BED IS LOCKED IN LOW POSITION W/ HOB 45 DEGREES. CALL LIGHT W/IN REACH. WILL CONTINUE TO MONITOR.
--- NOTE | 2019-06-16 21:55 | NUR ---
GAVE BEDSIDE REPORT TO [facility] NURSE TO ENSURE CONTINUITY OF CARE. PT AWAKE, ALERT. A&OX4. ABLE TO STAND, TURN, AND SIT W/ ASSISTANCE. PT WAS PLACED ON BED IN SEMI FOWLERS POSITION. BED IS LOCKED IN LOW POSITION W/ CALL LIGHT WITHIN REACH. PT ON O2 2LPM VIA NC TO KEEP SPO2 B/W 92%-94%. PT EXPRESSED 5/10 LEFT FOOT PAIN THAT WAS ENDORSED TO [facility] NURSE. PT BELONGINGS WERE LEFT W/ PT.
--- NOTE | 2019-06-16 22:00 | NUR ---
RECEIVED REPORT FROM ICU NURSE. PT AWAKE A O X 4, P BEDREST FOR NOW. PT IS IN NO APPARENT RESPIRATORY DISTRESS AT THIS TIME. CLEAR BILATERAL UPPER LOBES BREATH SOUNDS AND A COARSE BILATERAL BREATH SOUNDS ON LOWER BASES. HOB > 30 DEGREES. WITH 1/2 NS AT 50ML/HR RIGHT IJ CATH. WITH ORO CATHETER DRAINING CLEAR YELLOW URINE, WILL CONTINUE TO MONITOR PT.PT ON ON FALL RISK.PRECAUTION WILL CONTINUE TO MONITOR.
--- NOTE | 2019-06-16 22:34 | NUR ---
PT SAID HIS LEFT FOOT IS HURTING 5/10 DUE TO NEUROMA. WILL INFORM DR. MORENO
[2019-06-17] VITALS: BP 143/57
--- NOTE | 2019-06-17 00:15 | NUR ---
ADMINISTERED NORCO FOR 5/10 LEFT FOOT PAIN D/T [facility]'S NEUROMA VERBALIZED BY PT. WILL REASSES PAIN LEVEL
[2019-06-17] MEDS: HYDROcodone/APAP 5/325 MG 1 TAB TAB PO PRN ×4 (00:55→21:36)
[2019-06-17] MEDS: NACL 0.45% 1,000 ML IV SCH ×2 (03:00→23:00)
--- NOTE | 2019-06-17 03:53 | NUR ---
PT SLEEPING AT THIS TIME, NO COMPLAINTS WILL CONTINUE TO MONITOR
[2019-06-17 04:00] VITALS: BP 105/57
--- NOTE | 2019-06-17 04:00 | NUR ---
PT SLEEPING, NO COMPLAINTS OF PAIN, NO RESPIRATORY DISTRESS. WILL CONTINUE TO MONITOR
[2019-06-17] MEDS: PIPERACILLIN/TAZOBACTAM 3.375 GM in DEXTROSE 5% 50 ML IV SCH ×3 (05:24→21:20)
[2019-06-17] MEDS: BLOOD GLUCOSE MONITORING 1 DEV DEV FS SCH ×4 (07:00→21:19)
--- NOTE | 2019-06-17 07:05 | NUR ---
GAVE REPORT TO NIGHT NURSE FOR CONTINUITY OF CARE, PT IS STABLE. Addendum: 06/17/19 at 1914 by Brigid Trejo RN WRONG TIME
--- NOTE | 2019-06-17 07:14 | NUR ---
PT AWAKE ALERT ORIENTED X 4, BEDREST. PT NO RESPIRATORY DISTRESS NOTED; NO PAIN. ENDORSED TO AM SHIFT FOR CONTINUITY OF CARE,
--- NOTE | 2019-06-17 07:15 | NUR ---
RECEIVED REPORT FROM NIGHT NURSE FOR CONTINUITY OF CARE, PT IS STABLE, PT ON 2L NC, NO SIGNS OF DISTRESS NOTED, PT HAS RIGHT IJ 3LUMEN CENTRAL LINE INFUSING 1/2NS AT 50ML, PT HAS A RIGHT UPPER ARM SKIN TEAR COVERED WITH VERSATEL AND OPEN TO AIR, INTRODUCE SELF, UPDATED WHITEBOARD, ALL NEEDS MET AT THIS TIME, WILL CONTINUE TO MONITOR, CALL LIGHT WITHIN REACH.
[2019-06-17 07:22] LABS: BASOPHILS % (AUTO) 0.3 % (0.0-2.0); HEMATOCRIT 32.3 % (36-52); HEMOGLOBIN 10.4 g/dL (12.0-18.0); LYMPHOCYTES # (AUTO) 1.3 K/uL (2.0-11.5); LYMPHOCYTES % (AUTO) 15.4 % (20.5-51.1); MEAN CORPUSCULAR HEMOGLOBIN 29 pg (27-31); MEAN CORPUSCULAR HGB CONC 32 g/dL (33-37); MEAN CORPUSCULAR VOLUME 88.7 fL (80-94); MONOCYTES # (AUTO) 0.6 K/uL (0.8-1.0); MONOCYTES % (AUTO) 7.1 % (1.7-9.3); NEUTROPHILS # (AUTO) 6.7 K/uL (1.8-7.7); NEUTROPHILS % (AUTO) 77.2 % (42.2-75.2); PLATELET COUNT (AUTO) 103 K/uL (140-450); RED BLOOD CELL COUNT(AUTO) 3.64 MIL/uL (4.20-6.10); WHITE BLOOD COUNT (AUTO) 8.7 K/uL (4.8-10.8)
[2019-06-17 07:39] LABS: ANION GAP 10.7 (8-16); CARBON DIOXIDE 32.9 mmol/L (21-32); CHLORIDE 108 mmol/L (98-107); CREATININE 1.5 mg/dL (0.6-1.3); GLUCOSE 74 mg/dL (74-106); POTASSIUM 3.6 mmol/L (3.5-5.1); SODIUM SERUM 148 mmol/L (136-145); UREA NITROGEN, BLOOD 36 mg/dL (7-18)
[2019-06-17 08:00] VITALS: BP 141/55
[2019-06-17] MEDS: ALBUTEROL SULFATE/IPRATROPIU 3 ML SOL IH SCH ×3 (08:08→19:55)
--- NOTE | 2019-06-17 08:19 | NUR ---
FOUND PATIENT ON 2L/M VIA NASAL CANNULA BUT CANNULA WAS NOT FULLY IN PATIENTS NARES SPO2 91. PATIENT IS COPD. DECREASED TO 1L/M POST HHN TREATMENT SPO2 MAINTAINED AT 93.
--- NOTE | 2019-06-17 08:22 | NUR ---
PATIENT PERFORMED INCENTIVE SPIROMETER WITH FAIR EFFORT. OBTAINED 1000ML AND AWARE TO PERFORM 10X PER HOUR.
[2019-06-17 08:29] LABS: MAGNESIUM 1.8 mg/dL (1.8-2.4); PHOSPHORUS 4.4 mg/dL (2.5-4.9)
[2019-06-17] MEDS: FERROUS SULFATE 300 MG/5 ML UDC PO SCH (08:50)
[2019-06-17] MEDS: ATORVASTATIN 80 MG TAB PO SCH (08:50)
[2019-06-17] MEDS: TAMSULOSIN 0.4 MG CAP PO SCH (08:51)
[2019-06-17] MEDS: GABAPENTIN 300 MG CAP PO SCH ×2 (08:51→21:21)
[2019-06-17] MEDS: amLODIPine 5 MG TAB PO SCH (08:51)
[2019-06-17] MEDS: LACTOBACILLUS RHAMNOSUS GG 1 EACH CAP PO SCH (08:52)
[2019-06-17] MEDS: ASCORBIC ACID 500 MG TAB PO SCH (08:52)
[2019-06-17] MEDS: LISINOPRIL 5 MG TAB PO SCH (08:52)
[2019-06-17] MEDS: METOPROLOL 25 MG TAB PO SCH ×3 (08:53→12:35)
[2019-06-17] MEDS: VIT-B COMP/VIT-C/FOLIC ACID 1 TAB PO SCH (08:53)
--- NOTE | 2019-06-17 09:00 | NUR ---
ADMINISTERED ORDERED MEDICATION, EDUCATION GIVEN, PT VERBALIZED UNDERSTANDING, PT STABLE, CALL LIGHT WITHIN REACH.
[2019-06-17] MEDS: INSULIN LANTUS 100 UNITS/ML 10 ML VIAL SUBQ SCH (09:03)
[2019-06-17] MEDS: INSULIN NPH HUM/REG INSULIN HM 100 UNIT/ML 10 ML VIAL SUBQ SCH ×2 (09:05→21:30)
[2019-06-17] MEDS: methylPREDNISolone SS 40 MG/ML VIAL IVP SCH (09:06)
[2019-06-17] MEDS: FUROSEMIDE 20 MG/2 ML VIAL IVP SCH ×2 (09:06→21:21)
[2019-06-17] MEDS: PANTOPRAZOLE 40 MG INJ VIAL IVP SCH (09:07)
[2019-06-17] MEDS: DOCUSATE 100 MG/10 ML UDC PO SCH ×2 (09:07→21:00)
--- NOTE | 2019-06-17 09:19 | NUR ---
GAVE NORCO FOR FOOT PAIN OF 5/10, PT STATES THE PAIN IS STABBING, EDUCATION GIVEN, PT VERBALIZED UNDERSTANDING, PT STABLE, CALL LIGHT WITHIN REACH.
[2019-06-17] MEDS: VANCOMYCIN 1,250 MG in NACL 0.9% 250 ML IV SCH (10:04)
--- NOTE | 2019-06-17 10:04 | NUR ---
ADMINISTERED ORDERED MEDICATION, EDUCATION GIVEN, PT VERBALIZED UNDERSTANDING, PT STABLE, CALL LIGHT WITHIN REACH.
[2019-06-17] MEDS ORDERED: HUMSLIDE SUBQ (11:06)
[2019-06-17] MEDS ORDERED: ALBU3SOL83 IH (11:06)
[2019-06-17] MEDS ORDERED: LACT10CA PO (11:06)
[2019-06-17] MEDS ORDERED: LANTUS SUBQ (11:06)
[2019-06-17] MEDS ORDERED: PIPE1SOL IV (11:06)
--- NOTE | 2019-06-17 11:06 | NUR ---
RECEIVED ORDERED TO REMOVE ORO CATH, REMOVED ORO CATHETER, PT TOLERATED WELL, PT HAD 1600ML OF YELLOW URINE, PT STABLE, CALL LIGHT WITH REACH.
[2019-06-17 12:00] VITALS: BP 169/67
--- NOTE | 2019-06-17 13:10 | NUR ---
06/17/19 RD FOLLOW UP COMPLETED PLEASE REFER TO NUTRITION ASSESSMENT UNDER CARE ACTIVITY FOR ESTIMATED NUTRITIONAL NEEDS. 1. CONTINUE CCHO 60GM, MECHANICAL SOFT DIET TOLERATED 2. RECOMMEND GLUCERNA BID TOELRATED 3. RD TO FOLLOW-UP 3-5 DAYS, MODERATE RISK GRACE EDUARDO, DARVIN
--- NOTE | 2019-06-17 13:45 | NUR ---
PER DR MCKEON, AMBULATED THE PT WITH A WALKER AND OXYGEN DOWN THE HALLWAY, PT STARTED WITH 2L O2 92%, PT AMBULATED HE DESATURATED AND HAD TO INCREASE THE OXYGEN LEVELS, INCREASED OXYGEN LEVEL TO 6L AND O2 AT 88%, PT DENIED SHORT OF BREATH OR DIFFICULTY BREATHING, PT STATED HE WAS ALRIGHT WALKING, PT WALKED BACK TO HIS ROOM AND PUT BACK ON OXYGEN AT 2L O2 AND SATURATING AT 92%, PT IS STABLE, CALL LIGHT WITHIN REACH.
--- NOTE | 2019-06-17 14:50 | NUR ---
SPO2 PRE TREATMENT 95 ON 2L/M. LEFT ON ROOM AIR POST HHN SPO2 MAINTAINED AT 93.
--- NOTE | 2019-06-17 15:10 | NUR ---
CALLED RAMIREZ HANSON AND , LEFT MESSAGE TO
--- NOTE | 2019-06-17 15:34 | NUR ---
PT RESTING IN BED WATCHING TV, PT IS STABLE, RESPIRATIONS ARE EVEN AND UNLABORED ON ROOM AIR, CALL LIGHT WITHIN REACH.
[2019-06-17 16:00] VITALS: BP 141/56
--- NOTE | 2019-06-17 16:15 | NUR ---
ADMINISTERED NORCO FOR LEFT LEG PAIN OF 5/10, PT REPORTS STABBING PAIN, PT EDUCATION GIVEN, PT TOLERATED MEDICATION WELL, PT STABLE, CALL LIGHT WITHIN REACH.
[2019-06-17] MEDS: RIVAROXABAN 15 MG TAB PO SCH (17:38)
--- NOTE | 2019-06-17 17:40 | NUR ---
ADMINISTERED ORDERED MEDICATION, PT EDUCATION GIVEN, PT VERBALIZED UNDERSTANDING, PT IS STABLE, CALL LIGHT WITHIN REACH.
--- NOTE | 2019-06-17 19:05 | NUR ---
GAVE REPORT TO NIGHT NURSE FOR CONTINUITY OF CARE, PT IS STABLE.
--- NOTE | 2019-06-17 19:06 | NUR ---
RECEIVED BEDSIDE SHIFT REPORT FROM AM NURSE. PT AWAKE IN BED. NO SIGNS OF DISTRESS NOTED. RESPIRATIONS EVEN AND UNLABORED. SAFETY MEASURES IN PLACE. BED IN LOW POSITION AND CALL-LIGHT WITHIN REACH
--- NOTE | 2019-06-17 19:58 | NUR ---
RECEIVED REPORT FROM AM SHIFT. PATIENT APPEARS TO BE IN NO APPARENT RESPIRATORY DISTRESS AT THIS TIME: RR 18, HR 60, AND SPO2 92% ON ROOM AIR. UPPER LOBES BREATH SOUNDS: CLEAR BILATERALLY. LOWER BASES BREATH SOUNDS: CLEAR BILATERALLY. HHN TX GIVEN ORDERED AND PATIENT TOLERATED WELL WITH NO ADVERSE REACTION. PT WAS ALSO INFORMED TO CALL RN OR WIRE BRUSHER WHEN EXPERIENCING SOB FOR PRN TX. WILL CONTINUE TO MONITOR PT.
[2019-06-17 20:01] VITALS: BP 140/44
--- NOTE | 2019-06-17 21:21 | NUR ---
ADMINISTERED 2100 MEDICATIONS. PT TOLERATED WELL. NO SIGNS OF DISTRESS NOTED. SAFETY MEASURES IN PLACE. BED IN LOW POSITION CALL-LIGHT WITHIN REACH
[2019-06-17] MEDS: INSULIN LISPRO SLIDING SCALE 100 UNITS/ML VIAL SUBQ PRN (21:32)
[2019-06-18] VITALS: BP 159/59
--- NOTE | 2019-06-18 | NUR ---
PATIENT C/O ACHING LEFT FOOT PAIN 09/04. MEDICATED ORDERED. CALL LIGHT WITHIN REACH. WILL CONTINUE TO MONITOR. Addendum: 06/19/19 at 0051 by Tessa Perry RN WRONG DATE
--- NOTE | 2019-06-18 00:24 | NUR ---
ROUNDING. PT AWAKE IN BED. NO SIGNS OF DISTRESS NOTED. SAFETY MEASURES IN PLACE. CALL-LIGHT WITHIN REACH
--- NOTE | 2019-06-18 01:23 | NUR ---
PT CALL NURSING STATION REQUESTING AN ICE PACK FOR FOOT DISCOMFORT BECAUSE HE RECENTLY RECEIVED A PAIN MED 3 HOURS AGO. PROVIDED PT ICE PACK PER HIS REQUEST. PROVIDED EDUCATION ON ICE PACK ADMINISTRATION. WILL CONTINUE TO MONITOR
--- NOTE | 2019-06-18 03:12 | NUR ---
ROUNDING. PATIENT SLEEPING. EASILY AROUSABLE. NO SIGNS OF DISTRESS NOTED. RESPIRATIONS EVEN AND UNLABORED. SAFETY MEASURES IN PLACE. CALL LIGHT WITHIN REACH
[2019-06-18 04:09] VITALS: BP 145/31
[2019-06-18] MEDS: PIPERACILLIN/TAZOBACTAM 3.375 GM in DEXTROSE 5% 50 ML IV SCH ×2 (05:09→13:18)
[2019-06-18] MEDS: BLOOD GLUCOSE MONITORING 1 DEV DEV FS SCH ×4 (05:28→20:28)
--- NOTE | 2019-06-18 05:30 | NUR ---
OBTAINED POC BS 40. ADMINISTERED D50 IVP PER PRN ORDER. PT TOLERATED WELL. WILL CONTINUE TO MONITOR AND REASSESS BS
[2019-06-18 06:04] LABS: BASOPHILS % (AUTO) 0.1 % (0.0-2.0); EOSINOPHILS % (AUTO) 0.3 % (0.0-4.0); HEMATOCRIT 36.2 % (36-52); HEMOGLOBIN 11.8 g/dL (12.0-18.0); LYMPHOCYTES # (AUTO) 1.8 K/uL (2.0-11.5); LYMPHOCYTES % (AUTO) 17.1 % (20.5-51.1); MEAN CORPUSCULAR HEMOGLOBIN 29 pg (27-31); MEAN CORPUSCULAR HGB CONC 33 g/dL (33-37); MONOCYTES # (AUTO) 0.9 K/uL (0.8-1.0); MONOCYTES % (AUTO) 8.8 % (1.7-9.3); NEUTROPHILS # (AUTO) 7.6 K/uL (1.8-7.7); NEUTROPHILS % (AUTO) 73.7 % (42.2-75.2); PLATELET COUNT (AUTO) 137 K/uL (140-450); RED BLOOD CELL COUNT(AUTO) 4.12 MIL/uL (4.20-6.10); WHITE BLOOD COUNT (AUTO) 10.3 K/uL (4.8-10.8)
--- NOTE | 2019-06-18 06:04 | NUR ---
BS REASSESSED CURRENTLY 158. PT AWAKE NO SIGNS OF DISTRESS NOTED. RESPIRATIONS EVEN AND UNLABORED. SAFETY MEASURES IN PLACE CALL LIGHT WITHIN REACH
[2019-06-18 06:32] LABS: ANION GAP 8.3 (8-16); CARBON DIOXIDE 36.9 mmol/L (21-32); CHLORIDE 107 mmol/L (98-107); CREATININE 1.5 mg/dL (0.6-1.3); POTASSIUM 3.2 mmol/L (3.5-5.1); SODIUM SERUM 149 mmol/L (136-145); UREA NITROGEN, BLOOD 38 mg/dL (7-18)
[2019-06-18 06:42] LABS: MAGNESIUM 1.9 mg/dL (1.8-2.4); PHOSPHORUS 4.4 mg/dL (2.5-4.9)
--- NOTE | 2019-06-18 07:09 | NUR ---
RECEIVED REPORT FROM NIGHT NURSE, PT IS ASLEEP, PT IS STABLE, PT HAS RIJ 3 LUMEN CENTRAL LINE INFUSING 1/2 NS AT 50 ML/H, NO SIGNS OF DISTRESS NOTED, SAFETY MEASURES IN PLACE, UPDATED WHITEBOARD, WILL CONTINUE TO MONITOR.
--- NOTE | 2019-06-18 07:10 | NUR ---
ENDORSED PATIENT TO DAYSHIFT NURSE FOR CONTINUITY OF CARE. PT IN STABLE CONDITION.
[2019-06-18 07:20] LABS: GLUCOSE 43 mg/dL (74-106)
[2019-06-18] MEDS: ALBUTEROL SULFATE/IPRATROPIU 3 ML SOL IH SCH ×3 (07:36→19:06)
[2019-06-18 08:00] VITALS: BP 145/38
[2019-06-18] MEDS ORDERED: POTASSIUM CHLORIDE 10 MEQ TABER PO SCH (08:00)
[2019-06-18] MEDS ORDERED: PRED10TA5 PO (08:29)
[2019-06-18] MEDS ORDERED: BUDE1AER IH (08:36)
[2019-06-18] MEDS: DOCUSATE 100 MG/10 ML UDC PO SCH ×2 (09:00→20:13)
[2019-06-18] MEDS: FERROUS SULFATE 300 MG/5 ML UDC PO SCH (09:26)
[2019-06-18] MEDS: TAMSULOSIN 0.4 MG CAP PO SCH (09:27)
[2019-06-18] MEDS: ATORVASTATIN 80 MG TAB PO SCH (09:27)
[2019-06-18] MEDS: LACTOBACILLUS RHAMNOSUS GG 1 EACH CAP PO SCH (09:27)
[2019-06-18] MEDS: GABAPENTIN 300 MG CAP PO SCH ×2 (09:28→20:13)
[2019-06-18] MEDS: amLODIPine 5 MG TAB PO SCH (09:28)
[2019-06-18] MEDS: VIT-B COMP/VIT-C/FOLIC ACID 1 TAB PO SCH (09:28)
[2019-06-18] MEDS: METOPROLOL 25 MG TAB PO SCH (09:28)
[2019-06-18] MEDS: ASCORBIC ACID 500 MG TAB PO SCH (09:29)
[2019-06-18] MEDS: LISINOPRIL 5 MG TAB PO SCH (09:29)
[2019-06-18] MEDS: INSULIN LANTUS 100 UNITS/ML 10 ML VIAL SUBQ SCH (09:38)
[2019-06-18] MEDS: INSULIN NPH HUM/REG INSULIN HM 100 UNIT/ML 10 ML VIAL SUBQ SCH (09:39)
[2019-06-18] MEDS: PANTOPRAZOLE 40 MG INJ VIAL IVP SCH (09:41)
[2019-06-18] MEDS: methylPREDNISolone SS 40 MG/ML VIAL IVP SCH (09:41)
--- NOTE | 2019-06-18 09:41 | NUR ---
ADMINISTERED ORDERED MEDICATION, PT EDUCATION GIVEN, PT VERBALIZED UNDERSTANDING, PT STABLE, CALL LIGHT WITHIN REACH.
[2019-06-18] MEDS: FUROSEMIDE 20 MG/2 ML VIAL IVP SCH ×2 (09:42→20:58)
[2019-06-18] MEDS: VANCOMYCIN 1,250 MG in NACL 0.9% 250 ML IV SCH (10:31)
--- NOTE | 2019-06-18 10:33 | NUR ---
ADMINISTERED ORDERED MEDICATION, PT EDUCATION GIVEN, PT VERBALIZED UNDERSTANDING, PT IS STABLE WATCHING TV, CALL LIGHT WITHIN REACH
--- NOTE | 2019-06-18 11:14 | NUR ---
PT SITTING ON THE SIDE OF THE BED, PT IS STABLE, RESPIRATIONS ARE EVEN AND UNLABORED, CALL LIGHT WITHIN REACH.
[2019-06-18 12:00] VITALS: BP 156/44
[2019-06-18] MEDS ORDERED: AMOX1TAB8 PO (12:35)
--- NOTE | 2019-06-18 13:23 | NUR ---
ADMINISTERED ORDERED MEDICATION, EDUCATION GIVEN, PT TOLERATED WELL, PT STABLE, RT IN THE ROOM WITH PT, CALL LIGHT WITHIN REACH.
--- NOTE | 2019-06-18 13:24 | NUR ---
TOLERATED INCENTIVE SPIROMETRY THERAPY WELL WITHOUT INCIDENT ENCOURAGED PATIENT WITH ACKNOWLEDGEMENT TO USE INCENTIVE SPIROMETRY EVERY 1-2 HOURS WHILE AWAKE
--- NOTE | 2019-06-18 15:30 | NUR ---
PT RESTING IN BED, PT IS STABLE, NO SIGNS OF DISTRESS NOTED, CALL LIGHT WITHIN REACH.
[2019-06-18 16:00] VITALS: BP 139/50
[2019-06-18] MEDS: HYDROcodone/APAP 5/325 MG 1 TAB TAB PO PRN (17:08)
--- NOTE | 2019-06-18 17:08 | NUR ---
ADMINISTERED NORCO FOR LEFT FOOT PAIN OF 5/10 DESCRIBED STABBING PAIN, EDUCATION GIVEN, PT VERBALIZED UNDERSTANDING, PT IS STABLE, CALL LIGHT WITHIN REACH.
[2019-06-18] MEDS: RIVAROXABAN 15 MG TAB PO SCH (17:09)
[2019-06-18] MEDS: NACL 0.45% 1,000 ML IV SCH (19:00)
--- NOTE | 2019-06-18 19:12 | NUR ---
RECEIVED REPORT FROM AM SHIFT. PATIENT APPEARS TO BE IN NO APPARENT RESPIRATORY DISTRESS AT THIS TIME: RR 16, HR 55, AND SPO2 95% ON ROOM AIR. UPPER LOBES BREATH SOUNDS: CLEAR BILATERALLY. LOWER BASES BREATH SOUNDS: CLEAR BILATERALLY. HHN TX GIVEN ORDERED AND PATIENT TOLERATED WELL WITH NO ADVERSE REACTION. PT WAS INFORMED TO CALL RN OR POLISH COMPOUNDER WHEN EXPERIENCING SOB FOR HHN PRN TX. WILL CONTINUE TO MONITOR PT.
--- NOTE | 2019-06-18 19:15 | NUR ---
GAVE REPORT TO NIGHT NURSE FOR CONTINUITY OF CARE, PT IS STABLE.
--- NOTE | 2019-06-18 19:21 | NUR ---
RECEIVED PATIENT IN STABLE CONDITION FROM AM SHIFT NURSE FOR CONTINUITY OF CARE. RESPIRATIONS EVEN, UNLABORED. RT AT BEDSIDE ADMINISTERING BREATHING TREATMENT. RIGHT IJ PATENT/INTACT. NO C/O PAIN. NO S/SX ACUTE DISTRESS. CALL LIGHT WITHIN REACH. WILL CONTINUE TO MONITOR.
[2019-06-18 20:00] VITALS: BP 149/55
[2019-06-18] MEDS ORDERED: INSULIN NPH HUM/REG INSULIN HM 100 UNIT/ML 10 ML VIAL SUBQ SCH (21:00)
--- NOTE | 2019-06-18 21:15 | NUR ---
PATIENT IS AWAKE AND IN STABLE CONDITION. NO C/O PAIN. NO S/SX ACUTE DISTRESS. CALL LIGHT WITHIN REACH. WILL CONTINUE TO MONITOR.
--- NOTE | 2019-06-18 23:00 | NUR ---
PATIENT IN BED TALKING TO ON CELLPHONE. NO C/O PAIN. NO S/SX ACUTE DISTRESS. CALL LIGHT WITHIN REACH. WILL CONTINUE TO MONITOR.
[2019-06-19] VITALS: BP 146/60
[2019-06-19] MEDS: HYDROcodone/APAP 5/325 MG 1 TAB TAB PO PRN
--- NOTE | 2019-06-19 | NUR ---
PATIENT C/O ACHING LEFT FOOT PAIN 09/04. MEDICATED ORDERED. CALL LIGHT WITHIN REACH. WILL CONTINUE TO MONITOR.
--- NOTE | 2019-06-19 01:00 | NUR ---
REASSESSED PATIENT'S PAIN LEVEL, PATIENT IS ASLEEP. NO S/SX ACUTE DISTRESS. CALL LIGHT WITHIN REACH. WILL CONTINUE TO MONITOR.
--- NOTE | 2019-06-19 03:00 | NUR ---
PATIENT ASLEEP AND IN STABLE CONDITION. NO C/O PAIN. NO S/SX ACUTE DISTRESS. CALL LIGHT WITHIN REACH. WILL CONTINUE TO MONITOR.
[2019-06-19 04:00] VITALS: BP 146/53
[2019-06-19 05:44] LABS: ANION GAP 8.2 (8-16); CARBON DIOXIDE 34.5 mmol/L (21-32); CHLORIDE 107 mmol/L (98-107); CREATININE 1.6 mg/dL (0.6-1.3); GLUCOSE 57 mg/dL (74-106); POTASSIUM 3.7 mmol/L (3.5-5.1); SODIUM SERUM 146 mmol/L (136-145); UREA NITROGEN, BLOOD 39 mg/dL (7-18)
[2019-06-19 05:47] LABS: MAGNESIUM 2.1 mg/dL (1.8-2.4); PHOSPHORUS 4.2 mg/dL (2.5-4.9)
--- NOTE | 2019-06-19 05:57 | NUR ---
MADE ROUNDS. PATIENT AWAKE AND IN STABLE CONDITION. NO C/O PAIN. NO S/SX ACUTE DISTRESS. CALL LIGHT WITHIN REACH. WILL CONTINUE TO MONITOR.
[2019-06-19 06:18] LABS: BASOPHILS % (AUTO) 0.3 % (0.0-2.0); EOSINOPHILS % (AUTO) 0.6 % (0.0-4.0); HEMATOCRIT 36.2 % (36-52); HEMOGLOBIN 11.9 g/dL (12.0-18.0); LYMPHOCYTES # (AUTO) 1.6 K/uL (2.0-11.5); MEAN CORPUSCULAR HEMOGLOBIN 29 pg (27-31); MEAN CORPUSCULAR HGB CONC 33 g/dL (33-37); MEAN CORPUSCULAR VOLUME 86.8 fL (80-94); MONOCYTES # (AUTO) 0.7 K/uL (0.8-1.0); MONOCYTES % (AUTO) 8.1 % (1.7-9.3); NEUTROPHILS # (AUTO) 6.1 K/uL (1.8-7.7); PLATELET COUNT (AUTO) 131 K/uL (140-450); RED BLOOD CELL COUNT(AUTO) 4.17 MIL/uL (4.20-6.10); RED CELL DISTRIBUTION WIDTH 15.7 % (11.6-13.7); WHITE BLOOD COUNT (AUTO) 8.5 K/uL (4.8-10.8)
[2019-06-19] MEDS: BLOOD GLUCOSE MONITORING 1 DEV DEV FS SCH ×2 (06:43→11:30)
[2019-06-19] MEDS: ALBUTEROL SULFATE/IPRATROPIU 3 ML SOL IH SCH ×2 (06:58→13:30)
--- NOTE | 2019-06-19 07:26 | NUR ---
ENDORSED PATIENT IN STABLE CONDITION TO AM SHIFT NURSE FOR CONTINUITY OF CARE.
--- NOTE | 2019-06-19 07:27 | NUR ---
RECEIVED PT FROM RECREATION LEADER RN FOR CONTINUITY OF CARE. PT IS AAOX4, COOPERATIVE AND ABLE TO MAKE NEEDS KNOWN. PT ON RA SATING 94-95%. PT HAS SKIN TEAR ON THE RIGHT UPPER ARM. PT HAS RIGHT IJ 3 LUMEN INFUSING 1/2NS @ 50ML/HR. PT ON CCHO 60GM DIET. DISCUSSED POC WITH PT AND PT VERBALIZED UNDERSTANDING. ALL SAFETY MEASURES IN PLACE. WILL ROUND FREQUENTLY THROUGHOUT THE SHIFT.
[2019-06-19 08:00] VITALS: BP 159/61
--- NOTE | 2019-06-19 08:22 | NUR ---
PT O2 DECREASES TO 87% ON ACTIVITY. WHEN PT SITTING, O2 IS 94% ON RA. O2 NEEDED SO PT DOES NOT GET SOB WHEN AMBULATING AND PERFORMING ADL'S.
--- NOTE | 2019-06-19 08:23 | NUR ---
PT O2 DECREASES TO 87% ON ROOM AIR DURING ACTIVITY. O2 @ 2L PER NC, O2 SAT AT 92%-94%.
[2019-06-19] MEDS: METOPROLOL 25 MG TAB PO SCH (08:51)
[2019-06-19] MEDS: PANTOPRAZOLE 40 MG INJ VIAL IVP SCH (08:54)
[2019-06-19] MEDS: methylPREDNISolone SS 40 MG/ML VIAL IVP SCH (08:54)
[2019-06-19] MEDS: FUROSEMIDE 20 MG/2 ML VIAL IVP SCH (08:54)
[2019-06-19] MEDS: FERROUS SULFATE 300 MG/5 ML UDC PO SCH (08:54)
[2019-06-19] MEDS: VIT-B COMP/VIT-C/FOLIC ACID 1 TAB PO SCH (08:55)
[2019-06-19] MEDS: GABAPENTIN 300 MG CAP PO SCH (08:55)
[2019-06-19] MEDS: TAMSULOSIN 0.4 MG CAP PO SCH (08:55)
[2019-06-19] MEDS: amLODIPine 5 MG TAB PO SCH (08:55)
[2019-06-19] MEDS: ATORVASTATIN 80 MG TAB PO SCH (08:55)
[2019-06-19] MEDS: LACTOBACILLUS RHAMNOSUS GG 1 EACH CAP PO SCH (08:55)
[2019-06-19] MEDS: DOCUSATE 100 MG/10 ML UDC PO SCH (08:55)
[2019-06-19] MEDS: ASCORBIC ACID 500 MG TAB PO SCH (08:56)
--- NOTE | 2019-06-19 09:24 | NUR ---
ADMINISTERED PT MEDS. PT TOLERATED WELL. ALL NEEDS MET. WILL CONTINUE TO ROUND ON PT.
--- NOTE | 2019-06-19 09:48 | NUR ---
O2 SATURATION CHECK ON ROOM AIR WAS 96% NO SIGNS OF DISTRESS OR SOB
[2019-06-19] MEDS: VANCOMYCIN 1,250 MG in NACL 0.9% 250 ML IV SCH (10:14)
--- NOTE | 2019-06-19 10:33 | NUR ---
PT O2 DECREASES TO 87% ON ROOM AIR DURING ACTIVITY. O2 @ 4L PER NC, O2 SAT AT 92%-94%.
--- NOTE | 2019-06-19 11:17 | NUR ---
ENDORSED PT TO PHILLIP FOR CONTINUITY OF CARE. PT IN STABLE CONDITION AT THIS TIME.
--- NOTE | 2019-06-19 11:20 | NUR ---
RECEIVED PT FROM ROL[facility]O. PT AWAITING TO BE DISCHARGED, PENDING ARRANGEMENT OF HOME O2. PT SITTING AT BEDSIDE, NO DISTRESS NOTED, DENIES PAIN. RESPIRATIONS EVEN AND UNLABORED ON ROOM AIR. R IJ IN PLACE TRIPLE LUMEN, PATENT AND ASYMPTOMATIC INFUSING PER ORDER. R UA SKIN TEAR PRESENT, OPEN TO AIR. SAFETY MEASURES IN PLACE, CALL LIGHT WITHIN REACH, WILL CONTINUE TO MONITOR.
[2019-06-19 12:00] VITALS: BP 153/48
[2019-06-19] MEDS: INSULIN LISPRO SLIDING SCALE 100 UNITS/ML VIAL SUBQ PRN (12:41)
--- NOTE | 2019-06-19 13:20 | NUR ---
PT SITTING AT THE BEDSIDE, NO DISTRESS NOTED. DENIES PAIN. WILL CONTINUE TO MONITOR.
--- NOTE | 2019-06-19 16:10 | NUR ---
PT READY TO BE DISCHARGED HOME AT THIS TIME. DISCHARGE, PRESCRIPTION AND FOLLOWUP TEACHING GIVEN TO PT, PT VERBALIZED UNDERSTANDING. DISCHARGE PAPERWORK SIGNED. CENTRAL LINE REMOVED WITH MINIMAL BLOOD LOSS AND LUMEN INTACT. RESPIRATIONS EVEN AND UNLABORED ON ROOM AIR. PT SENT HOME WITH OXYGEN. R UA SKIN TEAR PRESENT, PHOTOGRAPH NOT TAKEN, OPEN TO AIR, PRESENT ON ADMISSION. FLU AND PNA VACCINES UP TO DATE, NOT GIVEN. BELONGINGS VERIFIED AND RETURNED TO PT. PT ESCORTED OFF THE UNIT BY ROLANDO AND LEFT HOME IN PRIVATE VEHICLE.
== END 2019-06-19 16:15 | disposition home or self-care (01) | DRG 208 ==
LOC: MED 20:54 → MIC 23:13 → MTU 06-16 21:40
PROVIDERS: ADMIT General Practice; ATTEND General Practice
PROC: 5A1945Z Respiratory Ventilation, 24-96 Consecutive Hours (ICD-10-PCS; principal; 2019-06-13)
PROC: 0BH17EZ Insertion of Endotracheal Airway into Trachea, Via Natural or Artificial Opening (ICD-10-PCS; 2019-06-13)
PROC: 02HV33Z Insertion of Infusion Device into Superior Vena Cava, Percutaneous Approach (ICD-10-PCS; 2019-06-14)
PROC: B548ZZA Ultrasonography of Superior Vena Cava, Guidance (ICD-10-PCS; 2019-06-14)
DX: J69.0 Pneumonitis due to inhalation of food and vomit (principal); I21.A1 Myocardial infarction type 2; I50.43 Acute on chronic combined systolic (congestive) and diastolic (congestive) heart failure; N17.0 Acute kidney failure with tubular necrosis; J96.01 Acute respiratory failure with hypoxia; J44.1 Chronic obstructive pulmonary disease with (acute) exacerbation; I48.20 Chronic atrial fibrillation, unspecified; E87.0 Hyperosmolality and hypernatremia; I11.0 Hypertensive heart disease with heart failure; E87.6 Hypokalemia; D64.9 Anemia, unspecified; E11.65 Type 2 diabetes mellitus with hyperglycemia; D69.6 Thrombocytopenia, unspecified; N40.0 Benign prostatic hyperplasia without lower urinary tract symptoms; E11.40 Type 2 diabetes mellitus with diabetic neuropathy, unspecified; K21.9 Gastro-esophageal reflux disease without esophagitis; M10.9 Gout, unspecified; E11.51 Type 2 diabetes mellitus with diabetic peripheral angiopathy without gangrene; E66.9 Obesity, unspecified; Z79.01 Long term (current) use of anticoagulants; Z87.891 Personal history of nicotine dependence; Z95.1 Presence of aortocoronary bypass graft; Z68.32 Body mass index [BMI] 32.0-32.9, adult
CPT/HCPCS: 31500; 36415; 36600; 51702; 70450; 71045; 74018; 80048; 80053; 80202; 81003; 82150; 82607; 82728; 82746; 82803; 82948; 83036; 83540; 83605; 83690; 83735; 83880; 84100; 84439; 84443; 84484; 85025; 85045; 85610; 85730; 87040; 87070; 87081; 87086; 87205; 87804; 93005; 93925; 93970; 94002; 94003; 94640; 96361; 96374; 97110; 97116; 97161-GP; 97530; 99291; C9113; J0330; J1642; J1815; J1940; J1956; J2060; J2250; J2405; J2543; J2704; J2920; J2930; J3010; J3370; J3490; J7030; J7060; J7613; Q0092